=== PATIENT | female | born 1970 | race Two or more races ===

== ENCOUNTER → 2020-11-02 11:14 | Outpatient (BNVA) | payer MEDICAID, SELFPAY | PROVIDERS: PCP Hospitalist; Visit Provider Physician Assistant Medical | DX: M65.849 Other synovitis and tenosynovitis, unspecified hand (principal) | CPT/HCPCS: 73130; 99203 ==

== ENCOUNTER 2020-11-24 11:30 | Outpatient (RCR) | payer OTHER, SELFPAY ==
--- NOTE | 2021-01-09 11:50 | MHC.OT.DC ---
[address] [phone] F: [phone] Occupational Therapy Discharge Note Provider: PHILLY FAITH PA-C Diagnosis: B/L THUMB TENDINITIS/TENOSYNOVITIS Date of Surgery: Date of Evaluation: 11/06/20 Date of Discharge: Treatments to Date: 5 Cancellations to Date: 0 No Shows to Date: 0 Discharge Status: Discharge Summary: Still w/ high pain and significantly limited use of hands. Pt has not rescheduled. Electronically Signed By: Amber Lantigua OTR/L Reviewed/agree with student documentation: N/A Therapist: Please Sign and return to therapist, thank you for your referral.
== END 2020-12-21 15:39 | disposition other institution (70) ==
LOC: HO.OT 11:30
PROVIDERS: PCP Hospitalist; Visit Provider Physician Assistant Medical
DX: M77.8 Other enthesopathies, not elsewhere classified (principal); M65.9 Synovitis and tenosynovitis, unspecified
CPT/HCPCS: 29130; 97014; 97033; 97035; 97110; 97140; 97165; 97530; 97760

== ENCOUNTER → 2020-12-12 08:26 | Outpatient (BNVA) | payer OTHER, SELFPAY | PROVIDERS: PCP Nurse Practitioner Family; Visit Provider Orthopaedic Surgery | DX: M65.311 Trigger thumb, right thumb (principal); M65.312 Trigger thumb, left thumb | CPT/HCPCS: 20550; 99202; J1100 ==

== ENCOUNTER → 2021-05-23 12:48 | Outpatient (BNVA) | payer OTHER, SELFPAY | PROVIDERS: PCP Internal Medicine; Visit Provider Orthopaedic Surgery | DX: M65.312 Trigger thumb, left thumb (principal); M65.311 Trigger thumb, right thumb | CPT/HCPCS: 99212 ==

== ENCOUNTER 2021-06-12 11:21 | Day surgery (SDC) | payer OTHER, SELFPAY ==
[2021-06-12 12:11] VITALS: BP 139/91; PULSE 72; RESP 16; TEMP 36.5; O2SAT 96; BMI 27.3
--- NOTE | 2021-06-12 12:31 | MHC.SHP ---
Pre-Procedural Eval Section A Date of Service: 06/12/21 The patient is an INPATIENT: No Changes since office visit: No Cold of Flu in the past 2 weeks, No New Medical Problems, No Changes in Medication and No Patient answered all questions The History & Physical has been completed within 30 days and I have reviewed it.: Yes Section B Chief Complaint: trigger thumb Allergies: Allergies Allergy/AdvReac Type Severity Reaction Status Date / Time aspirin [ASPIRIN] Allergy Severe STOMACH Verified 06/12/21 12:10 UPSET codeine [CODEINE] Allergy Intermediate STOMACH Verified 06/12/21 12:10 UPSET Plan I have reviewed the history and physical and performed a pertinent physical examination on my patient. No changes have occurred unless specified.
--- NOTE | 2021-06-12 12:31 | W.PM.OPN ---
Operative Note Operative Note Date of Service: 06/12/21 Narrative: Operative Note Preop diagnosis: 1. Right thumb Trigger finger Postop diagnosis: 1. Right thumb Trigger finger Procedure: 1. Right thumb A1 itzel release Surgeon: Lorraine Belcher MD Anesthesia: local block using 1% lidocaine with epinephrine Findings: Significant hour glass deformity of the EPL tendon beneath the A1 itzel. No locking or catching after A1 itzel release EBL: Less than 5 mL Tourniquet time: None Specimens: None Complications: None Disposition: Brought to recovery room in stable condition Plan: Follow-up for 7-10 days for wound check and suture removal Indications: The patient is 51 years old, with a right trigger thumb that has been unresponsive to nonoperative management. The risks and benefits of operative treatment including but not limited to risk of damage to blood vessels, nerves, tendons, infection, persistent pain, persistent symptoms, recurrence or possible need for additional surgery were discussed with the patient and the patient wishes to proceed with surgery. Procedure: Once consent was obtained a local block was performed in the preop area using a combination of 1% lidocaine with epinephrine. The patient was then brought back to the operating suite and placed on the operative table in supine position. A tourniquet was applied to the proximal aspect of the right upper extremity and the limb was prepped and draped in a standard surgical fashion. Once assured that we had a good block, a 1.5 cm oblique incision was made centered over the A1 itzel of the right thumb . The incision was made through the skin to the subcutaneous tissues using a #15 blade. Careful dissection was made down to the level of the A1 itzel using tenotomy scissors, with care being taken to protect the nearby neurovascular structures. A longitudinal incision was made in the A1 itzel 1st using a #15 blade, then using tenotomy scissors under direct visualization. The A1 itzel was noted to be thickened. Following our A1 itzel release, we no longer saw any locking or catching of the digit with flexion and extension. Once satisfied with our A1 itzel release the wound was copiously irrigated with normal saline and hemostasis was obtained with a brief period of local pressure. The skin edges were reapproximated with some 5.0 nylon suture material and a sterile dressing was applied. The patient appears to have tolerated the procedure well and with no complications. All digits were well vascularized at the conclusion of the case.
[2021-06-12 13:12] VITALS: BP 166/87; PULSE 70; RESP 18; TEMP 36.8; O2SAT 96
[2021-06-12 13:27] VITALS: BP 156/88; PULSE 68; RESP 18; O2SAT 96
== END 2021-06-12 13:40 | disposition home or self-care (01) ==
PROVIDERS: Visit Provider Orthopaedic Surgery
PROC: (CPT 26055; principal; 2021-06-12 13:10)
DX: M65.311 Trigger thumb, right thumb (principal); I10 Essential (primary) hypertension; Z79.899 Other long term (current) drug therapy; Z88.8 Allergy status to other drugs, medicaments and biological substances
CPT/HCPCS: 26055

== ENCOUNTER → 2021-06-25 15:40 | Outpatient (BNVA) | payer OTHER, SELFPAY | PROVIDERS: Visit Provider Orthopaedic Surgery | DX: Z01.818 Encounter for other preprocedural examination (principal); M65.312 Trigger thumb, left thumb | CPT/HCPCS: 99212 ==

== ENCOUNTER 2021-07-26 10:29 | Day surgery (SDC) | payer OTHER, SELFPAY ==
[2021-07-26 11:39] VITALS: BP 132/91; PULSE 85; RESP 16; TEMP 36.7; O2SAT 97; BMI 26.5
[2021-07-26 15:03] VITALS: BP 149/95; PULSE 75; RESP 16; TEMP 36.1; O2SAT 100
--- NOTE | 2021-07-26 15:14 | MHC.SHP ---
Pre-Procedural Eval Section A Date of Service: 07/26/21 The patient is an INPATIENT: No Changes since office visit: No Cold of Flu in the past 2 weeks, No New Medical Problems, No Changes in Medication and No Patient answered all questions The History & Physical has been completed within 30 days and I have reviewed it.: Yes Section B Chief Complaint: left trigger thumb Allergies: Allergies Allergy/AdvReac Type Severity Reaction Status Date / Time aspirin [ASPIRIN] Allergy Severe STOMACH Verified 07/26/21 11:38 UPSET codeine [CODEINE] Allergy Intermediate STOMACH Verified 07/26/21 11:38 UPSET Plan I have reviewed the history and physical and performed a pertinent physical examination on my patient. No changes have occurred unless specified.
--- NOTE | 2021-07-26 15:14 | W.PM.OPN ---
Operative Note Operative Note Date of Service: 07/26/21 Narrative: Operative Note Preop diagnosis: 1. Left thumb Trigger finger Postop diagnosis: 1. Left thumb Trigger finger Procedure: 1. Left thumb A1 itzel release Surgeon: Lorraine Belcher MD Anesthesia: local block using 1% lidocaine with epinephrine Findings: Intra tendinous ganglion appreciated within the FPL tendon just proximal to where the tendon was locked beneath the A1 itzel. After punctured with a 15. Blade longitudinally it drained clear viscous fluid consistent with a ganglion. Significant hourglass deformity in the FPL tendon just distal to the intratendinous ganglion. No locking or catching after A1 itzel release EBL: Less than 5 mL Tourniquet time: None Specimens: None Complications: None Disposition: Brought to recovery room in stable condition Plan: Follow-up for 7-10 days for wound check and suture removal Indications: The patient is 51 years old, with a left thumb trigger finger that has been unresponsive to nonoperative management. The risks and benefits of operative treatment including but not limited to risk of damage to blood vessels, nerves, tendons, infection, persistent pain, persistent symptoms, recurrence or possible need for additional surgery were discussed with the patient and the patient wishes to proceed with surgery. Procedure: Once consent was obtained a local block was performed in the preop area using a combination of 1% lidocaine with epinephrine. The patient was then brought back to the operating suite and placed on the operative table in supine position. A tourniquet was applied to the proximal aspect of the left upper extremity and the limb was prepped and draped in a standard surgical fashion. Once assured that we had a good block, a 1.5 cm oblique incision was made centered over the A1 itzel of the left thumb . The incision was made through the skin to the subcutaneous tissues using a #15 blade. Careful dissection was made down to the level of the A1 itzel using tenotomy scissors, with care being taken to protect the nearby neurovascular structures. A longitudinal incision was made in the A1 itzel 1st using a #15 blade, then using tenotomy scissors under direct visualization. The A1 itzel was noted to be thickened. There was a significant hourglass deformity beneath where the A1 itzel had been. Proximal to where the tendon had been locked beneath the A1 itzel the FPL tendon was noted to be enlarged and there was evidence of an approximately 4 mm diameter ganglion within the tendon. I made a small longitudinal incision in this part of the tendon and it drained clear viscous fluid consistent with a ganglion. Following our A1 itzel release, we no longer saw any locking or catching of the digit with flexion and extension. Once satisfied with our A1 itzel release the wound was copiously irrigated with normal saline and hemostasis was obtained with a brief period of local pressure. The skin edges were reapproximated with some 5.0 nylon suture material and a sterile dressing was applied. The patient appears to have tolerated the procedure well and with no complications. All digits were well vascularized at the conclusion of the case.
== END 2021-07-26 15:14 | disposition home or self-care (01) ==
PROVIDERS: Visit Provider Orthopaedic Surgery
PROC: (CPT 26055; principal; 2021-07-26 12:50)
DX: M65.312 Trigger thumb, left thumb (principal); I10 Essential (primary) hypertension; Z88.8 Allergy status to other drugs, medicaments and biological substances; Z79.899 Other long term (current) drug therapy; Z87.891 Personal history of nicotine dependence
CPT/HCPCS: 26055

== ENCOUNTER → 2021-08-07 12:19 | Outpatient (BNVA) | payer OTHER, SELFPAY | PROVIDERS: Visit Provider Orthopaedic Surgery | DX: M65.312 Trigger thumb, left thumb (principal); M25.649 Stiffness of unspecified hand, not elsewhere classified | CPT/HCPCS: 99212 ==

== ENCOUNTER 2021-10-16 08:01 | Outpatient (REF) | payer OTHER, SELFPAY ==
[2021-10-16 08:32] LABS: Binax Internal Control QC Valid; Binax Now Covid-19 Ag Negative (Negative)
== END 2021-10-16 08:02 | disposition home or self-care (01) ==
LOC: HO.LAB 08:01
PROVIDERS: Visit Provider Internal Medicine
DX: Z20.822 Contact with and (suspected) exposure to COVID-19 (principal)
CPT/HCPCS: C9803

== ENCOUNTER 2021-10-16 08:33 | Outpatient (REF) | payer OTHER, SELFPAY ==
[2021-10-16 08:45] LABS: MANUAL DIFF FLAG NO
[2021-10-16 09:03] LABS: Basophils Absolute Auto 0.1 X10*3/uL (0.0-0.2); Basophils Percent Auto 0.7 % (0-2); Eosinophils Absolute Auto 0.8 X10*3/uL (0.0-0.4); Eosinophils Percent Auto 8.7 % (0-4); Hematocrit 40.1 % (37.0-47.0); Hemoglobin 12.9 g/dl (12.0-16.0); Imm Gran Abs Auto 0.05 X10*3/uL (0.00-0.03); Imm Gran Pct Auto 0.5 % (0.0-0.4); Immature Retic Fraction 14.8 % (3.0-15.9); Lymphocytes Absolute Auto 3.8 X10*3/uL (1.2-4.9); Mean Corpuscular HGB Conc 32.2 g/dl (31.0-35.0); Mean Corpuscular Hemoglobin 28.4 pg (27.0-33.0); Mean Corpuscular Volume 88.3 fL (80.0-98.0); Monocytes Absolute Auto 0.5 X10*3/uL (0.1-1.2); Monocytes Percent Auto 5.5 % (2-11); Neutrophils Absolute Auto 4.3 x10*3/uL (2.0-8.3); Neutrophils Percent Auto 44.6 % (45-73); Platelet Count 250 X10*3/uL (160-400); Red Blood Count 4.54 X10*6/uL (4.20-5.50); Red Cell Distribution Width 14.4 % (11.0-16.0); Retic HGB Equivalent 30.5 pg (30.0-35.0); Reticulocyte Percent 1.6 % (0.5-1.8); Reticulocytes Absolute 0.072 X10*6/uL (0.026-0.095); White Blood Count 9.6 X10*3/uL (4.8-10.8)
[2021-10-16 09:29] LABS: Alanine Aminotransferase 12 U/L (0-31); Albumin Level 4.1 g/dL (3.5-5.0); Alkaline Phosphatase 103 U/L (39-117); Anion Gap 11 (12-20); Aspartate Amino Transferase 14 U/L (5-31); Bilirubin Total 0.4 mg/dL (0.0-1.0); Blood Urea Nitrogen 9 mg/dL (9-16); Calcium 9.6 mg/dL (8.4-10.2); Carbon Dioxide 25 mmol/L (22-29); Chloride 108 mmol/L (96-108); Cholesterol 185 mg/dL; Estimated Glomerular Filt Rate > 60; Glucose Random 115 mg/dL (60-115); HDL Cholesterol 53 mg/dL; Iron 47 mcg/dL (30-160); LDL Cholesterol Calculated 112 mg/dl; Percent Iron Saturation 13 % (15-50); Potassium 4.4 mmol/L (3.3-5.1); Sodium 140 mmol/L (135-145); Total Iron Binding Capacity 366 mcg/dL (228-428); Total Protein 7.6 g/dL (6.5-8.0); Triglycerides 102 mg/dL; Unsaturated Iron Binding 319 ug/dL
[2021-10-16 09:54] LABS: Ferritin 77 ng/mL (10-250); Free T4 (Free Thyroxine) 0.98 ng/dL (0.71-1.85); Vitamin D 25-OH Total 17.2 ng/mL (>30)
[2021-10-16 10:02] LABS: Folate 14.7 ng/mL (> or = 4.0); Vitamin B12 623 pg/mL (200-900)
[2021-10-16 10:48] LABS: Appearance Urine CLEAR; Color Urine YELLOW; Glucose Urine UA NEG (NEG); Leukocyte Esterase Urine NEG (NEG); Nitrite Urine NEG (NEG); PH 5.5 (5.0-8.0); Urine Blood TRACE (NEG); Urine Ketones NEG (NEG); Urine Protein NEG (NEG-TRACE)
[2021-10-16 11:04] LABS: Bacteria Urine TRACE /LPF; Mucus Urine 1+ /LPF; RBC Urine 0-2 /HPF (0); Squamous Epithelial Cell Urine 1+ /LPF; WBC Urine 0 /HPF (0-4)
== END 2021-10-16 08:34 | disposition home or self-care (01) ==
LOC: HO.LAB 08:33
PROVIDERS: PCP Internal Medicine; Visit Provider Internal Medicine
DX: R79.89 Other specified abnormal findings of blood chemistry (principal); E78.00 Pure hypercholesterolemia, unspecified
CPT/HCPCS: 36415; 80053; 80061; 81001; 82306; 82607; 82728; 82746; 83540; 84439; 84443; 85025; 85045

== ENCOUNTER 2021-11-08 09:31 | Outpatient (REF) | payer OTHER, SELFPAY ==
--- NOTE | ~2021-11-08 | MM_ITS ---
EXAMINATION: MM SCREENING DIGITAL BREAST TOMOSYNTHESIS, BILATERAL CLINICAL INFORMATION: Screening. Asymptomatic. The lifetime risk of breast cancer based on the Tyrer-Cuzick Model is 7.6%. COMPARISON: Mammography: August 24, 2014 and August 09, 2014 TECHNIQUE: Digital breast tomosynthesis is performed in both the craniocaudal and mediolateral oblique views along with computer-aided detection (CAD). Synthesized 2D images are generated from the tomosynthesis. FINDINGS: There are scattered areas of fibroglandular density (ACR BI-RADS breast composition Category b). There are no significant masses, abnormal calcifications, or other abnormalities. MM/MM tomosynthesis screening BI IMPRESSION: There are no significant changes from prior study. ASSESSMENT: BI-RADS 1: Negative RECOMMENDATION: Routine annual mammography screening. This patient's information was entered into a reminder system with a target due date for their next mammogram.
== END 2021-11-08 09:32 | disposition home or self-care (01) ==
LOC: HO.MAMMO 09:31
PROVIDERS: Visit Provider Student in an Organized Health Care Education/Training Program
DX: Z12.31 Encounter for screening mammogram for malignant neoplasm of breast (principal)
CPT/HCPCS: 77063; 77067

== ENCOUNTER 2021-11-13 09:40 | Outpatient (REF) | payer OTHER, SELFPAY ==
--- NOTE | 2021-11-13 17:36 | PFT_ITS ---
Forced vital capacity 83%. FEV1 74%. FEV1/FVC ratio is 72, DFF71-78 51% and MVV 64%. Post-bronchodilator therapy, there is a small, but significant improvement in LPC65-68, and FEF maximum L/sec. Total lung capacity 91% and residual volume 106%. Diffusion capacity 76%. CONCLUSION: Mild degree of obstructive airway disorder involving small airways. This is improved with bronchodilator therapy and indicates that the patient may have a mild degree of bronchial asthma. Clinical correlation is recommended. MD SAIDA English/MODL / [id number]
== END 2021-11-13 09:41 | disposition home or self-care (01) ==
LOC: HO.RESP 09:40
PROVIDERS: PCP Internal Medicine; Visit Provider Internal Medicine
DX: J44.9 Chronic obstructive pulmonary disease, unspecified (principal)
CPT/HCPCS: 94060; 94727; 94729

== ENCOUNTER 2021-12-20 09:21 | Outpatient (REF) | payer OTHER, SELFPAY ==
[2021-12-21 01:37] LABS: CT PCR NOT DETECTED (Not Detect.); NG PCR NOT DETECTED (Not Detect.)
[2021-12-21 09:01] LABS: BV Int Neg Control Negative (Negative); BV Int Pos Control Positive (Positive)
[2021-12-22 17:17] LABS: HPV mRNA E6/E7 rflx Not Detected (Not Detected)
== END 2021-12-20 09:22 | disposition home or self-care (01) ==
LOC: HO.LAB 09:21
PROVIDERS: PCP Internal Medicine; Visit Provider Advanced Practice Midwife
DX: Z01.411 Encounter for gynecological examination (general) (routine) with abnormal findings (principal); Z11.51 Encounter for screening for human papillomavirus (HPV); Z20.2 Contact with and (suspected) exposure to infections with a predominantly sexual mode of transmission; N95.1 Menopausal and female climacteric states; Z87.42 Personal history of other diseases of the female genital tract; Z98.890 Other specified postprocedural states; Z90.710 Acquired absence of both cervix and uterus
CPT/HCPCS: 87480; 87491; 87510; 87591; 87624; 87660; 88142

== ENCOUNTER 2021-12-21 09:21 | Outpatient (REF) | payer OTHER, SELFPAY ==
[2021-12-23 02:47] LABS: Follicle Stimulating Hormone 43.9 mIU/mL
== END 2021-12-21 09:22 | disposition home or self-care (01) ==
LOC: HO.LAB 09:21
PROVIDERS: PCP Internal Medicine; Visit Provider Advanced Practice Midwife
DX: Z01.419 Encounter for gynecological examination (general) (routine) without abnormal findings (principal)
CPT/HCPCS: 36415; 83001

== ENCOUNTER → 2022-01-07 12:58 | Outpatient (BNVA) | payer OTHER, SELFPAY | PROVIDERS: PCP Internal Medicine; Referring Provider Internal Medicine; Visit Provider Nurse Practitioner Family | DX: K59.04 Chronic idiopathic constipation (principal); K21.9 Gastro-esophageal reflux disease without esophagitis | CPT/HCPCS: 99202 ==

== ENCOUNTER 2022-04-16 09:08 | Day surgery (SDC) | payer OTHER, SELFPAY ==
[2022-04-10 12:01] VITALS: BMI 29.0
--- NOTE | 2022-04-15 09:45 | HO.ANESPROP2 ---
Documented by User: Dayaan Grace NP 04/15/22 09:46 HPI - Anesthesia Eval Consult details Narrative: 52yo F for Upper Endoscopy and Colonoscopy PMFSH Active Problems Active Problems: All Active Problems (Updated 01/09/22 @ 15:56 by Sahara Pickett CNM) Cervical cancer screening (Acute) Vaginal atrophy (Acute) Vitamin D deficiency (Acute) Acquired deformity of abdominal wall (Acute) Impaired glucose tolerance (Acute) Annual physical exam (Acute) Rhinitis (Acute) Perimenopause (Acute) Hx of ovarian cyst (Acute) H/O abdominoplasty (Acute) Asthma (Acute) Constipation (Acute) Colon cancer screening (Acute) Overweight (BMI 25.0-29.9) (Acute) Past Medical History Medical History Abnormal TSH Asthma Asthma exacerbation Breast cancer screening by mammogram Bronchitis Carpal tunnel syndrome on both sides Cervical cancer screening Hypertension Repetitive use syndrome Stiffness of finger joint Trigger finger of left thumb Trigger finger of right thumb Well woman exam with routine gynecological exam Family History Family History Brother Colon cancer Maternal Uncle Substance abuse Surgical History Surgical History H/O abdominoplasty H/O vaginal hysterectomy History of carpal tunnel release Hx of cholecystectomy Hx of colonoscopy Hx of exploratory laparotomy S/P tonsillectomy S/P trigger finger release Social History Social History Housing: Apartment Alcohol intake: current Alcohol intake frequency: does not drink Patient Tobacco Use Status: Former Tobacco user Quit Date: 29 yrs ago Tobacco use type: Cigarette Years Smoked: stopped 1991 e-Cigarette/Vaping Use: Never Used Second Hand Smoke Exposure: No Use of substances other than those prescribed or required for medical reasons: No Are you DNR?: No Advance Directives: No Advance Directives Information Provided: Yes Recently lost weight without trying: No Nutrition Risks: No Nutritional Risk Patient : No service: No Current occupational status: employed and unemployed Current occupation: right handed Current occupational exposures/hazards: No Cognitive needs: No Hearing needs: No Vision needs: No Meds Allergies Allergy/AdvReac Type Severity Reaction Status Date / Time aspirin [ASPIRIN] Allergy Severe STOMACH Verified 01/07/22 13:01 UPSET codeine [CODEINE] Allergy Intermediate STOMACH Verified 01/07/22 13:01 UPSET Exam Exam Date and Time: April 15, 2022 0945 Height,Weight and Vital Signs: Height 5 ft 3 in Weight 74.389 kg Pertinent Lab Results Pertinent Lab Results: Laboratory Tests 10/16/21 10/16/21 08:44 08:44 WBC 9.6 Hgb 12.9 Hct 40.1 Plt Count 250 Sodium 140 Potassium 4.4 Chloride 108 Carbon Dioxide 25 BUN 9 Creatinine 0.75 Assessment and Plan Assessment Anesthesia Assessment: Chart Reviewed Documented by User: Placido Smith MD 04/16/22 11:50 PMFSH Past Medical History Medical History Abnormal TSH Asthma Asthma exacerbation Breast cancer screening by mammogram Bronchitis Carpal tunnel syndrome on both sides Cervical cancer screening Hypertension Repetitive use syndrome Stiffness of finger joint Trigger finger of left thumb Trigger finger of right thumb Well woman exam with routine gynecological exam Patient : No Family History Family History Brother Colon cancer Maternal Uncle Substance abuse Family history of problems with anesthesia: No Surgical History Surgical History H/O abdominoplasty H/O vaginal hysterectomy History of carpal tunnel release Hx of cholecystectomy Hx of colonoscopy Hx of exploratory laparotomy S/P tonsillectomy S/P trigger finger release History of Problems with Anesthesia: No Social History Social History Housing: Apartment Alcohol intake: current Alcohol intake frequency: does not drink Patient Tobacco Use Status: Former Tobacco user Quit Date: 29 yrs ago Tobacco use type: Cigarette Years Smoked: stopped 1991 e-Cigarette/Vaping Use: Never Used Second Hand Smoke Exposure: No Use of substances other than those prescribed or required for medical reasons: No Are you DNR?: No Advance Directives: No Advance Directives Information Provided: Yes Recently lost weight without trying: No Nutrition Risks: No Nutritional Risk Patient : No service: No Current occupational status: employed and unemployed Current occupation: right handed Current occupational exposures/hazards: No Cognitive needs: No Hearing needs: No Vision needs: No Meds Allergies Allergy/AdvReac Type Severity Reaction Status Date / Time aspirin [ASPIRIN] Allergy Severe STOMACH Verified 01/07/22 13:01 UPSET codeine [CODEINE] Allergy Intermediate STOMACH Verified 01/07/22 13:01 UPSET Exam Airway Mallampati Class: III TM Dist: >3cm Neck ROM: Full Loose/Missing/Broken Teeth: No Heart: rrr Lungs: clear Assessment and Plan Final Anesthetic Review Family History of Problems with Anesthesia: No History of Problems with Anesthesia: No NPO: No ASA Class: II Final Preanesthetic Review: No Changes in Pt Med Stat, Meds/Allgs Chart Reviewed, Consent Obtained/Reviewed and Anes Risks/Benef Reviewed Patient Risk: Intermediate Procedure Risk: Low Anesthetic Plan Anesthetic Plan: MAC: Disposition: Standard PACU
[2022-04-16 09:12] VITALS: BP 169/73; PULSE 72; RESP 18; TEMP 36.6; O2SAT 97
[2022-04-16] MEDS: Lactated Ringers 1,000 ML 100 ML IVCONT (09:30)
[2022-04-16] MEDS: Albuterol Sulfate (0.083%) 2.5 MG/3 ML VIAL.NEB INHALE (09:36)
[2022-04-16 09:38] VITALS: PULSE 76; RESP 18; O2SAT 95
--- NOTE | 2022-04-16 10:42 | P.HPSUR_ITS ---
Pre-Procedural Eval Section A Date of Service: 04/16/22 Section B Chief Complaint: reflux disease,screening Details of Present Illness: brother with IBD Relevant Family History (Specify if Yes): Yes Relevant Social History: None Present Medications: see Short Stay Collaborative assessment Medical History: Significant History (Abnormal TSH Asthma Asthma exacerbation Breast cancer screening by mammogram Bronchitis Carpal tunnel syndrome on both sides Cervical cancer screening Hypertension Repetitive use syndrome Stiffness of finger joint Trigger finger of left thumb Trigger finger of right thumb Well woman exam with routin) History of Previous Operations: Relevant previous surgery/procedure and date(s) (H/O abdominoplasty H/O vaginal hysterectomy History of carpal tunnel release Hx of cholecystectomy Hx of colonoscopy Hx of exploratory laparotomy S/P tonsillectomy S/P trigger finger release) Allergies: Allergies Allergy/AdvReac Type Severity Reaction Status Date / Time aspirin [ASPIRIN] Allergy Severe STOMACH Verified 01/07/22 13:01 UPSET codeine [CODEINE] Allergy Intermediate STOMACH Verified 01/07/22 13:01 UPSET Review of Systems Sugical H&P ROS: Negative: Constitution, Cardiovascular, Respiratory, Neuro logical, Psychiatric, Hem-Onc, Allergic/Immunologic, Gastrointestinal, Genitourinary, Musculoskeletal, Integumentary, Endocrine and Eyes/Ears/Nose/Throat Exam Surgical H&P Exam: Normal: HEENT, Normal: Heart, Normal: Lungs, Normal: Extremities, Normal: Abdomen, Normal: Skin and Normal: Neurological Plan Diagnosis/Plan: Unchanged I have reviewed the history and physical and performed a pertinent physical examination on my patient. No changes have occurred unless specified.
--- NOTE | 2022-04-16 11:35 | P.OP_ITS ---
Operative Note Operative Note Date of Service: 04/16/22 Narrative: Operative Information Procedure Description: EGD, Colonoscopy Indication: GERD, Colon screening Anesthesia: MAC FLEXIBLE TRANSORAL UPPER GASTROINTESTINAL ENDOSCOPY AND COLONOSCOPY PROCEDURE NOTE UPPER ENDOSCOPY Consent: Indications for the procedure and potential complications of bleeding, perforation, reaction to medications and missed diagnosis were discussed with the patient and informed consent was obtained. Instrument: Olympus GIF H 190 J mid size upper endoscope Monitoring: Vital signs and clinical assessment, continuous EKG monitoring, Pulse oximetry, Carbon Dioxide monitoring and blood pressure monitoring were done throughout the procedure. Procedure: The patient was placed in the left lateral decubitis position and pre-procedure medications were administered and a bite block was placed. The endoscope was inserted into the mouth and advanced under direct vision to the third part of duodenum. A careful inspection was made as the upper endoscope was withdrawn including a retroflexed examination of the proximal stomach; Findings and interventions are described below. Findings: Larynx:normal Esophagus: GE junction at 35 cm, diaphragm hiatus at 35 cm, bogginess, with edema and erythema and linear erosions consistent with erosive esophagitis at the GEJ, bx taken Stomach: Patchy erythema with scarring. Biopsies were obtained to r/o h pylori. Grade 2 flap valve on retroflexed examination of the cardia. Duodenum: Normal bulb and descending duodenum, Intervention: Biopsies as noted above COLONOSCOPY Instrument: Olympus variable stiffness pediatric scope 190L Colonoscopy Monitoring: Vital signs and clinical assessment, continuous EKG monitoring, Pulse oximetry, Carbon Dioxide monitoring and blood pressure monitoring were done throughout the procedure. Colon withdrawal time was 10 minutes. Procedure: The patient was placed in the left lateral decubitis position and pre-procedure medications were administered. After a digital rectal examination of the ano-rectum, the video colonoscope was inserted into the rectum and advanced through the colon to the cecum/TI. The colonoscope was slowly withdrawn in a retrograde panoramic fashion and the colon mucosa was carefully examined including a retroflexed view of the rectum. Findings and interventions are described below. Procedure Difficulty:easy Findings: Terminal Ileum-normal Cecum:normal Ascending Colon: normal Transverse Colon -normal Descending Colon: x 2 sessile polyps 5-6 mm removed with cold forceps, mild diverticulosis Sigmoid Colon: moderate diverticulosis with small tics Rectum: Retroflexion with small to medium sized internal hemorrhoids, grade I Anorectum - normal Colon preparation: [place] Bowel Preparation Scale Right colon; 2 Transverse colon: 2 Left colon; 2 (0 = Unprepared colon segment with mucosa not seen due to solid stool that cannot be cleared. 1 = Portion of mucosa of the colon segment seen, but other areas of the colon segment not well seen due to staining, residual stool and/or opaque liquid. 2 = Minor amount of residual staining, small fragments of stool and/or opaque liquid, but mucosa of colon segment seen well. 3 = Entire mucosa of colon segment seen well with no residual staining, small fragments of stool or opaque liquid) Impression and Post Procedure Diagnosis: Endoscopy Findings: esophagitis gastritis Colonoscopy Findings: polyps internal hemorrhoids diverticular disease Plan: Await Pathology results Repeat Colonoscopy in 5 years if adenomatous polyps, 10 yrs if hyperplastic or earlier if clinically indicated High fiber diet leaflet avoid straining at stool, epsom salts and sitz bath, anusol supps or cream If H pylori pos then treat, may also benefit from PPI but will wait for bx first, if bx neg for h pylori then would do breath test. Above findings were reviewed with the patient and relevant handouts were provided if indicated.
[2022-04-16 12:44] VITALS: BP 117/71; PULSE 92; RESP 16; TEMP 36.4; O2SAT 95
[2022-04-16 12:59] VITALS: BP 142/88; PULSE 70; RESP 16; TEMP 36.4; O2SAT 98
[2022-04-16] MEDS: Acetaminophen 325 MG TABLET 975 MG PO (13:00)
== END 2022-04-16 13:27 | disposition home or self-care (01) ==
PROVIDERS: Visit Provider Internal Medicine Gastroenterology
PROC: (CPT 45380; principal; 2022-04-16 10:30)
DX: Z12.11 Encounter for screening for malignant neoplasm of colon (principal); K63.5 Polyp of colon; K57.30 Diverticulosis of large intestine without perforation or abscess without bleeding; K64.0 First degree hemorrhoids; K59.04 Chronic idiopathic constipation; K21.00 Gastro-esophageal reflux disease with esophagitis, without bleeding; K29.50 Unspecified chronic gastritis without bleeding; K64.8 Other hemorrhoids; K44.9 Diaphragmatic hernia without obstruction or gangrene; I10 Essential (primary) hypertension; J45.909 Unspecified asthma, uncomplicated; Z79.51 Long term (current) use of inhaled steroids; Z79.899 Other long term (current) drug therapy; Z88.8 Allergy status to other drugs, medicaments and biological substances; Z90.49 Acquired absence of other specified parts of digestive tract; Z98.890 Other specified postprocedural states; Z87.891 Personal history of nicotine dependence
CPT/HCPCS: 45380; 43239; 88305; 88342; 94640

== ENCOUNTER → 2022-04-30 09:25 | Outpatient (BNVA) | payer OTHER, SELFPAY | PROVIDERS: PCP Internal Medicine; Referring Provider Internal Medicine; Visit Provider Nurse Practitioner Family | DX: K63.5 Polyp of colon (principal); K21.00 Gastro-esophageal reflux disease with esophagitis, without bleeding; K29.50 Unspecified chronic gastritis without bleeding; Z79.899 Other long term (current) drug therapy; Z98.890 Other specified postprocedural states | CPT/HCPCS: 99212 ==

== ENCOUNTER 2022-05-03 11:00 | Outpatient (REF) | payer OTHER, SELFPAY ==
[2022-05-03 12:38] LABS: COVID-19 Test Positive (Negative); IDNOW Serial# 9DB6401D
== END 2022-05-03 11:01 | disposition home or self-care (01) ==
LOC: HO.LAB 11:00
PROVIDERS: Visit Provider Internal Medicine
DX: Z20.822 Contact with and (suspected) exposure to COVID-19 (principal)
CPT/HCPCS: 87635; C9803

== ENCOUNTER 2022-06-17 10:05 | Outpatient (REF) | payer OTHER, SELFPAY ==
--- NOTE | ~2022-06-17 | XR_ITS ---
EXAMINATION: XR HAND, RIGHT CLINICAL INFORMATION: PT states pain and limited ROM in right fingers for 2 months. COMPARISON: 10/31/2020 TECHNIQUE: PA, lateral, and oblique views of the right hand. FINDINGS: No fracture. Alignment is anatomic. Tiny marginal osteophytes are present in the DIP joints diffusely. Joint spaces appear relatively well-preserved. Chronic subcortical cystic changes noted in the ulnar styloid. No erosions or soft tissue calcifications. XR/XR hand RT 2V IMPRESSION: Minimal osteoarthritis in the DIP joints. No acute osseous findings. No evidence of an inflammatory arthropathy.
== END 2022-06-17 10:06 | disposition home or self-care (01) ==
LOC: HO.XRAY 10:05
PROVIDERS: PCP Internal Medicine; Visit Provider Internal Medicine
DX: M79.644 Pain in right finger(s) (principal)
CPT/HCPCS: 73120

== ENCOUNTER → 2022-10-15 08:45 | Outpatient (BNVA) | payer OTHER, SELFPAY | PROVIDERS: PCP Internal Medicine; Visit Provider Orthopaedic Surgery | DX: M25.649 Stiffness of unspecified hand, not elsewhere classified (principal); M79.641 Pain in right hand; M79.642 Pain in left hand | CPT/HCPCS: 99212 ==

== ENCOUNTER 2022-10-30 11:31 | Outpatient (REF) | payer OTHER, SELFPAY ==
--- NOTE | ~2022-10-30 | XR_ITS ---
EXAMINATION: XR LUMBOSACRAL SPINE CLINICAL INFORMATION: Reason for Exam M54.9 - Dorsalgia, unspecified COMPARISON: None TECHNIQUE: 3 views of the lumbar spine FINDINGS: 5 nonrib-bearing lumbar-type vertebral bodies. Vertebral body heights are maintained. Alignment is maintained. Multilevel degenerative disc disease worst at L Sclerosis along the bilateral sacroiliac joints. Multilevel degenerative disc disease worst at L2-L3 with there is moderate to advanced loss of disc space height and degenerative endplate spurring. Large desiccated stool ball in the rectum. XR/XR lumbar spine 2-3V IMPRESSION: * Multilevel degenerative disc disease worst at L2-L3 with there is moderate to advanced loss of disc space height and degenerative endplate spurring. * Sclerosis along the bilateral sacroiliac joints which can be seen in the setting of sacroiliitis or degenerative change..
--- NOTE | ~2022-10-30 | XR_ITS ---
EXAMINATION: XR hand LT 2V CLINICAL INFORMATION: Pain COMPARISON: Left hand radiographs 11/02/2020 TECHNIQUE: 3 views of the hand FINDINGS: No fracture or dislocation. Joint spaces are maintained. No cortical erosion. Soft tissues are unremarkable. XR/XR hand LT 2V IMPRESSION: No acute osseous abnormality.
== END 2022-10-30 11:32 | disposition home or self-care (01) ==
LOC: HO.XRAY 11:31
PROVIDERS: PCP Internal Medicine; Visit Provider Nurse Practitioner Family
DX: M79.641 Pain in right hand (principal); M79.642 Pain in left hand; M54.9 Dorsalgia, unspecified
CPT/HCPCS: 72100; 73120

== ENCOUNTER 2022-10-31 08:59 | Outpatient (REF) | payer OTHER, SELFPAY ==
[2022-10-31 10:33] LABS: Rheumatoid Factor < 13.0 IU/mL (<15.0)
[2022-11-06 14:13] LABS: Anti Nuclear Antibody Pattern Nuclear, Centromere; Anti Nuclear Antibody Screen POSITIVE (NEGATIVE)
== END 2022-10-31 09:00 | disposition home or self-care (01) ==
LOC: HO.LAB 08:59
PROVIDERS: PCP Internal Medicine; Visit Provider Nurse Practitioner Family
DX: M79.641 Pain in right hand (principal); M79.642 Pain in left hand
CPT/HCPCS: 36415; 86038; 86039; 86431

== ENCOUNTER 2022-11-14 08:00 | Outpatient (RCR) | payer OTHER, SELFPAY ==
--- NOTE | 2022-11-08 10:42 | MHC.OT.EP ---
[address] [phone] Occupational Therapy Plan of Care Date of Evaluation: 11/08/22 Diagnosis: Bilateral hand pain Pain Location: Right ring and small fingers. Thumb to elbow bilaterally Achy, stabbing ,burning Pain Score: 8 Pain Scale Used: Numeric (0 - 10) Aggravating Factors: Gripping , bumping hand , digits Alleviating Factors: Resting hands Assessment: Pt is a 52 yo female with complaint of worsening bilateral hand pain ,weakness and paresthesia over the past three months . 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 She has not been seen by a Guard Lieutenant but reports she has had blood work . Pt to follow up with her PCP to discuss results. Pt will benefit from OT for bilateral hand pain and weakness Frequency and Duration: The patient will be seen 2x wk x 4 wks Short Term Goals: Report jt protection principles and tech for OA Demo indep with HEP Dec c/o pain with use of thermal modalities Report improved night sx with use of a night orthosis Telephoner Goals: Indep in self management of hand OA Dec hand pain to occasional with use of joint protection as needed Inc sound editor strength to 30 lb Quick DASH score to < 30 pts Treatment Plan: Therapeutic Exercise Therapeutic Activity Home Exercise Program Splinting Patient Education ADL Training Ultrasound Electronically Signed By: Jennfier Mckinney OT CHT CLT Please Sign and return to therapist. Thank you once again for your referral.
--- NOTE | 2022-11-26 11:02 | MHC.OT.DC ---
[address] [phone] F: [phone] Occupational Therapy Discharge Note Provider: Lulu Butt Diagnosis: Bilateral hand pain Date of Surgery: Date of Evaluation: 11/08/22 Date of Discharge: 11/26/22 Treatments to Date: 2 Cancellations to Date: 3 No Shows to Date: 3 Discharge Status: Patient Elected to Stop Discharge Summary: Pt reports cancels due to not feeling a benefit from two OT appointments. An increase in hand AROM after lumbrical stretches was noted Pt is a 52 yo female with complaint of worsening bilateral hand pain ,weakness and paresthesia over the past three months . 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 She has not been seen by a Client Development Director but reports she has had blood work . Pt to follow up with her PCP to discuss results. Electronically Signed By: Jennifer Mckinney OT CHT CLT Reviewed/agree with student documentation: Therapist: Please Sign and return to therapist, thank you for your referral.
== END 2022-11-26 11:03 | disposition home or self-care (01) ==
LOC: HO.OT 08:00
PROVIDERS: PCP Internal Medicine; Visit Provider Nurse Practitioner Family
DX: M79.641 Pain in right hand (principal)
CPT/HCPCS: 97035; 97110; 97167; 97760

== ENCOUNTER 2022-12-03 12:53 | Outpatient (REF) | payer OTHER, SELFPAY ==
[2022-12-03 13:44] LABS: MANUAL DIFF FLAG NO
[2022-12-03 14:45] LABS: Basophils Percent Auto 0.4 % (0-2); Eosinophils Absolute Auto 0.3 X10*3/uL (0.0-0.4); Eosinophils Percent Auto 3.3 % (0-4); Hematocrit 39.7 % (37.0-47.0); Hemoglobin 12.6 g/dl (12.0-16.0); Imm Gran Abs Auto 0.02 X10*3/uL (0.00-0.03); Imm Gran Pct Auto 0.3 % (0.0-0.4); Lymphocytes Absolute Auto 3.5 X10*3/uL (1.2-4.9); Lymphocytes Percent Auto 46.7 % (20-40); Mean Corpuscular HGB Conc 31.7 g/dl (31.0-35.0); Mean Corpuscular Hemoglobin 28.3 pg (27.0-33.0); Mean Corpuscular Volume 89.2 fL (80.0-98.0); Mean Platelet Volume 11.2 fL (9.4-12.3); Monocytes Absolute Auto 0.4 X10*3/uL (0.1-1.2); Monocytes Percent Auto 5.7 % (2-11); Neutrophils Absolute Auto 3.3 x10*3/uL (2.0-8.3); Neutrophils Percent Auto 43.6 % (45-73); Platelet Count 253 X10*3/uL (160-400); Red Blood Count 4.45 X10*6/uL (4.20-5.50); Red Cell Distribution Width 14.5 % (11.0-16.0); White Blood Count 7.6 X10*3/uL (4.8-10.8)
== END 2022-12-03 12:54 | disposition home or self-care (01) ==
LOC: HO.LAB 12:53
PROVIDERS: PCP Internal Medicine; Visit Provider Internal Medicine Pulmonary Disease
DX: R05.9 Cough, unspecified (principal); J45.909 Unspecified asthma, uncomplicated; R91.8 Other nonspecific abnormal finding of lung field; Z91.09 Other allergy status, other than to drugs and biological substances
CPT/HCPCS: 36415; 82785; 85025; 86003; 99202

== ENCOUNTER 2022-12-13 07:14 | Outpatient (REF) | payer OTHER, SELFPAY ==
--- NOTE | ~2022-12-13 | CT_ITS ---
EXAMINATION: CT CHEST WITHOUT CONTRAST CLINICAL INFORMATION: Other nonspecific abnormal finding of lung field. Pulmonary nodules. COMPARISON: None available. TECHNIQUE: Multidetector volumetric CT imaging of the chest was done. Axial MIP volume rendering provided. Sagittal and coronal reformatted images were obtained. This CT examination was performed using dose optimization techniques as appropriate, variously including the following: *Automated exposure control *Adjustment of mA and/or kV according to patient size (this includes techniques or standardized protocols for targeted exams where dose is matched to indication/reason for exam; i.e. extremities or head) *Use of iterative reconstruction technique DLP: 174 mGy-cm. FINDINGS: BUSINESS LOAN PROCESSOR: Well-inflated lungs. LUNGS: The lungs are well expanded with minimal plate-like atelectatic changes right middle lobe, lingula and medial basal segment left lower lobe. There are several poorly nodules. A 2 mm nodule left lower lobe superior segment image 148/6, a 3 mm nodule right upper lobe axial image 202/6, a 3 mm nodule in the lingula axial image 226/6, a 4 mm nodule left lower lobe axial image 237/6, and several 1-2 mm nodules in left lower lobe and right lower lobe better seen on 8 mm thick axial slices. MEDIASTINUM: The thyroid lobes are symmetric and normal. The central trachea and the bronchi are widely patent. Heart size and the great vessels are normal caliber. There is no pericardial effusion. No abnormal-sized mediastinal or hilar lymph nodes seen. CORONARY ARTERY CALCIFICATION: Mild mitral valve calcification seen. PLEURA: There is no pleural effusion. No pleural mass or thickening. AXILLA: No lymphadenopathy. UPPER ABDOMEN: Visualized liver, spleen, pancreas and bilateral adrenal glands are unremarkable. The gallbladder has been surgically removed. OSSEOUS STRUCTURES: No aggressive lytic or sclerotic process seen. CT/CT chest wo IV con IMPRESSION: 1. Multiple bilateral pulmonary nodules. 2. No abnormal mediastinal or axillary lymphadenopathy seen. 3. Minimal atelectatic changes in the right middle lobe, lingula and medial basal segment left lower lobe. Fleischner guidelines were followed.
== END 2022-12-13 07:15 | disposition home or self-care (01) ==
LOC: HO.CT 07:14
PROVIDERS: Visit Provider Internal Medicine Pulmonary Disease
DX: R91.8 Other nonspecific abnormal finding of lung field (principal)
CPT/HCPCS: 71250

== ENCOUNTER → 2022-12-16 08:15 | Outpatient (BNVA) | payer OTHER, SELFPAY | PROVIDERS: PCP Internal Medicine; Visit Provider Anesthesiology | DX: M47.816 Spondylosis without myelopathy or radiculopathy, lumbar region (principal); K59.09 Other constipation; G89.4 Chronic pain syndrome | CPT/HCPCS: 99202 ==

== ENCOUNTER → 2022-12-27 13:29 | Outpatient (BNVA) | payer OTHER, SELFPAY | PROVIDERS: PCP Internal Medicine; Visit Provider Internal Medicine Pulmonary Disease | DX: R05.3 Chronic cough (principal); R91.8 Other nonspecific abnormal finding of lung field; Z87.891 Personal history of nicotine dependence; Z79.899 Other long term (current) drug therapy | CPT/HCPCS: 99212 ==

== ENCOUNTER 2022-12-30 09:00 | Outpatient (RCR) | payer OTHER, SELFPAY ==
[2022-11-25 09:07] VITALS: BP 195/94; PULSE 62
--- NOTE | 2022-11-25 11:31 | MHC.PT.EP ---
[facility] [place] Office [place] [facility] [place] [facility] [address] Joel Ledezma [address] [phone] F: [phone] F: [phone] F: [phone] F: [phone] Physical Therapy Plan of Care Date of Evaluation: Date of Surgery: NA Diagnosis: Dorsalgia Assessment: Lakisha is a 52 year old female who is referred to PT for dorsalgia . She reports of having insidious onset of back pain which radiates from her back to her L LE. She denies any trauma or falls. In addition she also reports of having muscle spasm in her abdomen, and B LE which come on randomly. On PT examination she presents with TTP over B lumbar paraspinals, TTP over B hip region anteriorly and B quads, 8/10 pain with sitting, standing, bending, squatting, exercising and sex, decreased lumbar ROM, decreased muscle strength, altered posture and gait. She is independent with ADLS however when she has a muscle spasm she needs help to move around. 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 Pt's impairments could be contributing to her symptoms. She would benefit from skilled PT to address the aforementioned impairments and improve tolerance to functional activities. Frequency and Duration: The patient will be seen 2/week for 5 weeks Short Term Goals: 1. Pt will have 50% decrease in pain which will enable her to sit for 30 minutes with a pain no more than 3/10 in 2 weeks. 2. Pt will be able to move her trunk through all planes of motion with a pain no more than 2/10 which will enable her to dress her lower body independently in 3 weeks. Supervisor Customer Complaint Service Goals: 1. Pt will demonstrate an increase in muscle strength by 1 grade which will enable her to tolerate bending, squatting and exercising in 5 weeks. 2. Pt will be independent with all HEP for symptom management and maintenance following d/c in 5 weeks. Treatment Plan: Modalities to reduce pain, spasms and effusion. Manual therapy to restore motion and function. Therapeutic exercise to improve strength and flexibility. Neuromuscular re-education for posture and balance. Therapeutic activities to return to functional activities of daily living. Electronically signed by: Narda Marcelo, PT DPT Please sign and return to therapist. Thank you for your referral.
--- NOTE | 2023-02-26 09:53 | MHC.PT.DC ---
[facility] [place] Office [place] Office [place] Office [address] Joel Ledezma [address] [phone] F: [phone] F: [phone] F: [phone] F: [phone] Physical Therapy Discharge Report Diagnosis: Dorsalgia Date of Surgery: NA Date of Evaluation: 11/25/22 Date of Discharge: 02/26/23 Treatments to Date: 6 Cancellations to Date: 3 No Shows to Date: 0 Discharge Status: Improved Function Patient Elected to Stop Discharge Summary: Lakisha has not made any appointments with PT in almost 2 months. She is therefore being d/c from PT. Electronically signed by: Narda Robertson PT DPT Please sign and return to therapist. Thank you for your referral.
== END 2023-02-26 09:53 | disposition home or self-care (01) ==
LOC: HO.PT 09:00
PROVIDERS: PCP Internal Medicine; Visit Provider Nurse Practitioner Family
DX: M54.9 Dorsalgia, unspecified (principal)
CPT/HCPCS: 97110; 97140; 97161

== ENCOUNTER 2023-02-25 06:18 | Outpatient (REF) | payer OTHER, SELFPAY ==
--- NOTE | ~2023-02-25 | FL_ITS ---
EXAMINATION: XR FLUOROSCOPY WITH IMAGES CLINICAL INFORMATION: Chronic pain syndrome COMPARISON: None available. TECHNIQUE: Fluoroscopy Supervised By: Dr. Tristen Jeff. Fluoroscopy Time: 0.3 minutes. Cumulative Dose: 5.41 mGy. DAP: 1.47 Gycm2. Images: 4. FINDINGS: There are 4 digital images obtained with needle positioned adjacent to the left L5, L4, L3 and L2 pedicles with contrast opacifying the soft tissues. There is mild loss of disc height at all lumbar disc heights spurring the L3-L4 disc level. No lytic or sclerotic process seen. FL/FL guidance in treatment room IMPRESSION: 1. Fluoroscopy guidance was provided to referring physician for pain management. 2. Degenerative disc changes with spurring at the L3-L4 disc level.
== END 2023-02-25 06:19 | disposition home or self-care (01) ==
LOC: CF 06:18
PROVIDERS: Visit Provider Anesthesiology
DX: G89.4 Chronic pain syndrome (principal); M47.816 Spondylosis without myelopathy or radiculopathy, lumbar region
CPT/HCPCS: 64493; 64494; 64495; J3301

== ENCOUNTER → 2023-02-27 10:43 | Outpatient (BNVA) | payer MEDICAID, SELFPAY | PROVIDERS: PCP Internal Medicine; Visit Provider Anesthesiology | DX: M19.041 Primary osteoarthritis, right hand (principal); M19.042 Primary osteoarthritis, left hand; M47.816 Spondylosis without myelopathy or radiculopathy, lumbar region; R76.8 Other specified abnormal immunological findings in serum; G89.4 Chronic pain syndrome | CPT/HCPCS: 99202; 99212 ==

== ENCOUNTER 2023-03-11 09:28 | Outpatient (REF) | payer OTHER, SELFPAY ==
[2023-03-11 09:46] LABS: MANUAL DIFF FLAG NO
[2023-03-11 10:45] LABS: Basophils Absolute Auto 0.1 X10*3/uL (0.0-0.2); Basophils Percent Auto 0.8 % (0-2); Eosinophils Absolute Auto 0.2 X10*3/uL (0.0-0.4); Eosinophils Percent Auto 3.7 % (0-4); Hematocrit 38.6 % (37.0-47.0); Hemoglobin 12.1 g/dl (12.0-16.0); Imm Gran Abs Auto 0.02 X10*3/uL (0.00-0.03); Imm Gran Pct Auto 0.3 % (0.0-0.4); Lymphocytes Absolute Auto 2.9 X10*3/uL (1.2-4.9); Lymphocytes Percent Auto 49.7 % (20-40); Mean Corpuscular HGB Conc 31.3 g/dl (31.0-35.0); Mean Corpuscular Hemoglobin 28.3 pg (27.0-33.0); Mean Corpuscular Volume 90.4 fL (80.0-98.0); Mean Platelet Volume 11.5 fL (9.4-12.3); Monocytes Absolute Auto 0.4 X10*3/uL (0.1-1.2); Monocytes Percent Auto 6.8 % (2-11); Neutrophils Absolute Auto 2.3 x10*3/uL (2.0-8.3); Neutrophils Percent Auto 38.7 % (45-73); Platelet Count 229 X10*3/uL (160-400); Red Blood Count 4.27 X10*6/uL (4.20-5.50); Red Cell Distribution Width 14.6 % (11.0-16.0); White Blood Count 5.9 X10*3/uL (4.8-10.8)
[2023-03-11 11:11] LABS: Appearance Urine Clear; Color Urine Yellow; Glucose Urine UA Negative (Negative); Leukocyte Esterase Urine Moderate (2+) (Negative); Nitrite Urine Negative (Negative); UMIC TRIGGER UA YES; Urine Blood Trace (Negative); Urine Ketones Negative (Negative); Urine Protein Negative (Neg-Trace)
[2023-03-11 11:14] LABS: Bacteria Urine 1+ (None Seen); Hyaline Casts Urine 0-2 /LPF (0-2); RBC Urine 0-2 /HPF (0-2); WBC Urine 21-50 /HPF (0-5)
[2023-03-11 11:26] LABS: Alanine Aminotransferase 16 U/L (0-31); Alkaline Phosphatase 87 U/L (39-117); Anion Gap 10 (12-20); Aspartate Amino Transferase 18 U/L (5-31); Bilirubin Total 0.8 mg/dL (0.0-1.0); Blood Urea Nitrogen 15 mg/dL (9-16); C Reactive Protein 0.34 mg/dL (< or = 0.50); Calcium 9.5 mg/dL (8.4-10.2); Carbon Dioxide 28 mmol/L (22-29); Chloride 106 mmol/L (96-108); Estimated Glomerular Filt Rate > 60; Glucose Random 100 mg/dL (60-115); Potassium 4.1 mmol/L (3.3-5.1); Sodium 140 mmol/L (135-145)
[2023-03-11 11:32] LABS: Erythrocyte Sedimentation Rate 11 MM/HR (0-20)
[2023-03-11 12:07] LABS: Creatinine Urine 126.43 mg/dL; Protein/Creatinine Ratio, Ur 0.08 (<0.2); Total Protein Urine Random 10 mg/dL (<12)
[2023-03-12 07:32] LABS: HBS Num1 0.39 mIU/mL (0-7.99); HBc Num1 0.09 S/CO (0.00-0.79); HBsAGNum1 0.24 S/CO (0.00-0.99); Hepatitis A Antibody IgM 0.19 Index (0-0.79); Hepatitis B Core Antibody Nonreactive (Nonreactive); Hepatitis B Surface Antigen Negative (Negative); ~HepC Num1 0.08 S/CO (0.00-0.79); ~Hepatitis A Antibody IgM Nonreactive (Nonreactive); ~Hepatitis B Surface Antibody NONREACTIVE (Nonreactive); ~Hepatitis C Antibody Nonreactive (Nonreactive)
[2023-03-12 18:37] LABS: Complement C3 64 mg/dL (83-193)
[2023-03-13 20:09] LABS: Anti DNA DS Antibody <1 IU/mL; Antibody to SS-A Antigen <1.0 NEG AI (<1.0 NEG); Antibody to SS-B Antigen <1.0 NEG AI (<1.0 NEG); Myeloperoxidase Antibody <1.0 AI; Proteinase 3 PR3 Antibodies <1.0 AI; SM/Ribonucleoprotein Ab <1.0 NEG AI (<1.0 NEG); Smith Protein <1.0 NEG AI (<1.0 NEG)
[2023-03-14 11:28] LABS: IgA 344 mg/dL (47-310); IgG 1029 mg/dL (600-1640); IgM 72 mg/dL (50-300)
[2023-03-14 13:18] LABS: Cyclic Citrullinated Peptide <16 UNITS
[2023-03-14 18:09] LABS: Prot Elec - Alpha1 0.3 g/dL (0.2-0.3); Prot Elec - Alpha2 0.7 g/dL (0.5-0.9); Prot Elec - Beta 1 0.5 g/dL (0.4-0.6); Prot Elec - Beta 2 0.4 g/dL (0.2-0.5); Prot Elec - Gamma 0.9 g/dL (0.8-1.7); Prot Elec - Total Protein 6.8 g/dL (6.1-8.1)
[2023-03-18 12:04] LABS: Centromere Protein A Ab <11 SI (<11); Centromere Protein B Ab <11 SI (<11); Fibrillarin Ab <11 SI (<11); PM SCL 100 Ab <11 SI (<11); PM SCL 75 Ab <11 SI (<11); RNA Polymerase III RP11 Ab <11 SI (<11); RNA Polymerase III RP155 Ab <11 SI (<11); SCL-70 Extractable Nuclear Ab <11 SI (<11); Th-To Ab <11 SI (<11); U1 SNRNP RNP 70KD <11 SI (<11); U1 SNRNP RNP A <11 SI (<11); U1 SNRNP RNP C <11 SI (<11)
== END 2023-03-11 09:29 | disposition home or self-care (01) ==
LOC: HO.LAB 09:28
PROVIDERS: PCP Internal Medicine; Visit Provider Student in an Organized Health Care Education/Training Program
DX: M06.9 Rheumatoid arthritis, unspecified (principal); M32.9 Systemic lupus erythematosus, unspecified; I77.6 Arteritis, unspecified; M34.9 Systemic sclerosis, unspecified; Z11.59 Encounter for screening for other viral diseases
CPT/HCPCS: 36415; 80053; 81001; 82784; 84156; 84165; 84182; 85025; 85652; 86021; 86140; 86160; 86200; 86225; 86235; 86334; 86704; 86706; 86709; 86803; 87340

== ENCOUNTER 2023-06-12 14:05 | Outpatient (AMB) | payer OTHER, SELFPAY ==
[2023-06-12 14:11] VITALS: BP 136/90; PULSE 84; O2SAT 99; BMI 29.0
--- NOTE | 2023-06-12 14:11 | MHC.PC.OV ---
Vital Signs 06/12/23 14:11 Height 5 ft 3 in Weight 164 lb BMI 29.0 BP 136/90 H Blood Pressure Location Lt brachial Position Sitting Pulse 84 Pulse Source Pulse Oximeter Temp Source Skin Pulse Oximetry (%) 99 Oxygen Delivery Method Room Air Intake Visit Reasons: BLE pain, sciatica Intake Note: Patient is here to follow up on BLE pain, sciatica Animal Rescuer Required: No Allergies aspirin [ASPIRIN] Allergy (Severe, Verified 06/12/23 14:29) STOMACH UPSET codeine [CODEINE] Allergy (Intermediate, Verified 06/12/23 14:29) STOMACH UPSET Medication List - Last Reconciled 06/12/23 by ELBERT Bran albuterol sulfate 90 mcg/actuation (ProAir HFA) 2 inhalations inhalation Q6H PRN 90 days benzonatate 200 mg PO BID-TID PRN blood pressure monitor (Blood Pressure Kit) As directed diclofenac sodium 1% (Voltaren Arthritis Pain) 4 grams topical QID mbmvfumyigt-tzotmdrdd-egbeiesb 200-62.5-25 mcg (Trelegy Ellipta) 1 inh inhalation DAILY 30 days ibuprofen 800 mg PO Q8H PRN pantoprazole 40 mg PO DAILY polyethylene glycol 3350 (Miralax) 17 grams PO DAILY sennosides-docusate sodium 8.6-50 mg (Senna with Docusate Sodium) 2 tab-caps (2 x 8.6-50 mg) PO BEDTIME Tobacco use date assessed: 06/12/23 Dental Screening Dental Screen Date: 06/12/23 Did you have a dental visit in the last 12 months?: No Did you have a dental problem in the last 6 months where you did not have access to dental care?: No Was dental information given to patient?: Patient has dentist HPI BLE pain, sciatica HPI Details Patient is a 53-year-old female who presents today with chronic low back pain. Patient of Dr. Grover. Medical history significant for constipation, positive CARLOS, back pain, chronic pain syndrome among others. Patient reports constant low back pain that radiate to her left buttock and posterior left thigh. Pain is worse when laying down or with stairs. Nothing helps this pain. Pain presently 8/10 scale. Patient did physical therapy in the past with no improvement. No changes in bowel/bladder. Reports intermittent numbness/tingling in the back left side. Reports taking jtfg-vrd-ycehomn ibuprofen with no improvement. Reports cyclobenzaprine is not helping her. Reports intermittent muscle spasms in her abdomen from this pain. Patient was seen by [facility] and she did have medial branch block on the left L1-L2 L3 and L4 on 02/25/23, also plan for PNS procedure, patient reports that office is waiting for prior authorization from insurance, will follow-up on this as well. [facility] Medical History Asthma exacerbation Well woman exam with routine gynecological exam Cervical cancer screening Breast cancer screening by mammogram Abnormal TSH Overweight (BMI 25.0-29.9) Stiffness of finger joint Bronchitis Asthma Trigger finger of left thumb Trigger finger of right thumb Carpal tunnel syndrome on both sides Hypertension Repetitive use syndrome Surgical History Hx of colonoscopy H/O vaginal hysterectomy S/P tonsillectomy H/O abdominoplasty Hx of exploratory laparotomy Hx of cholecystectomy History of carpal tunnel release S/P trigger finger release Family History Brother Colon cancer Maternal Uncle Substance abuse Social History Housing: Apartment Alcohol intake: current Alcohol intake frequency: does not drink Patient Tobacco Use Status: Former Tobacco user Quit Date: 29 yrs ago Tobacco use type: Cigarette Years Smoked: stopped 1991 e-Cigarette/Vaping Use: Never Used Second Hand Smoke Exposure: No service: No Current occupational status: employed 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 1. Little interest or pleasure in doing things: not at all 2. Feeling down, depressed, or hopeless: not at all 3. Trouble falling or staying asleep, or sleeping too much: several days 4. Feeling tired or having little energy: several days 5. Poor appetite or overeating: not at all 6. Feeling bad about yourself - or that you are a failure or have let yourself or your family down: not at all 7. Trouble concentrating on things, such as reading the newspaper or watching television: not at all 8. Moving or speaking so slowly that other people could have noticed. Or the opposite - being so fidgety or restless that you have been moving around a lot more than usual: not at all 9. Thoughts that you would be better off or of hurting yourself in some way: not at all Total score: 2 Depression Screening Interpretation: Negative 50069 - PHQ-9 Billing: Yes Source: Developed by Drs. Felipe Mata, Juanis Sharma, Lake Jimenez and colleagues, with an educational jorge a from [employer]. Thrive Questionnaire Date Thrive assessed: 03/12/23 AUDIT C Alcohol Use Questionnaire (AUDIT-C) 1. How often do you have a drink containing alcohol?: Monthly or less 2. How many drinks containing alcohol do you have on a typical day when you are drinking?: 1 or 2 3. How often do you have six or more drinks on one occasion?: Never Total Score: 1 Score Reviewed/Action Taken: No SINA-7 AMB Questionnaire SINA-7 Date SINA - 7 assessed: 03/12/23 Feeling nervous, anxious, or on edge: 0 = Not at all Not being able to stop or control worryin = Not at all Worrying too much about different things: 0 = Not at all Trouble relaxin = Not at all Being so restless that it is hard to sit still: 0 = Not at all Becoming easily annoyed or irritable: 0 = Not at all Feeling afraid as if something awful might happen: 0 = Not at all Total SINA-7 score (0-4 normal; 5-9 mild; 10-14 moderate; 15-21 severe): 0 Source: Developed by Drs. Felipe Mata, Juanis Sharma, [place] Jimenez and colleagues, with an educational jorg ea from [employer]. SINA-7 Assessment Billing SINA-7 Assessment Tool: SINA-7 Assessment 00321 Review of Systems Const Denies body aches, Denies chills, Denies fever(s) and Denies headache(s) ENT Denies dizziness, Denies otalgia, Denies headache(s), Denies nasal discharge, Denies sinus pain and Denies sore throat Card Denies chest pain, Denies edema, Denies lightheadedness and Denies dyspnea Resp Denies dyspnea and Denies wheezing GI Denies abdominal pain Denies dysuria Musc Reports back pain, Denies myalgias, Reports numbness and Reports tingling Skin/Breast Denies rash Neuro Denies dizziness, Denies headache(s), Reports numbness and Reports tingling Aller/Immun Denies wheezing Physical exam (Primary Care) Vital Signs: Last Vital Signs Pulse 84 06/12/23 14:11 BP 136/90 H 06/12/23 14:11 Pulse Ox 99 06/12/23 14:11 Oxygen Delivery Method Room Air 06/12/23 14:11 BMI result Body Mass Index 29.0 Tobacco/Smoking Status: Tobacco use Status Tobacco use date assessed 06/12/23 06/12/23 14:13 Patient Tobacco Use Status Former Tobacco user 06/12/23 14:13 Tobacco use type Cigarette 06/12/23 14:13 e-Cigarette/Vaping Use Never Used 06/12/23 14:13 PHQ-9: PHQ-9 Score PHQ-9: Total score 2 06/12/23 14:21 Depression Screening Interpretation: Negative Thrive Assessment: Date of Thrive Assessment Date Thrive assessed 03/12/23 06/12/23 14:13 Const General: cooperative and no acute distress Orientation/consciousness: patient oriented x3 HENMT Head: Yes normocephalic and Yes atraumatic Mouth: oropharynx normal and moist mucous membranes Throat: Yes posterior oropharynx normal Eyes General: appearance normal, both eyes and all related structures Neck Neck: Yes normal visual inspection, Yes full ROM and Yes no lymphadenopathy Resp Effort & Inspection: normal respiratory effort and able to speak in complete sentences Auscultation: clear to auscultation bilaterally, no crackles, no rales, no rhonchi and no wheezes Cardio Rate: regular rate Rhythm: regular rhythm Heart sounds: S1 normal heart sound present and S2 normal heart sound present GI Auscultation: normal bowel sounds Back/Spine/Pelvis Thoracic/Lumbar Spine: pain with thoraco-lumbar ROM, paraspinal muscle tenderness (Left), No thoracic spinal tenderness, No lumbar spinal tenderness and straight leg raise positive (Left) Skin General skin exam: no rashes or lesions noted Neuro General: patient oriented x3 Gait exam (Neuro): Normal gait present Extrem General: Yes full ROM and No edema Assessment and Plan Assessment & Plan (1) Spondylosis of lumbar region without myelopathy or radiculopathy: Code(s): M47.816 - Spondylosis without myelopathy or radiculopathy, lumbar region Plan: Will ask office to follow-up with pain management in regards to procedure for back pain Patient is to continue diclofenac cream p.r.n. Start lidocaine patch daily p.r.n. Start prednisone 20 mg daily for 5 days Start tizanidine 2 mg t.i.d. p.r.n.-educated about drowsiness Continue ibuprofen 600 mg or 800 mg every 8 hours as needed Encouraged heat/cold packs p.r.n. Patient agreed with the plan Keep appointment with PCP as scheduled or follow-up sooner as needed Medications: New lidocaine 4% (Aspercreme (lidocaine)) 1 patch topical DAILY PRN 30 ea 0RF pain M47.816 - Spondylosis without myelopathy or radiculopathy, lumbar region tizanidine 2 mg PO Q8H PRN 20 tabs 0RF muscle spasticity M47.816 - Spondylosis without myelopathy or radiculopathy, lumbar region prednisone 20 mg PO DAILY 5 tabs 0RF M47.816 - Spondylosis without myelopathy or radiculopathy, lumbar region Changed From diclofenac sodium 1% (Voltaren Arthritis Pain) apply to single knee, ankle, foot; for foot includes sole/toes/top of foot 4 grams topical QID 100 grams 1RF M47.816 - Spondylosis without myelopathy or radiculopathy, lumbar region To diclofenac sodium 1% (Voltaren Arthritis Pain) 4 grams topical QID PRN 100 grams 1RF pain M47.816 - Spondylosis without myelopathy or radiculopathy, lumbar region Coding Level of Care Code Est Pt Level 3 (55259) Diagnoses Spondylosis of lumbar region without myelopathy or radiculopathy M47.816 Additional Codes SINA-7 Assessment Billing - SINA-7 Assessment Tool: SINA-7 Assessment 43470 ([id number])
== END 2023-06-12 15:06 | disposition home or self-care (01) ==
PROVIDERS: PCP Internal Medicine; Visit Provider Nurse Practitioner Family
DX: M47.816 Spondylosis without myelopathy or radiculopathy, lumbar region (principal)
CPT/HCPCS: 99213

== ENCOUNTER 2023-07-03 09:56 | Outpatient (AMB) | payer OTHER, SELFPAY ==
--- NOTE | 2023-07-03 09:58 | MHC.PC.OV ---
Vital Signs 07/03/23 09:59 Height 5 ft 3 in Weight 168 lb BMI 29.8 BP 154/88 H Blood Pressure Location Lt brachial Position Sitting Pulse 79 Pulse Source Pulse Oximeter Pulse Oximetry (%) 98 Oxygen Delivery Method Room Air Intake Visit Reasons: Cough, vaginal irritation, low back pain Allergies aspirin [ASPIRIN] Allergy (Severe, Verified 07/03/23 09:59) STOMACH UPSET codeine [CODEINE] Allergy (Intermediate, Verified 07/03/23 09:59) STOMACH UPSET Tobacco use date assessed: 06/12/23 Dental Screening Dental Screen Date: 07/03/23 Did you have a dental visit in the last 12 months?: No Did you have a dental problem in the last 6 months where you did not have access to dental care?: No Was dental information given to patient?: Patient has dentist HPI Cough, vaginal irritation, low back pain HPI Details 53-year-old overweight female with osteoarthritis lumbar radiculopathy asthma impaired glucose tolerance last seen in February 2023 noted to have an elevated blood pressure patient is here for follow-up. Patient was seen by the nurse practitioner in June 12 having lower extremity pain advised referral to pain management. for the pain - will be seeing pain management this afternoon. for the asthma - couging. feeling tired, hand having R arthitis. states mom just [facility] Medical History Asthma exacerbation Well woman exam with routine gynecological exam Cervical cancer screening Breast cancer screening by mammogram Abnormal TSH Overweight (BMI 25.0-29.9) Stiffness of finger joint Bronchitis Asthma Trigger finger of left thumb Trigger finger of right thumb Carpal tunnel syndrome on both sides Hypertension Repetitive use syndrome Surgical History Hx of colonoscopy H/O vaginal hysterectomy S/P tonsillectomy H/O abdominoplasty Hx of exploratory laparotomy Hx of cholecystectomy History of carpal tunnel release S/P trigger finger release Family History (Updated 07/03/23 @ 09:59 by Monica Jimenez CMA) Brother Colon cancer Maternal Uncle Substance abuse Social History Housing: Apartment Alcohol intake: current Alcohol intake frequency: does not drink Patient Tobacco Use Status: Former Tobacco user Quit Date: yrs ago Tobacco use type: Cigarette Years Smoked: stopped 1991 e-Cigarette/Vaping Use: Never Used Second Hand Smoke Exposure: No service: No Current occupational status: employed 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 1. Little interest or pleasure in doing things: not at all 2. Feeling down, depressed, or hopeless: not at all 3. Trouble falling or staying asleep, or sleeping too much: several days 4. Feeling tired or having little energy: several days 5. Poor appetite or overeating: not at all 6. Feeling bad about yourself - or that you are a failure or have let yourself or your family down: not at all 7. Trouble concentrating on things, such as reading the newspaper or watching television: not at all 8. Moving or speaking so slowly that other people could have noticed. Or the opposite - being so fidgety or restless that you have been moving around a lot more than usual: not at all 9. Thoughts that you would be better off or of hurting yourself in some way: not at all Total score: 2 Depression Screening Interpretation: Negative Depression Screening Done: Yes 74377 - PHQ-9 Billing: Yes Source: Developed by Drs. Felipe Mata, [place] and colleagues, with an educational jorge a from [employer]. Thrive Questionnaire Date Thrive assessed: 03/12/23 AUDIT C Alcohol Use Questionnaire (AUDIT-C) 1. How often do you have a drink containing alcohol?: Monthly or less 2. How many drinks containing alcohol do you have on a typical day when you are drinking?: 1 or 2 3. How often do you have six or more drinks on one occasion?: Never Total Score: 1 Score Reviewed/Action Taken: No SINA-7 AMB Questionnaire SINA-7 Date SINA - 7 assessed: 03/12/23 Source: Developed by Drs. Felipe Mata, Juanis Sharma, [place] and colleagues, with an educational jorge a from [employer]. Physical exam (Primary Care) Vital Signs: Last Vital Signs Pulse 79 07/03/23 09:59 BP 154/88 H 07/03/23 09:59 Pulse Ox 98 07/03/23 09:59 Oxygen Delivery Method Room Air 07/03/23 09:59 BMI result Body Mass Index 29.8 Tobacco/Smoking Status: Tobacco use Status Tobacco use date assessed 06/12/23 07/03/23 10:00 Patient Tobacco Use Status Former Tobacco user 07/03/23 10:00 Tobacco use type Cigarette 07/03/23 10:00 e-Cigarette/Vaping Use Never Used 07/03/23 10:00 PHQ-9: PHQ-9 Score PHQ-9: Total score 2 07/03/23 10:23 Depression Screening Interpretation: Negative Thrive Assessment: Date of Thrive Assessment Date Thrive assessed 03/12/23 07/03/23 10:00 Const General: alert; No acute distress Eyes Conjunctivae: conjunctivae normal Resp Auscultation: clear to auscultation bilaterally Cardio Rate: regular rate Rhythm: regular rhythm GI Inspection: Yes normal to inspection Extrem General: Yes normal to inspection and No edema Results AMB Urinalysis, Automated UA Leukoctes 500 Ward/uL Last Edit by Monica Jimenez CMA on 07/03/23 10:27 UA Nitrite Negative Last Edit by Monica Jimenez CMA on 07/03/23 10:27 UA Urobilinogen 0.2 mg/dL Last Edit by Monica Jimenez, JAMMIE on 07/03/23 10:27 UA Protein 0 mg/dL Last Edit by Monica Jimenez, JAMMIE on 07/03/23 10:27 UA pH 7.5 Last Edit by Monica Jimenez, FIRE LOSS PREVENTION ENGINEER on 07/03/23 10:27 UA Blood 0 Darwin/uL Last Edit by Monica Jimenez, [facility] on 07/03/23 10:27 UA Specific [place] 1.015 Last Edit by Monica Jimenez, JAMMIE on 07/03/23 10:27 UA Ketone Negative Last Edit by Monica Jimenez CMA on 07/03/23 10:27 UA Bilirubin 0 mg/dL Last Edit by Monica Jimenez, JAMMIE on 07/03/23 10:27 UA Glucose 0 mg/dL Last Edit by Monica Jimenez CMA on 07/03/23 10:27 Assessment and Plan Assessment & Plan (1) Spondylosis of lumbar region without myelopathy or radiculopathy: Code(s): M47.816 - Spondylosis without myelopathy or radiculopathy, lumbar region Plan: Patient has been referred to pain management (2) Asthma: Code(s): J45.909 - Unspecified asthma, uncomplicated Plan: Continue with the inhalers. Had a long discussion with the use of rescue inhaler as well as the controller inhalers. Trelegy is not being covered. (3) Overweight (BMI 25.0-29.9): Code(s): E66.3 - Overweight Plan: Diet and exercise (4) Generalized anxiety disorder: Code(s): F41.1 - Generalized anxiety disorder Plan: Declined any new medication for now (5) Menopausal symptoms: Code(s): N95.1 - Menopausal and female climacteric states Plan: Referral to Gynecology done. discussed about hormone treat (6) Polyuria: Code(s): R35.89 - Other polyuria Orders: Orders AMB Urinalysis Automated Today M54.9 - Dorsalgia, unspecified UA w Microscopic Today R35.89 - Other polyuria Comprehensive Met. Panel Today R35.89 - Other polyuria Free T4 (Free Thyroxine) Today R35.89 - Other polyuria Hemoglobin A1c Today R35.89 - Other polyuria Thyroid Stimulating Hormone Today R35.89 - Other polyuria Referrals HOT BOX SPOTTER Referral N95.1 - Menopausal and female climacteric states Medications: New albuterol sulfate 90 mcg/actuation (Ventolin HFA) 2 puffs inhalation Q6H PRN 8.5 grams 0RF shortness of breath or wheezing J45.909 - Unspecified asthma, uncomplicated fluticasone propion-salmeterol 115-21 mcg/actuation (Advair HFA) 2 puffs inhalation Q12H 12 grams 11RF J45.909 - Unspecified asthma, uncomplicated Discontinued albuterol sulfate 90 mcg/actuation (ProAir HFA) Discontinued Reason: Insurance Denied 2 inhalations inhalation Q6H 90 days PRN 8.5 grams 1RF bronchospasm J44.9 - Chronic obstructive pulmonary disease, unspecified kcequvnmgzt-[id number]-flqlhfrs 200-62.5-25 mcg (Trelegy Ellipta) Discontinued Reason: Doctor's Order 1 inh inhalation DAILY 30 days 1 ea 6RF Coding Level of Care Code Est Pt Level 4 (25852) Diagnoses Spondylosis of lumbar region without myelopathy or radiculopathy M47.816 Asthma J45.909 Overweight (BMI 25.0-29.9) E66.3 Generalized anxiety disorder F41.1 Menopausal symptoms N95.1 Polyuria R35.89
[2023-07-03 09:59] VITALS: BP 154/88; PULSE 79; O2SAT 98; BMI 29.8
== END 2023-07-03 11:33 | disposition home or self-care (01) ==
PROVIDERS: PCP Internal Medicine; Visit Provider Internal Medicine
DX: M47.816 Spondylosis without myelopathy or radiculopathy, lumbar region (principal); J45.909 Unspecified asthma, uncomplicated; E66.3 Overweight; F41.1 Generalized anxiety disorder; N95.1 Menopausal and female climacteric states; R35.89 Other polyuria; M54.9 Dorsalgia, unspecified
CPT/HCPCS: 81003; 99214

== ENCOUNTER 2023-07-03 13:17 | Outpatient (AMB) | payer OTHER, SELFPAY ==
[2023-07-03 13:23] VITALS: BP 128/77; PULSE 86; O2SAT 97
--- NOTE | 2023-07-03 13:23 | MHC.OFFVIS ---
Intake Vital Signs 07/03/23 13:23 Weight 169 lb 12.095 oz BP 128/77 Blood Pressure Location Lt brachial Position Sitting Pulse 86 Pulse Source Doppler Pulse Oximetry (%) 97 Oxygen Delivery Method Room Air Intake Visit Reasons: CT Chest Follow Up Allergies aspirin [ASPIRIN] Allergy (Severe, Verified 07/03/23 13:28) STOMACH UPSET codeine [CODEINE] Allergy (Intermediate, Verified 07/03/23 13:28) STOMACH UPSET HPI CT Chest Follow Up HPI Details 53-year-old lady, former 10 pack year smoker, quit 30 years prior, with underlying history of persistent cough over several years with no significant diurnal or body position changes referred for evaluation.? Patient states that cough can wake her up from sleep.? She denies acid reflux.? Patient also denies seasonal allergies.? She does have a cat.? She is employed with no exposure to industrial dusts.? She denies recent acute exacerbations.? She was tried on albuterol MDI and Flovent with no significant improvement.? Patient's mother has recently passed from stage IV lung cancer. After the last office visit patient was not able to receive Trelegy and has been using Advair with suboptimal control of her symptoms. [facility] Medical History Asthma exacerbation Well woman exam with routine gynecological exam Cervical cancer screening Breast cancer screening by mammogram Abnormal TSH Overweight (BMI 25.0-29.9) Stiffness of finger joint Bronchitis Asthma Trigger finger of left thumb Trigger finger of right thumb Carpal tunnel syndrome on both sides Hypertension Repetitive use syndrome Surgical History Hx of colonoscopy H/O vaginal hysterectomy S/P tonsillectomy H/O abdominoplasty Hx of exploratory laparotomy Hx of cholecystectomy History of carpal tunnel release S/P trigger finger release Family History (Updated 07/03/23 @ 09:59 by Monica Jimenez CMA) Brother Colon cancer Maternal Uncle Substance abuse Social History Housing: Apartment Alcohol intake: current Alcohol intake frequency: does not drink Patient Tobacco Use Status: Former Tobacco user Quit Date: 29 yrs ago Tobacco use type: Cigarette Years Smoked: stopped 1991 e-Cigarette/Vaping Use: Never Used Second Hand Smoke Exposure: No service: No Current occupational status: employed 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 Current occupational exposures/hazards: No Cognitive needs: No Hearing needs: No Vision needs: No Review of Systems Const Denies daytime sleepiness, Denies excessive sweating, Denies fatigue, Denies fever(s), Denies lethargy, Denies malaise, Denies night sweats, Denies snoring and Denies weight loss Eyes Denies blurry vision and Denies itchy eyes ENT Denies nasal congestion, Denies post nasal drip, Denies sinus pain, Denies sinus pressure and Denies other ( Thrush) Card Denies chest pain, Denies pedal edema, Denies dyspnea, Denies orthopnea and Denies paroxysmal nocturnal dyspnea Resp Denies cough, Denies hemoptysis, Denies excessive phlegm production, Denies dyspnea, Denies snoring and Reports wheezing GI Denies abdominal pain and Denies heartburn Musc Denies myalgias, Denies arthralgias and Denies joint swelling Skin/Breast Denies rash Neuro Denies memory loss and Denies seizure-like activity Psych Denies abnormal sleep pattern, Denies anxiety and Denies memory loss Endo Denies excessive sweating, Denies fatigue and Denies heat intolerance Hussein/Lymph Denies easy bruising Aller/Immun Denies itchy eyes, Denies seasonal rhinorrhea and Reports wheezing Physical Exam Vital Signs: Last Vital Signs Pulse 86 07/03/23 13:23 BP 128/77 07/03/23 13:23 Pulse Ox 97 07/03/23 13:23 Oxygen Delivery Method Room Air 07/03/23 13:23 Const General: no acute distress and alert Nutritional Appearance: not obese Orientation/consciousness: Other orientation findings ( oriented) HEENT Head: Yes atraumatic Eyes General: appearance normal, both eyes and all related structures Sclerae: sclerae normal EOM: EOMs intact bilaterally Neck Neck: Yes supple Lymphatic: no lymphadenopathy noted Resp Effort & Inspection: normal respiratory effort and no use of accessory muscles Auscultation: clear to auscultation bilaterally Cardio Rate: regular rate Rhythm: regular rhythm Heart sounds: no gallops, no murmurs and no rubs Skin General skin exam: other ( warm) Extrem General: No clubbing, No cyanosis and No edema Results AMB Urinalysis, Automated UA Leukoctes 500 Ward/uL Last Edit by Monica Jimenez, [facility] on 07/03/23 10:27 UA Nitrite Negative Last Edit by Monica Jimenez, [facility] on 07/03/23 10:27 UA Urobilinogen 0.2 mg/dL Last Edit by Monica Jimenez, MANAGER DOCUMENT on 07/03/23 10:27 UA Protein 0 mg/dL Last Edit by Monica Jimenez, MANAGER DOCUMENT on 07/03/23 10:27 UA pH 7.5 Last Edit by Monica Jimenez, MANAGER DOCUMENT on 07/03/23 10:27 UA Blood 0 Darwin/uL Last Edit by Monica Jimenez, MANAGER DOCUMENT on 07/03/23 10:27 UA Specific [place] 1.015 Last Edit by Monica Jimenez, [facility] on 07/03/23 10:27 UA Ketone Negative Last Edit by Monica Jimenez, [facility] on 07/03/23 10:27 UA Bilirubin 0 mg/dL Last Edit by Monica Jimenez, [facility] on 07/03/23 10:27 UA Glucose 0 mg/dL Last Edit by Monica Jimenez, [facility] on 07/03/23 10:27 Assessment & Plan Assessment & Plan (1) Asthma: Code(s): J45.909 - Unspecified asthma, uncomplicated Plan: Suboptimal control on Advair, will add Spiriva. Continue albuterol MDI. (2) Pulmonary nodules: Comment: November 2022 Code(s): R91.8 - Other nonspecific abnormal finding of lung field Plan: Small bilateral pulmonary nodules. Follow-up CT chest ordered for October of 2023. Medications: New tiotropium bromide 2.5 mcg/actuation (Spiriva Respimat) 2 puffs inhalation QAM 4 grams 6RF 30 days Coding Level of Care Code Est Pt Level 4 (42253) Diagnoses Asthma J45.909 Pulmonary nodules R91.8
== END 2023-07-03 13:41 | disposition home or self-care (01) ==
PROVIDERS: PCP Internal Medicine; Visit Provider Internal Medicine Pulmonary Disease
DX: J45.909 Unspecified asthma, uncomplicated (principal); R91.8 Other nonspecific abnormal finding of lung field
CPT/HCPCS: 99214

== ENCOUNTER → 2023-07-03 13:17 | Outpatient (BNVA) | payer OTHER, SELFPAY | PROVIDERS: Visit Provider Internal Medicine Pulmonary Disease | DX: J45.909 Unspecified asthma, uncomplicated (principal); R91.8 Other nonspecific abnormal finding of lung field; Z87.891 Personal history of nicotine dependence | CPT/HCPCS: 99212 ==

== ENCOUNTER 2023-07-04 08:41 | Outpatient (REF) | payer OTHER, SELFPAY ==
[2023-07-04 09:38] LABS: Alanine Aminotransferase 11 U/L (0-31); Alkaline Phosphatase 94 U/L (39-117); Anion Gap 15 (12-20); Aspartate Amino Transferase 17 U/L (5-31); Bilirubin Total 0.4 mg/dL (0.0-1.0); Blood Urea Nitrogen 11 mg/dL (9-16); Calcium 9.5 mg/dL (8.4-10.2); Carbon Dioxide 24 mmol/L (22-29); Chloride 107 mmol/L (96-108); Estimated Glomerular Filt Rate > 60; Glucose Random 109 mg/dL (60-115); Potassium 4.1 mmol/L (3.3-5.1); Sodium 142 mmol/L (135-145); Total Protein 7.1 g/dL (6.5-8.0)
[2023-07-04 09:55] LABS: Free T4 (Free Thyroxine) 0.99 ng/dL (0.71-1.85); Thyroid Stimulating Hormone 1.03 uIU/mL (0.32-4.0)
== END 2023-07-04 08:42 | disposition home or self-care (01) ==
LOC: HO.LAB 08:41
PROVIDERS: PCP Internal Medicine; Visit Provider Internal Medicine
DX: R35.89 Other polyuria (principal)
CPT/HCPCS: 36415; 80053; 81001; 83036; 84439; 84443

== ENCOUNTER 2023-10-17 07:29 | Day surgery (SDC) | payer OTHER, SELFPAY ==
--- NOTE | 2023-10-15 13:29 | P.CONAN_ITS ---
HPI - Anesthesia Eval Consult details Narrative: 53yo F for L2,poss L3,Medial Branch SPRINT PNS, PMFSH Active Problems Active Problems: All Active Problems (Updated 07/03/23 @ 11:59 by Matty Grover MD) Polyuria (Acute) Menopausal symptoms (Acute) Generalized anxiety disorder (Acute) Pyuria (Acute) UTI (urinary tract infection) (Acute) Vaginal dryness, menopausal (Acute) Blood pressure elevated without history of HTN (Acute) Overweight (BMI 25.0-29.9) (Acute) Osteoarthritis of hands, bilateral (Acute) Chronic constipation (Acute) Chronic pain syndrome (Acute) Spondylosis of lumbar region without myelopathy or radiculopathy (Acute) Bacterial conjunctivitis (Acute) Environmental allergies (Acute) Cough (Acute) Pulmonary nodules (Acute) Positive CAROLS (antinuclear antibody) (Acute) Back pain (Acute) Bilateral hand pain (Acute) Finger pain, right (Acute) Cervical cancer screening (Acute) Vaginal atrophy (Acute) Vitamin D deficiency (Acute) Acquired deformity of abdominal wall (Acute) Impaired glucose tolerance (Acute) Annual physical exam (Acute) Rhinitis (Acute) Perimenopause (Acute) Hx of ovarian cyst (Acute) H/O abdominoplasty (Acute) Asthma (Acute) Constipation (Acute) Colon cancer screening (Acute) Past Medical History Medical History Asthma exacerbation Well woman exam with routine gynecological exam Cervical cancer screening Breast cancer screening by mammogram Abnormal TSH Overweight (BMI 25.0-29.9) Stiffness of finger joint Bronchitis Asthma Trigger finger of left thumb Trigger finger of right thumb Carpal tunnel syndrome on both sides Hypertension Repetitive use syndrome Family History Family History (Updated 07/03/23 @ 09:59 by Monica Jimenez CMA) Brother Colon cancer Maternal Uncle Substance abuse Family history of problems with anesthesia: No Surgical History Surgical History Hx of colonoscopy H/O vaginal hysterectomy S/P tonsillectomy H/O abdominoplasty Hx of exploratory laparotomy Hx of cholecystectomy History of carpal tunnel release S/P trigger finger release History of Problems with Anesthesia: No Social History Social History Housing: Apartment Alcohol intake: current Alcohol intake frequency: does not drink Patient Tobacco Use Status: Former Tobacco user Quit Date: 30 years ago Tobacco use type: Cigarette Years Smoked: stopped 1991 e-Cigarette/Vaping Use: Never Used Second Hand Smoke Exposure: No service: No Current occupational status: employed 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 Current occupational exposures/hazards: No Cognitive needs: No Hearing needs: No Vision needs: No Meds Allergies Allergy/AdvReac Type Severity Reaction Status Date / Time aspirin [ASPIRIN] Allergy Severe STOMACH Verified 10/22/23 08:34 UPSET codeine [CODEINE] Allergy Intermediate STOMACH Verified 10/22/23 08:34 UPSET Exam Pertinent Lab Results Pertinent Lab Results: Laboratory Tests 03/11/23 07/04/23 09:45 08:50 WBC 5.9 Hgb 12.1 Hct 38.6 Plt Count 229 Sodium 142 Potassium 4.1 Chloride 107 Carbon Dioxide 24 BUN 11 Creatinine 0.67 Assessment and Plan Assessment Anesthesia Assessment: Chart Reviewed Final Anesthetic Review Family History of Problems with Anesthesia: No History of Problems with Anesthesia: No
--- NOTE | ~2023-10-17 | FL_ITS ---
EXAMINATION: XR FLUOROSCOPY WITH IMAGES CLINICAL INFORMATION: L2, possible L3 MB sprint PNS. COMPARISON: Intraoperative fluoroscopy dated 02/25/2023. TECHNIQUE: Fluoroscopy Supervised By: Dr. Eliceo Pineda. Fluoroscopy Time: 0.0. Cumulative Dose: 5.10 mGy. DAP: 1.37 Gycm2. Images: 2. FINDINGS: The submitted images show an electrode projecting over the right thoracic and lumbar paravertebral tissues. FL/FL guidance in OR IMPRESSION: Intraoperative fluoroscopic guidance is provided for pain management procedure. Please see the patient's Operative Report for full procedural details.
[2023-10-17 07:33] VITALS: BMI 29.3
[2023-10-17 07:53] VITALS: BP 147/80; PULSE 77; RESP 16; TEMP 36.4; O2SAT 96
[2023-10-17] MEDS: Lactated Ringers 1,000 ML 100 ML IVCONT (07:54)
--- NOTE | 2023-10-17 08:07 | MHC.SHP ---
Pre-Procedural Eval Section A Date of Service: 10/17/23 The patient is an INPATIENT: No Changes since office visit: Yes Patient answered all questions The History & Physical has been completed within 30 days and I have reviewed it.: No Section B Chief Complaint: Spondylosis without myelopathy or radiculopathy, Details of Present Illness: as above Relevant Family History (Specify if Yes): No Relevant Social History: None Present Medications: see Short Stay Collaborative assessment Medical History: No relevant PMH History of Previous Operations: No relevant previous surgery Allergies: Allergies Allergy/AdvReac Type Severity Reaction Status Date / Time aspirin [ASPIRIN] Allergy Severe STOMACH Verified 10/17/23 07:43 UPSET codeine [CODEINE] Allergy Intermediate STOMACH Verified 10/17/23 07:43 UPSET Review of Systems Sugical H&P ROS: Negative: Constitution, Cardiovascular, Respiratory, Neurological, Psychiatric, Hem-Onc, Allergic/Immunologic, Gastrointestinal, Genitourinary, Musculoskeletal, Integumentary, Endocrine and Eyes/Ears/Nose/Throat Exam Surgical H&P Exam: Normal: HEENT, Normal: Heart, Normal: Lungs, Normal: Extremities, Normal: Abdomen, Normal: Skin and Normal: Neurological Plan Diagnosis/Plan: Unchanged I have reviewed the history and physical and performed a pertinent physical examination on my patient. No changes have occurred unless specified. Time Spent With Patient Time: Total time managing care of this patient today ___5_ minutes.
--- NOTE | 2023-10-17 08:36 | HO.ANESPROP2 ---
[facility] Active Problems Active Problems: All Active Problems (Updated 07/03/23 @ 11:59 by Matty Grover MD) Polyuria (Acute) Menopausal symptoms (Acute) Generalized anxiety disorder (Acute) Pyuria (Acute) UTI (urinary tract infection) (Acute) Vaginal dryness, menopausal (Acute) Blood pressure elevated without history of HTN (Acute) Overweight (BMI 25.0-29.9) (Acute) Osteoarthritis of hands, bilateral (Acute) Chronic constipation (Acute) Chronic pain syndrome (Acute) Spondylosis of lumbar region without myelopathy or radiculopathy (Acute) Bacterial conjunctivitis (Acute) Environmental allergies (Acute) Cough (Acute) Pulmonary nodules (Acute) Positive CARLOS (antinuclear antibody) (Acute) Back pain (Acute) Bilateral hand pain (Acute) Finger pain, right (Acute) Cervical cancer screening (Acute) Vaginal atrophy (Acute) Vitamin D deficiency (Acute) Acquired deformity of abdominal wall (Acute) Impaired glucose tolerance (Acute) Annual physical exam (Acute) Rhinitis (Acute) Perimenopause (Acute) Hx of ovarian cyst (Acute) H/O abdominoplasty (Acute) Asthma (Acute) Constipation (Acute) Colon cancer screening (Acute) Past Medical History Medical History Asthma exacerbation Well woman exam with routine gynecological exam Cervical cancer screening Breast cancer screening by mammogram Abnormal TSH Overweight (BMI 25.0-29.9) Stiffness of finger joint Bronchitis Asthma Trigger finger of left thumb Trigger finger of right thumb Carpal tunnel syndrome on both sides Hypertension Repetitive use syndrome Family History Family History (Updated 07/03/23 @ 09:59 by Monica Jimenez CMA) Brother Colon cancer Maternal Uncle Substance abuse Family history of problems with anesthesia: No Surgical History Surgical History Hx of colonoscopy H/O vaginal hysterectomy S/P tonsillectomy H/O abdominoplasty Hx of exploratory laparotomy Hx of cholecystectomy History of carpal tunnel release S/P trigger finger release History of Problems with Anesthesia: No Social History Social History Housing: Apartment Alcohol intake: current Alcohol intake frequency: does not drink Patient Tobacco Use Status: Former Tobacco user Quit Date: 30 years ago Tobacco use type: Cigarette Years Smoked: stopped 1991 e-Cigarette/Vaping Use: Never Used Second Hand Smoke Exposure: No Use of substances other than those prescribed or required for medical reasons: No Are you DNR?: No Advance Directives: No Advance Directives Information Provided: Yes service: No Current occupational status: employed Current occupation: right handed/ [employer] Current occupational exposures/hazards: No Cognitive needs: No Hearing needs: No Vision needs: No Meds Allergies Allergy/AdvReac Type Severity Reaction Status Date / Time aspirin [ASPIRIN] Allergy Severe STOMACH Verified 10/17/23 07:43 UPSET codeine [CODEINE] Allergy Intermediate STOMACH Verified 10/17/23 07:43 UPSET Active Medications: Current Medications Albuterol Sulfate (Albuterol Sulfate (0.083%) 2.5 Mg/3 Ml Vial.Neb) 2.5 mg INHALE ONCE PRN PRN Reason: Shortness of Breath/Wheezing Lactated Ringer's (Lr) 1,000 mls @ 100 mls/hr IVCONT .Q10H NAA Last Admin: 10/17/23 07:54 Dose: 100 mls/hr Exam Height,Weight and Vital Signs: Height 5 ft 3 in Weight 74.956 kg Last Vital Signs Temp 97.6 F 10/17/23 07:53 Pulse 77 10/17/23 07:53 Resp 16 10/17/23 07:53 BP 147/80 H 10/17/23 07:53 Pulse Ox 96 10/17/23 07:53 O2 Del Method Room Air 10/17/23 07:53 Airway Mallampati Class: II TM Dist: >3cm Neck ROM: Full Partial: Upper and Lower Heart: rrr Lungs: clear Assessment and Plan Final Anesthetic Review Family History of Problems with Anesthesia: No History of Problems with Anesthesia: No NPO: Yes ASA Class: III Final Preanesthetic Review: No Changes in Pt Med Stat, Meds/Allgs Chart Reviewed, Consent Obtained/Reviewed and Anes Risks/Benef Reviewed Patient Risk: Intermediate Anesthetic Plan Anesthetic Plan: MAC: Disposition: Standard PACU
--- NOTE | 2023-10-17 08:39 | P.OP_ITS ---
Operative Note Operative Note Date of Service: 10/17/23 Narrative: Sprint PNS L3 left side After the risks, benefits and alternatives were discussed with the patient and informed consent was obtained, patient was brought to the operating room and placed in the prone position and padded to foster comfort. Time out was performed delineating correct site and side of the procedure , name and of the patient, patient participated in time out procedure. the lower back of the patient was prepped with ChloraPrep and draped with full body fenestrated drape. ?Sterily draped C-arm was brought over the operating field and clear picture of the lumbar spine was demonstrated on the screen. Left L2 lamina was initially chosen as the target of the needle insertion. Projection of the L1 lamina on the left was chosen as the start of needle advancement. That projection was c hosen as local anesthetic infiltration point. After identifying and marking intended target the skin wheal was raised at the chosen projection. Percutaneous sleeve and stimulating probe lead introduction system was assembled inserted and advanced through the skin wheal to the point of interest at L2 left lamina. The advancement was performed under C-arm fluoroscopy view until the needle gently contacted the lamina of L2 vertebra on the left. Multiple stimulation parameters were used to deliver stimulation to the multifidus muscle in consult with stimulating at multiple positions around the nerve. The patient reported that the stimulation was higher than level of the chronic pain she is experiencing. The decision was made to choose L3 lamina as the next target of the needle position. Left L3 lamina was chosen as the target of the tip of the needle position. Projection of the L2 lamina on the left was chosen as the start of the needle advancement. That point was chosen as the local anesthetic infiltration point. After identifying and marking the intended target, the skin around the planned entry point and the subcutaneous tissues were injected with local anesthetic forming skin wheal. ?A percutaneous sleeve and stimulating probe lead introduction system were assembled, inserted and advanced through the skin wheal to the? point of interest under C-arm view in oblique vision fashion, the introducer needle was delivered to a location in proximity to the multifidus muscles at the left t lamina of L3. Multiple stimulation parameters were used to deliver stimulation to the? nerve in concert with stimulating at multiple positions around the nerve. Nerve target acquisition was confirmed noting generation of? in the? corresponding to the nerve being stimulated. Various electrical parameter combinations were tested, and the lead location was adjusted? until the patient indicated? overlapping the distribution of the patient?s typical region of pain. The stimulating probe was removed from the introducer and a percutaneous lead was guided through the needle and delivered to a location in similar proximity to the nerve. Final location was verified with electrical stimulation. The introducer needle was removed, and the exposed end of the percutaneous lead was attached to an external stimulator unit. Various electrical parameter combinati ons were again tested until the patient indicated paresthesia or muscle tension overlapping the distribution of the patient?s typical region of pain. After confirming that lead impedance was in the normal range, the external unit was detached, the needle was removed, and the lead was anchored at the skin. The lead was threaded into the connector block and electrical continuity and desired patient response was confirmed. The connector block was attached to the external stimulator unit. The site was covered with a sterile occlusive dressing and an? image was taken to document final placement.
[2023-10-17 09:41] VITALS: BP 150/78; PULSE 71; RESP 17; TEMP 36.3; O2SAT 95
--- NOTE | 2023-10-17 09:41 | P.BOP_ITS ---
Brief Operative Note Date of Service: 10/17/23 Pre-op diagnosis: spondylosis lumbar without myelo/or radiculopathy Post-op diagnosis: same Procedure: SPRINT PNS left lumbar 3 Surgeon: Eliceo Pineda MD Anesthesia: MAC Was an Glass Blowing Instructor used for this Procedure?: No Estimated blood loss (mL): 1 Condition: stable Disposition: PACU
[2023-10-17 09:56] VITALS: BP 148/92; PULSE 73; RESP 16; TEMP 37; O2SAT 95
== END 2023-10-17 10:09 | disposition home or self-care (01) ==
PROVIDERS: PCP Internal Medicine; Visit Provider Anesthesiology
PROC: (CPT 64555; principal; 2023-10-17 09:00)
DX: M47.816 Spondylosis without myelopathy or radiculopathy, lumbar region (principal); G89.4 Chronic pain syndrome; J45.909 Unspecified asthma, uncomplicated; I10 Essential (primary) hypertension; G56.03 Carpal tunnel syndrome, bilateral upper limbs; Z98.890 Other specified postprocedural states; Z87.891 Personal history of nicotine dependence; Z88.8 Allergy status to other drugs, medicaments and biological substances; Z88.5 Allergy status to narcotic agent
CPT/HCPCS: 64555; C1778; J2250; J2704; J2795; J3010

== ENCOUNTER → 2023-10-17 07:29 | Outpatient (BNV) | payer OTHER, SELFPAY | PROVIDERS: PCP Internal Medicine; Visit Provider Anesthesiology | DX: M47.816 Spondylosis without myelopathy or radiculopathy, lumbar region (principal) | CPT/HCPCS: 64555; 64590 ==

== ENCOUNTER 2023-10-22 08:16 | Outpatient (AMB) | payer OTHER, SELFPAY ==
--- NOTE | 2023-10-22 08:23 | MHC.OFFVIS ---
Intake Vital Signs 10/22/23 08:35 Height 5 ft 3 in Weight 166 lb BMI 29.4 BP 140/88 H Blood Pressure Location Rt brachial Position Sitting Respiration 16 Pulse 74 Pulse Source Pulse Oximeter Pulse Oximetry (%) 97 Oxygen Delivery Method Room Air Intake Visit Reasons: s/p Left L2 or L3 Sprint 10/17/22/confirmed Intake Note: Patient comes in for post-op appointment Left Sprint 10/17/2022. No redness/drainage/swelling at site.?Site cleaned with alcohol prep pad, and new dsd/tega applied. Report pain 7/10. Allergies aspirin [ASPIRIN] Allergy (Severe, Verified 10/22/23 08:34) STOMACH UPSET codeine [CODEINE] Allergy (Intermediate, Verified 10/22/23 08:34) STOMACH UPSET HPI HPI Comments History of Present Illness Details Lakisha santiago is back in my office after sprint PNS at left L3 lamina position. She reports that she feels some morning stiffness in her lower back and because of that she feels pain today 10. But the very moment she turns the machine of the stiffness starts to go away and by that time she experiences very good pain relief and she goes to bed without feeling pain in the back. She will continue to change dressings on sprint PNS, she also will continue communicating with sprint medical field representative about the levels of her stimulation. She reports that sometimes she feels that at 70 her stimulation is very high. She had diagnostic medial branch block L1-L2 L3 and L4 on the left on 02/25/2023. She reported 33 hours of complete pain relief. Now it is very obvious that she is suffering from spondylosis of the lumbar spine. Also she complains on stiffness of the neck to were the end of the day. She reports limited mobility of the neck at night. We agreed that I will send her to physical therapy after we will complete treatment with sprint PNS in 7 weeks. She will schedule appointment with me in 7 weeks. Prior: Complains on pain on the left side of the lower back with radiation into the left lower extremity all the way down to the calf on posterior surface of the leg as well as some minor discomfort on the right.? 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 .? Some movements aggravate her pain as well.? For example when she needs to stand up from the sitting position her pain is most severe.? The pain is worse in the evening and in the morning and the less severe in the middle of the day.? In terms of tissue damage she describes her pain as pinching, cramping, crushing, dull, cervical, hurting, aching, heavy sensation.? She had an x-ray of the lumbar spine results of which dictated as below.? She is currently taking NSAIDs to help her pain.? She takes physical therapy currently she is through with 4. r full full sessions, she is trying to perform home exercise program but does it infrequently.? She never had any injections. [facility] Medical History Asthma exacerbation Well woman exam with routine gynecological exam Cervical cancer screening Breast cancer screening by mammogram Abnormal TSH Overweight (BMI 25.0-29.9) Stiffness of finger joint Bronchitis Asthma Trigger finger of left thumb Trigger finger of right thumb Carpal tunnel syndrome on both sides Hypertension Repetitive use syndrome Surgical History Hx of colonoscopy H/O vaginal hysterectomy S/P tonsillectomy H/O abdominoplasty Hx of exploratory laparotomy Hx of cholecystectomy History of carpal tunnel release S/P trigger finger release Family History (Updated 07/03/23 @ 09:59 by Monica Jimenez CMA) Brother Colon cancer Maternal Uncle Substance abuse Social History Housing: Apartment Alcohol intake: current Alcohol intake frequency: does not drink Patient Tobacco Use Status: Former Tobacco user Quit Date: 30 years ago Tobacco use type: Cigarette Years Smoked: stopped 1991 e-Cigarette/Vaping Use: Never Used Second Hand Smoke Exposure: No service: No Current occupational status: employed 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 Current occupational exposures/hazards: No Cognitive needs: No Hearing needs: No Vision needs: No Review of Systems Const All systems reviewed & are unremarkable except as noted in HPI and below ENT Reports Normal hearing present Neuro Reports Normal hearing present, Denies Abnormal speech present, Denies confusion and Denies Sensory deficit (Neuro) Psych Denies confusion Physical Exam Const General: no acute distress; No confusion Orientation/consciousness: patient oriented x3 and No confusion Eyes General: appearance normal, both eyes and all related structures Pupils: Equal, round and reactive pupils present EOM: EOMs intact bilaterally Neck Neck: Yes full ROM Chest Chest palpation & inspection: normal inspection of the chest Resp Effort & Inspection: normal respiratory effort, able to speak in complete sentences, normal respiratory pattern, no audible wheezes and no cough Cardio Jugular venous distension: no JVD GI Inspection: Yes normal to inspection Back/Spine/Pelvis Other: She is able to stand on bilateral tiptoes and bilateral heels without difficulty, she is able to lift the large toe in separation of the rest of the toes. She is able to flex herself forward without any difficulty. However minimal flexing backwards as well as lifting body up from the flex forward position causes severe pain in the back. Loading test is positive bilaterally. Leon's test is negative bilaterally. SLR may be equivocal on the left a and-lasseque test left aggravates her pain. On the right SLR is negative. Valsalva maneuver does not aggravate her pain. Neuro General: patient oriented x3, gait normal and No confusion Cranial nerves: Yes CN's II-XII intact bilaterally, Yes Equal, round and reactive pupils present, Yes Normal hearing present and Yes Ability to bilaterally elevate shoulders present Speech: No Abnormal speech present Gait exam (Neuro): Normal gait present Motor exam (neuro): 5/5 motor strength present throughout Sensory Exam: No Sensory deficit (Neuro) Extrem General: No pedal edema Psych Speech and movement: Normal speech and movement present Affect: normal affect Attitude: cooperative Thought process: Normal thought process present Thought content: Normal thought content present Insight: Good insight present (Psych) Judgement: Good judgement present (Psych) Assessment & Plan Assessment & Plan (1) Spondylosis of lumbar region without myelopathy or radiculopathy: Code(s): M47.816 - Spondylosis without myelopathy or radiculopathy, lumbar region (2) Chronic pain syndrome: Code(s): G89.4 - Chronic pain syndrome Plan diagnostic left medial branch block L1 L2-L3 L4 - 33 hours of complete pain relief. Good results of sprint PNS L3 on the left, will continue observation. She will make changes of the dressing at home. Reports morning stiffness in the back because the stimulation does not work at night. Reports stiffness in the neck to were the end of the day. We will send her for physical therapy after PNS completed at 7 weeks from now. She will continue dressing changes at home. Next appointment in 7 weeks. On the x-ray there was significant spondylosis of the spine of this patient. Mostly on the L2-L3 level. Her pain pattern does not correspond to nerve root compression at this level. Sacroiliac joint sclerosis positive on x-ray possibility exist to do diagnostic sacroiliac joint injections in the future if the medial branch block will not be working for this patient. I will schedule this patient for PNS Sprint as we discussed above. I will see her after the procedure. She will continue to follow up in this office for dressing changes after PNS sprint. Coding Level of Care Code Est Pt Level 3 (92317) Diagnoses Spondylosis of lumbar region without myelopathy or radiculopathy M47.816 Chronic pain syndrome G89.4
[2023-10-22 08:35] VITALS: BP 140/88; PULSE 74; RESP 16; O2SAT 97; BMI 29.4
== END 2023-10-22 08:41 | disposition home or self-care (01) ==
PROVIDERS: PCP Internal Medicine; Visit Provider Anesthesiology
DX: M47.816 Spondylosis without myelopathy or radiculopathy, lumbar region (principal); G89.4 Chronic pain syndrome
CPT/HCPCS: 99024

== ENCOUNTER → 2023-10-22 08:16 | Outpatient (BNVA) | payer OTHER, SELFPAY | PROVIDERS: PCP Internal Medicine; Visit Provider Anesthesiology | DX: M47.816 Spondylosis without myelopathy or radiculopathy, lumbar region (principal); G89.4 Chronic pain syndrome | CPT/HCPCS: 99212 ==

== ENCOUNTER 2023-12-12 08:25 | Outpatient (REF) | payer OTHER, SELFPAY ==
--- NOTE | ~2023-12-12 | CT_ITS ---
EXAMINATION: CT CHEST WITHOUT CONTRAST CLINICAL INFORMATION: Other nonspecific abnormal findings lung field COMPARISON: CT chest from 12/13/2022 TECHNIQUE: Multidetector volumetric CT imaging of the chest was done. Axial MIP volume rendering provided. Sagittal and coronal reformatted images were obtained. This CT examination was performed using dose optimization techniques as appropriate, variously including the following: *Automated exposure control *Adjustment of mA and/or kV according to patient size (this includes techniques or standardized protocols for targeted exams where dose is matched to indication/reason for exam; i.e. extremities or head) *Use of iterative reconstruction technique DLP: 162 mGy-cm FINDINGS: LUNGS/PLEURA: Stable pleural-based nodular focus along the lateral aspect of the right upper lobe measuring 2 mm (series 5, image 131). Stable 2 mm subpleural nodule lateral aspect of the right upper lobe (series 5, image 149). Stable 3 mm nodule in the anterior aspect of the right upper lobe (series 5, image 244). Stable 2 mm nodule anterior aspect of the right upper lobe (series 5, image 266). Stable 2 mm nodule in the lateral anterior aspect of the right middle lobe (series 5, image 3 2(. Stable 2 mm nodule along the anterior aspect of the left upper lobe (series 5, image 125). Stable lingular nodule measuring 4 mm (series 5, image 349). 2 mm nodule anterior aspect left lower lobe (series 5, image 244), stable 3 mm nodule lateral aspect left lower lobe (series 5, image 297), stable. No new enlarged or suspicious pulmonary nodules or masses are noted. Central airways are patent. No pneumothorax. No large pleural effusion. Bibasilar atelectasis. MEDIASTINUM: Heart is not enlarged. No pericardial effusion. Coronary artery valvular calcifications are noted. Aorta is nonaneurysmal and demonstrates atherosclerotic calcifications. Main pulmonary artery is not enlarged. No enlarged lymph nodes per size criteria. Visualized portions of the thyroid are unremarkable. AXILLA: No lymphadenopathy. UPPER ABDOMEN: Status post cholecystectomy. Small hiatal hernia. Colonic diverticulosis. OSSEOUS STRUCTURES: Multilevel degenerative changes of the thoracolumbar spine. CT/CT chest wo IV con IMPRESSION: 1. Redemonstration of multiple bilateral pulmonary nodules the largest measuring up to 4 mm in the lingula. No new enlarged or suspicious pulmonary nodules or masses are noted. 2. Status post cholecystectomy. 3. Small hiatal hernia. 4. Colonic diverticulosis.
== END 2023-12-12 08:26 | disposition home or self-care (01) ==
LOC: HO.CT 08:25
PROVIDERS: PCP Internal Medicine; Visit Provider Internal Medicine Pulmonary Disease
DX: R91.8 Other nonspecific abnormal finding of lung field (principal)
CPT/HCPCS: 71250

== ENCOUNTER 2023-12-15 08:27 | Outpatient (AMB) | payer OTHER, SELFPAY ==
--- NOTE | 2023-12-15 08:29 | A.OFFVIS_ITS ---
Intake Vital Signs 12/15/23 08:34 Height 5 ft 3 in Weight 170 lb BMI 30.1 BP 146/88 H Blood Pressure Location Lt brachial Respiration 16 Pulse 74 Pulse Source Pulse Oximeter Pulse Oximetry (%) 97 Oxygen Delivery Method Room Air Intake Visit Reasons: Sprint Removal (Sprint placed 10/17/23) Intake Note: Patient comes in for Sprint removal was placed on 10/17/2023. Reports pain /10. Allergies aspirin [ASPIRIN] Allergy (Severe, Verified 12/15/23 08:34) STOMACH UPSET codeine [CODEINE] Allergy (Intermediate, Verified 12/15/23 08:34) STOMACH UPSET HPI HPI Comments History of Present Illness Details Lakisha santiago is back in my office after sprint PNS at left L3 lamina Sixty days ago. She reports pain 10/08. The device was removed today, the tip was intact, sterile dressing was applied. No redness no swelling no pathological discharge. She reports excellent mobility activities of daily living social interactions. She wants to go back to work. She will be given a note allowing her to return to work. She was informed that the pain relief will last about 4-6 months from now. If pain will come back she is welcome to come back and we will repeat sprint PNS L3 on the left. She had diagnostic medial branch block L1-L2 L3 and L4 on the left on 02/25/2023. She reported 33 hours of complete pain relief. Now it is very obvious that she is suffering from spondylosis of the lumbar spine. Also she complains on stiffness of the neck to were the end of the day. She reports limited mobility of the neck at night. We agreed that I will send her to physical therapy after we will complete treatment with sprint PNS in 7 weeks. She will schedule appointment with me in 7 weeks. Prior: Complains on pain on the left side of the lower back with radiation into the lef t lower extremity all the way down to the calf on posterior surface of the leg as well as some minor discomfort on the right.? 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 .? Some movements aggravate her pain as well.? For example when she needs to stand up from the sitting position her pain is most severe.? The pain is worse in the evening and in the morning and the less severe in the middle of the day.? In terms of tissue damage she describes her pain as pinching, cramping, crushing, dull, cervical, hurting, aching, heavy sensation.? She had an x-ray of the lumbar spine results of which dictated as below.? She is currently taking NSAIDs to help her pain.? She takes physical therapy currently she is through with 4. r full full sessions, she is trying to perform home exercise program but does it infrequently.? She never had any injections. [facility] Medical History Asthma exacerbation Well woman exam with routine gynecological exam Cervical cancer screening Breast cancer screening by mammogram Abnormal TSH Overweight (BMI 25.0-29.9) Stiffness of finger joint Bronchitis Asthma Trigger finger of left thumb Trigger finger of right thumb Carpal tunnel syndrome on both sides Hypertension Repetitive use syndrome Surgical History Hx of colonoscopy H/O vaginal hysterectomy S/P tonsillectomy H/O abdominoplasty Hx of exploratory laparotomy Hx of cholecystectomy History of carpal tunnel release S/P trigger finger release Family History (Updated 07/03/23 @ 09:59 by Monica Jimenez CMA) Brother Colon cancer Maternal Uncle Substance abuse Social History Housing: Apartment Alcohol intake: current Alcohol intake frequency: does not drink Patient Tobacco Use Status: Former Tobacco user Quit Date: 30 years ago Tobacco use type: Cigarette Years Smoked: stopped 1991 e-Cigarette/Vaping Use: Never Used Second Hand Smoke Exposure: No service: No Current occupational status: employed 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 Current occupational exposures/hazards: No Cognitive needs: No Hearing needs: No Vision needs: No Review of Systems Const All systems reviewed & are unremarkable except as noted in HPI and below ENT Reports Normal hearing present Neuro Reports Normal hearing present, Denies Abnormal speech present, Denies confusion and Denies Sensory deficit (Neuro) Psych Denies confusion Physical Exam Const General: no acute distress; No confusion Orientation/consciousness: patient oriented x3 and No confusion Eyes General: appearance normal, both eyes and all related structures Pupils: Equal, round and reactive pupils present EOM: EOMs intact bilaterally Neck Neck: Yes full ROM Chest Chest palpation & inspection: normal inspection of the chest Resp Effort & Inspection: normal respiratory effort, able to speak in complete sentences, normal respiratory pattern, no audible wheezes and no cough Cardio Jugular venous distension: no JVD GI Inspection: Yes normal to inspection Back/Spine/Pelvis Other: She is able to stand on bilateral tiptoes and bilateral heels without difficulty, she is able to lift the large toe in separation of the rest of the toes. She is able to flex herself forward without any difficulty. However minimal flexing backwards as well as lifting body up from the flex forward position causes severe pain in the back. Loading test is positive bilaterally. Leon's test is negative bilaterally. SLR may be equivocal on the left a and-lasseque test left aggravates her pain. On the right SLR is negative. Valsalva maneuver does not aggravate her pain. Neuro General: patient oriented x3, gait normal and No confusion Cranial nerves: Yes CN's II-XII intact bilaterally, Yes Equal, round and reactive pupils present, Yes Normal hearing present and Yes Ability to bilaterally elevate shoulders present Speech: No Abnormal speech present Gait exam (Neuro): Normal gait present Motor exam (neuro): 5/5 motor strength present throughout Sensory Exam: No Sensory deficit (Neuro) Extrem General: No pedal edema Psych Speech and movement: Normal speech and movement present Affect: normal affect Attitude: cooperative Thought process: Normal thought process present Thought content: Normal thought content present Insight: Good insight present (Psych) Judgement: Good judgement present (Psych) Assessment & Plan Assessment & Plan (1) Spondylosis of lumbar region without myelopathy or radiculopathy: Code(s): M47.816 - Spondylosis without myelopathy or radiculopathy, lumbar region (2) Chronic pain syndrome: Code(s): G89.4 - Chronic pain syndrome Plan diagnostic left medial branch block L1 L2-L3 L4 - 33 hours of complete pain relief. Good results of sprint PNS L3 on the left, the devices removed today sterile dressing is applied. If pain will come back after 4 months from now we can rep eat the procedure. Letter allowing her to go to work a will be issued to the patient. On the x-ray there was significant spondylosis of the spine of this patient. Mostly on the L2-L3 level. Her pain pattern does not correspond to nerve root compression at this level. Sacroiliac joint sclerosis positive on x-ray possibility exist to do diagnostic sacroiliac joint injections in the future if the medial branch block will not be working for this patient. Coding Level of Care Code Est Pt Level 3 (27379) Diagnoses Spondylosis of lumbar region without myelopathy or radiculopathy M47.816 Chronic pain syndrome G89.4
[2023-12-15 08:34] VITALS: BP 146/88; PULSE 74; RESP 16; O2SAT 97; BMI 30.1
== END 2023-12-15 08:40 | disposition home or self-care (01) ==
PROVIDERS: PCP Internal Medicine; Visit Provider Anesthesiology
DX: M47.816 Spondylosis without myelopathy or radiculopathy, lumbar region (principal); G89.4 Chronic pain syndrome
CPT/HCPCS: 99213

== ENCOUNTER → 2023-12-15 08:27 | Outpatient (BNVA) | payer OTHER, SELFPAY | PROVIDERS: PCP Internal Medicine; Visit Provider Anesthesiology | DX: M47.816 Spondylosis without myelopathy or radiculopathy, lumbar region (principal); G89.4 Chronic pain syndrome | CPT/HCPCS: 99212 ==

== ENCOUNTER 2023-12-17 11:20 | Outpatient (AMB) | payer OTHER, SELFPAY ==
[2023-12-17 11:21] VITALS: BP 137/80; PULSE 72; O2SAT 99; BMI 29.3
--- NOTE | 2023-12-17 11:21 | MHC.OFFVIS ---
Intake Vital Signs 12/17/23 11:21 Height 5 ft 3 in Weight 165 lb 10.458 oz BMI 29.3 BP 137/80 Blood Pressure Location Rt brachial Position Sitting Pulse 72 Pulse Source Doppler Pulse Oximetry (%) 99 Oxygen Delivery Method Room Air Intake Visit Reasons: pulm nodules Allergies aspirin [ASPIRIN] Allergy (Severe, Verified 12/17/23 11:25) STOMACH UPSET codeine [CODEINE] Allergy (Intermediate, Verified 12/17/23 11:25) STOMACH UPSET HPI pulm nodules HPI Details 53-year-old lady, former 10 pack year smoker, quit 30 years prior, now followed for reactive airway disease and pulmonary nodules. Patient had a follow-up CT chest on December 11, however the official results are not available for this visit. Patient states that she has been using Spiriva and Advair, though she does get significant palpitations while using Spiriva. PFSH Medical History Asthma exacerbation Well woman exam with routine gynecological exam Cervical cancer screening Breast cancer screening by mammogram Abnormal TSH Overweight (BMI 25.0-29.9) Stiffness of finger joint Bronchitis Asthma Trigger finger of left thumb Trigger finger of right thumb Carpal tunnel syndrome on both sides Hypertension Repetitive use syndrome Surgical History Hx of colonoscopy H/O vaginal hysterectomy S/P tonsillectomy H/O abdominoplasty Hx of exploratory laparotomy Hx of cholecystectomy History of carpal tunnel release S/P trigger finger release Family History (Updated 07/03/23 @ 09:59 by Monica Jimenez CMA) Brother Colon cancer Maternal Uncle Substance abuse Social History Housing: Apartment Alcohol intake: current Alcohol intake frequency: does not drink Patient Tobacco Use Status: Former Tobacco user Quit Date: 30 years ago Tobacco use type: Cigarette Years Smoked: stopped 1991 e-Cigarette/Vaping Use: Never Used Second Hand Smoke Exposure: No service: No Current occupational status: employed 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[employer] Current occupational exposures/hazards: No Cognitive needs: No Hearing needs: No Vision needs: No Review of Systems Const Denies daytime sleepiness, Denies excessive sweating, Denies fatigue, Denies fever(s), Denies lethargy, Denies malaise, Denies night sweats, Denies snoring and Denies weight loss Eyes Denies blurry vision and Denies itchy eyes ENT Denies nasal congestion, Denies post nasal drip, Denies sinus pain, Denies sinus pressure and Denies other ( Thrush) Card Denies chest pain, Denies pedal edema, Denies dyspnea, Denies orthopnea and Denies paroxysmal nocturnal dyspnea Resp Denies cough, Denies hemoptysis, Denies excessive phlegm production, Denies dyspnea, Denies snoring and Denies wheezing GI Denies abdominal pain and Denies heartburn Musc Denies myalgias, Denies arthralgias and Denies joint swelling Skin/Breast Denies rash Neuro Denies memory loss and Denies seizure-like activity Psych Denies abnormal sleep pattern, Denies anxiety and Denies memory loss Endo Denies excessive sweating, Denies fatigue and Denies heat intolerance Hussein/Lymph Denies easy bruising Aller/Immun Denies itchy eyes, Denies seasonal rhinorrhea and Denies wheezing Physical Exam Vital Signs: Last Vital Signs Pulse 72 12/17/23 11:21 BP 137/80 12/17/23 11:21 Pulse Ox 99 12/17/23 11:21 Oxygen Delivery Method Room Air 12/17/23 11:21 BMI result Body Mass Index 29.3 Const General: no acute distress and alert Nutritional Appearance: not obese Orientation/consciousness: Other orientation findings ( oriented) HEENT Head: Yes atraumatic Eyes General: appearance normal, both eyes and all related structures Sclerae: sclerae normal EOM: EOMs intact bilaterally Neck Neck: Yes supple Lymphatic: no lymphadenopathy noted Resp Effort & Inspection: normal respiratory effort and no use of accessory muscles Auscultation: clear to auscultation bilaterally Cardio Rate: regular rate Rhythm: regular rhythm Heart sounds: no gallops, no murmurs and no rubs Skin General skin exam: other ( warm) Extrem General: No clubbing, No cyanosis and No edema Assessment & Plan Assessment & Plan (1) Pulmonary nodules: Comment: November 2022 Code(s): R91.8 - Other nonspecific abnormal finding of lung field Plan: Imaging from follow-up CT chest reviewed as official report is not available. On my review largest pulmonary nodule in the left lower lobe not significantly different from prior and measuring 4-[address] chest in 12 months. (2) Asthma: Code(s): J45.909 - Unspecified asthma, uncomplicated Plan: Significant palpitations with Spiriva, will discontinue this time. Continue Advair and albuterol MDI. Orders: Orders CT chest wo IV con 12/06/24 R91.8 - Other nonspecific abnormal finding of lung field Medications: Discontinued tiotropium bromide 2.5 mcg/actuation (Spiriva Respimat) Discontinued Reason: Doctor's Order 2 puffs inhalation QAM 4 grams 6RF 30 days Coding Level of Care Code Est Pt Level 4 (48896) Diagnoses Pulmonary nodules R91.8 Asthma J45.909
== END 2023-12-17 11:43 | disposition home or self-care (01) ==
PROVIDERS: PCP Internal Medicine; Visit Provider Internal Medicine Pulmonary Disease
DX: R91.8 Other nonspecific abnormal finding of lung field (principal); J45.909 Unspecified asthma, uncomplicated
CPT/HCPCS: 99214

== ENCOUNTER → 2023-12-17 11:20 | Outpatient (BNVA) | payer OTHER, SELFPAY | PROVIDERS: PCP Internal Medicine; Visit Provider Internal Medicine Pulmonary Disease | DX: R91.8 Other nonspecific abnormal finding of lung field (principal); J45.909 Unspecified asthma, uncomplicated | CPT/HCPCS: 99212 ==

== ENCOUNTER 2024-01-08 09:35 | Outpatient (AMB) | payer OTHER, SELFPAY ==
[2024-01-08 09:45] VITALS: BP 142/88; PULSE 75; O2SAT 98; BMI 29.9
--- NOTE | 2024-01-08 09:45 | A.OFFPC_ITS ---
Vital Signs 01/08/24 09:45 Height 5 ft 3 in Weight 169 lb BMI 29.9 BP 142/88 H Blood Pressure Location Lt brachial Position Sitting Pulse 75 Pulse Source Pulse Oximeter Pulse Oximetry (%) 98 Oxygen Delivery Method Room Air Intake Visit Reasons: knee pain,swelling Allergies aspirin [ASPIRIN] Allergy (Severe, Verified 01/08/24 09:45) STOMACH UPSET codeine [CODEINE] Allergy (Intermediate, Verified 01/08/24 09:45) STOMACH UPSET Medication List - Last Reconciled 01/08/24 by Matty Grover MD albuterol sulfate 90 mcg/actuation (Ventolin HFA) 2 puffs inhalation Q6H PRN blood pressure monitor (Blood Pressure Kit) As directed diclofenac sodium 1% (Voltaren Arthritis Pain) 4 grams topical QID PRN fluticasone propion-salmeterol 115-21 mcg/actuation (Advair HFA) 2 puffs inhalation Q12H ibuprofen 800 mg PO Q8H PRN lidocaine 4% (Aspercreme (lidocaine)) 1 patch topical DAILY PRN pantoprazole 40 mg PO DAILY polyethylene glycol 3350 (Miralax) 17 grams PO DAILY sennosides-docusate sodium 8.6-50 mg (Senna with Docusate Sodium) 2 tab-caps (2 x 8.6-50 mg) PO BEDTIME tizanidine 2 mg PO Q8H PRN Tobacco use date assessed: 01/08/24 Dental Screening Dental Screen Date: 01/08/24 Did you have a dental visit in the last 12 months?: Yes Did you have a dental problem in the last 6 months where you did not have access to dental care?: No Was dental information given to patient?: Patient has dentist HPI knee pain,swelling HPI Details 53-year-old overweight female with a his tory of asthma low back pain generalized anxiety disorder coming in for follow-up. Last seen in June 2023 patient's mammogram is due patient follows up with Pulmonary seen in November 2023 history of 10 pack year smoking and quit 30 years ago has reactive airway disease and pulmonary nodule had a CT scan in December 11 on Spiriva and Advair left lower lobe 4-5 mm nodule. Advised to follow-up in 1 year.. Patient gets palpitations from Spiriva and will discontinue. Meanwhile patient has also followed up with pain management for the back pain had diagnostic left medial branch block L1 234 patient 1 day complains of left knee pain denies any fall or trauma had some mild swelling patient feels the pain mostly at the posterior area . Patient has use the diclofenac gel with no relief. [facility] Medical History Asthma exacerbation Well woman exam with routine gynecological exam Cervical cancer screening Breast cancer screening by mammogram Abnormal TSH Overweight (BMI 25.0-29.9) Stiffness of finger joint Bronchitis Asthma Trigger finger of left thumb Trigger finger of right thumb Carpal tunnel syndrome on both sides Hypertension Repetitive use syndrome Surgical History Hx of colonoscopy H/O vaginal hysterectomy S/P tonsillectomy H/O abdominoplasty Hx of exploratory laparotomy Hx of cholecystectomy History of carpal tunnel release S/P trigger finger release Family History (Updated 07/03/23 @ 09:59 by Monica Jimenez [facility]) Brother Colon cancer Maternal Uncle Substance abuse Social History Housing: Apartment Alcohol intake: current Alcohol intake frequency: does not drink Patient Tobacco Use Status: Former Tobacco user Quit Date: 30 years ago Tobacco use type: Cigarette Years Smoked: stopped 1991 e-Cigarette/Vaping Use: Never Used Second Hand Smoke Exposure: No service: No Current occupational status: employed 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 1. Little interest or pleasure in doing things: not at all 2. Feeling down, depressed, or hopeless: not at all 3. Trouble falling or staying asleep, or sleeping too much: several days 4. Feeling tired or having little energy: several days 5. Poor appetite or overeating: not at all 6. Feeling bad about yourself - or that you are a failure or have let yourself or your family down: not at all 7. Trouble concentrating on things, such as reading the newspaper or watching television: not at all 8. Moving or speaking so slowly that other people could have noticed. Or the opposite - being so fidgety or restless that you have been moving around a lot more than usual: not at all 9. Thoughts that you would be better off or of hurting yourself in some way: not at all Total score: 2 Depression Screening Interpretation: Negative Depression Screening Done: Yes 72822 - PHQ-9 Billing: Yes Source: Developed by Drs. Felipe Mata, Juanis Sharma, Lake Jimenez and colleagues, with an educational jorge a from [employer]. Thrive Questionnaire Date Thrive assessed: 01/08/24 I am a: Patient What is your living situation today?: I have a steady place to live Within the past 12 months, did the food you bought not last and you didn't have the money to get more?: Never true Within the past 12 months, did you worry whether your food would run out before you got money to buy more?: Never true Do you have trouble paying for medicines?: No Do you have trouble getting transportation to medical appointments?: No Do you have trouble paying your heating and electricity bill?: No Do you have trouble taking care of your child, family member or friend?: No Do you have trouble with day-to-day activities such as bathing, preparing meals, shopping, managing finances, etc.?: No Are you currently unemployed and looking for a job?: No Are you interested in more education?: No Currently or been in a relationship where the following occur: no concerns reported THRIVE Score: 0 AUDIT C Alcohol Use Questionnaire (AUDIT-C) 1. How often do you have a drink containing alcohol?: Monthly or less 2. How many drinks containing alcohol do you have on a typical day when you are drinking?: 1 or 2 3. How often do you have six or more drinks on one occasion?: Never Total Score: 1 Score Reviewed/Action Taken: No SINA-7 AMB Questionnaire SINA-7 Date SINA - 7 assessed: 01/08/24 Feeling nervous, anxious, or on edge: 0 = Not at all Not being able to stop or control worryin = Not at all Worrying too much about different things: 0 = Not at all Trouble relaxin = Not at all Being so restless that it is hard to sit still: 0 = Not at all Becoming easily annoyed or irritable: 0 = Not at all Feeling afraid as if something awful might happen: 0 = Not at all Total SINA-7 score (0-4 normal; 5-9 mild; 10-14 moderate; 15-21 severe): 0 Source: Developed by Drs. Felipe Mata, Juanis Sharma, [place] Jimenez and colleagues, with an educational jorge a from [employer]. Physical exam (Primary Care) Vital Signs: Oxygen Delivery Method Room Air 01/08/24 09:45 BMI result Body Mass Index 29.9 Tobacco/Smoking Status: Tobacco use Status Tobacco use date assessed 06/12/23 07/03/23 10:00 Patient Tobacco Use Status Former Tobacco user 10/17/23 09:35 Tobacco use type Cigarette 07/03/23 10:00 e-Cigarette/Vaping Use Never Used 07/03/23 10:00 Depression Screening Interpretation: Negative Thrive Assessment: Date of Thrive Assessment Date Thrive assessed 03/12/23 07/03/23 10:00 Currently or been in a relationship where the following occur: no concerns reported Const General: alert; No acute distress Eyes Conjunctivae: conjunctivae normal Resp Auscultation: clear to auscultation bilaterally Cardio Rate: regular rate Rhythm: regular rhythm GI Inspection: Yes normal to inspection Extrem Other: Left knee mild crepitation with tenderness on the anterior area as well as on the left posterior, no swelling noted no redness noted General: No edema Assessment and Plan Assessment & Plan (1) Pulmonary nodules: Comment: November 2022 Code(s): R91.8 - Other nonspecific abnormal finding of lung field Plan: November [address] scan and advised to follow-up in 1 year. Patient sees pulmonary (2) Impaired glucose tolerance: Code(s): R73.02 - Impaired glucose tolerance (oral) Plan: Decrease the amount of carbohydrate intake, pasta, bread, rice and potatoes are all sugar and that is aside from all the sweet stuff, remember that fruits are good but they are Sweet also. (3) Asthma: Code(s): J45.909 - Unspecified asthma, uncomplicated Plan: Patient has been taken off Spiriva due to palpitations. Continue on with albuterol and Advair (4) Spondylosis of lumbar region without myelopathy or radiculopathy: Code(s): M47.816 - Spondylosis without myelopathy or radiculopathy, lumbar region Plan: Patient is being followed up by pain management (5) Knee pain, left: Code(s): M25.562 - Pain in left knee Plan: Patellar arthritis with question of Thornton's cyst. X-rays requested as well as an ultrasound and referral to orthopedics. Orders: Orders XR knee LT 2V Today M25.562 - Pain in left knee US venous duplex LE LT Today M25.562 - Pain in left knee Referrals Orthopedics Referral M25.562 - Pain in left knee Coding Level of Care Code Est Pt Level 4 (00770) Diagnoses Pulmonary nodules R91.8 Impaired glucose tolerance R73.02 Asthma J45.909 Spondylosis of lumbar region without myelopathy or radiculopathy M47.816 Knee pain, left M25.562
== END 2024-01-08 10:01 | disposition home or self-care (01) ==
PROVIDERS: PCP Internal Medicine; Visit Provider Internal Medicine
DX: R91.8 Other nonspecific abnormal finding of lung field (principal); R73.02 Impaired glucose tolerance (oral); J45.909 Unspecified asthma, uncomplicated; M47.816 Spondylosis without myelopathy or radiculopathy, lumbar region; M25.562 Pain in left knee
CPT/HCPCS: 99214

== ENCOUNTER 2024-01-08 10:13 | Outpatient (REF) | payer OTHER, SELFPAY ==
--- NOTE | ~2024-01-08 | XR_ITS ---
EXAMINATION: XR KNEE, LEFT CLINICAL INFORMATION: Pain COMPARISON: None available. TECHNIQUE: Two views of the left knee. FINDINGS: Bone alignment is normal. No fracture or dislocation. Mild joint space narrowing at the medial femoral tibial joint. Small osteophytes at the patellofemoral joint. Small to moderate joint effusion. XR/XR knee LT 2V IMPRESSION: Mild degenerative changes and joint effusion.
== END 2024-01-08 10:14 | disposition home or self-care (01) ==
LOC: HO.XRAY 10:13
PROVIDERS: PCP Internal Medicine; Visit Provider Internal Medicine
DX: M25.562 Pain in left knee (principal)
CPT/HCPCS: 73560

== ENCOUNTER 2024-01-14 13:52 | Outpatient (REF) | payer OTHER, SELFPAY ==
--- NOTE | ~2024-01-14 | US_ITS ---
EXAMINATION: US VENOUS ULTRASOUND WITH DOPPLER LOWER EXTREMITY, LEFT CLINICAL INFORMATION: Left knee pain COMPARISON: None available. TECHNIQUE: Ultrasound of the deep veins is performed from the hip to the calf with compression sonography and color and pulse Doppler assessment. Spectral analysis with color-flow imaging is performed. FINDINGS: There is normal venous compression and respiratory variation and augmented flow. The visualized common femoral vein, superficial femoral vein, profunda femoral vein, popliteal vein, and the trifurcation region shows no evidence of deep venous thrombosis. There is a 6 x 0.6 x 3 cm popliteal fossa cyst. US/US venous duplex LE LT IMPRESSION: No DVT demonstrated in the left lower extremity.
== END 2024-01-14 13:53 | disposition home or self-care (01) ==
LOC: HO.US 13:52
PROVIDERS: PCP Internal Medicine; Visit Provider Internal Medicine
DX: M25.562 Pain in left knee (principal)
CPT/HCPCS: 93971

== ENCOUNTER 2024-01-28 08:17 | Outpatient (REF) | payer OTHER, SELFPAY ==
--- NOTE | ~2024-01-28 | XR_ITS ---
EXAMINATION: XR KNEE, AP STANDING BILATERAL AND SUNRISE LEFT CLINICAL INFORMATION: Pain in left knee, unspecified knee. COMPARISON: 01/08/2024 left knee. TECHNIQUE: AP standing view of bilateral knees. Single sunrise view of the left knee. FINDINGS: AP standing view of bilateral knees: Mild narrowing of the bilateral medial compartments with tiny medial marginal osteophytes, left greater than right. [place] view left knee: Mild asymmetric narrowing of the lateral compartment with small osteophytes on the sunrise view. XR/XR knee RT 2V IMPRESSION: Mild narrowing of the bilateral medial compartments with tiny medial marginal osteophytes, left greater than right. [place] view left knee demonstrates mild asymmetric narrowing of the lateral compartment with small osteophytes on the sunrise view.
--- NOTE | ~2024-01-28 | XR_ITS ---
EXAMINATION: XR KNEE, AP STANDING BILATERAL AND SUNRISE LEFT CLINICAL INFORMATION: Pain in left knee, unspecified knee. COMPARISON: 01/08/2024 left knee. TECHNIQUE: AP standing view of bilateral knees. Single sunrise view of the left knee. FINDINGS: AP standing view of bilateral knees: Mild narrowing of the bilateral medial compartments with tiny medial marginal osteophytes, left greater than right. [place] view left knee: Mild asymmetric narrowing of the lateral compartment with small osteophytes on the sunrise view. XR/XR knee LT 1V IMPRESSION: Mild narrowing of the bilateral medial compartments with tiny medial marginal osteophytes, left greater than right. [place] view left knee demonstrates mild asymmetric narrowing of the lateral compartment with small osteophytes on the sunrise view.
== END 2024-01-28 08:18 | disposition home or self-care (01) ==
LOC: HO.HOSX 08:17
PROVIDERS: Visit Provider Physician Assistant
DX: M17.12 Unilateral primary osteoarthritis, left knee (principal)
CPT/HCPCS: 20610; 73560; 99212; J1010

== ENCOUNTER 2024-01-28 08:59 | Outpatient (AMB) | payer OTHER, SELFPAY ==
--- NOTE | 2024-01-28 09:02 | A.OFFVIS_ITS ---
Vital Signs 01/28/24 09:03 Height 5 ft 3 in Weight 169 lb BMI 29.9 Intake Visit Reasons: new prob- Lt knee pain Intake Note: Lakisha is a 54 year old male, right hand dominant, who presents today with left knee pain . Patient reports his pain has been going on for about 3 months, worsening in the past 2-3 weeks, 6-7 on the 0-10 pain scale, she is using Tylenol for the pain with no relief. She states she feels a shooting pain up and down the leg, at time it is difficult to bend it. It also cracks when bending. Director Software Development Required: No Accompanied by: Self / Same As Patient Allergies aspirin [ASPIRIN] Allergy (Severe, Verified 01/28/24 09:02) STOMACH UPSET codeine [CODEINE] Allergy (Intermediate, Verified 01/28/24 09:02) STOMACH UPSET HPI HPI new prob- Lt knee pain: Details: 54-year-old right hand dominant female who presents to the office today for evaluation of left knee pain for 3 months which has been worsening for the past 2 weeks. She states she has a shooting pain in her knee which radiates up and down the leg. She rates the pain as 6 on the scale of 0-10. She also c/o cracking of knee with bending and her pain occasionally makes it difficult to bend her knee. She finds no relief with Tylenol. She has been using a heating pad for her knee. She does not have a history of diabetes. [facility] Medical History Asthma exacerbation Well woman exam with routine gynecological exam Cervical cancer screening Breast cancer screening by mammogram Abnormal TSH Overweight (BMI 25.0-29.9) Stiffness of finger joint Bronchitis Asthma Trigger finger of left thumb Trigger finger of right thumb Carpal tunnel syndrome on both sides Hypertension Repetitive use syndrome Surgical History Hx of colonoscopy H/O vaginal hysterectomy S/P tonsillectomy H/O abdominoplasty Hx of exploratory laparotomy Hx of cholecystectomy History of carpal tunnel release S/P trigger finger release Family History (Updated 07/03/23 @ 09:59 by Monica Jimenez CMA) Brother Colon cancer Maternal Uncle Substance abuse Social History (Reviewed 01/28/24 @ 09:15 by SPEEDY Arambula Housing: Apartment Alcohol intake: current Alcohol intake frequency: does not drink Patient Tobacco Use Status: Former Tobacco user Quit Date: 30 years ago Tobacco use type: Cigarette Years Smoked: stopped 1991 e-Cigarette/Vaping Use: Never Used Second Hand Smoke Exposure: No service: No Current occupational status: employed Current occupation: right handed/ [employer] Current occupational exposures/hazards: No Cognitive needs: No Hearing needs: No Vision needs: Yes Review of Systems Const All systems reviewed & are unremarkable except as noted in HPI and below Physical Exam Vital Signs: BMI result Body Mass Index 29.9 Const General: cooperative and no acute distress Orientation/consciousness: patient oriented x3 Resp Effort & Inspection: normal respiratory effort and able to speak in complete sentences Cardio Peripheral pulses: Peripheral pulses 2+ throughout Neuro General: patient oriented x3 Extrem Other: Left knee: Skin intact, no erythema or joint effusion. Lateral retropatellar tenderness present. Full ROM with crepitus. Negative Cameron?s. No ligamentous laxity. NVI. Office Procedures Joint Injection/Drain Joint Injection/Drain Primary Site: left knee Prep: site was prepped using aseptic technique, ethochloride spray was applied and injection warnings given Injected: 80 mg of, DepoMedrol, with 8 mL of, 1% plain lidocaine and in the subcromial space Approach Used: anterolateral Procedure: The patient tolerated the procedure well and there was some relief with the local anesthesia Coding 58050 - Glenohumeral/Tronchanteric Bursa/Intraarticular Procedure code (CPT) selection complete Results Reviewed Results Reviewed: Xrays were obtained in the office today and personally reviewed by me show mild medial compartment oa with pf oa Assessment & Plan Assessment & Plan (1) Patellofemoral arthritis of left knee: Code(s): M17.12 - Unilateral primary osteoarthritis, left knee Category: Medical Plan We discussed options today which include steroid injection. They did consent to move forward with the injection, which was tolerated well. An order for physical therapy was also placed in the office today. I recommended rest, ice and elevation and OTC anti-inflammatories PRN for discomfort. If symptoms persist or worsens over the next 6 weeks, he will contact the office for an MRI of the left knee to further evaluate the meniscus, otherwise follow-up as needed. Orders: Orders PT Evaluation and Treatment Today M17.12 - Unilateral primary osteoarthritis, left knee XR knee RT 2V Today M25.569 - Pain in unspecified knee XR knee LT 1V Today M25.562 - Pain in left knee Patient Instructions: Scribed for Malinda Hill PA-C, by Jaswinder Frye medical record librarians teacher, on 01/28/2024 at 9:00 AM EST. I, Malinda Hill PA-C, have personally reviewed and agree with the information entered by the scribe. Coding Level of Care Code New Pt Level 3 (80025) Diagnoses Patellofemoral arthritis of left knee M17.12 CPT Codes Coding - Joint 7: 35142 - Glenohumeral/Tronchanteric Bursa/Intraarticular ([id number])
[2024-01-28 09:03] VITALS: BMI 29.9
== END 2024-01-28 09:41 | disposition home or self-care (01) ==
PROVIDERS: PCP Internal Medicine; Visit Provider Physician Assistant
DX: M17.12 Unilateral primary osteoarthritis, left knee (principal)
CPT/HCPCS: 20610; 99213

== ENCOUNTER 2024-02-09 08:28 | Outpatient (AMB) | payer OTHER, SELFPAY ==
--- NOTE | 2024-02-09 08:32 | MHC.OFFVIS ---
Vital Signs 02/09/24 08:39 Height 5 ft 3 in Weight 168 lb BMI 29.8 BP 160/90 H Blood Pressure Location Lt brachial Position Sitting Respiration 16 Pulse 84 Pulse Source Pulse Oximeter Pulse Oximetry (%) 97 Oxygen Delivery Method Room Air Intake Visit Reasons: Back Pain Intake Note: Patient comes in for back pain. Reports pain 6/10. Allergies aspirin [ASPIRIN] Allergy (Severe, Verified 02/09/24 08:41) STOMACH UPSET codeine [CODEINE] Allergy (Intermediate, Verified 02/09/24 08:41) STOMACH UPSET HPI Comments Details: Lakisha is back in my office complaining on the same pain as it was before in magnitude of 6/10. She had diagnostic medial branch block L1-L2 L3 and L4 on the left on 02/25/2023. After that she had 33 hours of complete pain relief. She went for sprint PNS and while on stimulation she reported pain 0 to 1/10. However when the stimulating line was removed she started to complain on pain within 6-8 weeks. This is a to short. I offered this patient continual neural stimulation with curonix She needs to go for psychological evaluation. After that when she will past psychological evaluation I will schedule her for the procedure. Prior: Complains on pain on the left side of the lower back with radiation into the left lower extremity all the way down to the calf on posterior surface of the leg as well as some minor discomfort on the right.? 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 .? Some movements aggravate her pain as well.? For example when she needs to stand up from the sitting position her pain is most severe.? The pain is worse in the evening and in the morning and the less severe in the middle of the day.? In terms of tissue damage she describes her pain as pinching, cramping, crushing, dull, cervical, hurting, aching, heavy sensation.? She had an x-ray of the lumbar spine results of which dictated as below.? She is currently taking NSAIDs to help her pain.? She takes physical therapy currently she is through with 4. r full full sessions, she is trying to perform home exercise program but does it infrequently.? She never had any injections. [facility] Medical History Asthma exacerbation Well woman exam with routine gynecological exam Cervical cancer screening Breast cancer screening by mammogram Abnormal TSH Overweight (BMI 25.0-29.9) Stiffness of finger joint Bronchitis Asthma Trigger finger of left thumb Trigger finger of right thumb Carpal tunnel syndrome on both sides Hypertension Repetitive use syndrome Surgical History Hx of colonoscopy H/O vaginal hysterectomy S/P tonsillectomy H/O abdominoplasty Hx of exploratory laparotomy Hx of cholecystectomy History of carpal tunnel release S/P trigger finger release Family History (Updated 07/03/23 @ 09:59 by Monica Jimenez CMA) Brother Colon cancer Maternal Uncle Substance abuse Social History Housing: Apartment Alcohol intake: current Alcohol intake frequency: does not drink Patient Tobacco Use Status: Former Tobacco user Quit Date: 30 years ago Tobacco use type: Cigarette Years Smoked: stopped 1991 e-Cigarette/Vaping Use: Never Used Second Hand Smoke Exposure: No service: No Current occupational status: employed 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 Current occupational exposures/hazards: No Cognitive needs: No Hearing needs: No Vision needs: Yes Review of Systems Const All systems reviewed & are unremarkable except as noted in HPI and below ENT Reports Normal hearing present Neuro Reports Normal hearing present, Denies Abnormal speech present, Denies confusion and Denies Sensory deficit (Neuro) Psych Denies confusion Physical Exam Vital Signs: Last Vital Signs Pulse 84 02/09/24 08:39 Resp 16 02/09/24 08:39 BP 160/90 H 02/09/24 08:39 Pulse Ox 97 02/09/24 08:39 Oxygen Delivery Method Room Air 02/09/24 08:39 BMI result Body Mass Index 29.8 Const General: no acute distress; No confusion Orientation/consciousness: patient oriented x3 and No confusion Eyes General: appearance normal, both eyes and all related structures Pupils: Equal, round and reactive pupils present EOM: EOMs intact bilaterally Neck Neck: Yes full ROM Chest Chest palpation & inspection: normal inspection of the chest Resp Effort & Inspection: normal respiratory effort, able to speak in complete sentences, normal respiratory pattern, no audible wheezes and no cough Cardio Jugular venous distension: no JVD GI Inspection: Yes normal to inspection Back/Spine/Pelvis Other: She is able to stand on bilateral tiptoes and bilateral heels without difficulty, she is able to lift the large toe in separation of the rest of the toes. She is able to flex herself forward without any difficulty. However minimal flexing backwards as well as lifting body up from the flex forward position causes severe pain in the back. Loading test is positive bilaterally. Leon's test is negative bilaterally. SLR may be equivocal on the left a and-lasseque test left aggravates her pain. On the right SLR is negative. Valsalva maneuver does not aggravate her pain. Neuro General: patient oriented x3, gait normal and No confusion Cranial nerves: Yes CN's II-XII intact bilaterally, Yes Equal, round and reactive pupils present, Yes Normal hearing present and Yes Ability to bilaterally elevate shoulders present Speech: No Abnormal speech present Gait exam (Neuro): Normal gait present Motor exam (neuro): 5/5 motor strength present throughout Sensory Exam: No Sensory deficit (Neuro) Extrem General: No pedal edema Psych Speech and movement: Normal speech and movement present Affect: normal affect Attitude: cooperative Thought process: Normal thought process present Thought content: Normal thought content present Insight: Good insight present (Psych) Judgement: Good judgement present (Psych) Results Reviewed Results Reviewed: 5 nonrib-bearing lumbar-type vertebral bodies. Vertebral body heights are maintained. Alignment is maintained. Multilevel degenerative disc disease worst at L Sclerosis along the bilateral sacroiliac joints. Multilevel degenerative disc disease worst at L2-L3 with there is moderate to advanced loss of disc space height and degenerative endplate spurring. Large desiccated stool ball in the rectum. IMPRESSION: ? *? Multilevel degenerative disc disease worst at L2-L3 with there is moderate to advanced loss of disc space height and degenerative endplate spurring.? ? *? Sclerosis along the bilateral sacroiliac joints which can be seen in the setting of sacroiliitis or degenerative change.. Assessment & Plan Assessment & Plan (1) Spondylosis of lumbar region without myelopathy or radiculopathy: Code(s): M47.816 - Spondylosis without myelopathy or radiculopathy, lumbar region Category: Medical (2) Chronic pain syndrome: Code(s): G89.4 - Chronic pain syndrome Category: Medical Plan diagnostic left medial branch block L1 L2-L3 L4 - 33 hours of complete pain relief. Good results of sprint PNS L3 on the left, however the aftermath of the 8 weeks of the stimulation only 6-8 weeks of pain relief after that the pain started to come back. Curonix PNS was offered to the patient as a permanent solution. On the x-ray there was significant spondylosis of the spine of this patient. Mostly on the L2-L3 level. Her pain pattern does not correspond to nerve root compression at this level. Sacroiliac joint sclerosis positive on x-ray possibility exist to do diagnostic sacroiliac joint injections in the future if the medial branch block will not be working for this patient. Patient Instructions: I here by testify that I spent 30 minutes in conversation with this patient as well as planning her care and organizing this note. Coding Level of Care Code Est Pt Level 4 (21425) Diagnoses Spondylosis of lumbar region without myelopathy or radiculopathy M47.816 Chronic pain syndrome G89.4
[2024-02-09 08:39] VITALS: BP 160/90; PULSE 84; RESP 16; O2SAT 97; BMI 29.8
== END 2024-02-09 09:19 | disposition home or self-care (01) ==
PROVIDERS: PCP Internal Medicine; Visit Provider Anesthesiology
DX: M47.816 Spondylosis without myelopathy or radiculopathy, lumbar region (principal); G89.4 Chronic pain syndrome
CPT/HCPCS: 99214

== ENCOUNTER → 2024-02-09 08:28 | Outpatient (BNVA) | payer OTHER, SELFPAY | PROVIDERS: PCP Internal Medicine; Visit Provider Anesthesiology | DX: M47.816 Spondylosis without myelopathy or radiculopathy, lumbar region (principal); G89.4 Chronic pain syndrome | CPT/HCPCS: 99212 ==

== ENCOUNTER 2024-02-20 08:00 | Outpatient (RCR) | payer OTHER, SELFPAY ==
--- NOTE | 2024-02-18 12:42 | MHC.PT.EP ---
[facility] [place] Office [place] Office [address] Joel Ledezma [address] [phone] F: [phone] F: [phone] F: [phone] F: [phone] Physical Therapy Plan of Care Date of Evaluation: 02/18/24 Date of Surgery: Diagnosis: UNILAT OA LEFT KNEE/ PATELLOFEMORAL ARTHRITIS Assessment: 54 YO FEMALE REF TO PT FOR LEFT KNEE PAIN- SHE HAS A H/O LBP. THE Pt STATED SHE WAS DX IN [facility] W SEVILLA'S CYST AND Lt PF OA. 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 OBJECTIVE FINDINGS: HABITUAL GENU VALGUS COLLAPSE W PRONATION, GLUTE/ ABDOM WEAKNESS, DECR POSTURAL AWARENESS, AND PAIN IN Lt PES ANSERINE/ LAT PATELLA. FUNCTIONALLY, THE Pt HAS DECR PEDRO LUIS TO STANDING, SITTING, INCR WALKING, AND IS LIMITED W SQUATTING. SHE WOULD BENEFIT FROM A TRIAL OF PT TO ADDRESS SX /PAIN MGMT AND DEV A HEP. 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 Manual therapy to restore motion and function. Therapeutic exercise to improve strength and flexibility. Neuromuscular re-education for posture and balance. Therapeutic activities to return to functional activities of daily living. Electronically signed by: MATTHEW VALERIE,PT Please sign and return to therapist. Thank you for your referral.
--- NOTE | 2024-03-09 08:53 | MHC.PT.DC ---
[facility] [place] Office [place] Office [place] Office [address] Joel Ledezma 140 [facility] [phone] F: [phone] F: [phone] F: [phone] F: [phone] Physical Therapy Discharge Report Diagnosis: UNILAT OA LEFT KNEE/ PATELLOFEMORAL ARTHRITIS Date of Surgery: Date of Evaluation: 02/18/24 Date of Discharge: 03/09/24 Treatments to Date: 1 Cancellations to Date: 2 No Shows to Date: 3 Discharge Status: Patient Elected to Stop Visit Non-compliance Discharge Summary: 54 YO FEMALE WAS REF TO PT FOR LEFT KNEE PAIN- SHE HAS A H/O LBP. THE Pt STATED SHE WAS DIAGNOSED [place] [facility] [place] AND Lt PF OA. 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 THE Pt APPEARED TO BE A GOOD PT CANDIDATE, HOWEVER, SHE DID NOT ATTEND SCHED PT APPTS, PLEASE REFER TO THE ABOVE- SHE IS D/C THIS DATE DUE TO POOR ATTENDANCE. SHE DID NOT MEET HER PT GOALS. Electronically signed by: MATTHEW PADILLA,PT Please sign and return to therapist. Thank you for your referral.
== END 2024-03-09 08:52 | disposition home or self-care (01) ==
LOC: HO.PT 08:00
PROVIDERS: PCP Internal Medicine; Visit Provider Physician Assistant
DX: M17.12 Unilateral primary osteoarthritis, left knee (principal)
CPT/HCPCS: 97110; 97140; 97162

== ENCOUNTER 2024-02-26 09:34 | Outpatient (AMB) | payer OTHER, SELFPAY ==
[2024-02-26 09:44] VITALS: BP 136/86; PULSE 78; O2SAT 98; BMI 30.1
--- NOTE | 2024-02-26 09:44 | MHC.PC.OV ---
Vital Signs 02/26/24 09:44 Height 5 ft 3 in Weight 170 lb BMI 30.1 BP 136/86 Blood Pressure Location Lt brachial Position Sitting Pulse 78 Pulse Source Pulse Oximeter Pulse Oximetry (%) 98 Oxygen Delivery Method Room Air Intake Visit Reasons: simin Cisneros Dyslexia Teacher Required: No Allergies aspirin [ASPIRIN] Allergy (Severe, Verified 02/26/24 09:45) STOMACH UPSET codeine [CODEINE] Allergy (Intermediate, Verified 02/26/24 09:45) STOMACH UPSET Tobacco use date assessed: 01/08/24 Dental Screening Dental Screen Date: 01/08/24 HPI simin Cisneros HPI Details 54-year-old obese female with a history of pulmonary nodule impaired glucose tolerance asthma lumbar spondylosis coming in for follow-up. Last seen in December 2023. For the back pain patient follows up with pain management had a diagnostic medial branch block L1-4 02/15/2023 splint PNS done patient also was complaining of left knee pain seen Orthopedics diagnosis of patellofemoral arthritis left knee physical therapy as well as injections recommended [facility] Medical History (Updated 02/26/24 @ 10:05 by Matty Grover MD) Breast cancer screening by mammogram Asthma exacerbation Well woman exam with routine gynecological exam Cervical cancer screening Abnormal TSH Overweight (BMI 25.0-29.9) Stiffness of finger joint Bronchitis Asthma Trigger finger of left thumb Trigger finger of right thumb Carpal tunnel syndrome on both sides Hypertension Repetitive use syndrome Surgical History Hx of colonoscopy H/O vaginal hysterectomy S/P tonsillectomy H/O abdominoplasty Hx of exploratory laparotomy Hx of cholecystectomy History of carpal tunnel release S/P trigger finger release Family History (Updated 07/03/23 @ 09:59 by Monica Jimenez CMA) Brother Colon cancer Maternal Uncle Substance abuse Social History Housing: Apartment Alcohol intake: current Alcohol intake frequency: does not drink Patient Tobacco Use Status: Former Tobacco user Quit Date: 30 years ago Tobacco use type: Cigarette Years Smoked: stopped 1991 e-Cigarette/Vaping Use: Never Used Second Hand Smoke Exposure: No service: No Current occupational status: employed 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 Current occupational exposures/hazards: No Cognitive needs: No Hearing needs: No Vision needs: Yes Questionnaire Thrive Questionnaire Date Thrive assessed: 01/08/24 I am a: Patient What is your living situation today?: I have a steady place to live Within the past 12 months, did the food you bought not last and you didn't have the money to get more?: Never true Within the past 12 months, did you worry whether your food would run out before you got money to buy more?: Never true Do you have trouble paying for medicines?: No Do you have trouble getting transportation to medical appointments?: No Do you have trouble paying your heating and electricity bill?: No Do you have trouble taking care of your child, family member or friend?: No Do you have trouble with day-to-day activities such as bathing, preparing meals, shopping, managing finances, etc.?: No Are you currently unemployed and looking for a job?: No Are you interested in more education?: No Currently or been in a relationship where the following occur: no concerns reported THRIVE Score: 0 AUDIT C Alcohol Use Questionnaire (AUDIT-C) 1. How often do you have a drink containing alcohol?: Monthly or less 2. How many drinks containing alcohol do you have on a typical day when you are drinking?: 1 or 2 3. How often do you have six or more drinks on one occasion?: Never Total Score: 1 Score Reviewed/Action Taken: No SINA-7 AMB Questionnaire SINA-7 Date SINA - 7 assessed: 01/08/24 Source: Developed by Drs. Felipe Mata, Juanis Sharma, Lake Jimenez and colleagues, with an educational jorge a from [employer]. Physical exam (Primary Care) Vital Signs: Last Vital Signs Pulse 78 02/26/24 09:44 BP 136/86 02/26/24 09:44 Pulse Ox 98 02/26/24 09:44 Oxygen Delivery Method Room Air 02/26/24 09:44 BMI result Body Mass Index 30.1 Tobacco/Smoking Status: Tobacco use Status Tobacco use date assessed 01/08/24 02/26/24 09:45 Patient Tobacco Use Status Former Tobacco user 02/26/24 09:45 Tobacco use type Cigarette 02/26/24 09:45 e-Cigarette/Vaping Use Never Used 02/26/24 09:45 Thrive Assessment: Date of Thrive Assessment Date Thrive assessed 01/08/24 02/26/24 09:45 Currently or been in a relationship where the following occur: no concerns reported Const General: alert; No acute distress Eyes Conjunctivae: conjunctivae normal Resp Auscultation: clear to auscultation bilaterally Cardio Rate: regular rate Rhythm: regular rhythm GI Inspection: Yes normal to inspection Extrem General: Yes normal to inspection and No edema Assessment and Plan Assessment & Plan (1) Impaired glucose tolerance: Code(s): R73.02 - Impaired glucose tolerance (oral) Plan: Decrease the amount of carbohydrate intake, pasta, bread, rice and potatoes are all sugar and that is aside from all the sweet stuff, remember that fruits are good but they are Sweet also. (2) Pulmonary nodules: Comment: November 2022, 11/2023 Code(s): R91.8 - Other nonspecific abnormal finding of lung field Plan: Up-to-date with CT scan of the chest continue to be monitored (3) Spondylosis of lumbar region without myelopathy or radiculopathy: Code(s): M47.816 - Spondylosis without myelopathy or radiculopathy, lumbar region Plan: Patient follows up with pain management and has had branch blocks in the lumbar area but patient continues to have a lot of low back pain. (4) Obesity (BMI 30-39.9): Code(s): E66.9 - Obesity, unspecified Plan: Diet and exercise (5) Patellofemoral arthritis of left knee: Code(s): M17.12 - Unilateral primary osteoarthritis, left knee Plan: Patient follows up with orthopedics and has had injections and advised physical therapy (6) Breast cancer screening by mammogram: Code(s): Z12.31 - Encounter for screening mammogram for malignant neoplasm of breast Plan: Patient is reminded about mammogram (7) Hammertoe, bilateral: Code(s): M20.41 - Other hammer toe(s) (acquired), right foot; M20.42 - Other hammer toe(s) (acquired), left foot Plan: Referral to psychology instructor done (8) Vaginal dryness: Code(s): N89.8 - Other specified noninflammatory disorders of vagina Plan: Referral to Gynecology Orders: Orders MM tomosynthesis screening BI Today Z12.31 - Encounter for screening mammogram for malignant neoplasm of breast Referrals Podiatry Referral M20.41 - Other hammer toe(s) (acquired), right foot, M20.42 - Other hammer toe(s) (acquired), left foot FRONT OFFICE HELP Referral N89.8 - Other specified noninflammatory disorders of vagina Coding Level of Care Code Est Pt Level 4 (85663) Diagnoses Impaired glucose tolerance R73.02 Pulmonary nodules R91.8 Spondylosis of lumbar region without myelopathy or radiculopathy M47.816 Obesity (BMI 30-39.9) E66.9 Patellofemoral arthritis of left knee M17.12 Breast cancer screening by mammogram Z12.31 Hammertoe, bilateral M20.41; M20.42 Vaginal dryness N89.8
== END 2024-02-26 10:11 | disposition home or self-care (01) ==
PROVIDERS: PCP Internal Medicine; Visit Provider Internal Medicine
DX: R73.02 Impaired glucose tolerance (oral) (principal); R91.8 Other nonspecific abnormal finding of lung field; E66.9 Obesity, unspecified; Z68.30 Body mass index [BMI] 30.0-30.9, adult; M47.816 Spondylosis without myelopathy or radiculopathy, lumbar region; M17.12 Unilateral primary osteoarthritis, left knee; Z12.31 Encounter for screening mammogram for malignant neoplasm of breast; M20.41 Other hammer toe(s) (acquired), right foot; M20.42 Other hammer toe(s) (acquired), left foot; N89.8 Other specified noninflammatory disorders of vagina
CPT/HCPCS: 99214

== ENCOUNTER 2024-03-22 08:10 | Outpatient (REF) | payer OTHER, SELFPAY ==
--- NOTE | ~2024-03-22 | MM_ITS ---
EXAMINATION: MM SCREENING DIGITAL BREAST TOMOSYNTHESIS, BILATERAL CLINICAL INFORMATION: Screening. Asymptomatic. COMPARISON: Mammography: This study is compared with prior exams dating back to 2013. TECHNIQUE: Digital breast tomosynthesis is performed in both the craniocaudal and mediolateral oblique views along with computer-aided detection (CAD). Synthesized 2D images are generated from the tomosynthesis. FINDINGS: There are scattered areas of fibroglandular density (ACR BI-RADS breast composition Category b). There are no significant masses, abnormal calcifications, or other abnormalities. MM/MM tomosynthesis screening BI IMPRESSION: No mammographic evidence of malignancy. ASSESSMENT: BI-RADS BI-RADS 1 - Negative RECOMMENDATION: Routine annual mammography screening. 1 year F/U This examination should not preclude the clinical evaluation of a suspicious palpable abnormality. This patient's information was entered into a reminder system with a target due date for their next mammogram.
== END 2024-03-22 08:11 | disposition home or self-care (01) ==
LOC: HO.MAMMO 08:10
PROVIDERS: PCP Internal Medicine; Visit Provider Internal Medicine
DX: Z12.31 Encounter for screening mammogram for malignant neoplasm of breast (principal)
CPT/HCPCS: 77063; 77067

== ENCOUNTER → 2024-03-22 08:30 | Outpatient (BNV) | payer OTHER, SELFPAY | PROVIDERS: PCP Internal Medicine; Visit Provider Radiology Diagnostic Radiology | DX: Z12.31 Encounter for screening mammogram for malignant neoplasm of breast (principal) | CPT/HCPCS: 77063; 77067 ==

== ENCOUNTER 2024-05-10 09:31 | Emergency (ER) | payer OTHER, SELFPAY ==
--- NOTE | ~2024-05-10 | XR_ITS ---
EXAMINATION: XR CHEST CLINICAL INFORMATION: Cough. COMPARISON: Chest CT dated 12/12/2023. TECHNIQUE: 2 views of the chest were obtained. FINDINGS: Minimal right middle lobe atelectasis versus very early infiltrate. No pleural effusion or pneumothorax. Stable cardiomediastinal silhouette. No acute osseous abnormality. XR/XR chest 2V IMPRESSION: Minimal right middle lobe atelectasis versus very early infiltrate.
[2024-05-10 09:38] VITALS: BP 161/96; PULSE 91; RESP 16; TEMP 36.6; O2SAT 95; BMI 29.2
--- NOTE | 2024-05-10 09:43 | ECG_ITS ---
Test Reason : cough, fever Blood Pressure : / mmHG Vent. Rate : 076 BPM Atrial Rate : 076 BPM P-R Int : 148 ms QRS Dur : 080 ms QT Int : 384 ms P-R-T Axes : 048 007 047 degrees QTc Int : 432 ms Normal sinus rhythm Normal ECG No previous ECGs available Referred By: Generic ED Physician Electronically Signed By:ZINA CABALLERO
--- NOTE | 2024-05-10 09:59 | ED_ITS ---
HPI - URI/Sore Throat General Chief Complaint: Upper Respiratory Symptoms Stated Complaint: cough fever headache Time Seen by Provider: 05/10/24 09:59 Source: patient Mode of arrival: ambulatory Limitations: no limitations History of Present Illness ED Provider: Helen Larsen PA-C HPI Narrative: 54 yo female presents to the ER for evaluation of 4 days of dry cough, headaches, sore throat and not feeling well. She states her symptoms worsened over the weekend include a dry cough, body aches, headache and nasal congestion. This morning she felt a brief episode of palpitations and she could feel her heart beating. She denies any associated chest pain or difficulty breathing, no diaphoresis at the time. Symptoms self-resolved after a couple of seconds. No history of the same. She has been taking xwww-wwu-[id number] NyQuil with some relief in her symptoms however she is finding it hard to sleep at night due to the coughing and congestion. No known sick contacts. MD elicited complaint: cough, sore throat and nasal congestion Onset (ago): day(s) (4) Consistency: progressively worsening Description of mucous: clear and watery Able to tolerate fluids by mouth: Yes Exacerbating factors: supine positioning Relieving factors: OTC cold medicine Associated symptoms: myalgias, headache, rhinorrhea, nasal congestion, sore throat and cough Treatments prior to arrival: none Related Data Previous Rx's ?Medication ?Instructions ?Recorded amoxicillin 875 mg-potassium 1 tab PO BID #14 tabs 05/10/24 clavulanate 125 mg tablet benzonatate 100 mg capsule 100 mg PO TID PRN cough #20 caps 05/10/24 hydrocodone-homatropine 5 mg-1.5 5 ml PO Q6H PRN cough #60 mL 05/10/24 mg/5 mL (5 mL) oral syrup prednisone 20 mg tablet 40 mg (2 x 20 mg) PO DAILY #10 tabs 05/10/24 Allergies Allergy/AdvReac Type Severity Reaction Status Date / Time No Known Allergies Allergy Verified 05/10/24 09:41 Review of Systems Review of Systems: Yes all other systems are reviewed and are negative [facility] Social History Social History Advance Directives: No Advance Directives Information Provided: No Physical Exam Vital Signs: Vital Signs: Last Vital Signs Temp 98.5 F 05/10/24 11:16 Pulse 70 05/10/24 11:16 Resp 18 05/10/24 11:16 BP 175/95 H 05/10/24 11:16 Pulse Ox 94 05/10/24 11:16 O2 Del Method Room Air 05/10/24 11:16 BMI result Body Mass Index 29.2 Appearance: Alert. Oriented X3. No acute distress. Head: normocephalic, atraumatic. Eyes: Pupils equal, round and reactive to light. ENT: Pharynx normal. No tonsillar swelling or exudate. Clear nasal discharge, no sinus tenderness Neck: Normal inspection. Neck supple. CVS: Normal heart rate and rhythm. Pulses normal. Respiratory: No respiratory distress. Breath sounds with bronchospasm with deep inspiration, dry cough present, no wheezing or rhonchi appreciated Abdomen: Soft and nontender. +BS x4 Skin: Skin warm and dry. Normal skin color. Normal skin turgor. No rashes. Extremities: No lower extremity edema. No joint swelling. Neuro/psych: Oriented X 3. Grossly normal, nonfocal Medications Administered Discontinued Medications Generic Name Dose Route Start Last Admin Trade Name Freq PRN Reason Stop Dose Admin Acetaminophen 975 mg 05/10/24 10:23 05/10/24 10:35 Acetaminophen 325 Mg Tablet PO 05/10/24 10:24 975 mg ONCE ONE Administration Guaifenesin 1,200 mg 05/10/24 10:23 05/10/24 10:35 Guaifenesin La 600 Mg Tab.Er.12h PO 05/10/24 10:24 1,200 mg ONCE ONE Administration Ibuprofen 600 mg 05/10/24 10:23 05/10/24 10:36 Ibuprofen 600 Mg Tablet PO 05/10/24 10:24 600 mg ONCE ONE Administration Medical Decision Making Medical Decision Making [facility] Narrative: 54-year-old female presents to the ER for evaluation of dry cough, headache, body aches, nasal congestion and a brief episode of palpitations that occurred this morning. Her EKG is unremarkable. No associated chest pain or difficulty breathing. She is vitally stable on arrival to the ER. Repeat BP is elevated. She has been taking OTC cold/flu meds which may be contributing. no chest pain, vision changes. Her exam revealing for bronchospams w/ inspiration, no wheezing or rhonchi. she tested negative for COVID, Flu, RSV and Strep EKG is normal CXR with possible early RML infiltrate. will treat. stable for d/c home - return precautions discussed. Differential Diagnosis Differential Diagnoses: The differential diagnosis associated with the presentation includes strep, covid, flu, rsv, other viral syndrome, bronchitis, pneumonia Admission/Observation Consideration of admission/observation: Escalation of care including admission/observation considered elevated BP, PNA, considered obs vs admit. stable for d/c home with outpatient follow up Lab Data MDM Lab Attestation statement: I reviewed the patient's lab results. Labs: Lab Results 05/10/24 Range/Units 09:52 Influenza Type A (PCR) NEGATIVE (Negative) Influenza Type B (PCR) NEGATIVE (Negative) RSV RNA Qual (PCR) NEGATIVE (Negative) SARS-CoV-2 RNA (RT-PCR) NEGATIVE (Negative) S. pyogenes GrpA JENNIFER Negative (Negative) Independent Interpretation I performed an independent interpretation of an: EKG and Plain X-Ray Interpretation: EKG with normal sinus rhythm, ventricular rate 76 beats per minute, normal SD interval, normal QTC, no ST segment elevations or depressions. Chest x-ray with a faint linear opacity in the RML, no large effusion or pneumothorax, agree with radiology read Radiology Impression Discussion of test interpretation with radiology: I have reviewed the radiologist's reading. Radiologist Impression: EXAMINATION: XR CHEST CLINICAL INFORMATION: Cough. COMPARISON: Chest CT dated 12/12/2023. TECHNIQUE: 2 views of the chest were obtained. FINDINGS: Minimal right middle lobe atelectasis versus very early infiltrate. No pleural effusion or pneumothorax. Stable cardiomediastinal silhouette. No acute osseous abnormality. XR/XR chest 2V IMPRESSION: Minimal right middle lobe atelectasis versus very early infiltrate. Tests considered The following testing was considered but not selected: lab workup considered, would not foreign exchange clerk. Prescription Management I considered prescription management with: Pain Medication and Antibiotic Critical Care Time Critical Care Time Critical Care Time: No Discharge Plan Discharge Clinical Impression: Upper respiratory infection Patient Disposition: Home, Self-Care Instructions: Upper Respiratory Infection (DC) Additional Instructions: You tested negative for strep throat, COVID-19, influenza, RSV. Your chest x-ray showed a possible very early pneumonia. Take the prescribed antibiotics as directed, complete the entire course and do not miss any doses Take gikl-acl-vlqpcjy cold and flu medications as needed for your symptoms. Rest and drink plenty of fluids. Take the prescribed cough syrup as needed, do not drive after taking this medication. It may make you tired. It is best to take it at night. If you develop new or worsening symptoms call 911 or come back to the ER for further evaluation. Prescriptions: New hydrocodone-homatropine 5-1.5 mg/5 mL (5 mL) syrup 5 ml PO Q6H PRN (Reason: cough) Qty: 60 0RF Rx Instructions: Partial Fill upon patient request. benzonatate 100 mg capsule 100 mg PO TID PRN (Reason: cough) Qty: 20 0RF amoxicillin-pot clavulanate 875-125 mg tablet 1 tab PO BID Qty: 14 0RF prednisone 20 mg tablet 40 mg PO DAILY Qty: 10 0RF Print Language: Salvadorean
[2024-05-10 10:12] LABS: IDNOW Serial# 08D9AD1C; Strep A Nucleic Acid Negative (Negative)
--- OUTSIDE RECORDS SUMMARY | 2024-05-10 10:28 | XMS_ITS | Clinical Summary ---
Author Organization [facility] Address [address], [place] [id number] Phone Care Team Providers Care Industrial Tractor Driver Name Role Phone Unavailable Unavailable Unavailable Reason for Visit and Chief Complaint Home Health Plan of Care and/or Supervision of Care Plan of Treatment Home Health Supervision of Care note entered by Radha ORTIZ. Patient has received at least 30 minutes of supervision of care within the month. Pt discharged from [facility] on iv abx until 06/08 for surgical site infx with MSSA/acinetobacter. Chart pulled and scanned into inter. Allergy and med list updated in ehr. Iv abx and lab orders verified by Juan pharmacist at [place]. F/u call made to pt. No answer. Vm left for her to return call. Will continue to reach out to pt. Spent approximately 40 minutes. - Last Documented On 06/01/2020 4:23PM ; [facility] Assessments Includes: Assessments from this encounter No Assessments Recorded Medical Equipment - Implanted Devices Includes: Current Devices No Medical Equipment Recorded Medications Includes: Medications discussed during this encounter and other current Medications Current Medications (continue as prescribed) Bactrim DS 800-160 MG Oral Tablet 06/01/2020 Provide r: Diagnosis: Last Documented On 0 2:54PM By Radha Giraldo ; [facility] Fluconazole 100 MG Oral Tablet 06/01/2020 Provider: Diagnosis: Last Documented On 0 2:54PM By Radha Giraldo ; [facility] Wilmar 5-325 MG Oral Tablet 06/01/2020 Provider: Diagnosis: Last Documented On 0 2:55PM By Radha Giraldo ; [facility] Zofran 4 MG Oral Tablet 06/01/2020 Provider: Diagnosis: Last Documented On 0 2:55PM By Radha Giraldo ; [facility] Medications Administered Includes: Administered Medications from this encounter No Administered Medications Recorded Results Includes: Results discussed during this encounter No Results Recorded For Specified Dates History of Present Illness Includes: History of Present Illness from this encounter RACHEL Cotter is a 50 year old female. - Allergy list reviewed. Social History No Social History Recorded - Smoking Status Unknown Medical History Includes: Medical History addressed during this encounter No Medical History Recorded Family History Includes: Family History addressed during this encounter No Family History Recorded Review of Systems Includes: Review of Systems from this encounter No Review of Systems Recorded Mental Status Includes: Mental Status from this encounter No Mental Status Recorded Functional Status Includes: Functional Status from this encounter No Functional Status Recorded Physical Exam Includes: Physical Exam from this encounter No Physical Exam Recorded Allergies Includes: Active Allergies No Known Allergies Encounters Encounter Provider Location Date Check-In Time Check-Out Time Diagnosis Home Health Plan of Care and/or Supervision of Care Mishel Deal MD [facility] - 06/01/20 20 3:00PM 3:00PM Insurance Includes: Active Insurance Policies Plan Name Member ID Group # Subscriber Relationship Effect sandra Dates 1 - [facility] [id number] Lakisha Cotter Self Clinical Notes Includes: Clinical Notes from this encounter No Clinical Notes Recorded
--- OUTSIDE RECORDS SUMMARY | 2024-05-10 10:28 | XMS_ITS ---
Author Organization [facility] Address [address] [place], [place] [id number] Phone Care Team Providers Care Umbrella Finisher Name Role Phone Unavailable Unavailable Unavailable Plan of Treatment Findings Encounter Date Continue Ancef, Bactrim, and Fluconazole PO, stop date 06/08/2020 D/C PICC at [facility] - script given Follow-up with surgeon - provided contact information Follow-up as needed Transition of Care - Must be seen 7 -14 days after hospital with Rogelio BUSTOS 06/07/2020 Last Documented On 0 9:30AM ; [facility] Ordered Clinical summary pro vided to patient Transition of Care - Must be seen 7 -14 days after hospital with Rogelio BUSTOS 06/07/2020 Last Documented On 0 9:30AM ; [facility] Home Health Supervision of C are note entered by Radha ORTIZ Home Health Plan of Care and/or Supervision of Care with Mishel Deal MD 06/01/2020 Last Documented On 0 4:23PM ; [facility] Patient has received at [facility] t 30 minutes of supervision of care within the month. Pt discharged from [facility] on iv abx until 06/08 for surgical site infx with MSSA/acinetobacter. Chart pulled and scanned into intergy. Allergy and med list updated in ehr. Iv abx and lab orders verified by Juan pharmacist at [place]. F/u call made to pt. No answer. Vm left for her to return call. Will continue to reach out to pt. Spent approximately 40 minutes Home Health Plan of Care and/or Supervision of Care with Mishel Deal MD 06/01/2020 Last Documented On 0 4:23PM ; [facility] Education and Decision Aids were provided during visit for: Patient education about a pr oper diet Last Documented On 0 9:10AM ; [facility] Assessments Includes: Assessments for all patient encounters Findings Encounter Date Infection following a proced ure, other surgical site Transition of Care - Must be seen 7 -14 days after hospital with Rogelio Ricardo AKASH 06/07/2020 Last Documented On 0 9:30AM ; [facility] Methicillin susceptible stap hylococcus aureus infection Transition of Care - Must be seen 7 -14 days after hospital with Rogelio Haleigh BUSTOS 06/07/2020 Last Documented On 0 9:30AM ; [facility] Instructions Includes: Instructions for all patient encounters Education and Decision Aids were provided during visit for: Patient education about a pr oper diet Last Documented On 0 9:10AM ; [facility] Medical Equipment - Implanted Devices Includes: Current and historical Devices No Medical Equipment Recorded Medications Includes: Current and historical Medications Current Medications (continue as prescribed) Bactrim DS 800-160 MG Oral Tablet 06/01/2020 Provide r: Diagnosis: Last Documented On 0 2:54PM By Radha Giraldo ; [facility] Fluconazole 100 MG Oral Tablet 06/01/2020 Provider: Diagnosis: Last Documented On 0 2:54PM By Radha Giraldo ; [facility] Hadley 5-325 MG Oral Tablet 06/01/2020 Provider: Diagnosis: Last Documented On 0 2:55PM By Radha Giraldo ; [facility] Zofran 4 MG Oral Tablet 06/01/2020 Provider: Diagnosis: Last Documented On 0 2:55PM By Radha Giraldo ; [facility] Past Medications on file Ancef 2gm Intravenous Solution 06/01/2020 - 06/08/2020 Provider: Diagnosis: Last Documented On 0 1:57PM By Radha Giraldo ; [facility] Medications Administered Includes: Administered Medications in patient's chart No Administered Medications Recorded Results Includes: Results from 05/10/2023 through 05/10/2024 No Results Recorded For Specified Dates History of Present Illness History of Present Illness not supported for this document type No History of Present Illness Recorded Social History Description Last Updated No tobacco use 06/07/2020 Last Documented On 0 9:30AM ; [facility] Alcohol use 06/07/2020 Last Documented On 0 9:30AM ; [facility] Smoking status : Former smoker 0 Last Documented On 0 9:30AM ; [facility] Medical History Includes: Medical History in patient's chart No Medical History Recorded Family History Includes: Family History in patient's chart No Family History Recorded Review of Systems Review of Systems not supported for this document type No Review of Systems Recorded Mental Status Description Oriented to time, place, and person Functional Status No Functional Status Recorded Physical Exam Physical Exam not supported for this document type No Physical Exam Recorded Allergies Includes: Active, inactive, and resolved Allergies No Known Allergies Insurance Includes: Active Insurance Policies Plan Name Member ID Group # Subscriber Relationship Effect sandra Dates 1 - [facility] [id number] Lakisha Serna Clinical Notes Includes: Signed Clinical Notes starting from 09/27/2022 No Clinical Notes Recorded
--- OUTSIDE RECORDS SUMMARY | 2024-05-10 10:28 | XMS_ITS ---
Care Plan - [facility] Created on: May 10, 2024 Lakisha Cotter : 1970 Sex: Female Author Organization [facility] Address [address] [place], [place] [id number] Phone Care Team Providers Care Commercial Announcer Name Role Phone Unavailable Unavailable Unavailable
--- OUTSIDE RECORDS SUMMARY | 2024-05-10 10:28 | XMS_ITS | Continuity of Care Document ---
Author Organization [facility] Leslie maoI[facility]DISPO[facility] Address [address] [place] [address]- Care Team Providers Care Packaging Sales Consultant Name Role Phone Marcy ESCAMILLA, Carly Samaniego Primary Care Physician Encounter [facility] Date(s): 12/27/19 - [facility] [address] [place] [address]- Attending Physician: Rip Cornell Admitting Physician: AdmRip franklin Referring Physician: AdmRip franklin Allergies, Adverse Reactions, Alerts Substance Reaction Severity Status codeine nausea Active aspirin nauea Active Medications docusate sodium 100 mg oral tablet 1 tablet = 100 mg, By Mouth, 2 times a day, PRN for constipation, # 60 tablet, 0 Refills, Maintenance, 07/16/19 17:59:00 EDT, Tablet Start Date: 07/16/19 Status: Ordered Problem List Condition Effective Dates Status Health Status Inform ant H/O emphysema(Confirmed) Active Hypertension(Confirmed) Active Social History Social History Type Response Smoking Status Never smoker entered on: 07/01/14 Sex Medical Equipment Implanted Date:07/16/19Target Site:Pelvis Description Quantity MRI Company Model MESH Y RESTORELLE 6 24X4 - COLO ([id number]) 1 [employer] April Unknown MAURICIO:No Information Assigning Authority: FDA [employer] [place] VAG SUBFAC MNRCH - BSCI ([id number]) 1 [facility] Unknown MAURICIO:No Information Assigning Authority: FDA
--- OUTSIDE RECORDS SUMMARY | 2024-05-10 10:28 | XMS_ITS | Continuity of Care Document ---
Author Organization [facility] Leslie maoOnePageCRMs [facility] Address [address] [place] [address]- Care Team Providers Care Test Driver Name Role Phone Marcy ESCAMILLA, Carly Samaniego Primary Care Physician [place] [facility] [place] 10/22/19 - 11/01/19 [facility] Danielle PaulOnePageCRMs [facility] [address] [place] [address]- Attending Physician: Rip Cornell Admitting Physician: AdmRip [...] MESH Y RESTORELLE 6 24X4 - COLO ([id number]) 1 [employer] April Unknown MAURICIO:No Information Assigning Authority: FDA [employer] VAG SUBFAC MNRCH - BSCI ([id number]) 1 [employer] Unknown MAURICIO:No Information Assigning Authority: FDA
--- OUTSIDE RECORDS SUMMARY | 2024-05-10 10:28 | XMS_ITS | Clinical Summary ---
Author Organization [facility] [place] [facility] Address [address], [place] [id number] Phone Care Team Providers Care Antique Furniture Reproducer Name Role Phone Unavailable Unavailable Unavailable Reason for Visit and Chief Complaint The Chief Complaint is: follow up iv Plan of Treatment - Clinical summary provided to patient - Last Documented On 06/07/2020 9:30AM ; [facility] Continue Ancef, Bactrim, and Fluconazole PO, stop date 06/08/2020 D/C PICC at [facility] - script given Follow-up with surgeon - provided contact information Follow-up as needed. - Last Documented On 06/07/2020 9:30AM ; [facility] Education and Decision Aids were provided during visit for: Patient education about a pr oper diet Last Documented On 0 9:10AM ; [facility] Assessments Includes: Assessments from this encounter Findings - Methicillin susceptible staphylococcus aureus infection - Last Documented On 06/07/2020 9:30AM ; [facility] - Infection following a procedure, other surgical site - Last Documented On 06/07/2020 9:30AM ; [facility] Instructions Includes: Instructions from this encounter Education and Decision Aids were provided during visit for: Patient education about a pr oper diet Last Documented On 0 9:10AM ; [facility] Medical Equipment - Implanted Devices Includes: Current Devices No Medical Equipment Recorded Medications Includes: Medications discussed during this encounter and other current Medications Current Medications (continue as prescribed) Bactrim DS 800-160 MG Oral Tablet 06/01/2020 Provide r: Diagnosis: Last Documented On 0 2:54PM By Radha Giraldo ; [facility] Fluconazole 100 MG Oral Tablet 06/01/2020 Provider: Diagnosis: Last Documented On 0 2:54PM By Radha Giraldo ; [facility] Wilmore 5-325 MG Oral Tablet 06/01/2020 Provider: Diagnosis: Last Documented On 0 2:55PM By Radha Giraldo ; [facility] Zofran 4 MG Oral Tablet 06/01/2020 Provider: Diagnosis: Last Documented On 0 2:55PM By Radha Giraldo ; [facility] Medications Administered Includes: Administered Medications from this encounter No Administered Medications Recorded Vital Signs Includes: Vital Signs from this encounter Vital Name 06/07/2020 09:09A Blood Pressure Sitting L 142/86 BP Cuff Size Regular Pulse Rate-Sitting (bpm) 80 Temp-Oral (F) 98 Height (in) 63 Weight (lb) 149 Body Mass Index (kg/m2) 26.4 Body Surface Area (m2) 1.7 Last Documented: On 06/07/2020 9:10AM ; [facility] Results Includes: Results discussed during this encounter No Results Recorded For Specified Dates History of Present Illness Includes: History of Present Illness from this encounter HPI Lakisha Cotter is a 50 year old female. Follow-up from [facility] - seen by [facility] Admitted on 05/15 for increased abdominal swelling Recently underwent a [place] butt lift, tummy tuck and liposuction in the [place] about 3 weeks prior to admission. After the surgery, she noted purulent and bloody fluid from the incision sites and had increased swelling/redness in her abdomen Went to OR right away- s/p emergent exploration, I&D, debridment and washout on 05/15 - cx+ MSSA Then on 05/26, she underwent closure of abdominal wound Discharged on Ancef IV, Bactrim PO, Fluconazole PO, stop date 06/08/2020 Pt states she is doing fine. No complaints Has not seen surgeon yet - does not have a number for surgeon to make appointment Micro: 05/15 Wound cx: MSSA 05/15 Blood cx: neg 05/15 Sputum smear - NO AFB COVID-19 neg 05/26 Wound cx: Acinetobacter. - Allergy list reviewed - Medication list reviewed - Medication reconciliation performed Social History Description Last Updated No tobacco use 06/07/2020 Last Documented On 0 9:30AM ; [facility] Alcohol use 06/07/2020 Last Documented On 0 9:30AM ; [facility] Smoking status : Former smoker 0 Last Documented On 0 9:30AM ; [facility] Procedures and Surgical History Includes: Procedures from this encounter Procedures Code Diagnosis Performing Provider Service L ocation Service Date education and instructions Last Documented On 0 9:29AM ; [facility] Medical History Includes: Medical History addressed during this encounter No Medical History Recorded Family History Includes: Family History addressed during this encounter No Family History Recorded Review of Systems Includes: Review of Systems from this encounter Systemic: Not feeling poorly (malaise). No fever, no chills, no night sweats, and no recent weight change. Head: No headache. Neck: No neck pain. Eyes: No vision problems. Otolaryngeal: No earache and no mouth sores. Cardiovascular: No chest pain or discomfort. Pulmonary: No dyspnea and no cough. Gastrointestinal: No nausea, no vomiting, no abdominal pain, and no diarrhea. Genitourinary: No increase in urinary frequency. No dysuria. Musculoskeletal: No localized joint pain. Skin: No pruritus. Skin lesion: No rash. Mental Status Includes: Mental Status from this encounter Description Oriented to time, place, and person Functional Status Includes: Functional Status from this encounter No Functional Status Recorded Physical Exam Includes: Physical Exam from this encounter Allergies Includes: Active Allergies No Known Allergies Encounters Encounter Provider Location Date Check-In Time Check-Out Time Diagnosis Transition of Care - Must be seen 7 -14 days after hospital Rogelio Ricardo [facility] 020 8:57AM 9:50AM Staphylococcal Infection Staphylococcus Aureus Methicillin Susceptible,Posto perative Wound Infection Other Surgical Site Insurance Includes: Active Insurance Policies Plan Name Member ID Group # Subscriber Relationship Effect sandra Dates 1 - [facility] [id number] Lakisha Serna Clinical Notes Includes: Clinical Notes from this encounter No Clinical Notes Recorded
--- OUTSIDE RECORDS SUMMARY | 2024-05-10 10:28 | XMS_ITS | Continuity of Care Document ---
Author Organization [facility] [employer] Address [address] [place] [address]- Care Team Providers Care Rendering Equipment Tender Name Role Phone Carly Vidal MD Primary Care Physician [id number] Date(s): 09/28/19 - 01/26/20 [facility] [employer] [employer] [facility] [address] [place] [address]- [facility] Attending Physician: Kallie Watters MD Admitting Physician: Kallie Watters MD Referring Physician: Carly Vidal MD Allergies, Adverse Reactions, Alerts Substance Reaction Severity [...] MESH Y RESTORELLE 6 24X4 - COLO ([id number]) 1 Coloplast April Unknown MAURICIO:No Information Assigning Authority: FDA [place] VAG SUBFAC MNRCH - BSCI ([id number]) 1 Pigit Cor p Unknown MAURICIO:No Information Assigning Authority: FDA
[2024-05-10] MEDS: guaiFENesin LA 600 MG TAB.ER.12H 1200 MG PO (10:35)
[2024-05-10] MEDS: Acetaminophen 325 MG TABLET 975 MG PO (10:35)
[2024-05-10] MEDS: Ibuprofen 600 MG TABLET PO (10:36)
[2024-05-10 10:40] LABS: Influenza A PCR NEGATIVE (Negative); Influenza B PCR NEGATIVE (Negative); Resp Syncy Virus RNA Qual PCR NEGATIVE (Negative); SARS COV2 PCR INHOUSE NEGATIVE (Negative)
[2024-05-10 11:16] VITALS: BP 175/95; PULSE 70; RESP 18; TEMP 36.9; O2SAT 94
[2024-05-10 12:39] VITALS: BP 175/95; PULSE 70; RESP 18; TEMP 36.9; O2SAT 94
== END 2024-05-10 12:39 | disposition home or self-care (01) ==
PROVIDERS: Emergency Provider Emergency Medicine Emergency Medical Services; PCP Internal Medicine
DX: J06.9 Acute upper respiratory infection, unspecified (principal); R05.9 Cough, unspecified; R50.9 Fever, unspecified; J02.9 Acute pharyngitis, unspecified; R51.9 Headache, unspecified; M79.10 Myalgia, unspecified site; Z03.818 Encounter for observation for suspected exposure to other biological agents ruled out; Z79.899 Other long term (current) drug therapy
CPT/HCPCS: 0241U; 71046; 87651; 93005; 99283; 99284

== ENCOUNTER → 2024-05-10 09:43 | Outpatient (BNV) | payer OTHER, SELFPAY | PROVIDERS: Emergency Provider Emergency Medicine Emergency Medical Services; PCP Internal Medicine; Visit Provider Internal Medicine | DX: R05.9 Cough, unspecified (principal); R50.9 Fever, unspecified | CPT/HCPCS: 93010 ==

== ENCOUNTER 2024-05-19 08:30 | Outpatient (AMB) | payer OTHER, SELFPAY ==
[2024-05-19 08:35] VITALS: BP 150/94; PULSE 88; O2SAT 97; BMI 30.5
--- NOTE | 2024-05-19 08:35 | MHC.PC.OV ---
Vital Signs 05/19/24 08:35 Height 5 ft 3 in Weight 172 lb BMI 30.5 BP 150/94 H Blood Pressure Location Lt brachial Position Sitting Pulse 88 Pulse Source Pulse Oximeter Pulse Oximetry (%) 97 Oxygen Delivery Method Room Air Intake Visit Reasons: [facility] 05/10 Intake Note: Patient is here to follow-up after a visit the emergency department at [facility] on 05/10/24 Interior Painter Required: No Allergies aspirin [ASPIRIN] Allergy (Severe, Verified 05/19/24 08:36) STOMACH UPSET codeine [CODEINE] Allergy (Intermediate, Verified 05/19/24 08:36) STOMACH UPSET Medication List - Last Reconciled 05/19/24 by Anisa Brooks PA-C albuterol sulfate 90 mcg/actuation (Ventolin HFA) 2 puffs inhalation Q6H PRN amoxicillin-pot clavulanate 875-125 mg 1 tab PO BID benzonatate 100 mg PO TID PRN blood pressure monitor (Blood Pressure Kit) As directed diclofenac sodium 1% (Voltaren Arthritis Pain) 4 grams topical QID PRN fluticasone propion-salmeterol 115-21 mcg/actuation (Advair HFA) 2 puffs inhalation Q12H hydrocodone-homatropine 5-1.5 mg/5 mL 5 mL PO Q6H PRN ibuprofen 800 mg PO Q8H PRN lidocaine 4% (Aspercreme (lidocaine)) 1 patch topical DAILY PRN pantoprazole 40 mg PO DAILY polyethylene glycol 3350 (Miralax) 17 grams PO DAILY prednisone 20 mg PO BID sennosides-docusate sodium 8.6-50 mg (Senna with Docusate Sodium) 2 tab-caps (2 x 8.6-50 mg) PO BEDTIME tizanidine 2 mg PO Q8H PRN Tobacco use date assessed: 01/08/24 Dental Screening Dental Screen Date: 01/08/24 HPI [facility] 05/10 HPI Details 54-year-old female with past medical history of asthma, impaired glucose tolerance, generalized anxiety disorder last seen by Dr. Grvoer coming in for hospital follow up. In review of the notes, patient complain of mammogram 03/22 BI-RADS 1 follow up in 1 year. Patient was seen in [facility] ED chest x-ray showed evidence of possible pneumonia. Treated with Augmentin, benzonatate, cough syrup, and prednisone and discharged home. Patient states her symptoms have improved but the cough has remained and has been worsening with increased phlegm production. She has no relief from the cough medicine she was given from the ER and has completed her course of antibiotics. She also mentioned she continues to have brain fog and sinus congestion with ear pressure. [facility] Medical History Breast cancer screening by mammogram Asthma exacerbation Well woman exam with routine gynecological exam Cervical cancer screening Abnormal TSH Overweight (BMI 25.0-29.9) Stiffness of finger joint Bronchitis Asthma Trigger finger of left thumb Trigger finger of right thumb Carpal tunnel syndrome on both sides Hypertension Repetitive use syndrome Surgical History Hx of colonoscopy H/O vaginal hysterectomy S/P tonsillectomy H/O abdominoplasty Hx of exploratory laparotomy Hx of cholecystectomy History of carpal tunnel release S/P trigger finger release Family History Brother Colon cancer Maternal Uncle Substance abuse Social History Housing: Apartment Alcohol intake: current Alcohol intake frequency: does not drink Patient Tobacco Use Status: Former Tobacco user Tobacco use type: Cigarette Years Smoked: stopped 1991 e-Cigarette/Vaping Use: Never Used Second Hand Smoke Exposure: No service: No Current occupational status: employed 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 How often do you have a drink containing alcohol?: Monthly or less 2. How many drinks containing alcohol do you have on a typical day when you are drinking?: 1 or 2 3. How often do you have six or more drinks on one occasion?: Never Total Score: 1 Score Reviewed/Action Taken: No SINA-7 AMB Questionnaire SINA-7 Date SINA - 7 assessed: 01/08/24 Source: Developed by Drs. Felipe Mtaa, Juanis B.W. Lake Sharma and colleagues, with an educational jorge a from [employer]. Review of Systems Const Denies body aches, Denies chills, Denies fever(s), Reports headache(s) and Denies poor appetite Eyes Reports no additional complaints ENT Denies dysphagia, Denies dizziness, Reports otalgia, Reports headache(s) and Denies sore throat Card Denies chest pain, Denies syncope, Denies edema, Denies irregular heart rhythm, Denies lightheadedness and Reports dyspnea Resp Reports cough, Denies hemoptysis, Reports excessive phlegm production and Reports dyspnea GI Denies abdominal pain and Denies dysphagia Reports no additional complaints Musc Reports no additional complaints and Denies abnormal gait Skin/Breast Reports system reviewed and no additional complaints, except as documented Neuro Denies abnormal gait, Denies dizziness, Denies syncope and Reports headache(s) Psych Reports no additional complaints Physical exam (Primary Care) Vital Signs: Oxygen Delivery Method Room Air 05/19/24 08:35 Tobacco/Smoking Status: Tobacco use Status Tobacco use date assessed 01/08/24 02/26/24 09:45 Patient Tobacco Use Status Former Tobacco user 02/26/24 09:45 Tobacco use type Cigarette 02/26/24 09:45 e-Cigarette/Vaping Use Never Used 02/26/24 09:45 Thrive Assessment: Date of Thrive Assessment Date Thrive assessed 01/08/24 02/26/24 09:45 Const General: cooperative, healthy appearing, comfortable and no acute distress Orientation/consciousness: patient oriented x3 HENMT Head: Yes normocephalic Ears: hearing grossly normal bilaterally General nose exam: Normal external nose present Eyes General: appearance normal, both eyes and all related structures Conjunctivae: conjunctivae normal Neck Neck: Yes full ROM and Yes no lymphadenopathy Resp Effort & Inspection: normal respiratory effort Auscultation: clear to auscultation bilaterally, no crackles, no rales, no rhonchi and no wheezes Cardio Rate: regular rate Rhythm: regular rhythm Skin General skin exam: no rashes or lesions noted Neuro General: patient oriented x3 Gait exam (Neuro): Normal gait present Extrem General: Yes normal to inspection, Yes full ROM and No edema Psych Affect: normal affect Attitude: cooperative Insight: Good insight present (Psych) Judgement: Good judgement present (Psych) Assessment and Plan Assessment & Plan (1) Cough: Code(s): R05.9 - Cough, unspecified Plan: Patient continues to have cough and increased phlegm production with little resolution of symptoms. Ordered for repeat chest x-ray to evaluate for progression of pneumonia. Patient would benefit from mucolytic and was given Mucinex today. Reviewed with patient red flag symptoms and when to present for re-evaluation. Also refilled benzonatate if she would prefer to take this for cough. Plan This note was constructed using voice recognition software. While every effort has been made to ensure accuracy and concrete pump operator, still areas may have been included sometimes these areas may affect the content or meeting of the given symptoms. Total time spent caring for the patient today was 30 minutes. This includes time spent before the visit reviewing the chart, time spent during the visit, and time spent after the visit and documentation. Orders: Orders XR chest 2V Today R05.9 - Cough, unspecified Medications: New benzonatate 100 mg PO TID PRN 20 caps 0RF cough guaifenesin 400 mg PO QID PRN 20 tabs 0RF cough Coding Level of Care Code Est Pt Level 4 (02727) Diagnoses Cough R05.9
== END 2024-05-19 09:02 | disposition home or self-care (01) ==
PROVIDERS: PCP Internal Medicine
DX: R05.9 Cough, unspecified (principal)
CPT/HCPCS: 99214

== ENCOUNTER 2024-05-19 09:05 | Outpatient (REF) | payer OTHER, SELFPAY ==
--- NOTE | ~2024-05-19 | XR_ITS ---
EXAMINATION: XR CHEST CLINICAL INFORMATION: Cough COMPARISON: Frontal view July 07, 2018 TECHNIQUE: 2 views of the chest were obtained. FINDINGS: There is some tortuosity aorta. The cardiac size is within normal limits. The central vessels are prominent but distinct and there is no edema. No pneumonia or marital atelectasis. The visualized pleural margins appear within normal limits. No suspicious focal bony lesion. XR/XR chest 2V IMPRESSION: No pneumonia or measures low with atelectasis. Electronically signed by: Augusto Valentin MD 05/19/2024 05:43 PM EDT
== END 2024-05-19 09:06 | disposition home or self-care (01) ==
LOC: HO.XRAY 09:05
PROVIDERS: PCP Internal Medicine
DX: R05.9 Cough, unspecified (principal)
CPT/HCPCS: 71046

== ENCOUNTER 2024-07-07 10:08 | Outpatient (AMB) | payer OTHER, SELFPAY ==
--- NOTE | 2024-07-07 10:09 | MHC.OFFVIS ---
Vital Signs 07/07/24 10:15 Height 5 ft 3 in Weight 172 lb 2 oz BMI 30.5 BP 148/78 H Blood Pressure Location Lt brachial Position Sitting Respiration 6 L Pulse 75 Pulse Source Pulse Oximeter Pulse Oximetry (%) 96 Oxygen Delivery Method Room Air Intake Visit Reasons: Back Pain Intake Note: Patient comes in for back pain. Reports pain 8-9/10. Allergies aspirin [ASPIRIN] Allergy (Severe, Verified 07/07/24 10:16) STOMACH UPSET codeine [CODEINE] Allergy (Intermediate, Verified 07/07/24 10:16) STOMACH UPSET HPI Comments Details: Lakisha is back in my office complaining on the same pain as it was before in magnitude of 8 to 9/10. She reports that now his pain is spread on bilaterally. She had diagnostic medial branch block L1-L2 L3 and L4 on the left on 02/25/2023. After that she had 33 hours of complete pain relief. She went for sprint PNS and while on stimulation she reported pain 0 to 1/10. However when the stimulating line was removed she started to complain on pain within 6 days This is a too short. I offered this patient continual neural stimulation with curonix . She was scheduled for psychological evaluation to prepare her for curonix however unfortunately she was not able to get into contact with [facility] psychology. Now since she is complaining on bilateral pain. I offered her to have sprint PNS bilateral. If she will have good results of sprint PNS and she wants to continue with curonix after that I will schedule her for bilateral L3 curonix implants. Prior: Complains on pain on the left side of the lower back with radiation into the left lower extremity all the way down to the calf on posterior surface of the leg as well as some minor discomfort on the right.? 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 .? Some movements aggravate her pain as well.? For example when she needs to stand up from the sitting position her pain is most severe.? The pain is worse in the evening and in the morning and the less severe in the middle of the day.? In terms of tissue damage she describes her pain as pinching, cramping, crushing, dull, cervical, hurting, aching, heavy sensation.? She had an x-ray of the lumbar spine results of which dictated as below.? She is currently taking NSAIDs to help her pain.? She takes physical therapy currently she is through with 4. r full full sessions, she is trying to perform home exercise program but does it infrequently.? She never had any injections. [facility], [facility] Medical History Breast cancer screening by mammogram Asthma exacerbation Well woman exam with routine gynecological exam Cervical cancer screening Abnormal TSH Overweight (BMI 25.0-29.9) Stiffness of finger joint Bronchitis Asthma Trigger finger of left thumb Trigger finger of right thumb Carpal tunnel syndrome on both sides Hypertension Repetitive use syndrome Surgical History Hx of colonoscopy H/O vaginal hysterectomy S/P tonsillectomy H/O abdominoplasty Hx of exploratory laparotomy Hx of cholecystectomy History of carpal tunnel release S/P trigger finger release Family History Brother Colon cancer Maternal Uncle Substance abuse Social History Housing: Apartment Alcohol intake: current Alcohol intake frequency: does not drink Patient Tobacco Use Status: Former Tobacco user Tobacco use type: Cigarette Years Smoked: stopped 1991 e-Cigarette/Vaping Use: Never Used Second Hand Smoke Exposure: No service: No Current occupational status: employed 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5 Const General: no acute distress; No confusion Orientation/consciousness: patient oriented x3 and No confusion Eyes General: appearance normal, both eyes and all related structures Pupils: Equal, round and reactive pupils present EOM: EOMs intact bilaterally Neck Neck: Yes full ROM Chest Chest palpation & inspection: normal inspection of the chest Resp Effort & Inspection: normal respiratory effort, able to speak in complete sentences, normal respiratory pattern, no audible wheezes and no cough Cardio Jugular venous distension: no JVD GI Inspection: Yes normal to inspection Back/Spine/Pelvis Other: She is able to stand on bilateral tiptoes and bilateral heels without difficulty, she is able to lift the large toe in separation of the rest of the toes. She is able to flex herself forward without any difficulty. However minimal flexing backwards as well as lifting body up from the flex forward position causes severe pain in the back. Loading test is positive bilaterally. Leon's test is negative bilaterally. SLR may be equivocal on the left a and-lasseque test left aggravates her pain. On the right SLR is negative. Valsalva maneuver does not aggravate her pain. Neuro General: patient oriented x3, gait normal and No confusion Cranial nerves: Yes CN's II-XII intact bilaterally, Yes Equal, round and reactive pupils present, Yes Normal hearing present and Yes Ability to bilaterally elevate shoulders present Speech: No Abnormal speech present Gait exam (Neuro): Normal gait present Motor exam (neuro): 5/5 motor strength present throughout Sensory Exam: No Sensory deficit (Neuro) Extrem General: No pedal edema Psych Speech and movement: Normal speech and movement present Affect: normal affect Attitude: cooperative Thought process: Normal thought process present Thought content: Normal thought content present Insight: Good insight present (Psych) Judgement: Good judgement present (Psych) Results Reviewed Results Reviewed: 5 nonrib-bearing lumbar-type vertebral bodies. Vertebral body heights are maintained. Alignment is maintained. Multilevel degenerative disc disease worst at L Sclerosis along the bilateral sacroiliac joints. Multilevel degenerative disc disease worst at L2-L3 with there is moderate to advanced loss of disc space height and degenerative endplate spurring. Large desiccated stool ball in the rectum. IMPRESSION: ? *? Multilevel degenerative disc disease worst at L2-L3 with there is moderate to advanced loss of disc space height and degenerative endplate spurring.? ? *? Sclerosis along the bilateral sacroiliac joints which can be seen in the setting of sacroiliitis or degenerative change.. Assessment & Plan Assessment & Plan (1) Spondylosis of lumbar region without myelopathy or radiculopathy: Code(s): M47.816 - Spondylosis without myelopathy or radiculopathy, lumbar region Category: Medical (2) Chronic pain syndrome: Code(s): G89.4 - Chronic pain syndrome Category: Medical (3) Intractable back pain: Code(s): M54.9 - Dorsalgia, unspecified Category: Medical Plan diagnostic left medial branch block L1 L2-L3 L4 - 33 hours of complete pain relief. Good results of sprint PNS L3 on the left, however after removal of the wire she reported only few days of pain improvement. Now she complains on bilateral pain. I will schedule her for sprint PNS L3 bilateral, if this will help her pain we will continue with sprint. However I want her to have psychological evaluation in case if it will be like last time her pain will come back quickly after the removal of the electrodes we would be ready to go and implant curonix permanent leads. On the x-ray there was significant spondylosis of the spine of this patient. Mostly on the L2-L3 level. Her pain pattern does not correspond to nerve root compression at this level. Sacroiliac joint sclerosis positive on x-ray possibility exist to do diagnostic sacroiliac joint injections in the future if the medial branch block will not be working for this patient. Patient Instructions: I here by testify that I spent 32 minutes in conversation with this patient as well as evaluating her prior records her prior diagnostic studies planning her care and organizing this note. Coding Level of Care Code Est Pt Level 4 (49776) Diagnoses Spondylosis of lumbar region without myelopathy or radiculopathy M47.816 Chronic pain syndrome G89.4 Intractable back pain M54.9
[2024-07-07 10:15] VITALS: BP 148/78; PULSE 75; RESP 6; O2SAT 96; BMI 30.5
== END 2024-07-07 10:22 | disposition home or self-care (01) ==
PROVIDERS: PCP Internal Medicine; Visit Provider Anesthesiology
DX: M47.816 Spondylosis without myelopathy or radiculopathy, lumbar region (principal); G89.4 Chronic pain syndrome; M54.9 Dorsalgia, unspecified
CPT/HCPCS: 99214

== ENCOUNTER → 2024-07-07 10:08 | Outpatient (BNVA) | payer OTHER, SELFPAY | PROVIDERS: PCP Internal Medicine; Visit Provider Anesthesiology | DX: M47.816 Spondylosis without myelopathy or radiculopathy, lumbar region (principal); G89.4 Chronic pain syndrome | CPT/HCPCS: 99212 ==

== ENCOUNTER 2024-07-09 08:56 | Outpatient (AMB) | payer OTHER, SELFPAY ==
--- NOTE | 2024-07-09 08:57 | MHC.PC.OV ---
Vital Signs 07/09/24 08:58 Height 5 ft 3 in Weight 173 lb 6 oz BMI 30.7 BP 132/70 Blood Pressure Location Lt brachial Position Sitting Pulse 85 Pulse Source Pulse Oximeter Pulse Oximetry (%) 95 Oxygen Delivery Method Room Air Intake Visit Reasons: ongoing back pain Intake Note: Patient is here to follow up on Ongoing back pain with numbness. Pt decline flu shot today. 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 Last seen in 4review of the notes has seen pain management add medial branch block diagnostic L1 234 in 02/25/2023 went for sprint PNS with pain relief but with removal of the line had pain. Was supposed to have had the neural stimulation montejo 6 but has not been able to follow-up for psychological evaluation. Diagnosis of spondylosis lumbar scheduled for sprint PNS L3 bilateral but was advised to get psychological evaluation. noted xray lumbar 10/2022 Multilevel degenerative disc disease worst at L2-L3 with there is moderate to advanced loss of disc space height and degenerative endplate spurring. * Sclerosis along the bilateral sacroiliac joints which can be seen in the setting of sacroiliitis or degenerative change.. complains of low back pain and frustrated that she is not informed about what is going on with the back. Patient states she was just told that it is the same as last year. So discussed with the patient that we will do a procedure to check on the back. As for the asthma it is under controlled has not been using the inhaler [facility] Medical History Breast cancer screening by mammogram Asthma exacerbation Well woman exam with routine gynecological exam Cervical cancer screening Abnormal TSH Overweight (BMI 25.0-29.9) Stiffness of finger joint Bronchitis Asthma Trigger finger of left thumb Trigger finger of right thumb Carpal tunnel syndrome on both sides Hypertension Repetitive use syndrome Surgical History Hx of colonoscopy H/O vaginal hysterectomy S/P tonsillectomy H/O abdominoplasty Hx of exploratory laparotomy Hx of cholecystectomy History of carpal tunnel release S/P trigger finger release Family History Brother Colon cancer Maternal Uncle Substance abuse Social History Housing: Apartment Alcohol intake: current Alcohol intake frequency: does not drink Patient Tobacco Use Status: Former Tobacco user Tobacco use type: Cigarette Years Smoked: stopped 1991 e-Cigarette/Vaping Use: Never Used Second Hand Smoke Exposure: No service: No Current occupational status: employed 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 Felipe Mata, Juanis Sharma, Laek Jimenez and colleagues, with an educational jorge a from [employer]. Physical exam (Primary Care) Vital Signs: Last Vital Signs Pulse 85 07/09/24 08:58 BP 132/70 07/09/24 08:58 Pulse Ox 95 07/09/24 08:58 Oxygen Delivery Method Room Air 07/09/24 08:58 BMI result Body Mass Index 30.7 Tobacco/Smoking Status: Tobacco use Status Tobacco use date assessed 07/09/24 07/09/24 09:03 Patient Tobacco Use Status Former Tobacco user 07/09/24 09:03 Tobacco use type Cigarette 07/09/24 09:03 e-Cigarette/Vaping Use Never Used 07/09/24 09:03 Thrive Assessment: Date of Thrive Assessment Date Thrive assessed 01/08/24 07/09/24 09:03 Const General: alert; No acute distress Eyes Conjunctivae: conjunctivae normal Resp Auscultation: clear to auscultation bilaterally Cardio Rate: regular rate Rhythm: regular rhythm GI Inspection: Yes normal to inspection Back/Spine/Pelvis Other: Patient complains of tenderness on the lumbar area no redness no swelling with right paravertebral lumbar area pain also neurological intact Extrem General: Yes normal to inspection and No edema Coding Level of Care Code Est Pt Level 4 (54533) Diagnoses Obesity (BMI 30-39.9) E66.9 Spondylosis of lumbar region without myelopathy or radiculopathy M47.816 Mild intermittent asthma without complication J45.20 Asthma severity: mild Asthma persistence: intermittent Asthma complication type: uncomplicated Impaired glucose tolerance R73.02 Assessment & Plan Assessment & Plan (1) Obesity (BMI 30-39.9): Code(s): E66.9 - Obesity, unspecified Category: Medical Plan: Diet and exercise (2) Spondylosis of lumbar region without myelopathy or radiculopathy: Code(s): M47.816 - Spondylosis without myelopathy or radiculopathy, lumbar region Category: Medical Plan: Patient has been following up with the pain management and planned procedure but patient is skeptical. Will do x-rays 1st and the MRI (3) Asthma: Code(s): J45.909 - Unspecified asthma, uncomplicated Category: Medical Qualifiers: Asthma severity: mild Asthma persistence: intermittent Asthma complication type: uncomplicated Qualified Code(s): J45.20 - Mild intermittent asthma, uncomplicated Plan: On albuterol and Advair. But has not been using it. This is stable (4) Impaired glucose tolerance: Code(s): R73.02 - Impaired glucose tolerance (oral) Category: Medical Plan: Decrease the amount of carbohydrate intake, pasta, bread, rice and potatoes are all sugar and that is aside from all the sweet stuff, remember that fruits are good but they are Sweet also. Discussed about blood work and requested Orders: Orders Comprehensive Met. Panel Today R73.02 - Impaired glucose tolerance (oral) Lipid Panel Today E78.00 - Pure hypercholesterolemia, unspecified, R73.02 - Impaired glucose tolerance (oral) Vitamin B12 and Folate Today R73.02 - Impaired glucose tolerance (oral) Vitamin D 25-OH Total Today R73.02 - Impaired glucose tolerance (oral) XR lumbar spine 2-3V Today M47.816 - Spondylosis without myelopathy or radiculopathy, lumbar region MR lumbar spine wo con Today M47.816 - Spondylosis without myelopathy or radiculopathy, lumbar region Complete Blood Count Auto Diff Today R73.02 - Impaired glucose tolerance (oral) Free T4 (Free Thyroxine) Today R73.02 - Impaired glucose tolerance (oral) Thyroid Stimulating Hormone Today R73.02 - Impaired glucose tolerance (oral) Hemoglobin A1c Today R73.02 - Impaired glucose tolerance (oral) Medications: Refilled pantoprazole take one tablet half an hour before breakfast 40 mg PO DAILY 90 tabs 2RF K21.9 - Gastro-esophageal reflux disease without esophagitis tizanidine 2 mg PO Q8H PRN 20 tabs 0RF muscle spasticity M47.816 - Spondylosis without myelopathy or radiculopathy, lumbar region
[2024-07-09 08:58] VITALS: BP 132/70; PULSE 85; O2SAT 95; BMI 30.7
== END 2024-07-09 10:43 | disposition home or self-care (01) ==
PROVIDERS: PCP Internal Medicine; Visit Provider Internal Medicine
DX: M47.816 Spondylosis without myelopathy or radiculopathy, lumbar region (principal); E66.811 Obesity, class 1; Z68.30 Body mass index [BMI] 30.0-30.9, adult; J45.20 Mild intermittent asthma, uncomplicated; R73.02 Impaired glucose tolerance (oral)

== ENCOUNTER → 2024-07-09 08:56 | Outpatient (BNVA) | payer OTHER, SELFPAY | PROVIDERS: PCP Internal Medicine; Visit Provider Internal Medicine | DX: E66.9 Obesity, unspecified (principal); M47.816 Spondylosis without myelopathy or radiculopathy, lumbar region; J45.20 Mild intermittent asthma, uncomplicated; R73.02 Impaired glucose tolerance (oral) | CPT/HCPCS: 99212 ==

== ENCOUNTER 2024-07-10 09:03 | Outpatient (REF) | payer OTHER, SELFPAY ==
[2024-07-10 09:12] LABS: MANUAL DIFF FLAG NO
[2024-07-10 09:31] LABS: Basophils Absolute Auto 0.1 X10*3/uL (0.0-0.2); Eosinophils Absolute Auto 0.2 X10*3/uL (0.0-0.4); Eosinophils Percent Auto 2.8 % (0-4); Hematocrit 39.3 % (37.0-47.0); Hemoglobin 12.4 g/dl (12.0-16.0); Imm Gran Abs Auto 0.03 X10*3/uL (0.00-0.03); Imm Gran Pct Auto 0.4 % (0.0-0.4); Lymphocytes Absolute Auto 3.7 X10*3/uL (1.2-4.9); Lymphocytes Percent Auto 52.2 % (20-40); Mean Corpuscular HGB Conc 31.6 g/dl (31.0-35.0); Mean Corpuscular Hemoglobin 28.5 pg (27.0-33.0); Mean Corpuscular Volume 90.3 fL (80.0-98.0); Mean Platelet Volume 11.1 fL (9.4-12.3); Monocytes Absolute Auto 0.4 X10*3/uL (0.1-1.2); Monocytes Percent Auto 6.2 % (2-11); Neutrophils Absolute Auto 2.7 x10*3/uL (2.0-8.3); Neutrophils Percent Auto 37.4 % (45-73); Platelet Count 221 X10*3/uL (160-400); Red Blood Count 4.35 X10*6/uL (4.20-5.50); Red Cell Distribution Width 14.3 % (11.0-16.0); White Blood Count 7.1 X10*3/uL (4.8-10.8)
[2024-07-10 09:48] LABS: Estimated Average Glucose 120 mg/dL; Hemoglobin A1C 121.8079 umol/L; Hemoglobin A1c % 5.8 % (<6.0); Total Hemoglobin (HGBA1C) 3093.6988 umol/L
[2024-07-10 10:08] LABS: Alanine Aminotransferase 13 U/L (0-31); Albumin Level 4.2 g/dL (3.5-5.0); Alkaline Phosphatase 94 U/L (39-117); Anion Gap 15 (12-20); Aspartate Amino Transferase 15 U/L (5-31); Bilirubin Total 0.6 mg/dL (0.0-1.0); Blood Urea Nitrogen 15 mg/dL (9-16); Calcium 9.9 mg/dL (8.4-10.2); Carbon Dioxide 28 mmol/L (22-29); Chloride 104 mmol/L (96-108); Cholesterol 180 mg/dL (<200); Estimated Glomerular Filt Rate > 60; Glucose Random 105 mg/dL (60-115); HDL Cholesterol 50 mg/dL (>40); LDL Cholesterol Calculated 101 mg/dL (<100); Potassium 4.6 mmol/L (3.3-5.1); Sodium 142 mmol/L (135-145); Triglycerides 147 mg/dL (<150)
[2024-07-10 10:30] LABS: Free T4 (Free Thyroxine) 1.09 ng/dL (0.71-1.85); Thyroid Stimulating Hormone 0.59 uIU/mL (0.32-4.0); Vitamin D 25-OH Total 36.4 ng/mL (>30)
[2024-07-10 10:37] LABS: Folate 13.6 ng/mL (> or = 4.0); Vitamin B12 978 pg/mL (200-900)
== END 2024-07-10 09:04 | disposition home or self-care (01) ==
LOC: HO.LAB 09:03
PROVIDERS: PCP Internal Medicine; Visit Provider Internal Medicine
DX: M47.816 Spondylosis without myelopathy or radiculopathy, lumbar region (principal); R73.02 Impaired glucose tolerance (oral); E78.00 Pure hypercholesterolemia, unspecified
CPT/HCPCS: 36415; 72100; 80053; 80061; 82306; 82607; 82746; 83036; 84439; 84443; 85025

== ENCOUNTER 2024-08-06 10:36 | Outpatient (AMB) | payer OTHER, SELFPAY ==
--- NOTE | 2024-08-06 10:49 | MHC.PC.OV ---
Vital Signs 08/06/24 10:51 Height 5 ft 3 in Weight 170 lb 4 oz BMI 30.2 BP 130/78 Blood Pressure Location Lt brachial Position Sitting Pulse 65 Pulse Source Pulse Oximeter Pulse Oximetry (%) 95 Oxygen Delivery Method Room Air Intake Visit Reasons: PE Intake Note: Patient is here today for a physical. 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 Accompanied by: Self / Same As Patient Allergies aspirin [ASPIRIN] Allergy (Severe, Verified 08/06/24 10:51) STOMACH UPSET codeine [CODEINE] Allergy (Intermediate, Verified 08/06/24 10:51) STOMACH UPSET Medication List - Last Reconciled 08/06/24 by Matty Grover MD albuterol sulfate 90 mcg/actuation (Ventolin HFA) 2 puffs inhalation Q6H PRN blood pressure monitor (Blood Pressure Kit) As directed diclofenac sodium 1% (Voltaren Arthritis Pain) 4 grams topical QID PRN fluticasone propion-salmeterol 115-21 mcg/actuation (Advair HFA) 2 puffs inhalation Q12H lidocaine 4% (Aspercreme (lidocaine)) 1 patch topical DAILY PRN multivitamin 1 tab PO DAILY pantoprazole 40 mg PO DAILY polyethylene glycol 3350 (Miralax) 17 grams PO DAILY tizanidine 2 mg PO Q8H PRN Tobacco use date assessed: 08/06/24 Dental Screening Dental Screen Date: 01/08/24 HPI PE HPI Details 54-year-old obese female with a history of asthma impaired glucose tolerance lumbar spondylosis coming in for physical exam last seen in 07/09/2024. Patient's mammogram is up-to-date colonoscopy 2019. complains of memory problem but three word test and spelling good [facility] Medical History Breast cancer screening by mammogram Asthma exacerbation Well woman exam with routine gynecological exam Cervical cancer screening Abnormal TSH Overweight (BMI 25.0-29.9) Stiffness of finger joint Bronchitis Asthma Trigger finger of left thumb Trigger finger of right thumb Carpal tunnel syndrome on both sides Hypertension Repetitive use syndrome Surgical History Hx of colonoscopy H/O vaginal hysterectomy S/P tonsillectomy H/O abdominoplasty Hx of exploratory laparotomy Hx of cholecystectomy History of carpal tunnel release S/P trigger finger release Family History (Updated 08/06/24 @ 11:27 by Matty Grover MD) Brother Ulcerative colitis Maternal Uncle Substance abuse Other Colon cancer Social History (Updated 08/06/24 @ 11:29 by Matty Grover MD) Housing: Apartment Alcohol intake: current Alcohol intake frequency: does not drink Comment: once a year 1 glass Patient Tobacco Use Status: Former Tobacco user Tobacco use type: Cigarette Years Smoked: stopped 1991 does marijuana e-Cigarette/Vaping Use: Never Used Second Hand Smoke Exposure: No service: No Current occupational status: employed Current occupation: right handed/ [employer] Current occupational exposures/hazards: No Cognitive needs: No Hearing needs: No Vision needs: Yes Questionnaire PHQ-9 Over the last 2 weeks, how often have you been bothered by any of the following problems? 3. Trouble falling or staying asleep, or sleeping too much: nearly every day 9. Thoughts that you would be better off or of hurting yourself in some way: not at all Source: Developed by Drs. Felipe Mata, Juanis Sharma, Lake Jimenez and colleagues, with an educational jorge a from [employer]. Thrive Questionnaire Date Thrive assessed: 08/06/24 I am a: Patient What is your living situation today?: I have a steady place to live Within the past 12 months, did the food you bought not last and you didn't have the money to get more?: Never true Within the past 12 months, did you worry whether your food would run out before you got money to buy more?: Never true Do you have trouble paying for medicines?: No Do you have trouble getting transportation to medical appointments?: No Do you have trouble paying your heating and electricity bill?: No Do you have trouble taking care of your child, family member or friend?: No Do you have trouble with day-to-day activities such as bathing, preparing meals, shopping, managing finances, etc.?: No Are you interested in more education?: No Please select the resources that you would like help with: None Currently or been in a relationship where the following occur: No concerns reported THRIVE Score: 0 AUDIT C Alcohol Use Questionnaire (AUDIT-C) 1. How often do you have a drink containing alcohol?: Never Total Score: 0 SINA-7 AMB Questionnaire SINA-7 Date SINA - 7 assessed: 08/06/24 Feeling nervous, anxious, or on edge: 0 = Not at all Not being able to stop or control worryin = Not at all Worrying too much about different things: 0 = Not at all Trouble relaxin = Not at all Being so restless that it is hard to sit still: 0 = Not at all Becoming easily annoyed or irritable: 0 = Not at all Feeling afraid as if something awful might happen: 0 = Not at all Total SINA-7 score (0-4 normal; 5-9 mild; 10-14 moderate; 15-21 severe): 0 Source: Developed by Drs. Felipe Mata, Juanis Sharma, Lake Jimenez and colleagues, with an educational jorge a from [employer]. Review of Systems Const Denies poor appetite and Denies weakness Eyes Denies no additional complaints ENT Reports Normal hearing present, Denies dizziness, Denies nasal congestion, Denies tinnitus and Denies sore throat Card Denies chest pain, Denies syncope, Denies rapid heart rate and Denies dyspnea Resp Denies cough and Denies dyspnea GI Denies change in stool character, Reports constipation, Denies diarrhea, Denies nausea and Denies vomiting Denies urinary frequency, Denies difficulty voiding and Denies dysuria Neuro Reports Normal hearing present, Denies confusion, Denies dizziness, Denies syncope and Denies weakness Psych Denies confusion Physical exam (Primary Care) Vital Signs: Last Vital Signs Pulse 65 08/06/24 10:51 BP 130/78 08/06/24 10:51 Pulse Ox 95 08/06/24 10:51 Oxygen Delivery Method Room Air 08/06/24 10:51 Next steps: Declined rectal exam BMI result Body Mass Index 30.2 Tobacco/Smoking Status: Tobacco use Status Tobacco use date assessed 08/06/24 08/06/24 10:55 Patient Tobacco Use Status Former Tobacco user 08/06/24 10:55 Tobacco use type Cigarette 08/06/24 10:55 e-Cigarette/Vaping Use Never Used 08/06/24 10:55 Thrive Assessment: Date of Thrive Assessment Date Thrive assessed 08/06/24 08/06/24 10:55 Currently or been in a relationship where the following occur: No concerns reported Const General: No confusion Orientation/consciousness: No confusion HENMT Head: Yes normocephalic Ears: external ears normal and TM's normal bilaterally Face and sinus: Yes normal facial exam Mouth: moist mucous membranes Throat: Yes tonsils normal Eyes Conjunctivae: conjunctivae normal Pupils: Equal, round and reactive pupils present and Pupil accommodation reflex normal Direct Ophthalmoscopy: normal light reflex Neck Neck: No lymphadenopathy Thyroid: Thyroid normal Chest Chest palpation & inspection: normal inspection of the chest Resp Effort & Inspection: normal respiratory effort and no audible wheezes Auscultation: clear to auscultation bilaterally, no crackles, no wheezes and lung sounds not diminished Cardio Rate: regular rate Rhythm: regular rhythm Peripheral pulses: radial pulses present and dorsalis pedis present GI Palpation (GI): no masses Auscultation: normal bowel sounds and normoactive bowel sounds Rectal Exam - Female: deferred Skin General skin exam: no rashes or lesions noted Rashes: no rashes Neuro General: No confusion Cranial nerves: Yes Equal, round and reactive pupils present and Yes Normal hearing present Cognition (Neuro): normal cognition Gait exam (Neuro): Normal gait present Motor exam (neuro): 5/5 motor strength present throughout Deep tendon reflexes (DTR's): Right brachioradialis reflex intensity grade: 2+, Left brachioradialis reflex intensity grade: 2+, Right patellar reflex intensity grade: 2+ and Left patellar reflex intensity grade: 2+ Extrem General: No edema Office Procedures Flu Questionnaire Does the patient have a severe egg allergy?: No Does the patient have severe life threatening allergies?: No Does the patient have a fever or illness today?: No Has the patient ever had Guillain-Killbuck Syndrome?: No Has the patient ever had any past reaction to a flu shot?: No Immunizations Fluarix Triv 9923-6307 (PF) 45 mcg (15 mcg x 3)/0.5 mL IM syringe Performing Provider: Matty Grover MD [place] [facility] Administered by: Sara Cantrell LPN on 08/06/24 11:19 Dose Route Admin Location Dispensed Lot Number Expiration Date [facility] 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 Preparer 0.5 mL IM Left Deltoid 0.5 mL [id number] 03/28/25 [id number] [employer] VIS Given Date VIS Provided VIS Publication Date 08/06/24 Single Vaccine 21 Eligibility Eligibility Date Funding Source Not [facility] Eligible 08/06/24 Private Coding Level of Care Code Est Pt Prev Care 40-64y(45414) Diagnoses Annual physical exam Z00.00 Mild intermittent asthma without complication J45.20 Asthma severity: mild Asthma persistence: intermittent Asthma complication type: uncomplicated Impaired glucose tolerance R73.02 Obesity (BMI 30-39.9) E66.9 Generalized anxiety disorder F41.1 Assessment & Plan Assessment & Plan (1) Annual physical exam: Code(s): Z00.00 - Encounter for general adult medical examination without abnormal findings Category: Medical Plan: Patient is advised to eat healthy, keep well hydrated, keep active and have adequate sleep. (2) Asthma: Code(s): J45.909 - Unspecified asthma, uncomplicated Category: Medical Qualifiers: Asthma severity: mild Asthma persistence: intermittent Asthma complication type: uncomplicated Qualified Code(s): J45.20 - Mild intermittent asthma, uncomplicated Plan: Continue to use the albuterol inhaler and Advair (3) Impaired glucose tolerance: Code(s): R73.02 - Impaired glucose tolerance (oral) Category: Medical Plan: Decrease the amount of carbohydrate intake, pasta, bread, rice and potatoes are all sugar and that is aside from all the sweet stuff, remember that fruits are good but they are Sweet also. (4) Obesity (BMI 30-39.9): Code(s): E66.9 - Obesity, unspecified Category: Medical Plan: Diet and exercise (5) Generalized anxiety disorder: Code(s): F41.1 - Generalized anxiety disorder Category: Medical Plan: Stable Orders: Orders Influenza [id number] Immunization Today Z23 - Encounter for immunization Hemoglobin A1c Today R73.02 - Impaired glucose tolerance (oral) Comprehensive Met. Panel Today R73.02 - Impaired glucose tolerance (oral) Medications: New semaglutide (weight loss) (Wegovy) administer weeks 1 through 4 of therapy 0.25 mg (0.5 mL) subcut QWEEK 2 mL 1RF R73.02 - Impaired glucose tolerance (oral)
[2024-08-06 10:51] VITALS: BP 130/78; PULSE 65; O2SAT 95; BMI 30.2
== END 2024-08-06 12:24 | disposition home or self-care (01) ==
PROVIDERS: PCP Internal Medicine; Visit Provider Internal Medicine
DX: Z00.00 Encounter for general adult medical examination without abnormal findings (principal); J45.20 Mild intermittent asthma, uncomplicated; E66.9 Obesity, unspecified; Z68.30 Body mass index [BMI] 30.0-30.9, adult; R73.02 Impaired glucose tolerance (oral); F41.1 Generalized anxiety disorder

== ENCOUNTER → 2024-08-06 10:36 | Outpatient (BNVA) | payer OTHER, SELFPAY | PROVIDERS: PCP Internal Medicine; Visit Provider Internal Medicine | DX: Z00.00 Encounter for general adult medical examination without abnormal findings (principal); Z23 Encounter for immunization; J45.20 Mild intermittent asthma, uncomplicated; R73.02 Impaired glucose tolerance (oral); E66.9 Obesity, unspecified; F41.1 Generalized anxiety disorder | CPT/HCPCS: 90471; 90656; 99396 ==

== ENCOUNTER 2024-09-06 08:56 | Outpatient (AMB) | payer OTHER, SELFPAY ==
[2024-09-06 09:03] VITALS: BP 132/76; PULSE 84; O2SAT 95; BMI 28.2
--- NOTE | 2024-09-06 09:03 | A.OFFPC_ITS ---
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 Required: No Accompanied by: Self / Same As Patient Allergies aspirin [ASPIRIN] Allergy (Severe, Verified 09/06/24 09:03) STOMACH UPSET codeine [CODEINE] Allergy (Intermediate, Verified 09/06/24 09:03) STOMACH UPSET Medication List - Last Reconciled 09/06/24 by Anisa Brooks PA-C albuterol sulfate 90 mcg/actuation (Ventolin HFA) 2 puffs inhalation Q6H PRN blood pressure monitor (Blood Pressure Kit) As directed diclofenac sodium 1% (Voltaren Arthritis Pain) 4 grams topical QID PRN fluticasone propion-salmeterol 115-21 mcg/actuation (Advair HFA) 2 puffs inhalation Q12H lidocaine 4% (Aspercreme (lidocaine)) 1 patch topical DAILY PRN multivitamin 1 tab PO DAILY pantoprazole 40 mg PO DAILY polyethylene glycol 3350 (Miralax) 17 grams PO DAILY semaglutide (weight loss) (Wegovy) 0.25 mg (0.5 mL) subcut QWEEK tizanidine 2 mg PO Q8H PRN Tobacco use date assessed: 09/06/24 Dental Screening Dental Screen Date: 09/06/24 Did you have a dental visit in the last 12 months?: Yes Did you have a dental problem in the last 6 months where you did not have access to dental care?: No Was dental information given to patient?: Patient has dentist HPI med f/u weight check HPI Details 54-year-old obese female with history of asthma, impaired glucose tolerance, lumbar spondylosis last seen by Dr. Grover July 2024 coming in for follow up. At her last visit she was started on Wegovy for weight loss. Patient has a noted 11 lb weight loss since her last visit. She states she has been doing well in the Wegovy denies any side effects at this time. She has no acute concerns today. [facility] Medical History Breast cancer screening by mammogram Asthma exacerbation Well woman exam with routine gynecological exam Cervical cancer screening Abnormal TSH Overweight (BMI 25.0-29.9) Stiffness of finger joint Bronchitis Asthma Trigger finger of left thumb Trigger finger of right thumb Carpal tunnel syndrome on both sides Hypertension Repetitive use syndrome Surgical History Hx of colonoscopy H/O vaginal hysterectomy S/P tonsillectomy H/O abdominoplasty Hx of exploratory laparotomy Hx of cholecystectomy History of carpal tunnel release S/P trigger finger release Family History Brother Ulcerative colitis Maternal Uncle Substance abuse Other Colon cancer Social History Housing: Apartment Alcohol intake: current Alcohol intake frequency: does not drink Comment: once a year 1 glass Patient Tobacco Use Status: Former Tobacco user Tobacco use type: Cigarette Years Smoked: stopped 1991 does marijuana e-Cigarette/Vaping Use: Never Used Second Hand Smoke Exposure: No service: No Current occupational status: employed Current occupation: right handed/ [employer] Current occupational exposures/hazards: No Cognitive needs: No Hearing needs: No Vision needs: Yes Questionnaire PHQ-9 Over the last 2 weeks, how often have you been bothered by any of the following problems? 3. Trouble falling or staying asleep, or sleeping too much: nearly every day 9. Thoughts that you would be better off or of hurting yourself in some way: not at all Source: Developed by Drs. Felipe Mata, Juanis Sharma, Lake Jimenez and colleagues, with an educational jorge a from [employer]. Thrive Questionnaire Date Thrive assessed: 09/06/24 I am a: Patient What is your living situation today?: I have a steady place to live Within the past 12 months, did the food you bought not last and you didn't have the money to get more?: Never true Within the past 12 months, did you worry whether your food would run out before you got money to buy more?: Never true Do you have trouble paying for medicines?: No Do you have trouble getting transportation to medical appointments?: No Do you have trouble paying your heating and electricity bill?: No Do you have trouble taking care of your child, family member or friend?: No Do you have trouble with day-to-day activities such as bathing, preparing meals, shopping, managing finances, etc.?: No Are you interested in more education?: No Please select the resources that you would like help with: None Currently or been in a relationship where the following occur: No concerns reported THRIVE Score: 0 AUDIT C Alcohol Use Questionnaire (AUDIT-C) 1. How often do you have a drink containing alcohol?: Never Total Score: 0 SINA-7 AMB Questionnaire SINA-7 Date SINA - 7 assessed: 09/06/24 Feeling nervous, anxious, or on edge: 0 = Not at all Not being able to stop or control worryin = Not at all Worrying too much about different things: 0 = Not at all Trouble relaxin = Not at all Being so restless that it is hard to sit still: 0 = Not at all Becoming easily annoyed or irritable: 0 = Not at all Feeling afraid as if something awful might happen: 0 = Not at all Total SINA-7 score (0-4 normal; 5-9 mild; 10-14 moderate; 15-21 severe): 0 Source: Developed by Drs. Felipe Mata, Juanis Sharma, Lake Jimenez and colleagues, with an educational jorge a from [employer]. Review of Systems Const Denies body aches, Denies chills, Denies fever(s), Denies headache(s) and Denies poor appetite ENT Denies headache(s) Card Denies chest pain, Denies lightheadedness and Denies dyspnea Resp Denies cough and Denies dyspnea GI Denies abdominal pain, Denies constipation, Denies diarrhea, Reports nausea (Occasional) and Denies vomiting Reports no additional complaints Musc Reports no additional complaints and Denies abnormal gait Skin/Breast Reports system reviewed and no additional complaints, except as documented Neuro Denies abnormal gait and Denies headache(s) Psych Reports no additional complaints Physical exam (Primary Care) Vital Signs: Last Vital Signs Pulse 84 09/06/24 09:03 BP 132/76 09/06/24 09:03 Pulse Ox 95 09/06/24 09:03 Oxygen Delivery Method Room Air 09/06/24 09:03 BMI result Body Mass Index 28.2 Tobacco/Smoking Status: Tobacco use Status Tobacco use date assessed 09/06/24 09/06/24 09:05 Patient Tobacco Use Status Former Tobacco user 09/06/24 09:05 Tobacco use type Cigarette 09/06/24 09:05 e-Cigarette/Vaping Use Never Used 09/06/24 09:05 Thrive Assessment: Date of Thrive Assessment Date Thrive assessed 09/06/24 09/06/24 09:05 Currently or been in a relationship where the following occur: No concerns reported Const General: cooperative, healthy appearing, comfortable and no acute distress Orientation/consciousness: patient oriented x3 HENMT Head: Yes normocephalic Ears: hearing grossly normal bilaterally General nose exam: Normal external nose present Eyes General: appearance normal, both eyes and all related structures Conjunctivae: conjunctivae normal Neck Neck: Yes full ROM and Yes no lymphadenopathy Resp Effort & Inspection: normal respiratory effort Auscultation: clear to auscultation bilaterally, no crackles, no rales, no rhonchi and no wheezes Cardio Rate: regular rate Rhythm: regular rhythm Skin General skin exam: no rashes or lesions noted Neuro General: patient oriented x3 Gait exam (Neuro): Normal gait present Extrem General: Yes normal to inspection, Yes full ROM and No edema Psych Affect: normal affect Attitude: cooperative Insight: Good insight present (Psych) Judgement: Good judgement present (Psych) Coding Level of Care Code Est Pt Level 3 (93419) Diagnoses Obesity (BMI 30-39.9) E66.9 Blood pressure elevated without history of HTN R03.0 Mild intermittent asthma without complication J45.20 Asthma severity: mild Asthma persistence: intermittent Asthma complication type: uncomplicated Assessment & Plan Assessment & Plan (1) Obesity (BMI 30-39.9): Code(s): E66.9 - Obesity, unspecified Category: Medical Plan: Healthy diet and regular exercise is encouraged. Patient has been doing well in the Wegovy advised to have repeat blood work done to monitor for kidney and liver function. We will continue on Wegovy 0.25 at this time as patient has been seeing a good benefit and has lost 11 lb. (2) Blood pressure elevated without history of HTN: Code(s): R03.0 - Elevated blood-pressure reading, without diagnosis of hypertension Category: Medical Plan: Blood pressure within normal limits today. Avoid salt intake and encourage healthy diet and regular exercise. (3) Asthma: Code(s): J45.909 - Unspecified asthma, uncomplicated Category: Medical Qualifiers: Asthma severity: mild Asthma persistence: intermittent Asthma complication type: uncomplicated Qualified Code(s): J45.20 - Mild intermittent asthma, uncomplicated Plan: Asthma currently controlled on present medications. Continue on Advair and albuterol as needed. Avoid triggers such as allergies. Plan This note was constructed using voice recognition software. While every effort has been made to ensure accuracy and band shover, still areas may have been included sometimes these areas may affect the content or meeting of the given symptoms. Total time spent caring for the patient today was 20 minutes. This includes time spent before the visit reviewing the chart, time spent during the visit, and time spent after the visit and documentation.
--- OUTSIDE RECORDS SUMMARY | 2024-09-08 13:40 | XMS_ITS | Clinical Summary ---
Author Organization [facility] Address [address], [place] [id number] Phone Care Team Providers Care Boning Room Worker Name Role Phone Unavailable Unavailable Unavailable Reason for Visit and Chief Complaint The Chief Complaint is: follow up iv Plan of Treatment - Clinical summary provided to patient - Last Documented On 06/07/2020 9:30AM ; [facility] Continue Ancef, Bactrim, and Fluconazole PO, stop date 06/08/2020 D/C PICC at [facility] - script given Follow-up with surgeon - provided contact information Follow-up as needed. - Last Documented On 06/07/2020 9:30AM ; [facility] Education and Decision Aids were provided during visit for: Patient education about a pr oper diet Last Documented On 0 9:10AM ; [facility] Assessments Includes: Assessments from this encounter Findings - Methicillin susceptible staphylococcus aureus infection - Last Documented On 06/07/2020 9:30AM ; [facility] - Infection following a procedure, other surgical site - Last Documented On 06/07/2020 9:30AM ; [facility] Instructions Includes: Instructions from this encounter Education and Decision Aids were provided during visit for: Patient education about a pr oper diet Last Documented On 0 9:10AM ; [facility] Medical Equipment - Implanted Devices Includes: Current Devices No Medical Equipment Recorded Medications Includes: Medications discussed during this encounter and other current Medications Current Medications (continue as prescribed) Bactrim DS 800-160 MG Oral Tablet 06/01/2020 Provide r: Diagnosis: Last Documented On 0 2:54PM By Radha Giraldo ; [facility] Fluconazole 100 MG Oral Tablet 06/01/2020 Provider: Diagnosis: Last Documented On 0 2:54PM By Radha Giraldo ; [facility] [place] 5-325 MG Oral Tablet 06/01/2020 Provider: Diagnosis: Last Documented On 0 2:55PM By Radha Giraldo ; [facility] Zofran 4 MG Oral Tablet 06/01/2020 Provider: Diagnosis: Last Documented On 0 2:55PM By Radha Giraldo ; [facility] Medications Administered Includes: Administered Medications from this [...] On 06/07/2020 9:10AM ; [facility] Results Includes: Results discussed during this encounter No Results Recorded For Specified Dates History of Present Illness Includes: History of Present Illness from this encounter HPI Lakisha Cotter is a 50 year old female. Follow-up from [facility] - seen by [facility] Admitted on 05/15 for increased abdominal swelling Recently underwent a [place] butt lift, tummy tuck and liposuction in the [place] about 3 weeks prior to admission. [...] On 0 9:30AM ; [facility] Alcohol use 06/07/2020 Last Documented On 0 9:30AM ; [facility] Smoking status : Former smoker 0 Last Documented On 0 9:30AM ; [facility] Procedures and Surgical History Includes: Procedures from this encounter Procedures Code Diagnosis Performing Provider Service L ocation Service Date education and instructions Last Documented On 0 9:29AM ; [facility] Medical History Includes: Medical History addressed during [...] Subscriber Relationship Effect sandra Dates 1 - [facility] [phone] Lakisha Serna Clinical Notes Includes: Clinical Notes from this encounter No Clinical Notes Recorded
--- OUTSIDE RECORDS SUMMARY | 2024-09-08 13:40 | XMS_ITS ---
Care Plan - [facility] Created on: September 08, 2024 Lakisha Cotter : 1970 Sex: Female Author Organization [facility] Address [address], [place] [phone] Phone Care Team Providers Care Program Director/Air Personality Name Role Phone Unavailable Unavailable Unavailable
--- OUTSIDE RECORDS SUMMARY | 2024-09-08 13:40 | XMS_ITS ---
Author Organization [facility] Address [address], [place] [phone] Phone Care Team Providers Care Classification Officer Name Role Phone Unavailable Unavailable Unavailable Plan of Treatment Findings Encounter Date Continue Ancef, Bactrim, and Fluconazole PO, stop date 06/08/2020 D/C PICC at [facility] - script given Follow-up with surgeon - provided contact information Follow-up as needed Transition of Care - Must be seen 7 -14 days after hospital with Rogelio BUSTOS 06/07/2020 Last Documented On 0 9:30AM ; [facility] Ordered Clinical summary pro vided to patient Transition of Care - Must be seen 7 -14 days after hospital with Rogelio BUSTOS 06/07/2020 Last Documented On 0 9:30AM ; [facility] Home Health Supervision of C are note entered by Radha ORTIZ Home Health Plan of Care and/or Supervision of Care with Mishel Deal MD 06/01/2020 Last Documented On 0 4:23PM ; [facility] Patient has received at [facility] t 30 minutes of supervision of care within the month. Pt discharged from [facility] on iv abx until 06/08 for surgical site infx with MSSA/acinetobacter. Chart pulled and scanned into intergy. Allergy and med list updated in ehr. Iv abx and lab orders verified by Juan pharmacist at [place]. F/u call made to pt. No answer. Vm left for her to return call. Will continue to reach out to pt. Spent approximately 40 minutes Home Health Plan of Care and/or Supervision of Care with Mishel Deal MD 06/01/2020 Last Documented On 0 4:23PM ; [facility] Education and Decision Aids were provided during visit for: Patient education about a pr oper diet Last Documented On 0 9:10AM ; [facility] Assessments Includes: Assessments for all patient encounters Findings Encounter Date Infection following a proced ure, other surgical site Transition of Care - Must be seen 7 -14 days after hospital with Rogelio Ricardo AKASH 06/07/2020 Last Documented On 0 9:30AM ; [facility] Methicillin susceptible stap hylococcus aureus infection Transition of Care - Must be seen 7 -14 days after hospital with Rogelio BUSTOS 06/07/2020 Last Documented On 0 9:30AM ; [facility] Instructions Includes: Instructions for all patient encounters Education and Decision Aids were provided during visit for: Patient education about a pr oper diet Last Documented On 0 9:10AM ; [facility] Medical Equipment - Implanted Devices Includes: Current and historical Devices No Medical Equipment Recorded Medications Includes: Current and historical Medications Current Medications (continue as prescribed) Bactrim DS 800-160 MG Oral Tablet 06/01/2020 Provide r: Diagnosis: Last Documented On 0 2:54PM By Radha Giraldo ; [facility] Fluconazole 100 MG Oral Tablet 06/01/2020 Provider: Diagnosis: Last Documented On 0 2:54PM By Radha Giraldo ; [facility] [place] 5-325 MG Oral Tablet 06/01/2020 Provider: Diagnosis: Last Documented On 0 2:55PM By Radha Giraldo ; [facility] Zofran 4 MG Oral Tablet 06/01/2020 Provider: Diagnosis: Last Documented On 0 2:55PM By Radha Giraldo ; [facility] Past Medications on file Ancef 2gm Intravenous Solution 06/01/2020 - 06/08/2020 Provider: Diagnosis: Last Documented On 0 1:57PM By Radha Giraldo ; [facility] Medications Administered Includes: Administered Medications in patient's chart No Administered Medications Recorded Results Includes: Results from 09/08/2023 through 09/08/2024 No Results Recorded For Specified Dates History of Present Illness History of Present Illness not supported for this document type No History of Present Illness Recorded Social History Description Last Updated No tobacco use 06/07/2020 Last Documented On 0 9:30AM ; [facility] Alcohol use 06/07/2020 Last Documented On 0 9:30AM ; [facility] Smoking status : Former smoker 0 Last Documented On 0 9:30AM ; [facility] Medical History Includes: Medical History in patient's [...] Subscriber Relationship Effect sandra Dates 1 - [facility] [phone] Lakisha Serna Clinical Notes Includes: Signed Clinical Notes starting from 09/27/2022 No Clinical Notes Recorded
--- OUTSIDE RECORDS SUMMARY | 2024-09-08 13:40 | XMS_ITS | Clinical Summary ---
Author Organization INFECTIOUS DISEASE A [facility] Address [address], [place] [phone] Phone Care Team Providers Care Stator Tester Name Role Phone Unavailable Unavailable Unavailable Reason for Visit and Chief Complaint Home Health Plan of Care and/or Supervision of Care Plan of Treatment Home Health Supervision of Care note entered by Radha ORTIZ. Patient has received at least 30 minutes of supervision of care within the month. Pt discharged from [facility] on iv abx until 06/08 for surgical site infx with MSSA/acinetobacter. Chart pulled and scanned into inter. Allergy and med list updated in ehr. Iv abx and lab orders verified by Juan pharmacist at [place]. F/u call made to pt. No answer. Vm left for her to return call. Will continue to reach out to pt. Spent approximately 40 minutes. - Last Documented On 06/01/2020 4:23PM ; [facility] Assessments Includes: Assessments from this encounter No Assessments Recorded Medical Equipment - Implanted Devices Includes: Current Devices No Medical Equipment Recorded Medications Includes: Medications discussed during this encounter and other current Medications Current Medications (continue as prescribed) Bactrim DS 800-160 MG Oral Tablet 06/01/2020 Provide r: Diagnosis: Last Documented On 0 2:54PM By Radha Giraldo ; [facility] Fluconazole 100 MG Oral Tablet 06/01/2020 Provider: Diagnosis: Last Documented On 0 2:54PM By Radha Giraldo ; [facility] [place] 5-325 MG Oral Tablet 06/01/2020 Provider: Diagnosis: Last Documented On 0 2:55PM By Radha Giraldo ; [facility] Zofran 4 MG Oral Tablet 06/01/2020 Provider: Diagnosis: Last Documented On 0 2:55PM By Radha Giraldo ; [facility] Medications Administered Includes: Administered Medications from this [...] Subscriber Relationship Effect sandra Dates 1 - [facility] [id number] Lakisha Cotter Self Clinical Notes Includes: Clinical Notes from this encounter No Clinical Notes Recorded
== END 2024-09-06 09:41 | disposition home or self-care (01) ==
PROVIDERS: PCP Internal Medicine
DX: E66.9 Obesity, unspecified (principal); R03.0 Elevated blood-pressure reading, without diagnosis of hypertension; J45.20 Mild intermittent asthma, uncomplicated; Z68.28 Body mass index [BMI] 28.0-28.9, adult

== ENCOUNTER → 2024-09-06 08:56 | Outpatient (BNVA) | payer OTHER, SELFPAY | PROVIDERS: PCP Internal Medicine | DX: E66.9 Obesity, unspecified (principal); J45.20 Mild intermittent asthma, uncomplicated; R03.0 Elevated blood-pressure reading, without diagnosis of hypertension | CPT/HCPCS: 99212 ==

== ENCOUNTER 2024-09-06 09:41 | Outpatient (REF) | payer OTHER, SELFPAY ==
[2024-09-06 10:19] LABS: Estimated Average Glucose 114 mg/dL; Hemoglobin A1C 116.3831 umol/L; Hemoglobin A1c % 5.6 % (<6.0)
[2024-09-06 11:12] LABS: Alanine Aminotransferase 18 U/L (0-31); Albumin Level 4.1 g/dL (3.5-5.0); Alkaline Phosphatase 83 U/L (39-117); Anion Gap 9 (12-20); Aspartate Amino Transferase 23 U/L (5-31); Bilirubin Total 0.6 mg/dL (0.0-1.0); Blood Urea Nitrogen 10 mg/dL (9-16); Calcium 9.3 mg/dL (8.4-10.2); Carbon Dioxide 29 mmol/L (22-29); Chloride 106 mmol/L (96-108); Estimated Glomerular Filt Rate > 60; Glucose Random 95 mg/dL (60-115); Sodium 140 mmol/L (135-145); Total Protein 6.9 g/dL (6.5-8.0)
--- OUTSIDE RECORDS SUMMARY | 2024-09-08 14:04 | XMS_ITS ---
Author Organization [facility] Address [address], [place] [phone] Phone Care Team Providers Care Glue Spreader Name Role Phone Unavailable Unavailable Unavailable Plan of Treatment Findings Encounter Date Continue Ancef, Bactrim, and Fluconazole PO, stop date 06/08/2020 D/C PICC at [facility] - script given Follow-up with surgeon - provided contact information Follow-up as needed Transition of Care - Must be seen 7 -14 days after hospital with Rogelio BUSTOS 06/07/2020 Last Documented On 0 9:30AM ; [facility] Ordered Clinical summary pro vided to patient Transition of Care - Must be seen 7 -14 days after hospital with Rogelio BUSTOS 06/07/2020 Last Documented On 0 9:30AM ; [facility] Home Health Supervision of C are note entered by Radha ORTIZ Home Health Plan of Care and/or Supervision of Care with Mishel Deal MD 06/01/2020 Last Documented On 0 4:23PM ; [facility] Patient has received at [facility] t 30 minutes of supervision of care within the month. Pt discharged from [facility] on iv abx until 06/08 for surgical site infx with MSSA/acinetobacter. Chart pulled and scanned into intergy. Allergy and med list updated in ehr. Iv abx and lab orders verified by Juan pharmacist at [place]. F/u call made to pt. No answer. Vm left for her to return call. Will continue to reach out to pt. Spent approximately 40 minutes Home Health Plan of Care and/or Supervision of Care with Mishel Deal MD 06/01/2020 Last Documented On 0 4:23PM ; [facility] Education and Decision Aids were provided during visit for: Patient education about a pr oper diet Last Documented On 0 9:10AM ; [facility] Assessments Includes: Assessments for all patient encounters Findings Encounter Date Infection following a proced ure, other surgical site Transition of Care - Must be seen 7 -14 days after hospital with Rogelio Ricardo AKASH 06/07/2020 Last Documented On 0 9:30AM ; [facility] Methicillin susceptible stap hylococcus aureus infection Transition of Care - Must be seen 7 -14 days after hospital with Rogelio BUSTOS 06/07/2020 Last Documented On 0 9:30AM ; [facility] Instructions Includes: Instructions for all patient encounters Education and Decision Aids were provided during visit for: Patient education about a pr oper diet Last Documented On 0 9:10AM ; [facility] Medical Equipment - Implanted Devices Includes: Current and historical Devices No Medical Equipment Recorded Medications Includes: Current and historical Medications Current Medications (continue as prescribed) Bactrim DS 800-160 MG Oral Tablet 06/01/2020 Provide r: Diagnosis: Last Documented On 0 2:54PM By Radha Giraldo ; [facility] Fluconazole 100 MG Oral Tablet 06/01/2020 Provider: Diagnosis: Last Documented On 0 2:54PM By Radha Giraldo ; [facility] [place] 5-325 MG Oral Tablet 06/01/2020 Provider: Diagnosis: Last Documented On 0 2:55PM By Radha Giraldo ; [facility] Zofran 4 MG Oral Tablet 06/01/2020 Provider: Diagnosis: Last Documented On 0 2:55PM By Radha Giraldo ; [facility] Past Medications on file Ancef 2gm Intravenous Solution 06/01/2020 - 06/08/2020 Provider: Diagnosis: Last Documented On 0 1:57PM By Radha Giraldo ; [facility] Medications Administered Includes: Administered Medications in patient's chart No Administered Medications Recorded Results Includes: Results from 09/08/2023 through 09/08/2024 No Results Recorded For Specified Dates History of Present Illness History of Present Illness not supported for this document type No History of Present Illness Recorded Social History Description Last Updated No tobacco use 06/07/2020 Last Documented On 0 9:30AM ; [facility] Alcohol use 06/07/2020 Last Documented On 0 9:30AM ; [facility] Smoking status : Former smoker 0 Last Documented On 0 9:30AM ; [facility] Medical History Includes: Medical History in patient's [...] Subscriber Relationship Effect sandra Dates 1 - [facility] [phone] Lakisha Serna Clinical Notes Includes: Signed Clinical Notes starting from 09/27/2022 No Clinical Notes Recorded
--- OUTSIDE RECORDS SUMMARY | 2024-09-08 14:05 | XMS_ITS | Clinical Summary ---
Author Organization [facility] Address [address], [place] [phone] Phone Care Team Providers Care Horser Up Name Role Phone Unavailable Unavailable Unavailable Reason for Visit and Chief Complaint The Chief Complaint is: follow up iv Plan of Treatment - Clinical summary provided to patient - Last Documented On 06/07/2020 9:30AM ; [facility] Continue Ancef, Bactrim, and Fluconazole PO, stop date 06/08/2020 D/C PICC at [facility] - script given Follow-up with surgeon - provided contact information Follow-up as needed. - Last Documented On 06/07/2020 9:30AM ; [facility] Education and Decision Aids were provided during visit for: Patient education about a pr oper diet Last Documented On 0 9:10AM ; [facility] Assessments Includes: Assessments from this encounter Findings - Methicillin susceptible staphylococcus aureus infection - Last Documented On 06/07/2020 9:30AM ; [facility] - Infection following a procedure, other surgical site - Last Documented On 06/07/2020 9:30AM ; [facility] Instructions Includes: Instructions from this encounter Education and Decision Aids were provided during visit for: Patient education about a pr oper diet Last Documented On 0 9:10AM ; [facility] Medical Equipment - Implanted Devices Includes: Current Devices No Medical Equipment Recorded Medications Includes: Medications discussed during this encounter and other current Medications Current Medications (continue as prescribed) Bactrim DS 800-160 MG Oral Tablet 06/01/2020 Provide r: Diagnosis: Last Documented On 0 2:54PM By Radha Giraldo ; [facility] Fluconazole 100 MG Oral Tablet 06/01/2020 Provider: Diagnosis: Last Documented On 0 2:54PM By Radha Giraldo ; [facility] [place] 5-325 MG Oral Tablet 06/01/2020 Provider: Diagnosis: Last Documented On 0 2:55PM By Radha Giraldo ; [facility] Zofran 4 MG Oral Tablet 06/01/2020 Provider: Diagnosis: Last Documented On 0 2:55PM By Radha Giraldo ; [facility] Medications Administered Includes: Administered Medications from this [...] On 06/07/2020 9:10AM ; [facility] Results Includes: Results discussed during this encounter No Results Recorded For Specified Dates History of Present Illness Includes: History of Present Illness from this encounter HPI Lakisha Cotter is a 50 year old female. Follow-up from [facility] - seen by [facility] Admitted on 05/15 for increased abdominal swelling Recently underwent a [place]oc[place] butt lift, tummy tuck and liposuction in [...] On 0 9:30AM ; [facility] Alcohol use 06/07/2020 Last Documented On 0 9:30AM ; [facility] Smoking status : Former smoker 0 Last Documented On 0 9:30AM ; [facility] Procedures and Surgical History Includes: Procedures from this encounter Procedures Code Diagnosis Performing Provider Service L ocation Service Date education and instructions Last Documented On 0 9:29AM ; [facility] Medical History Includes: Medical History addressed during [...] Relationship Effect sandra Dates 1 - [facility] [phone] Lakisha Serna Clinical Notes Includes: Clinical Notes from this encounter No Clinical Notes Recorded
--- OUTSIDE RECORDS SUMMARY | 2024-09-08 14:05 | XMS_ITS ---
Care Plan - [facility] Created on: September 08, 2024 Lakisha Cotter : 1970 Sex: Female Author Organization [facility]EASE [facility] Address [address] [place], [place] [phone] Phone Care Team Providers Care Oral And Maxillofacial Surgery Name Role Phone Unavailable Unavailable Unavailable
--- OUTSIDE RECORDS SUMMARY | 2024-09-08 14:05 | XMS_ITS | Clinical Summary ---
Author Organization [facility] Address [address] [place], [place] [phone] Phone Care Team Providers Care Full Stack Php Developer Name Role Phone Unavailable Unavailable Unavailable Reason for Visit and Chief Complaint Home Health Plan of Care and/or Supervision of Care Plan of Treatment Home Health Supervision of Care note entered by Radha ORTIZ. Patient has received at least 30 minutes of supervision of care within the month. Pt discharged from [facility] on iv abx until 06/08 for surgical site infx with MSSA/acinetobacter. Chart pulled and scanned into inter. Allergy and med list updated in ehr. Iv abx and lab orders verified by Juan pharmacist at [place]. F/u call made to pt. No answer. Vm left for her to return call. Will continue to reach out to pt. Spent approximately 40 minutes. - Last Documented On 06/01/2020 4:23PM ; [facility] Assessments Includes: Assessments from this encounter No Assessments Recorded Medical Equipment - Implanted Devices Includes: Current Devices No Medical Equipment Recorded Medications Includes: Medications discussed during this encounter and other current Medications Current Medications (continue as prescribed) Bactrim DS 800-160 MG Oral Tablet 06/01/2020 Provide r: Diagnosis: Last Documented On 0 2:54PM By Radha Giraldo ; [facility] Fluconazole 100 MG Oral Tablet 06/01/2020 Provider: Diagnosis: Last Documented On 0 2:54PM By Radha Giraldo ; [facility] [place] 5-325 MG Oral Tablet 06/01/2020 Provider: Diagnosis: Last Documented On 0 2:55PM By Radha Giraldo ; [facility] Zofran 4 MG Oral Tablet 06/01/2020 Provider: Diagnosis: Last Documented On 0 2:55PM By Radha Giraldo ; [facility] Medications Administered Includes: Administered Medications from this [...] Effect sandra Dates 1 - [facility] [phone] Lakisha Cotter Self Clinical Notes Includes: Clinical Notes from this encounter No Clinical Notes Recorded
== END 2024-09-06 09:42 | disposition home or self-care (01) ==
LOC: HO.LAB 09:41
PROVIDERS: PCP Internal Medicine; Visit Provider Internal Medicine
DX: R73.02 Impaired glucose tolerance (oral) (principal)
CPT/HCPCS: 36415; 80053; 83036

== ENCOUNTER 2024-09-26 13:20 | Emergency (ER) | payer OTHER, SELFPAY ==
--- OUTSIDE RECORDS SUMMARY | 2024-09-26 13:22 | XMS_ITS ---
Care Plan - [facility] Created on: September 26, 2024 Lakisha Cotter : 1970 Sex: Female Author Organization [facility]ASE [facility] Address [address] [place], [place] [phone] Phone Care Team Providers Care Insurance Salesman Name Role Phone Unavailable Unavailable Unavailable
--- OUTSIDE RECORDS SUMMARY | 2024-09-26 13:22 | XMS_ITS | Clinical Summary ---
Author Organization [facility] Address [address] [place], [place] [phone] Phone Care Team Providers Care Supervisor [employer] Boat [employer] Name Role Phone Unavailable Unavailable Unavailable Reason for Visit and Chief Complaint Home Health Plan of Care and/or Supervision of Care Plan of Treatment Home Health Supervision of Care note entered by Radha ORTIZ. Patient has received at least 30 minutes of supervision of care within the month. Pt discharged from [facility] on iv abx until 06/08 for surgical site infx with MSSA/acinetobacter. Chart pulled and scanned into inter. Allergy and med list updated in ehr. Iv abx and lab orders verified by Juan pharmacist at [place]. F/u call made to pt. No answer. Vm left for her to return call. Will continue to reach out to pt. Spent approximately 40 minutes. - Last Documented On 06/01/2020 4:23PM ; [facility] Assessments Includes: Assessments from this encounter No Assessments Recorded Medical Equipment - Implanted Devices Includes: Current Devices No Medical Equipment Recorded Medications Includes: Medications discussed during this encounter and other current Medications Current Medications (continue as prescribed) Bactrim DS 800-160 MG Oral Tablet 06/01/2020 Provide r: Diagnosis: Last Documented On 0 2:54PM By Radha Giraldo ; [facility] Fluconazole 100 MG Oral Tablet 06/01/2020 Provider: Diagnosis: Last Documented On 0 2:54PM By Radha Giraldo ; [facility] [place] 5-325 MG Oral Tablet 06/01/2020 Provider: Diagnosis: Last Documented On 0 2:55PM By Radha Giraldo ; [facility] Zofran 4 MG Oral Tablet 06/01/2020 Provider: Diagnosis: Last Documented On 0 2:55PM By Radha Giraldo ; [facility] Medications Administered Includes: Administered Medications from this [...] Relationship Effect sandra Dates 1 - [facility] [phone] Lakisha Cotter Self Clinical Notes Includes: Clinical Notes from this encounter No Clinical Notes Recorded
--- OUTSIDE RECORDS SUMMARY | 2024-09-26 13:22 | XMS_ITS | Clinical Summary ---
Author Organization [facility] Address [address], [place] [id number] Phone Care Team Providers Care Manager Of Case Name Role Phone Unavailable Unavailable Unavailable Reason for Visit and Chief Complaint The Chief Complaint is: follow up iv Plan of Treatment - Clinical summary provided to patient - Last Documented On 06/07/2020 9:30AM ; [facility] Continue Ancef, Bactrim, and Fluconazole PO, stop date 06/08/2020 D/C PICC at [facility] - script given Follow-up with surgeon - provided contact information Follow-up as needed. - Last Documented On 06/07/2020 9:30AM ; [facility] Education and Decision Aids were provided during visit for: Patient education about a pr oper diet Last Documented On 0 9:10AM ; [facility] Assessments Includes: Assessments from this encounter Findings - Methicillin susceptible staphylococcus aureus infection - Last Documented On 06/07/2020 9:30AM ; [facility] - Infection following a procedure, other surgical site - Last Documented On 06/07/2020 9:30AM ; [facility] Instructions Includes: Instructions from this encounter Education and Decision Aids were provided during visit for: Patient education about a pr oper diet Last Documented On 0 9:10AM ; [facility] Medical Equipment - Implanted Devices Includes: Current Devices No Medical Equipment Recorded Medications Includes: Medications discussed during this encounter and other current Medications Current Medications (continue as prescribed) Bactrim DS 800-160 MG Oral Tablet 06/01/2020 Provide r: Diagnosis: Last Documented On 0 2:54PM By Radha Giraldo ; [facility] Fluconazole 100 MG Oral Tablet 06/01/2020 Provider: Diagnosis: Last Documented On 0 2:54PM By Radha Giraldo ; [facility] Leslie 5-325 MG Oral Tablet 06/01/2020 Provider: Diagnosis: Last Documented On 0 2:55PM By Radha Giraldo ; [facility] Zofran 4 MG Oral Tablet 06/01/2020 Provider: Diagnosis: Last Documented On 0 2:55PM By Radha Giraldo ; [facility] Medications Administered Includes: Administered Medications from [...] On 06/07/2020 9:10AM ; [facility] Results Includes: Results discussed during this encounter No Results Recorded For Specified Dates History of Present Illness Includes: History of Present Illness from this encounter HPI Lakisha Cotter is a 50 year old female. Follow-up from [facility] - seen by [facility] Admitted on 05/15 for increased abdominal swelling Recently underwent a Fijian butt lift, tummy tuck and liposuction in [...] On 0 9:30AM ; [facility] Alcohol use 06/07/2020 Last Documented On 0 9:30AM ; [facility] Smoking status : Former smoker 0 Last Documented On 0 9:30AM ; [facility] Procedures and Surgical History Includes: Procedures from this encounter Procedures Code Diagnosis Performing Provider Service L ocation Service Date education and instructions Last Documented On 0 9:29AM ; [facility] Medical History Includes: Medical History addressed during [...] Effect sandra Dates 1 - [facility] [phone] Lakisha Serna Clinical Notes Includes: Clinical Notes from this encounter No Clinical Notes Recorded
[2024-09-26 13:23] VITALS: BP 144/96; PULSE 88; RESP 16; TEMP 36.4; O2SAT 98; BMI 27.4
--- NOTE | 2024-09-26 13:25 | ED.ABDPAIN ---
HPI - Abdominal Pain General Chief Complaint: Abdominal Pain Stated Complaint: Diarrhea, nausea Time Seen by Provider: 09/26/24 17:05 Source: patient Limitations: no limitations History of Present Illness ED Provider: Sandra Abraham PA-C HPI narrative: 54-year-old female with a history of morbid obesity, arthritis, anxiety, presents with nausea diarrhea x3 days. Patient states she has been having intermittent nausea and diarrhea with the abdominal cramping. Denies active vomiting, fever or current abdominal pain. Patient feels as if her symptoms are starting to subside. Denies cough or cold symptoms, or sick contacts with similar symptoms. Denies recent travel, use of antibiotics or hospitalization. Related Data Home Medications ?Medication ?Instructions ?Recorded ?Confirmed multivitamin 1 tab PO DAILY 08/06/24 09/06/24 Previous Rx's ?Medication ?Instructions ?Recorded polyethylene glycol 3350 17 17 g PO DAILY #510 grams 04/30/22 gram/dose oral powder (Miralax) lidocaine 4 % topical patch 1 patch topical DAILY PRN pain #30 06/12/23 (Aspercreme (lidocaine)) ea fluticasone propionate 115 2 puff inhalation Q12H #12 grams 07/03/23 mcg-salmeterol 21 mcg/actuation HFA inhaler (Advair HFA) albuterol sulfate 90 mcg/actuation 2 puff inhalation Q6H PRN 07/04/23 aerosol inhaler (Ventolin HFA) shortness of breath or wheezing #8.5 grams blood pressure monitor (Blood #1 ea 10/08/23 Pressure Kit) diclofenac sodium 1 % topical gel 4 g topical QID PRN pain #100 grams 11/12/23 (Voltaren Arthritis Pain) pantoprazole 40 mg tablet,delayed 40 mg PO DAILY #90 tabs 07/09/24 release tizanidine 2 mg tablet 2 mg PO Q8H PRN muscle spasticity 07/09/24 #20 tabs semaglutide (weight loss) 0.5 0.5 mg (0.5 mL) subcut QWEEK 30 09/07/24 mg/0.5 mL subcutaneous pen injector days #2.5 mL dicyclomine 20 mg tablet 20 mg PO BID PRN diarrhea #7 tabs 09/26/24 ondansetron HCl 4 mg tablet 4 mg PO Q8H PRN nausea and 09/26/24 vomiting #10 tabs Allergies Allergy/AdvReac Type Severity Reaction Status Date / Time aspirin [ASPIRIN] Allergy Severe STOMACH Verified 09/26/24 13:25 UPSET codeine [CODEINE] Allergy Intermediate STOMACH Verified 09/26/24 13:25 UPSET Review of Systems Review of Systems Yes all other systems are reviewed and are negative Constitutional: Denies fatigue and Denies fever(s) Cardiovascular: Denies chest pain and Denies dyspnea Respiratory: Denies cough and Denies dyspnea Gastrointestinal: Reports GI cramping, Reports diarrhea, Reports nausea and Denies vomiting Endocrine: Denies fatigue PMFSH Past Medical History Attestation statement: The following information was validated with the patient. Medical History Breast cancer screening by mammogram Asthma exacerbation Well woman exam with routine gynecological exam Cervical cancer screening Abnormal TSH Overweight (BMI 25.0-29.9) Stiffness of finger joint Bronchitis Asthma Trigger finger of left thumb Trigger finger of right thumb Carpal tunnel syndrome on both sides Hypertension Repetitive use syndrome Surgical History Hx of colonoscopy H/O vaginal hysterectomy S/P tonsillectomy H/O abdominoplasty Hx of exploratory laparotomy Hx of cholecystectomy History of carpal tunnel release S/P trigger finger release Family History Family History Brother Ulcerative colitis Maternal Uncle Substance abuse Other Colon cancer Social History Social History Housing: Apartment Alcohol intake: current Alcohol intake frequency: does not drink Comment: once a year 1 glass Patient Tobacco Use Status: Former Tobacco user Tobacco use type: Cigarette Years Smoked: stopped 1991 does marijuana Smoked in Last 30 Days: No e-Cigarette/Vaping Use: Never Used Second Hand Smoke Exposure: No Use of substances other than those prescribed or required for medical reasons: No Advance Directives: No Advance Directives Information Provided: No service: No Current occupational status: employed 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 Current occupational exposures/hazards: No Cognitive needs: No Hearing needs: No Vision needs: Yes Physical Exam ED Vital Signs: Vital Signs - 24 hr 09/26/24 13:23 09/26/24 17:15 Temperature 97.5 F 97.6 F Pulse Rate 88 67 Respiratory Rate 16 16 Blood Pressure 144/96 H 159/92 H Pulse Oximetry 98 98 Oxygen Delivery Method Room Air Room Air BMI result Body Mass Index 27.4 Const Other: Alert well-appearing Orientation/consciousness: patient oriented x3 Resp Other: Nonlabored respiration Cardio Other: Normal peripheral perfusion GI Other: Abdomen is soft, nondistended nontender no guarding Skin Other: Warm dry no rash Neuro General: patient oriented x3, no focal motor deficits and CN's II-XI intact bilaterally Psych Other: Calm cooperative Course Course Course Narrative: This is a Rapid Medical Examination (RME) performed by Bruno Barron PA-C in triage. Full HPI, ROS, assessment and treatment plan per primary provider in the Main ED. 54 yo female here for eval of nausea, mid abd pain, and diarrhea x4 days. no known sick contacts. Plan: labs, viral testing Medical Decision Making Medical Decision Making MDM Narrative: 54-year-old female with a history of morbid obesity, arthritis, anxiety, presents with nausea diarrhea x3 days. Patient states she has been having intermittent nausea and diarrhea with the abdominal cramping. Denies active vomiting, fever or current abdominal pain. Patient feels as if her symptoms are starting to subside. Denies cough or cold symptoms, or sick contacts with similar symptoms. Denies recent travel, use of antibiotics or hospitalization. No relevant chronic issues History: Per patient I have considered the following differential diagnoses: Viral gastroenteritis, diverticulitis, traveler's diarrhea C diff Plan: Patient has a risk factors for C diff or traveler's diarrhea, this is likely viral gastroenteritis given such illness has been prevalent within the community. She has no focal abdominal pain especially to the left lower quadrant to suggest diverticulitis. She does not require imaging, screening labs were obtained from triage including a viral panel. I offered IV fluid IV Zofran, the patient declines she states she can not stay for treatment, however she will accept p.o. meds. I have independently reviewed the following tests: Labs: No leukocytosis, not anemic, viral panel negative Lab Data 09/26/24 13:37 09/26/24 13:37 Labs: Lab Results 09/26/24 Range/Units 13:37 WBC 7.9 (4.8-10.8) X10*3/uL RBC 4.38 (4.20-5.50) X10*6/uL Hgb 12.7 (12.0-16.0) g/dl Hct 39.1 (37.0-47.0) % MCV 89.3 (80.0-98.0) fL MCH 29.0 (27.0-33.0) pg MCHC 32.5 (31.0-35.0) g/dl RDW 13.6 (11.0-16.0) % Plt Count 222 (160-400) X10*3/uL MPV 10.8 (9.4-12.3) fL Immature Gran % (Auto) 0.1 (0.0-0.4) % Neut % (Auto) 46.4 (45-73) % Lymph % (Auto) 43.9 H (20-40) % Johnson % (Auto) 5.8 (2-11) % Eos % (Auto) 3.2 (0-4) % Baso % (Auto) 0.6 (0-2) % Lymph # (Auto) 3.5 (1.2-4.9) X10*3/uL Johnson # (Auto) 0.5 (0.1-1.2) X10*3/uL Eos # (Auto) 0.3 (0.0-0.4) X10*3/uL Baso # (Auto) 0.1 (0.0-0.2) X10*3/uL Abs Immat Gran (auto) 0.01 (0.00-0.03) X10*3/uL Absolute Neuts (auto) 3.7 (2.0-8.3) x10*3/uL Absolute Nucleated RBC 0.000 (0.0-0.012) X10*3/uL Nucleated RBC % (auto) 0.0 (0.0-0.2) /100WBC Sodium 142 (135-145) mmol/L Potassium 4.1 (3.3-5.1) mmol/L Chloride 108 (96-108) mmol/L Carbon Dioxide 25 (22-29) mmol/L Anion Gap 13 (12-20) BUN 13 (9-16) mg/dL Creatinine 0.78 (0.5-1.4) mg/dL Estim Creat Clear Calc 76.5 Estimated GFR > 60 Random Glucose 93 (60-115) mg/dL Calcium 9.4 (8.4-10.2) mg/dL Magnesium 1.9 (1.6-2.6) mg/dL Total Bilirubin 0.7 (0.0-1.0) mg/dL AST 23 (5-31) U/L ALT 18 (0-31) U/L Alkaline Phosphatase 96 (39-117) U/L Total Protein 7.1 (6.5-8.0) g/dL Albumin 4.3 (3.5-5.0) g/dL Lipase 23 (8-78) U/L Influenza Type A (PCR) NEGATIVE (Negative) Influenza Type B (PCR) NEGATIVE (Negative) RSV RNA Qual (PCR) NEGATIVE (Negative) SARS-CoV-2 RNA (RT-PCR) NEGATIVE (Negative) Discharge Plan Discharge Clinical Impression: Gastroenteritis Patient Disposition: Home, Self-Care Instructions: Gastroenteritis (ED) Additional Instructions: You have a virus causing her symptoms, this gastrointestinal virus has been prevalent within the community. You had no lab abnormalities in the viral panel was negative. See home care instructions. Use the dicyclomine as needed for diarrhea. Uses Zofran as needed for nausea. Follow up with your primary care provider as needed. Prescriptions: New ondansetron HCl 4 mg tablet 4 mg PO Q8H PRN (Reason: nausea and vomiting) Qty: 10 0RF dicyclomine 20 mg tablet 20 mg PO BID PRN (Reason: diarrhea) Qty: 7 0RF No Action albuterol sulfate [Ventolin HFA] 90 mcg/actuation HFA aerosol inhaler 2 puff inhalation Q6H PRN (Reason: shortness of breath or wheezing) Qty: 8.5 5RF (DME) blood pressure monitor [Blood Pressure Kit] Kit See Rx Instructions .ROUTE .MEDSUPPLY Qty: 1 0RF Rx Instructions: As directed diclofenac sodium [Voltaren Arthritis Pain] 1 % gel 4 g topical QID PRN (Reason: pain) Qty: 100 7RF semaglutide (weight loss) 0.5 mg/0.5 mL pen injector 0.5 mg subcut QWEEK 30 Days Qty: 2.5 1RF Rx Instructions: administer weeks 1 through 4 of therapy fluticasone propion-salmeterol [Advair HFA] 115-21 mcg/actuation HFA aerosol inhaler 2 puff inhalation Q12H Qty: 12 11RF lidocaine [Aspercreme (lidocaine)] 4 % adhesive patch,medicated 1 patch topical DAILY PRN (Reason: pain) Qty: 30 0RF polyethylene glycol 3350 [Miralax] 17 gram/dose powder 17 g PO DAILY Qty: 510 2RF multivitamin Tablet 1 tab PO DAILY pantoprazole 40 mg tablet,delayed release (DR/EC) 40 mg PO DAILY Qty: 90 2RF Rx Instructions: take one tablet half an hour before breakfast tizanidine 2 mg tablet 2 mg PO Q8H PRN (Reason: muscle spasticity) Qty: 20 0RF Interventions: ED Discharge Assessment Last Done: 09/26/24 17:32 Print Language: [place] Arabian
[2024-09-26 13:41] LABS: MANUAL DIFF FLAG NO
[2024-09-26 13:42] LABS: Basophils Absolute Auto 0.1 X10*3/uL (0.0-0.2); Basophils Percent Auto 0.6 % (0-2); Eosinophils Absolute Auto 0.3 X10*3/uL (0.0-0.4); Eosinophils Percent Auto 3.2 % (0-4); Hematocrit 39.1 % (37.0-47.0); Hemoglobin 12.7 g/dl (12.0-16.0); Imm Gran Abs Auto 0.01 X10*3/uL (0.00-0.03); Imm Gran Pct Auto 0.1 % (0.0-0.4); Lymphocytes Absolute Auto 3.5 X10*3/uL (1.2-4.9); Lymphocytes Percent Auto 43.9 % (20-40); Mean Corpuscular HGB Conc 32.5 g/dl (31.0-35.0); Mean Corpuscular Volume 89.3 fL (80.0-98.0); Mean Platelet Volume 10.8 fL (9.4-12.3); Monocytes Absolute Auto 0.5 X10*3/uL (0.1-1.2); Monocytes Percent Auto 5.8 % (2-11); Neutrophils Absolute Auto 3.7 x10*3/uL (2.0-8.3); Neutrophils Percent Auto 46.4 % (45-73); Platelet Count 222 X10*3/uL (160-400); Red Blood Count 4.38 X10*6/uL (4.20-5.50); Red Cell Distribution Width 13.6 % (11.0-16.0); White Blood Count 7.9 X10*3/uL (4.8-10.8)
[2024-09-26 14:00] LABS: Alanine Aminotransferase 18 U/L (0-31); Albumin Level 4.3 g/dL (3.5-5.0); Alkaline Phosphatase 96 U/L (39-117); Anion Gap 13 (12-20); Aspartate Amino Transferase 23 U/L (5-31); Bilirubin Total 0.7 mg/dL (0.0-1.0); Blood Urea Nitrogen 13 mg/dL (9-16); Calcium 9.4 mg/dL (8.4-10.2); Carbon Dioxide 25 mmol/L (22-29); Chloride 108 mmol/L (96-108); Creatinine Clr Calc Pharmacy 76.5; Estimated Glomerular Filt Rate > 60; Glucose Random 93 mg/dL (60-115); Lipase 23 U/L (8-78); Magnesium 1.9 mg/dL (1.6-2.6); Potassium 4.1 mmol/L (3.3-5.1); Sodium 142 mmol/L (135-145); Total Protein 7.1 g/dL (6.5-8.0)
[2024-09-26 14:20] LABS: Influenza A PCR NEGATIVE (Negative); Influenza B PCR NEGATIVE (Negative); Resp Syncy Virus RNA Qual PCR NEGATIVE (Negative); SARS COV2 PCR INHOUSE NEGATIVE (Negative)
--- OUTSIDE RECORDS SUMMARY | 2024-09-26 16:57 | XMS_ITS | Clinical Summary ---
Author Organization [facility] Address [address], [place] [phone] Phone Care Team Providers Care Bricklayer Paving Brick Name Role Phone Unavailable Unavailable Unavailable Reason for Visit and Chief Complaint Home Health Plan of Care and/or Supervision of Care Plan of Treatment Home Health Supervision of Care note entered by Radha ORTIZ. Patient has received at least 30 minutes of supervision of care within the month. Pt discharged from [facility] on iv abx until 06/08 for surgical site infx with MSSA/acinetobacter. Chart pulled and scanned into inter. Allergy and med list updated in ehr. Iv abx and lab orders verified by Juan pharmacist at [facility]. F/u call made to pt. No answer. Vm left for her to return call. Will continue to reach out to pt. Spent approximately 40 minutes. - Last Documented On 06/01/2020 4:23PM ; [facility] Assessments Includes: Assessments from this encounter No Assessments Recorded Medical Equipment - Implanted Devices Includes: Current Devices No Medical Equipment Recorded Medications Includes: Medications discussed during this encounter and other current Medications Current Medications (continue as prescribed) Bactrim DS 800-160 MG Oral Tablet 06/01/2020 Provide r: Diagnosis: Last Documented On 0 2:54PM By Radha Giraldo ; [facility] Fluconazole 100 MG Oral Tablet 06/01/2020 Provider: Diagnosis: Last Documented On 0 2:54PM By Radha Giraldo ; [facility] Paradis 5-325 MG Oral Tablet 06/01/2020 Provider: Diagnosis: Last Documented On 0 2:55PM By Radha Giraldo ; [facility] Zofran 4 MG Oral Tablet 06/01/2020 Provider: Diagnosis: Last Documented On 0 2:55PM By Radha Giraldo ; [facility] Medications Administered Includes: Administered Medications from this [...] Subscriber Relationship Effect sandra Dates 1 - [facility] [phone] Lakisha Cotter Self Clinical Notes Includes: Clinical Notes from this encounter No Clinical Notes Recorded
--- OUTSIDE RECORDS SUMMARY | 2024-09-26 16:57 | XMS_ITS | Clinical Summary ---
Author Organization [facility] Address [address], [place] [phone] Phone Care Team Providers Care Healthcare Liaison Name Role Phone Unavailable Unavailable Unavailable Reason for Visit and Chief Complaint The Chief Complaint is: follow up iv Plan of Treatment - Clinical summary provided to patient - Last Documented On 06/07/2020 9:30AM ; [facility] Continue Ancef, Bactrim, and Fluconazole PO, stop date 06/08/2020 D/C PICC at [facility] - script given Follow-up with surgeon - provided contact information Follow-up as needed. - Last Documented On 06/07/2020 9:30AM ; [facility] Education and Decision Aids were provided during visit for: Patient education about a pr oper diet Last Documented On 0 9:10AM ; [facility] Assessments Includes: Assessments from this encounter Findings - Methicillin susceptible staphylococcus aureus infection - Last Documented On 06/07/2020 9:30AM ; [facility] - Infection following a procedure, other surgical site - Last Documented On 06/07/2020 9:30AM ; [facility] Instructions Includes: Instructions from this encounter Education and Decision Aids were provided during visit for: Patient education about a pr oper diet Last Documented On 0 9:10AM ; [facility] Medical Equipment - Implanted Devices Includes: Current Devices No Medical Equipment Recorded Medications Includes: Medications discussed during this encounter and other current Medications Current Medications (continue as prescribed) Bactrim DS 800-160 MG Oral Tablet 06/01/2020 Provide r: Diagnosis: Last Documented On 0 2:54PM By Radha Giraldo ; [facility] Fluconazole 100 MG Oral Tablet 06/01/2020 Provider: Diagnosis: Last Documented On 0 2:54PM By Radha Giraldo ; [facility] Frost 5-325 MG Oral Tablet 06/01/2020 Provider: Diagnosis: Last Documented On 0 2:55PM By Radha Giraldo ; [facility] Zofran 4 MG Oral Tablet 06/01/2020 Provider: Diagnosis: Last Documented On 0 2:55PM By Radha Giraldo ; [facility] Medications Administered Includes: Administered Medications from this [...] On 06/07/2020 9:10AM ; [facility] Results Includes: Results discussed during this encounter No Results Recorded For Specified Dates History of Present Illness Includes: History of Present Illness from this encounter HPI Lakisha Cotter is a 50 year old female. Follow-up from [facility] - seen by [facility] Admitted on 05/15 for increased abdominal swelling Recently underwent a Namibian butt lift, tummy tuck and liposuction in [...] On 0 9:30AM ; [facility] Alcohol use 06/07/2020 Last Documented On 0 9:30AM ; [facility] Smoking status : Former smoker 0 Last Documented On 0 9:30AM ; [facility] Procedures and Surgical History Includes: Procedures from this encounter Procedures Code Diagnosis Performing Provider Service L ocation Service Date education and instructions Last Documented On 0 9:29AM ; [facility] Medical History Includes: Medical History addressed during [...] Subscriber Relationship Effect sandra Dates 1 - [facility] [phone] Lakisha Serna Clinical Notes Includes: Clinical Notes from this encounter No Clinical Notes Recorded
--- OUTSIDE RECORDS SUMMARY | 2024-09-26 16:57 | XMS_ITS ---
Care Plan - [facility] Created on: September 26, 2024 Lakisha Cotter : 1970 Sex: Female Author Organization [facility] Address [address] [place] [address], [place] [phone] Phone Care Team Providers Care Reading Professor Name Role Phone Unavailable Unavailable Unavailable
[2024-09-26 17:15] VITALS: BP 159/92; PULSE 67; RESP 16; TEMP 36.4; O2SAT 98
[2024-09-26] MEDS: Ondansetron ODT 4 MG TAB.RAPDIS TRANSLINGU (17:29)
[2024-09-26] MEDS: Dicyclomine HCl 10 MG CAPSULE 20 MG PO (17:29)
[2024-09-26 17:32] VITALS: BP 159/92; PULSE 67; RESP 16; TEMP 36.4; O2SAT 98
== END 2024-09-26 17:34 | disposition home or self-care (01) ==
PROVIDERS: Physician Assistant Medical; Emergency Provider Internal Medicine; PCP Internal Medicine
DX: K52.9 Noninfective gastroenteritis and colitis, unspecified (principal); R11.2 Nausea with vomiting, unspecified; Z87.891 Personal history of nicotine dependence; Z79.899 Other long term (current) drug therapy; Z03.818 Encounter for observation for suspected exposure to other biological agents ruled out
CPT/HCPCS: 0241U; 80053; 83690; 83735; 85025; 96361; 96374; 96375; 99284

== ENCOUNTER → 2024-10-06 08:42 | Outpatient (BNVA) | payer OTHER, SELFPAY | PROVIDERS: PCP Internal Medicine; Visit Provider Internal Medicine ==

== ENCOUNTER 2024-11-30 09:20 | Outpatient (REF) | payer OTHER, SELFPAY ==
--- NOTE | ~2024-11-30 | CT_ITS ---
CLINICAL HISTORY: R91.8 - Other nonspecific abnormal finding of lung field CT chest without contrast Comparison: 12/12/2023, 12/19/2022 Findings: Lung holm are clear without acute infiltrates. Scattered sub 5 mm nodules are unchanged. Stable right middle lobe and left lingular scar. No significant mediastinal adenopathy. No significant free pleural fluid. No significant focal bony abnormalities. Impression: No acute processes This document has been electronically signed by: Dylan Yoo MD on 11/30/2024 18:41:46
--- OUTSIDE RECORDS SUMMARY | 2024-11-30 10:17 | XMS_ITS ---
Care Plan - [facility] Created on: November 30, 2024 Lakisha Cotter : 1970 Sex: Female Author Organization [facility] Address [address] [place], [place] [phone] Phone Care Team Providers Care Fiberglass Boat Finisher Name Role Phone Unavailable Unavailable Unavailable
--- OUTSIDE RECORDS SUMMARY | 2024-11-30 10:17 | XMS_ITS ---
Author Organization [facility] Address [address], [place] [phone] Phone Care Team Providers Care Property And Casualty Insurance Agent Name Role Phone Unavailable Unavailable Unavailable Plan of Treatment Findings Encounter Date Continue Ancef, Bactrim, and Fluconazole PO, stop date 06/08/2020 D/C PICC at [facility] - script given Follow-up with surgeon - provided contact information Follow-up as needed Transition of Care - Must be seen 7 -14 days after hospital with Rogelio BUSTOS 06/07/2020 Last Documented On 0 9:30AM ; [facility] Ordered Clinical summary pro vided to patient Transition of Care - Must be seen 7 -14 days after hospital with Rogelio BUSTOS 06/07/2020 Last Documented On 0 9:30AM ; [facility] Home Health Supervision of C are note entered by Radha ORTIZ Home Health Plan of Care and/or Supervision of Care with Mishel Deal MD 06/01/2020 Last Documented On 0 4:23PM ; [facility] Patient has received at [facility] t 30 minutes of supervision of care within the month. Pt discharged from [facility] on iv abx until 06/08 for surgical site infx with MSSA/acinetobacter. Chart pulled and scanned into intergy. Allergy and med list updated in ehr. Iv abx and lab orders verified by Juan pharmacist at [facility]. F/u call made to pt. No answer. Vm left for her to return call. Will continue to reach out to pt. Spent approximately 40 minutes Home Health Plan of Care and/or Supervision of Care with Mishel Deal MD 06/01/2020 Last Documented On 0 4:23PM ; [facility] Education and Decision Aids were provided during visit for: Patient education about a pr oper diet Last Documented On 0 9:10AM ; [facility] Assessments Includes: Assessments for all patient encounters Findings Encounter Date Infection following a proced ure, other surgical site Transition of Care - Must be seen 7 -14 days after hospital with Rogelio Ricardo AKASH 06/07/2020 Last Documented On 0 9:30AM ; [facility] Methicillin susceptible stap hylococcus aureus infection Transition of Care - Must be seen 7 -14 days after hospital with Rogelio Haleigh BUSTOS 06/07/2020 Last Documented On 0 9:30AM ; [facility] Instructions Includes: Instructions for all patient encounters Education and Decision Aids were provided during visit for: Patient education about a pr oper diet Last Documented On 0 9:10AM ; [facility] Medical Equipment - Implanted Devices Includes: Current and historical Devices No Medical Equipment Recorded Medications Includes: Current and historical Medications Current Medications (continue as prescribed) Bactrim DS 800-160 MG Oral Tablet 06/01/2020 Provide r: Diagnosis: Last Documented On 0 2:54PM By Radha Giraldo ; [facility] Fluconazole 100 MG Oral Tablet 06/01/2020 Provider: Diagnosis: Last Documented On 0 2:54PM By Radha Giraldo ; [facility] [place] 5-325 MG Oral Tablet 06/01/2020 Provider: Diagnosis: Last Documented On 0 2:55PM By Radha Giraldo ; [facility] Zofran 4 MG Oral Tablet 06/01/2020 Provider: Diagnosis: Last Documented On 0 2:55PM By Radha Giraldo ; [facility] Past Medications on file Ancef 2gm Intravenous Solution 06/01/2020 - 06/08/2020 Provider: Diagnosis: Last Documented On 0 1:57PM By Radha Giraldo ; [facility] Medications Administered Includes: Administered Medications in patient's chart No Administered Medications Recorded Results Includes: Results from 12/01/2023 through 11/30/2024 No Results Recorded For Specified Dates History of Present Illness History of Present Illness not supported for this document type No History of Present Illness Recorded Social History Description Last Updated No tobacco use 06/07/2020 Last Documented On 0 9:30AM ; [facility] Alcohol use 06/07/2020 Last Documented On 0 9:30AM ; [facility] Smoking status : Former smoker 0 Last Documented On 0 9:30AM ; [facility] Medical History Includes: Medical History in [...] Effect sandra Dates 1 - [facility] [phone] Lakisha Serna Clinical Notes Includes: Signed Clinical Notes starting from 09/27/2022 No Clinical Notes Recorded
--- OUTSIDE RECORDS SUMMARY | 2024-11-30 10:17 | XMS_ITS | Clinical Summary ---
Author Organization [facility] Address [address], [place] [phone] Phone Care Team Providers Care Shipfitter Name Role Phone Unavailable Unavailable Unavailable Reason for Visit and Chief Complaint Home Health Plan of Care and/or Supervision of Care Plan of Treatment Home Health Supervision of Care note entered by Radha ORTIZ. Patient has received at least 30 minutes of supervision of care within the month. Pt discharged from [facility] on iv abx until 06/08 for surgical site infx with MSSA/acinetobacter. Chart pulled and scanned into inter. Allergy and med list updated in ehr. Iv abx and lab orders verified by Juan pharmacist at [place]. F/u call made to pt. No answer. Vm left for her to return call. Will continue to reach out to pt. Spent approximately 40 minutes. - Last Documented On 06/01/2020 4:23PM ; [facility] Assessments Includes: Assessments from this encounter No Assessments Recorded Medical Equipment - Implanted Devices Includes: Current Devices No Medical Equipment Recorded Medications Includes: Medications discussed during this encounter and other current Medications Current Medications (continue as prescribed) Bactrim DS 800-160 MG Oral Tablet 06/01/2020 Provide r: Diagnosis: Last Documented On 0 2:54PM By Radha Giraldo ; [facility] Fluconazole 100 MG Oral Tablet 06/01/2020 Provider: Diagnosis: Last Documented On 0 2:54PM By Radha Giraldo ; [facility] [place] 5-325 MG Oral Tablet 06/01/2020 Provider: Diagnosis: Last Documented On 0 2:55PM By Radha Giraldo ; [facility] Zofran 4 MG Oral Tablet 06/01/2020 Provider: Diagnosis: Last Documented On 0 2:55PM By Radha Giraldo ; [facility] Medications Administered Includes: Administered Medications [...] Subscriber Relationship Effect sandra Dates 1 - [facility] [id number] Lakisha Cotter Self Clinical Notes Includes: Clinical Notes from this encounter No Clinical Notes Recorded
--- OUTSIDE RECORDS SUMMARY | 2024-11-30 10:18 | XMS_ITS | Clinical Summary ---
Author Organization [facility] Address [address] [place], [place] [phone] Phone Care Team Providers Care Director Prison Name Role Phone Unavailable Unavailable Unavailable Reason for Visit and Chief Complaint The Chief Complaint is: follow up iv Plan of Treatment - Clinical summary provided to patient - Last Documented On 06/07/2020 9:30AM ; [facility] Continue Ancef, Bactrim, and Fluconazole PO, stop date 06/08/2020 D/C PICC at [facility] - script given Follow-up with surgeon - provided contact information Follow-up as needed. - Last Documented On 06/07/2020 9:30AM ; [facility] Education and Decision Aids were provided during [...] On 0 9:10AM ; [facility] Medical Equipment - Implanted Devices Includes: Current Devices No Medical Equipment Recorded Medications Includes: Medications discussed during this encounter and other current Medications Current Medications (continue as prescribed) Bactrim DS 800-160 MG Oral Tablet 06/01/2020 Provide r: Diagnosis: Last Documented On 0 2:54PM By Radha Giraldo ; [facility] Fluconazole 100 MG Oral Tablet 06/01/2020 Provider: Diagnosis: Last Documented On 0 2:54PM By Radha Giraldo ; [facility] [place] 5-325 MG Oral Tablet 06/01/2020 Provider: Diagnosis: [...] a 50 year old female. Follow-up from [facility] - seen by [facility] Admitted on 05/15 for increased abdominal swelling Recently underwent a Sudanese butt lift, tummy tuck and liposuction in [...] sandra Dates 1 - [facility] [id number] Lakisha Serna Clinical Notes Includes: Clinical Notes from this encounter No Clinical Notes Recorded
== END 2024-11-30 09:21 | disposition home or self-care (01) ==
LOC: HO.CT 09:20
PROVIDERS: PCP Internal Medicine; Visit Provider Internal Medicine Pulmonary Disease
DX: R91.8 Other nonspecific abnormal finding of lung field (principal)
CPT/HCPCS: 71250

== ENCOUNTER → 2024-11-30 09:21 | Outpatient (BNV) | payer OTHER, SELFPAY | PROVIDERS: PCP Internal Medicine; Visit Provider Radiology Diagnostic Radiology | DX: R91.8 Other nonspecific abnormal finding of lung field (principal) | CPT/HCPCS: 71250 ==

== ENCOUNTER 2024-12-13 08:38 | Outpatient (AMB) | payer OTHER, SELFPAY ==
--- NOTE | 2024-12-13 08:50 | A.OFFVIS_ITS ---
Vital Signs 12/13/24 08:51 Height 5 ft 3 in Weight 153 lb BMI 27.1 BP 159/83 H Blood Pressure Location Lt brachial Position Sitting Respiration 16 Pulse 71 Pulse Source Pulse Oximeter Pulse Oximetry (%) 95 Oxygen Delivery Method Room Air Intake Visit Reasons: Discuss Sprint Denial/Alternate Options Vertical Borer Required: No Allergies aspirin [ASPIRIN] Allergy (Severe, Verified 12/13/24 08:53) STOMACH UPSET codeine [CODEINE] Allergy (Intermediate, Verified 12/13/24 08:53) STOMACH UPSET Medication List - Last Reconciled 12/13/24 by Yamilet Dhaliwal LPN albuterol sulfate 90 mcg/actuation (Ventolin HFA) 2 puffs inhalation Q6H PRN blood pressure monitor (Blood Pressure Kit) As directed diclofenac sodium 1% (Voltaren Arthritis Pain) 4 grams topical QID PRN dicyclomine 20 mg PO BID PRN fluticasone propion-salmeterol 115-21 mcg/actuation (Advair HFA) 2 puffs inhalation Q12H lidocaine 4% (Aspercreme (lidocaine)) 1 patch topical DAILY PRN multivitamin 1 tab PO DAILY ondansetron HCl 4 mg PO Q8H PRN pantoprazole 40 mg PO DAILY polyethylene glycol 3350 (Miralax) 17 grams PO DAILY tirzepatide (weight loss) 5 mg (0.5 mL) subcut QWEEK 30 days tizanidine 2 mg PO Q8H PRN HPI Comments Details: Lakisha is back in my office to discuss possibility of further treatment since her insurance company does not cover sprint PNS. I offered the patient radiofrequency ablation of L2, L3, L4 medial branches bilateral to help her pain. I told the patient that it is very unfortunate that her insurance company does not cover sprint PNS because it has better longevity of the pain relief as well as much less invasive than radiofrequency ablation. I explained to the patient that radiofrequency ablation would require her to stay awake during the procedure with only minimal sedation possible. The patient decided not to go for the procedure, she said that she will be working on her insurance. She had diagnostic medial branch block L1-L2 L3 and L4 on the left on 02/25/2023. After that she had 33 hours of complete pain relief. She went for sprint PNS and while on stimulation she reported pain 0 to 1/10. However when the stimulating line was removed she started to complain on pain within 6 days This is a too short. [facility] Medical History Breast cancer screening by mammogram Asthma exacerbation Well woman exam with routine gynecological exam Cervical cancer screening Abnormal TSH Overweight (BMI 25.0-29.9) Stiffness of finger joint Bronchitis Asthma Trigger finger of left thumb Trigger finger of right thumb Carpal tunnel syndrome on both sides Hypertension Repetitive use syndrome Surgical History Hx of colonoscopy H/O vaginal hysterectomy S/P tonsillectomy H/O abdominoplasty Hx of exploratory laparotomy Hx of cholecystectomy History of carpal tunnel release S/P trigger finger release Family History Brother Ulcerative colitis Maternal Uncle Substance abuse Other Colon cancer Social History Housing: Apartment Alcohol intake: current Alcohol intake frequency: does not drink Comment: once a year 1 glass Patient Tobacco Use Status: Former Tobacco user Tobacco use type: Cigarette Years Smoked: stopped 1991 does marijuana e-Cigarette/Vaping Use: Never Used Second Hand Smoke Exposure: No service: No Current occupational status: employed 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 Current occupational exposures/hazards: No Cognitive needs: No Hearing needs: No Vision needs: Yes Review of Systems Const All systems reviewed & are unremarkable except as noted in HPI and below ENT Reports Normal hearing present Neuro Reports Normal hearing present, Denies Abnormal speech present, Denies confusion and Denies Sensory deficit (Neuro) Psych Denies confusion Physical Exam Vital Signs: Last Vital Signs Pulse 71 12/13/24 08:51 Resp 16 12/13/24 08:51 BP 159/83 H 12/13/24 08:51 Pulse Ox 95 12/13/24 08:51 Oxygen Delivery Method Room Air 12/13/24 08:51 BMI result Body Mass Index 27.1 Const General: no acute distress; No confusion Orientation/consciousness: patient oriented x3 and No confusion Eyes General: appearance normal, both eyes and all related structures Pupils: Equal, round and reactive pupils present EOM: EOMs intact bilaterally Neck Neck: Yes full ROM Chest Chest palpation & inspection: normal inspection of the chest Resp Effort & Inspection: normal respiratory effort, able to speak in complete sentences, normal respiratory pattern, no audible wheezes and no cough Cardio Jugular venous distension: no JVD GI Inspection: Yes normal to inspection Back/Spine/Pelvis Other: She is able to stand on bilateral tiptoes and bilateral heels without difficulty, she is able to lift the large toe in separation of the rest of the toes. She is able to flex herself forward without any difficulty. However minimal flexing backwards as well as lifting body up from the flex forward position causes severe pain in the back. Loading test is positive bilaterally. Leon's test is negative bilaterally. SLR may be equivocal on the left a and-lasseque test left aggravates her pain. On the right SLR is negative. Valsalva maneuver does not aggravate her pain. Neuro General: patient oriented x3, gait normal and No confusion Cranial nerves: Yes CN's II-XII intact bilaterally, Yes Equal, round and reactive pupils present, Yes Normal hearing present and Yes Ability to bilaterally elevate shoulders present Speech: No Abnormal speech present Gait exam (Neuro): Normal gait present Motor exam (neuro): 5/5 motor strength present throughout Sensory Exam: No Sensory deficit (Neuro) Extrem General: No pedal edema Psych Speech and movement: Normal speech and movement present Affect: normal affect Attitude: cooperative Thought process: Normal thought process present Thought content: Normal thought content present Insight: Good insight present (Psych) Judgement: Good judgement present (Psych) Assessment & Plan Assessment & Plan (1) Spondylosis of lumbar region without myelopathy or radiculopathy: Code(s): M47.816 - Spondylosis without myelopathy or radiculopathy, lumbar region Category: Medical (2) Chronic pain syndrome: Code(s): G89.4 - Chronic pain syndrome Category: Medical (3) Intractable back pain: Code(s): M54.9 - Dorsalgia, unspecified Category: Medical Plan diagnostic left medial branch block L1 L2-L3 L4 - 33 hours of complete pain relief. Good results of sprint PNS L3 on the left, however after removal of the wire she reported only few days of pain improvement. Bilateral sprint PNS was offered to the patient however her insurance changed and her new insurance considers this procedure experimental and investigational. Unfortunately I explained to the patient that I can not possibly perform the procedure which is not covered by her insurance. I offered her L2, L3, L4 bilateral medial branch radiofrequency ablation. I explained to the patient that this procedure in my professional opinion is less effective than sprint PNS and treatment of the pain. The patient decided that she will work on her insurance instead of getting less effective procedure. On the x-ray there was significant spondylosis of the spine of this patient. Mostly on the L2-L3 level. Her pain pattern does not correspond to nerve root compression at this level. Sacroiliac joint sclerosis positive on x-ray possibility exist to do diagnostic sacroiliac joint injections in the future if the medial branch block will not be working for this patient. Coding Level of Care Code Est Pt Level 3 (90884) Diagnoses Spondylosis of lumbar region without myelopathy or radiculopathy M47.816 Chronic pain syndrome G89.4 Intractable back pain M54.9
[2024-12-13 08:51] VITALS: BP 159/83; PULSE 71; RESP 16; O2SAT 95; BMI 27.1
--- OUTSIDE RECORDS SUMMARY | 2024-12-13 08:57 | XMS_ITS ---
Author Organization [facility] Address [address], [place] [phone] Phone Care Team Providers Care Animal Husbandry Professor Name Role Phone Unavailable Unavailable Unavailable Plan of Treatment Findings Encounter Date Continue Ancef, Bactrim, and Fluconazole PO, stop date 06/08/2020 D/C PICC at [facility] - script given Follow-up with surgeon - provided contact information Follow-up as needed Transition of Care - Must be seen 7 -14 days after hospital with Rogelio Ricardo APRN 06/07/2020 Last Documented On 0 9:30AM ; [facility] Ordered Clinical summary pro vided to patient Transition of Care - Must be seen 7 -14 days after hospital with Rogelio Ricardo APRN 06/07/2020 Last Documented On 0 9:30AM ; [facility] Home Health Supervision of C are note entered by Radha ORTIZ Home Health Plan of Care and/or Supervision of Care with Mishel Deal MD 06/01/2020 Last Documented On 0 4:23PM ; [facility] Patient has received at [facility] t 30 minutes of supervision of care within the month. Pt discharged from [facility] on iv abx until 06/08 for surgical site infx with MSSA/acinetobacter. Chart pulled and scanned into intergy. Allergy and med list updated in ehr. Iv abx and lab orders verified by Juan pharmacist at [place]. F/u call made to pt. No answer. [...] -14 days after hospital with Rogelio Ricardo APRN 06/07/2020 Last Documented On 0 9:30AM ; [facility] Methicillin susceptible stap hylococcus aureus infection Transition of Care - Must be seen 7 -14 days after hospital with Rogelio Ricardo APRN 06/07/2020 Last Documented On 0 9:30AM ; [...] ; [facility] [place] 5-325 MG Oral Tablet 06/01/2020 Provider: Diagnosis: [...] Administered Medications Recorded Results Includes: Results from 12/14/2023 through 12/13/2024 No Results Recorded For Specified Dates History [...] Subscriber Relationship Effect sandra Dates 1 - [facility] [id number] Lakisha Serna Clinical Notes Includes: Signed Clinical Notes starting from 09/27/2022 No Clinical Notes Recorded
--- OUTSIDE RECORDS SUMMARY | 2024-12-13 08:57 | XMS_ITS | Clinical Summary ---
Author Organization [facility] Address [address] [place], [place] [phone] Phone Care Team Providers Care Director Hris Name Role Phone Unavailable Unavailable Unavailable Reason for Visit and Chief Complaint The Chief Complaint is: follow up iv Plan of Treatment - Clinical summary provided to patient - Last Documented On 06/07/2020 9:30AM ; [facility] Continue Ancef, Bactrim, and Fluconazole PO, stop date 06/08/2020 D/C PICC at [facility] - script given Follow-up with surgeon - provided contact information Follow-up as needed. - Last Documented On 06/07/2020 9:30AM ; [facility] Education and Decision Aids were provided during visit for: Patient education about a pr oper diet Last Documented On 0 9:10AM ; [facility] Assessments Includes: Assessments from this encounter Findings - Methicillin susceptible staphylococcus aureus infection - Last Documented On 06/07/2020 9:30AM ; [facility] - Infection following a procedure, other surgical site - Last Documented On 06/07/2020 9:30AM ; [facility] Instructions Includes: Instructions from this encounter Education and Decision Aids were provided during visit for: Patient education about a pr oper diet Last Documented On 0 9:10AM ; [facility] Medical Equipment - Implanted Devices Includes: Current Devices No Medical Equipment Recorded Medications Includes: Medications discussed during this encounter and other current Medications Current Medications (continue as prescribed) Bactrim DS 800-160 MG Oral Tablet 06/01/2020 Provide r: Diagnosis: Last Documented On 0 2:54PM By Radha Giraldo ; [facility] Fluconazole 100 MG Oral Tablet 06/01/2020 Provider: Diagnosis: Last Documented On 0 2:54PM By Radha Giraldo ; [facility] [place] 5-325 MG Oral Tablet 06/01/2020 Provider: Diagnosis: Last Documented On 0 2:55PM By Radha Giraldo ; [facility] Zofran 4 MG Oral Tablet 06/01/2020 Provider: Diagnosis: Last Documented On 0 2:55PM By Radha Giraldo ; [facility] Medications Administered Includes: Administered Medications from [...] On 06/07/2020 9:10AM ; [facility] Results Includes: Results discussed during this encounter No Results Recorded For Specified Dates History of Present Illness Includes: History of Present Illness from this encounter HPI Lakisha Cotter is a 50 year old female. Follow-up from [facility] - seen by [facility] Admitted on 05/15 for increased abdominal swelling Recently underwent a Maur[place] butt lift, tummy tuck and liposuction in [...] On 0 9:30AM ; [facility] Alcohol use 06/07/2020 Last Documented On 0 9:30AM ; [facility] Smoking status : Former smoker 0 Last Documented On 0 9:30AM ; [facility] Procedures and Surgical History Includes: Procedures from this encounter Procedures Code Diagnosis Performing Provider Service L ocation Service Date education and instructions Last Documented On 0 9:29AM ; [facility] Medical History Includes: Medical History addressed [...] 7 -14 days after hospital Rogelio Ricardo [facility]20 8:57AM 9:50AM Staphylococcal Infection Staphylococcus Aureus Methicillin Susceptible,Posto perative Wound Infection Other Surgical Site Insurance Includes: Active Insurance Policies Plan Name Member ID Group # Subscriber Relationship Effect sandra Dates 1 - [facility] [id number] Lakisha Serna Clinical Notes Includes: Clinical Notes from this encounter No Clinical Notes Recorded
--- OUTSIDE RECORDS SUMMARY | 2024-12-13 08:57 | XMS_ITS | Clinical Summary ---
Author Organization [facility] Address [address], [place] [id number] Phone Care Team Providers Care Senior Quality Control Technician Name Role Phone Unavailable Unavailable Unavailable Reason for Visit and Chief Complaint Home Health Plan of Care and/or Supervision of Care Plan of Treatment Home Health Supervision of Care note entered by Radha ORTIZ. Patient has received at least 30 minutes of supervision of care within the month. Pt discharged from [facility] on iv abx until 06/08 for surgical site infx with MSSA/acinetobacter. Chart pulled and scanned into inter. Allergy and med list updated in ehr. Iv abx and lab orders verified by Juan pharmacist at [place]. F/u call made to pt. No answer. [...] ; [facility] [place] 5-325 MG Oral Tablet 06/01/2020 Provider: Diagnosis: Last Documented On 0 2:55PM By Radha Giraldo ; [facility] Zofran 4 MG Oral Tablet 06/01/2020 Provider: Diagnosis: Last Documented On 0 2:55PM By Radha Giraldo ; [facility] Medications Administered Includes: Administered Medications [...] Relationship Effect sandra Dates 1 - [facility] [phone] Lakisha Cotter Self Clinical Notes Includes: Clinical Notes from this encounter No Clinical Notes Recorded
--- OUTSIDE RECORDS SUMMARY | 2024-12-13 08:57 | XMS_ITS ---
Care Plan - [facility] Created on: December 13, 2024 Lakisha Cotter : 1970 Sex: Female Author Organization [facility] Address [address], [place] [phone] Phone Care Team Providers Care Supervisor Hydrochloric Area Name Role Phone Unavailable Unavailable Unavailable
== END 2024-12-13 09:06 | disposition home or self-care (01) ==
LOC: HO.PMC 08:38
PROVIDERS: PCP Internal Medicine; Visit Provider Anesthesiology
DX: M47.816 Spondylosis without myelopathy or radiculopathy, lumbar region (principal); G89.4 Chronic pain syndrome; M54.9 Dorsalgia, unspecified
CPT/HCPCS: 99213

== ENCOUNTER → 2024-12-13 08:38 | Outpatient (BNVA) | payer OTHER, SELFPAY | PROVIDERS: PCP Internal Medicine; Visit Provider Anesthesiology | DX: M47.816 Spondylosis without myelopathy or radiculopathy, lumbar region (principal); G89.4 Chronic pain syndrome; M54.9 Dorsalgia, unspecified | CPT/HCPCS: 99212 ==

== ENCOUNTER 2024-12-14 14:24 | Outpatient (AMB) | payer OTHER, SELFPAY ==
--- NOTE | 2024-12-14 14:31 | MHC.PC.OV ---
Vital Signs 12/14/24 14:32 Height 5 ft 3 in Weight 152 lb BMI 26.9 BP 140/82 H Blood Pressure Location Lt brachial Position Sitting Pulse 78 Pulse Source Pulse Oximeter Pulse Oximetry (%) 98 Oxygen Delivery Method Room Air Intake Visit Reasons: Weight loss follow up Allergies aspirin [ASPIRIN] Allergy (Severe, Verified 12/14/24 14:32) STOMACH UPSET codeine [CODEINE] Allergy (Intermediate, Verified 12/14/24 14:32) STOMACH UPSET Medication List - Last Reconciled 12/14/24 by Matty Grover MD albuterol sulfate 90 mcg/actuation (Ventolin HFA) 2 puffs inhalation Q6H PRN blood pressure monitor (Blood Pressure Kit) As directed diclofenac sodium 1% (Voltaren Arthritis Pain) 4 grams topical QID PRN dicyclomine 20 mg PO BID PRN fluticasone propion-salmeterol 115-21 mcg/actuation (Advair HFA) 2 puffs inhalation Q12H lidocaine 4% (Aspercreme (lidocaine)) 1 patch topical DAILY PRN multivitamin 1 tab PO DAILY ondansetron HCl 4 mg PO Q8H PRN pantoprazole 40 mg PO DAILY polyethylene glycol 3350 (Miralax) 17 grams PO DAILY tirzepatide (weight loss) 5 mg (0.5 mL) subcut QWEEK 90 days tizanidine 2 mg PO Q8H PRN Tobacco use date assessed: 12/14/24 Dental Screening Dental Screen Date: 12/14/24 Did you have a dental visit in the last 12 months?: Yes Did you have a dental problem in the last 6 months where you did not have access to dental care?: No Was dental information given to patient?: Patient has dentist [facility] Medical History Breast cancer screening by mammogram Asthma exacerbation Well woman exam with routine gynecological exam Cervical cancer screening Abnormal TSH Overweight (BMI 25.0-29.9) Stiffness of finger joint Bronchitis Asthma Trigger finger of left thumb Trigger finger of right thumb Carpal tunnel syndrome on both sides Hypertension Repetitive use syndrome Surgical History Hx of colonoscopy H/O vaginal hysterectomy S/P tonsillectomy H/O abdominoplasty Hx of exploratory laparotomy Hx of cholecystectomy History of carpal tunnel release S/P trigger finger release Family History Brother Ulcerative colitis Maternal Uncle Substance abuse Other Colon cancer Social History Housing: Apartment Alcohol intake: current Alcohol intake frequency: does not drink Comment: once a year 1 glass Patient Tobacco Use Status: Former Tobacco user Tobacco use type: Cigarette Years Smoked: stopped 1991 does marijuana e-Cigarette/Vaping Use: Never Used Second Hand Smoke Exposure: No service: No Current occupational status: employed 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 3. Trouble falling or staying asleep, or sleeping too much: nearly every day 9. Thoughts that you would be better off or of hurting yourself in some way: not at all Source: Developed by Drs. Felipe Mata, Juanis Sharma, Lake Jimenez and colleagues, with an educational jorge a from [employer]. Thrive Questionnaire Date Thrive assessed: 12/14/24 I am a: Patient What is your living situation today?: I have a steady place to live Within the past 12 months, did the food you bought not last and you didn't have the money to get more?: Never true Within the past 12 months, did you worry whether your food would run out before you got money to buy more?: Never true Do you have trouble paying for medicines?: No Do you have trouble getting transportation to medical appointments?: No Do you have trouble paying your heating and electricity bill?: No Do you have trouble taking care of your child, family member or friend?: No Do you have trouble with day-to-day activities such as bathing, preparing meals, shopping, managing finances, etc.?: No Are you interested in more education?: No Please select the resources that you would like help with: None Currently or been in a relationship where the following occur: No concerns reported THRIVE Score: 0 AUDIT C Alcohol Use Questionnaire (AUDIT-C) 1. How often do you have a drink containing alcohol?: Never Total Score: 0 SINA-7 AMB Questionnaire SINA-7 Date SINA - 7 assessed: 12/14/24 Feeling nervous, anxious, or on edge: 0 = Not at all Not being able to stop or control worryin = Not at all Worrying too much about different things: 0 = Not at all Trouble relaxin = Not at all Being so restless that it is hard to sit still: 0 = Not at all Becoming easily annoyed or irritable: 0 = Not at all Feeling afraid as if something awful might happen: 0 = Not at all Total SINA-7 score (0-4 normal; 5-9 mild; 10-14 moderate; 15-21 severe): 0 Source: Developed by Drs. Felipe Mata, Juanis Sharma, Lake Jimenez and colleagues, with an educational jorge a from [employer]. Physical exam (Primary Care) Vital Signs: Last Vital Signs Pulse 78 12/14/24 14:32 BP 140/82 H 12/14/24 14:32 Pulse Ox 98 12/14/24 14:32 Oxygen Delivery Method Room Air 12/14/24 14:32 BMI result Body Mass Index 26.9 Tobacco/Smoking Status: Tobacco use Status Tobacco use date assessed 12/14/24 12/14/24 14:33 Patient Tobacco Use Status Former Tobacco user 12/14/24 14:33 Tobacco use type Cigarette 12/14/24 14:33 e-Cigarette/Vaping Use Never Used 12/14/24 14:33 Thrive Assessment: Date of Thrive Assessment Date Thrive assessed 12/14/24 12/14/24 14:33 Currently or been in a relationship where the following occur: No concerns reported Const General: alert; No acute distress Eyes Conjunctivae: conjunctivae normal Resp Auscultation: clear to auscultation bilaterally Cardio Rate: regular rate Rhythm: regular rhythm GI Inspection: Yes normal to inspection Extrem General: Yes normal to inspection and No edema Coding Level of Care Code Est Pt Level 4 (56810) Complex EM visit Add On G2211 Diagnoses Pulmonary nodules R91.8 Overweight (BMI 25.0-29.9) E66.3 Generalized anxiety disorder F41.1 Spondylosis of lumbar region without myelopathy or radiculopathy M47.816 Impaired glucose tolerance R73.02 Mild intermittent asthma without complication J45.20 Asthma complication type: uncomplicated Asthma persistence: intermittent Asthma severity: mild Hypertension I10 Cervical cancer screening Z12.4 Assessment & Plan Assessment & Plan (1) Pulmonary nodules: Comment: November 2022, 11/2023, November 2024 Code(s): R91.8 - Other nonspecific abnormal finding of lung field Category: Medical Plan: Continuing to monitor (2) Overweight (BMI 25.0-29.9): Code(s): E66.3 - Overweight Category: Medical Plan: Diet and exercise (3) Generalized anxiety disorder: Code(s): F41.1 - Generalized anxiety disorder Category: Medical Plan: Stable (4) Spondylosis of lumbar region without myelopathy or radiculopathy: Code(s): M47.816 - Spondylosis without myelopathy or radiculopathy, lumbar region Category: Medical Plan: Keep active continue with muscle relaxants (5) Impaired glucose tolerance: Code(s): R73.02 - Impaired glucose tolerance (oral) Category: Medical Plan: Decrease the amount of carbohydrate intake, pasta, bread, rice and potatoes are all sugar and that is aside from all the sweet stuff, remember that fruits are good but they are Sweet also. (6) Asthma: Code(s): J45.909 - Unspecified asthma, uncomplicated Category: Medical Qualifiers: Asthma complication type: uncomplicated Asthma persistence: intermittent Asthma severity: mild Qualified Code(s): J45.20 - Mild intermittent asthma, uncomplicated Plan: On albuterol inhaler and Advair (7) Hypertension: Code(s): I10 - Essential (primary) hypertension Category: Medical (8) Cervical cancer screening: Comment: 12/20/2021 Pap equals negative with negative HPV. Code(s): Z12.4 - Encounter for screening for malignant neoplasm of cervix Category: Medical Plan History of Present Illness The patient is a 54-year-old female presenting with chronic low back pain and concerns about elevated blood pressure. She reports longstanding low back pain, notably persistent despite undergoing various management strategies including a Sprint device which offered temporary relief. Her insurance denied further interventions involving Sprint device replacement. ACcurrent therapies have been inadequate in managing her pain. She has arthritis contributing to her back pain, impacting her sleep. Recently, she observed elevated blood pressure readings, although not currently on antihypertensive therapy, following the cessation of lisinopril due, in part, to a history of dry cough. A trial of low-dose lisinopril is considered given continued instances of elevated blood pressure without intervention. Health Maintenance - Mammogram: Up-to-date as of February 2024. - Colonoscopy: Latest test conducted in March 2020. - Pulmonary Nodules: Stable as of the last CAT scan in November 2024. - Cholesterol: LDL at 101 mg/dL as of July 10, 2024. - Renal and Liver function: Normal as of the latest assessments. Social History - Experienced weight loss, from 173 lbs in June to 152 lbs currently. - Reports regular medications for nausea and heartburn. - Concerns regarding insurance limitations affecting pain management solutions. - Frequent sulfur burps and bloating sensations. - Uses a heartburn medication in the morning. Review of Systems - Gastrointestinal: Reports sulfur burps and bloating. - Musculoskeletal: Reports low back pain impacting sleep. Physical Exam Results - Labs: LDL of 101 mg/dL, normal renal and liver function. - Tests: CAT scan in November 2024 - stable pulmonary nodules. - Imaging: Mammogram up-to-date as of February 2024. Plan I proposed resuming low-dose lisinopril to manage her intermittently elevated blood pressure, emphasizing adherence to her GERD medication to control acidity. Due to the insurance restriction on the Sprint device, exploring alternate insurance to facilitate more durable back pain management comes under our future agenda. Her back pain will be continually evaluated, considering arthritis's noted contribution to her discomfort. Regular follow-up appointments will ensure continuous monitoring of potential cardiovascular events and further management in alignment with her weight loss and health maintenance program, adjusting accordingly. Patient was informed and verbally consented to the use of an ambient scribe for clinic note documentation during this visit. Discussion Notes I provided a thorough plan regarding her chronic low back pain, highlighting challenges posed by current insurance in prohibiting further Sprint device placements. Detailed the necessity for possible insurance change to enable effective pain management solutions for arthritis-related back pain. Discussed recommencing low-dose lisinopril weighing the benefit of blood pressure control against the prior side effect of a dry cough. I clarified the principles of incorporating adherence in her regimen with particular vigilance toward GERD management and periodic self-monitoring of blood pressure. I emphasized her dietary progress and the positive impact on her health, maintaining consistent evaluations of these factors. Patient Instructions - Resume low-dose lisinopril as prescribed to manage blood pressure. - Continue taking GERD medication every morning as directed. - Monitor blood pressure regularly at home and report significant changes. - Continue weight management efforts; maintain current healthy diet and activities. - Explore insurance options for better back pain management coverage. - Schedule and attend regular follow-up appointments for continuous assessment. - Alert to any new symptoms or changes in health, especially concerning heartburn or back pain changes. Orders: Referrals TOOL MAINTENANCE WORKER Referral Z12.4 - Encounter for screening for malignant neoplasm of cervix Medications: New lisinopril 5 mg PO DAILY 30 tabs 3RF I10 - Essential (primary) hypertension Changed From tirzepatide (weight loss) for 4 weeks 5 mg (0.5 mL) subcut QWEEK 30 days 2.5 mL 1RF To tirzepatide (weight loss) for 4 weeks 5 mg (0.5 mL) subcut QWEEK 90 days 6.5 mL 1RF
[2024-12-14 14:32] VITALS: BP 140/82; PULSE 78; O2SAT 98; BMI 26.9
--- OUTSIDE RECORDS SUMMARY | 2024-12-14 17:11 | XMS_ITS | Clinical Summary ---
Author Organization [facility] Address [address], [place] [phone] Phone Care Team Providers Care Robotics Technician Name Role Phone Unavailable Unavailable Unavailable Reason for Visit and Chief Complaint The Chief Complaint is: follow up iv Plan of Treatment - Clinical summary provided to patient - Last Documented On 06/07/2020 9:30AM ; [facility] Continue Ancef, Bactrim, and Fluconazole PO, stop date 06/08/2020 D/C PICC at [facility] - script given Follow-up with surgeon - provided contact information Follow-up as needed. - Last Documented On 06/07/2020 9:30AM ; [facility] Education and Decision Aids were provided during visit for: Patient education about a pr oper diet Last Documented On 0 9:10AM ; [facility] Assessments Includes: Assessments from this encounter Findings - Methicillin susceptible staphylococcus aureus infection - Last Documented On 06/07/2020 9:30AM ; [facility] - Infection following a procedure, other surgical site - Last Documented On 06/07/2020 9:30AM ; [facility] Instructions Includes: Instructions from this encounter Education and Decision Aids were provided during visit for: Patient education about a pr oper diet Last Documented On 0 9:10AM ; [facility] Medical Equipment - Implanted Devices Includes: Current Devices No Medical Equipment Recorded Medications Includes: Medications discussed during this encounter and other current Medications Current Medications (continue as prescribed) Bactrim DS 800-160 MG Oral Tablet 06/01/2020 Provide r: Diagnosis: Last Documented On 0 2:54PM By Radha Giraldo ; [facility] Fluconazole 100 MG Oral Tablet 06/01/2020 Provider: Diagnosis: Last Documented On 0 2:54PM By Radha Giraldo ; [facility] [place] 5-325 MG Oral Tablet 06/01/2020 Provider: Diagnosis: Last Documented On 0 2:55PM By Radha Giraldo ; [facility] Zofran 4 MG Oral Tablet 06/01/2020 Provider: Diagnosis: Last Documented On 0 2:55PM By Radha Giraldo ; [facility] Medications Administered Includes: Administered Medications from [...] On 06/07/2020 9:10AM ; [facility] Results Includes: Results discussed during this encounter No Results Recorded For Specified Dates History of Present Illness Includes: History of Present Illness from this encounter HPI Lakisha Cotter is a 50 year old female. Follow-up from [facility] - seen by [facility] Admitted on 05/15 for increased abdominal swelling Recently underwent a Palestinian butt lift, tummy tuck and liposuction in [...] On 0 9:30AM ; [facility] Alcohol use 06/07/2020 Last Documented On 0 9:30AM ; [facility] Smoking status : Former smoker 0 Last Documented On 0 9:30AM ; [facility] Procedures and Surgical History Includes: Procedures from this encounter Procedures Code Diagnosis Performing Provider Service L ocation Service Date education and instructions Last Documented On 0 9:29AM ; [facility] Medical History Includes: Medical History addressed [...] Subscriber Relationship Effect sandra Dates 1 - [facility] [phone] Lakisha Serna Clinical Notes Includes: Clinical Notes from this encounter No Clinical Notes Recorded
--- OUTSIDE RECORDS SUMMARY | 2024-12-14 17:11 | XMS_ITS ---
Author Organization [facility] Address [address] [place], [place] [phone] Phone Care Team Providers Care Test Eng Name Role Phone Unavailable Unavailable Unavailable Plan [...] On 0 9:30AM ; [facility] Ordered Clinical summary pro vided to patient Transition of Care - Must be seen 7 -14 days after hospital with Rogelio Ricardo APRN 06/07/2020 Last Documented On 0 9:30AM ; [facility] Home Health Supervision of C are note entered by Radha ORTIZ Home Health Plan of Care and/or Supervision of Care with Mishel Deal MD 06/01/2020 Last Documented On 0 4:23PM ; [facility] Patient has received at [facility] t 30 minutes of supervision of care within the month. Pt discharged from [facility] on iv abx until 06/08 for surgical site infx with MSSA/acinetobacter. Chart pulled and scanned into intergy. Allergy and med list updated in ehr. Iv abx and lab orders verified by Juan pharmacist at [place]. F/u call made to pt. No answer. Vm left for her to return call. Will continue to reach out to pt. Spent approximately 40 minutes Home Health Plan of Care and/or Supervision of Care with Mishel Deal MD 06/01/2020 Last Documented On 0 4:23PM ; [facility] Education and Decision Aids were provided during visit for: Patient education about a pr oper diet Last Documented On 0 9:10AM ; [facility] Assessments Includes: Assessments for all patient encounters Findings Encounter Date Infection following a proced ure, other surgical site Transition of Care - Must be seen 7 -14 days after hospital with Rogelio Ricardo APRN 06/07/2020 Last Documented On 0 9:30AM ; [facility] Methicillin susceptible stap hylococcus aureus infection Transition of Care - Must be seen 7 -14 days after hospital with Rogelio Ricardo APRN 06/07/2020 Last Documented On 0 9:30AM ; [facility] Instructions Includes: Instructions for all patient encounters Education and Decision Aids were provided during visit for: Patient education about a pr oper diet Last Documented On 0 9:10AM ; [facility] Medical Equipment - Implanted Devices Includes: Current and historical Devices No Medical Equipment Recorded Medications Includes: Current and historical Medications Current Medications (continue as prescribed) Bactrim DS 800-160 MG Oral Tablet 06/01/2020 Provide r: Diagnosis: Last Documented On 0 2:54PM By Radha Giraldo ; [facility] Fluconazole 100 MG Oral Tablet 06/01/2020 Provider: Diagnosis: Last Documented On 0 2:54PM By Radha Giraldo ; [facility] [place] 5-325 MG Oral Tablet 06/01/2020 Provider: Diagnosis: Last Documented On 0 2:55PM By Radha Giraldo ; [facility] Zofran 4 MG Oral Tablet 06/01/2020 Provider: Diagnosis: Last Documented On 0 2:55PM By Radha Giraldo ; [facility] Past Medications on file Ancef 2gm Intravenous Solution 06/01/2020 - 06/08/2020 Provider: Diagnosis: Last Documented On 0 1:57PM By Radha Giraldo ; [facility] Medications Administered Includes: Administered Medications in patient's chart No Administered Medications Recorded Results Includes: Results from 12/15/2023 through 12/14/2024 No Results Recorded For Specified Dates History of Present Illness History of Present Illness not supported for this document type No History of Present Illness Recorded Social History Description Last Updated No tobacco use 06/07/2020 Last Documented On 0 9:30AM ; [facility] Alcohol use 06/07/2020 Last Documented On 0 9:30AM ; [facility] Smoking status : Former smoker 0 Last Documented On 0 9:30AM ; [facility] Medical History Includes: Medical History in [...] Effect sandra Dates 1 - [facility] [phone] Lakisha Serna Clinical Notes Includes: Signed Clinical Notes starting from 09/27/2022 No Clinical Notes Recorded
--- OUTSIDE RECORDS SUMMARY | 2024-12-14 17:11 | XMS_ITS | Clinical Summary ---
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 Patient has received at least 30 minutes of supervision of care within the month. Pt discharged from [facility] on iv abx until 06/08 for surgical site infx with MSSA/acinetobacter. Chart pulled and scanned into inter. Allergy and med list updated in ehr. Iv abx and lab orders verified by Juan pharmacist at [place]. F/u call made to pt. No answer. Vm left for her to return call. Will continue to reach out to pt. Spent approximately 40 minutes. - Last Documented On 06/01/2020 4:23PM ; [facility] Assessments Includes: Assessments from this encounter No Assessments Recorded Medical Equipment - Implanted Devices Includes: Current Devices No Medical Equipment Recorded Medications Includes: Medications discussed during this encounter and other current Medications Current Medications (continue as prescribed) Bactrim DS 800-160 MG Oral Tablet 06/01/2020 Provide r: Diagnosis: Last Documented On 0 2:54PM By Radha Giraldo ; [facility] Fluconazole 100 MG Oral Tablet 06/01/2020 Provider: Diagnosis: Last Documented On 0 2:54PM By Radha Giraldo ; [facility] Nice 5-325 MG Oral Tablet 06/01/2020 Provider: Diagnosis: Last Documented On 0 2:55PM By Radha Giraldo ; [facility] Zofran 4 MG Oral Tablet 06/01/2020 Provider: Diagnosis: Last Documented On 0 2:55PM By Radha Giraldo ; [facility] Medications Administered Includes: Administered Medications [...] 1 - [facility] [phone] Lakisha Cotter Self Clinical Notes Includes: Clinical Notes from this encounter No Clinical Notes Recorded
--- OUTSIDE RECORDS SUMMARY | 2024-12-14 17:11 | XMS_ITS ---
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
== END 2024-12-14 14:59 | disposition home or self-care (01) ==
LOC: HO.HMCH 14:25
PROVIDERS: PCP Internal Medicine; Visit Provider Internal Medicine
DX: R91.8 Other nonspecific abnormal finding of lung field (principal); E66.3 Overweight; F41.1 Generalized anxiety disorder; M47.816 Spondylosis without myelopathy or radiculopathy, lumbar region; R73.02 Impaired glucose tolerance (oral); J45.20 Mild intermittent asthma, uncomplicated; I10 Essential (primary) hypertension; Z12.4 Encounter for screening for malignant neoplasm of cervix

== ENCOUNTER → 2024-12-14 14:24 | Outpatient (BNVA) | payer OTHER, SELFPAY | PROVIDERS: PCP Internal Medicine; Visit Provider Internal Medicine | DX: R91.8 Other nonspecific abnormal finding of lung field (principal); E66.3 Overweight; F41.1 Generalized anxiety disorder; M47.816 Spondylosis without myelopathy or radiculopathy, lumbar region; R73.02 Impaired glucose tolerance (oral); J45.20 Mild intermittent asthma, uncomplicated; I10 Essential (primary) hypertension | CPT/HCPCS: 99212 ==

== ENCOUNTER 2025-02-03 10:27 | Outpatient (AMB) | payer OTHER, SELFPAY ==
[2025-02-03 10:40] VITALS: BP 120/78; PULSE 70; O2SAT 98; BMI 25.3
--- NOTE | 2025-02-03 10:40 | MHC.PC.OV ---
Vital Signs 02/03/25 10:40 Height 5 ft 3 in Weight 143 lb BMI 25.3 BP 120/78 Blood Pressure Location Lt brachial Position Sitting Pulse 70 Pulse Source Pulse Oximeter Pulse Oximetry (%) 98 Oxygen Delivery Method Room Air Intake Visit Reasons: IGT Allergies aspirin [ASPIRIN] Allergy (Severe, Verified 02/03/25 10:41) STOMACH UPSET codeine [CODEINE] Allergy (Intermediate, Verified 02/03/25 10:41) STOMACH UPSET Medication List - Last Reconciled 02/03/25 by Matty Grover MD albuterol sulfate 90 mcg/actuation (Ventolin HFA) 2 puffs inhalation Q6H PRN amlodipine 5 mg PO DAILY blood pressure monitor (Blood Pressure Kit) As directed diclofenac sodium 1% (Voltaren Arthritis Pain) 4 grams topical QID PRN dicyclomine 20 mg PO BID PRN fexofenadine (Jackelyn Allergy) 180 mg PO DAILY fluticasone propion-salmeterol 115-21 mcg/actuation (Advair HFA) 2 puffs inhalation Q12H lidocaine 4% (Aspercreme (lidocaine)) 1 patch topical DAILY PRN lisinopril 5 mg PO DAILY multivitamin 1 tab PO DAILY ondansetron HCl 4 mg PO Q8H PRN pantoprazole 40 mg PO DAILY polyethylene glycol 3350 (Miralax) 17 grams PO DAILY tirzepatide (weight loss) 5 mg (0.5 mL) subcut QWEEK 90 days tizanidine 2 mg PO Q8H PRN Tobacco use date assessed: 12/14/24 Dental Screening Dental Screen Date: 12/14/24 [facility] Medical History (Updated 02/03/25 @ 12:01 by Matty Grover MD) Breast cancer screening by mammogram Asthma exacerbation Well woman exam with routine gynecological exam Cervical cancer screening Abnormal TSH Overweight (BMI 25.0-29.9) Stiffness of finger joint Bronchitis Asthma Trigger finger of left thumb Trigger finger of right thumb Carpal tunnel syndrome on both sides Hypertension Repetitive use syndrome Surgical History Hx of colonoscopy H/O vaginal hysterectomy S/P tonsillectomy H/O abdominoplasty Hx of exploratory laparotomy Hx of cholecystectomy History of carpal tunnel release S/P trigger finger release Family History Brother Ulcerative colitis Maternal Uncle Substance abuse Other Colon cancer Social History Housing: Apartment Alcohol intake: current Alcohol intake frequency: does not drink Comment: once a year 1 glass Patient Tobacco Use Status: Former Tobacco user Tobacco use type: Cigarette Years Smoked: stopped 1991 does marijuana e-Cigarette/Vaping Use: Never Used Second Hand Smoke Exposure: No service: No Current occupational status: employed 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 1. Little interest or pleasure in doing things: not at all 2. Feeling down, depressed, or hopeless: not at all 3. Trouble falling or staying asleep, or sleeping too much: nearly every day 4. Feeling tired or having little energy: nearly every day 5. Poor appetite or overeating: not at all 6. Feeling bad about yourself - or that you are a failure or have let yourself or your family down: not at all 7. Trouble concentrating on things, such as reading the newspaper or watching television: not at all 8. Moving or speaking so slowly that other people could have noticed. Or the opposite - being so fidgety or restless that you have been moving around a lot more than usual: not at all 9. Thoughts that you would be better off or of hurting yourself in some way: not at all Total score: 6 Source: Developed by Drs. Felipe Mata, Juanis Sharma, Lake Jimenez and colleagues, with an educational jorge a from [employer]. Thrive Questionnaire Date Thrive assessed: 12/14/24 I am a: Patient What is your living situation today?: I have a steady place to live Within the past 12 months, did the food you bought not last and you didn't have the money to get more?: Sometimes True Within the past 12 months, did you worry whether your food would run out before you got money to buy more?: Never true Do you have trouble paying for medicines?: No Do you have trouble getting transportation to medical appointments?: No Do you have trouble paying your heating and electricity bill?: No Do you have trouble taking care of your child, family member or friend?: No Do you have trouble with day-to-day activities such as bathing, preparing meals, shopping, managing finances, etc.?: No Are you currently unemployed and looking for a job?: No Are you interested in more education?: No Please select the resources that you would like help with: None Currently or been in a relationship where the following occur: No concerns reported THRIVE Score: 1 AUDIT C Alcohol Use Questionnaire (AUDIT-C) 1. How often do you have a drink containing alcohol?: Monthly or less 2. How many drinks containing alcohol do you have on a typical day when you are drinking?: 1 or 2 3. How often do you have six or more drinks on one occasion?: Never Total Score: 1 SINA-7 AMB Questionnaire SINA-7 Date SINA - 7 assessed: 12/14/24 Feeling nervous, anxious, or on edge: 0 = Not at all Not being able to stop or control worryin = Not at all Worrying too much about different things: 0 = Not at all Trouble relaxin = More than half the days Being so restless that it is hard to sit still: 2 = More than half the days Becoming easily annoyed or irritable: 0 = Not at all Feeling afraid as if something awful might happen: 2 = More than half the days Total SINA-7 score (0-4 normal; 5-9 mild; 10-14 moderate; 15-21 severe): 6 Source: Developed by Drs. Felipe Mata, Juanis Sharma, Lake Jimenez and colleagues, with an educational jorge a from [employer]. Physical exam (Primary Care) Vital Signs: Last Vital Signs Pulse 70 02/03/25 10:40 BP 120/78 02/03/25 10:40 Pulse Ox 98 02/03/25 10:40 Oxygen Delivery Method Room Air 02/03/25 10:40 BMI result Body Mass Index 25.3 Tobacco/Smoking Status: Tobacco use Status Tobacco use date assessed 12/14/24 02/03/25 10:41 Patient Tobacco Use Status Former Tobacco user 02/03/25 10:41 Tobacco use type Cigarette 05/08/25 10:41 e-Cigarette/Vaping Use Never Used 02/03/25 10:41 PHQ-9: PHQ-9 Score PHQ-9: Total score 6 02/03/25 11:52 Thrive Assessment: Date of Thrive Assessment Date Thrive assessed 12/14/24 02/03/25 10:41 Currently or been in a relationship where the following occur: No concerns reported Const General: alert; No acute distress Eyes Conjunctivae: conjunctivae normal Resp Auscultation: clear to auscultation bilaterally Cardio Rate: regular rate Rhythm: regular rhythm GI Inspection: Yes normal to inspection Extrem General: Yes normal to inspection and No edema Coding Level of Care Code Est Pt Level 4 (16066) Diagnoses Mild intermittent asthma without complication J45.20 Asthma complication type: uncomplicated Asthma persistence: intermittent Asthma severity: mild Spondylosis of lumbar region without myelopathy or radiculopathy M47.816 Overweight (BMI 25.0-29.9) E66.3 Hypertension I10 Raynaud phenomenon I73.00 Assessment & Plan Assessment & Plan (1) Asthma: Code(s): J45.909 - Unspecified asthma, uncomplicated Category: Medical Qualifiers: Asthma complication type: uncomplicated Asthma persistence: intermittent Asthma severity: mild Qualified Code(s): J45.20 - Mild intermittent asthma, uncomplicated Plan: Patient on Ventolin inhaler as well as Advair. (2) Spondylosis of lumbar region without myelopathy or radiculopathy: Code(s): M47.816 - Spondylosis without myelopathy or radiculopathy, lumbar region Category: Medical Plan: Continue to keep active and lose the weight. (3) Overweight (BMI 25.0-29.9): Code(s): E66.3 - Overweight Category: Medical Plan: Diet and exercise patient has been prescribed tirzepatide. (4) Hypertension: Code(s): I10 - Essential (primary) hypertension Category: Medical Plan: Continue with blood pressure medication. Decrease salt intake and exercise on lisinopril 5 mg once a day (5) Raynaud phenomenon: Code(s): I73.00 - Raynaud's syndrome without gangrene Category: Medical Plan History of Present Illness The patient is a 55-year-old female presenting for follow-up concerning chronic health issues, including essential hypertension, asthma, and anxiety, alongside new symptoms suggestive of Raynaud's phenomenon. She reports a 9-pound weight loss since her last visit in November 2024, although current weight maintenance is challenged by delayed access to Tirzepatide injections due to insurance issues. Her asthma management includes regular use of a Ventolin inhaler and Advair. Her hypertension is treated with Lisinopril 5 mg daily. She has recently experienced numbness and color changes in her extremities upon exposure to cold conditions, consistent with Raynaud's phenomenon. These episodes occur frequently in environments with air conditioning or cooler temperatures, causing significant discomfort. She has a history of carpal tunnel syndrome, but past surgical intervention did not resolve these complaints, indicating a potential vascular origin for the symptoms. Her generalized anxiety disorder continues to be a challenge, exacerbated by ongoing medication insurance coverage issues, despite remaining physically active and engaged in dietary efforts to maintain weight loss. An appointment with a artificial stone setter is pending for further asthma management. Health Maintenance - Colonoscopy up to date as of 2019 - Mammogram up to date as of February 2024 - Last cholesterol test showed LDL of 101 mg/dL in June 2024 - Regular engagement in physical activity and weight management discussed - Continuous monitoring for hypertension with Lisinopril Social History - Works part-time at a [employer] - Engages in regular physical activity and is involved in weight management efforts - Expresses significant frustration with insurance processes affecting her medication access and overall health maintenance Review of Systems - Cardiovascular: Reports numbness and color changes of extremities in cold - Respiratory: Reports managed asthma with inhaler use - Musculoskeletal: Reports ongoing lower back pain - Neurological: Denies any other neurological symptoms beyond extremity changes - General: Reports weight loss Physical Exam Results - Labs: Normal blood count, electrolytes, blood sugar, and liver function as of August. - Tests: Cholesterol test in June 2024 with LDL of 101 mg/dL. Plan The management plan involves continuing her current asthma medications, Ventolin and Advair, with an emphasis on post-use oral hygiene to mitigate side effects. Hypertension is addressed with Lisinopril and the introduction of another antihypertensive agent, given its potential to help with her Raynaud's-like symptoms. Efforts will also be made to navigate insurance barriers regarding Tirzepatide to address weight management and anxiety. She is advised to maintain warm extremities to manage Raynaud's symptoms. Follow-up with pulmonology for asthma is anticipated, and practicality of current directories is considered for blood pressure and overall symptom management. Patient was informed and verbally consented to the use of an ambient scribe for clinic note documentation during this visit. Discussion Notes In this visit, I reviewed the patient's chronic and new health issues, focusing on essential hypertension, asthma, anxiety exacerbated by medication access issues, and symptoms suggesting Raynaud's phenomenon. We discussed treatment options for each condition, including maintaining current asthma management with inhalers and potentially starting a new antihypertensive to aid with both blood pressure control and alleviating Raynaud's symptoms. The patient was educated on the importance of lifestyle modifications, including warmth retention to mitigate Raynaud's episodes. We also addressed the need to work closely with her pharmacy and insurance to ensure seamless access to necessary medications. Upcoming pulmonology consultations were confirmed for ongoing asthma care. Patient Instructions - Continue using Ventolin inhaler and Advair as prescribed. - Rinse mouth after using inhalers. 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 - Continue hypertension medication as adjusted and monitor blood pressure. - Maintain physical activity and dietary efforts for weight management. - Work with pharmacy and insurance on resolving medication access issues. - Follow up with artificial stone setter as scheduled. - Monitor symptoms and seek care if numbness or discoloration worsens. Medications: New fexofenadine (Jackelyn Allergy) 180 mg PO DAILY 30 tabs 3RF J31.0 - Chronic rhinitis amlodipine 5 mg PO DAILY 30 tabs 3RF I10 - Essential (primary) hypertension Refilled albuterol sulfate 90 mcg/actuation (Ventolin HFA) 2 puffs inhalation Q6H PRN 8.5 grams 0RF shortness of breath or wheezing J45.909 - Unspecified asthma, uncomplicated fluticasone propion-salmeterol 115-21 mcg/actuation (Advair HFA) 2 puffs inhalation Q12H 12 grams 11RF J45.909 - Unspecified asthma, uncomplicated
== END 2025-02-03 12:06 | disposition home or self-care (01) ==
LOC: HO.HMCH 10:27
PROVIDERS: PCP Internal Medicine; Visit Provider Internal Medicine
DX: J45.20 Mild intermittent asthma, uncomplicated (principal); M47.816 Spondylosis without myelopathy or radiculopathy, lumbar region; E66.3 Overweight; I10 Essential (primary) hypertension; I73.00 Raynaud's syndrome without gangrene

== ENCOUNTER → 2025-02-03 10:27 | Outpatient (BNVA) | payer OTHER, SELFPAY | PROVIDERS: PCP Internal Medicine; Visit Provider Internal Medicine | DX: J45.20 Mild intermittent asthma, uncomplicated (principal); M47.816 Spondylosis without myelopathy or radiculopathy, lumbar region; E66.3 Overweight; I10 Essential (primary) hypertension; I73.00 Raynaud's syndrome without gangrene; Z79.899 Other long term (current) drug therapy | CPT/HCPCS: 99212 ==

== ENCOUNTER 2025-02-08 13:09 | Outpatient (AMB) | payer OTHER, SELFPAY ==
--- NOTE | 2025-02-08 13:33 | MHC.OFFVIS ---
Vital Signs 02/08/25 13:37 Height 5 ft 3 in Weight 143 lb BMI 25.3 BP 120/78 Blood Pressure Location Rt brachial Position Sitting Pulse 96 Pulse Source Doppler Pulse Oximetry (%) 97 Oxygen Delivery Method Room Air Intake Visit Reasons: pulmonary nodules Allergies aspirin [ASPIRIN] Allergy (Severe, Verified 02/03/25 10:41) STOMACH UPSET codeine [CODEINE] Allergy (Intermediate, Verified 02/03/25 10:41) STOMACH UPSET HPI HPI pulmonary nodules: Details: 55-year-old lady, former 10 pack year smoker, quit 30 years prior, now followed for reactive airway disease and pulmonary nodules. Patient had a follow-up CT chest on December 11, that showed stable pulmonary nodules. She is unable to tolerate Spiriva secondary to tachycardia. She continues to use Advair and albuterol MDI with suboptimal control of his symptoms. She denies acute exacerbations. [facility] Medical History (Updated 02/03/25 @ 12:01 by Matty Grover MD) Breast cancer screening by mammogram Asthma exacerbation Well woman exam with routine gynecological exam Cervical cancer screening Abnormal TSH Overweight (BMI 25.0-29.9) Stiffness of finger joint Bronchitis Asthma Trigger finger of left thumb Trigger finger of right thumb Carpal tunnel syndrome on both sides Hypertension Repetitive use syndrome Surgical History Hx of colonoscopy H/O vaginal hysterectomy S/P tonsillectomy H/O abdominoplasty Hx of exploratory laparotomy Hx of cholecystectomy History of carpal tunnel release S/P trigger finger release Family History Brother Ulcerative colitis Maternal Uncle Substance abuse Other Colon cancer Social History Housing: Apartment Alcohol intake: current Alcohol intake frequency: does not drink Comment: once a year 1 glass Patient Tobacco Use Status: Former Tobacco user Tobacco use type: Cigarette Years Smoked: stopped 1991 does marijuana e-Cigarette/Vaping Use: Never Used Second Hand Smoke Exposure: No service: No Current occupational status: employed 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 Current occupational exposures/hazards: No Cognitive needs: No Hearing needs: No Vision needs: Yes Review of Systems Const Denies daytime sleepiness, Denies excessive sweating, Denies fatigue, Denies fever(s), Denies lethargy, Denies malaise, Denies night sweats, Denies snoring and Denies weight loss Eyes Denies blurry vision and Denies itchy eyes ENT Denies nasal congestion, Denies post nasal drip, Denies sinus pain, Denies sinus pressure and Denies other ( Thrush) Card Denies chest pain, Denies pedal edema, Denies dyspnea, Denies orthopnea and Denies paroxysmal nocturnal dyspnea Resp Denies cough, Denies hemoptysis, Denies excessive phlegm production, Denies dyspnea, Denies snoring and Denies wheezing GI Denies abdominal pain and Denies heartburn Musc Denies myalgias, Denies arthralgias and Denies joint swelling Skin/Breast Denies rash Neuro Denies memory loss and Denies seizure-like activity Psych Denies abnormal sleep pattern, Denies anxiety and Denies memory loss Endo Denies excessive sweating, Denies fatigue and Denies heat intolerance Hussein/Lymph Denies easy bruising Aller/Immun Denies itchy eyes, Denies seasonal rhinorrhea and Denies wheezing Physical Exam Vital Signs: Last Vital Signs Pulse 96 02/08/25 13:37 BP 120/78 02/08/25 13:37 Pulse Ox 97 02/08/25 13:37 Oxygen Delivery Method Room Air 02/08/25 13:37 BMI result Body Mass Index 25.3 Const General: no acute distress and alert Nutritional Appearance: not obese Orientation/consciousness: Other orientation findings ( oriented) HEENT Head: Yes atraumatic Eyes General: appearance normal, both eyes and all related structures Sclerae: sclerae normal EOM: EOMs intact bilaterally Neck Neck: Yes supple Lymphatic: no lymphadenopathy noted Resp Effort & Inspection: normal respiratory effort and no use of accessory muscles Auscultation: clear to auscultation bilaterally Cardio Rate: regular rate Rhythm: regular rhythm Heart sounds: no gallops, no murmurs and no rubs Skin General skin exam: other ( warm) Extrem General: No clubbing, No cyanosis and No edema Assessment & Plan Assessment & Plan (1) Asthma: Code(s): J45.909 - Unspecified asthma, uncomplicated Category: Medical Qualifiers: Asthma severity: mild Asthma persistence: intermittent Asthma complication type: uncomplicated Qualified Code(s): J45.20 - Mild intermittent asthma, uncomplicated Plan: Suboptimal control on Advair and albuterol MDI. Unable to tolerate LAMA. Will start on theophylline. (2) Pulmonary nodules: Comment: November 2022, 11/2023, November 2024 Code(s): R91.8 - Other nonspecific abnormal finding of lung field Category: Medical Plan: Results of follow-up CT chest reviewed, stable pulmonary nodules. At this time does not require further imaging follow-up. Coding Level of Care Code Est Pt Level 4 (21085) Diagnoses Mild intermittent asthma without complication J45.20 Asthma severity: mild Asthma persistence: intermittent Asthma complication type: uncomplicated Pulmonary nodules R91.8
[2025-02-08 13:37] VITALS: BP 120/78; PULSE 96; O2SAT 97; BMI 25.3
== END 2025-02-08 13:51 | disposition home or self-care (01) ==
LOC: HO.HPS 13:10
PROVIDERS: PCP Internal Medicine; Visit Provider Internal Medicine Pulmonary Disease
DX: J45.20 Mild intermittent asthma, uncomplicated (principal); R91.8 Other nonspecific abnormal finding of lung field
CPT/HCPCS: 99214

== ENCOUNTER → 2025-02-08 13:09 | Outpatient (BNVA) | payer OTHER, SELFPAY | PROVIDERS: PCP Internal Medicine; Visit Provider Internal Medicine Pulmonary Disease | DX: J45.20 Mild intermittent asthma, uncomplicated (principal); R91.8 Other nonspecific abnormal finding of lung field | CPT/HCPCS: 99212 ==

== ENCOUNTER 2025-03-24 09:19 | Outpatient (AMB) | payer OTHER, SELFPAY ==
[2025-03-24 09:22] VITALS: BP 118/78; PULSE 75; O2SAT 98; BMI 24.6
--- NOTE | 2025-03-24 09:22 | MHC.PC.OV ---
Vital Signs 03/24/25 09:22 Height 5 ft 3 in Weight 139 lb BMI 24.6 BP 118/78 Blood Pressure Location Lt brachial Position Sitting Pulse 75 Pulse Source Pulse Oximeter Pulse Oximetry (%) 98 Oxygen Delivery Method Room Air Intake Visit Reasons: HTN, obesity Allergies aspirin (ASPIRIN) Allergy (Severe, Verified 03/24/25 09:23) STOMACH UPSET codeine (CODEINE) Allergy (Intermediate, Verified 03/24/25 09:23) STOMACH UPSET Medication List - Last Reconciled 03/24/25 by Matty Grover MD albuterol sulfate 90 mcg/actuation (Ventolin HFA) 2 puffs inhalation Q6H PRN amlodipine 5 mg PO DAILY blood pressure monitor (Blood Pressure Kit) As directed diclofenac sodium 1% (Voltaren Arthritis Pain) 4 grams topical QID PRN dicyclomine 20 mg PO BID PRN fexofenadine (Jackelyn Allergy) 180 mg PO DAILY fluticasone propion-salmeterol 115-21 mcg/actuation (Advair HFA) 2 puffs inhalation Q12H lidocaine 4% (Aspercreme (lidocaine)) 1 patch topical DAILY PRN lisinopril 5 mg PO DAILY montelukast (Singulair) 10 mg PO BEDTIME multivitamin 1 tab PO DAILY ondansetron HCl 4 mg PO Q8H PRN pantoprazole 40 mg PO DAILY polyethylene glycol 3350 (Miralax) 17 grams PO DAILY theophylline ER 400 mg PO DAILY tirzepatide (weight loss) 5 mg (0.5 mL) subcut QWEEK 90 days tizanidine 2 mg PO Q8H PRN Tobacco use date assessed: 12/14/24 Dental Screening Dental Screen Date: 12/14/24 [facility] Medical History (Updated 03/24/25 @ 09:33 by Matty Grover MD) Blood pressure elevated without history of HTN Obesity (BMI 30-39.9) Colon cancer screening Constipation Pyuria Bilateral hand pain Finger pain, right Intractable back pain Cough Vaginal dryness Vaginal dryness, menopausal Rhinitis Bacterial conjunctivitis Overweight (BMI 25.0-29.9) Impaired glucose tolerance Breast cancer screening by mammogram Asthma exacerbation Well woman exam with routine gynecological exam Cervical cancer screening Abnormal TSH Stiffness of finger joint Bronchitis Asthma Trigger finger of left thumb Trigger finger of right thumb Carpal tunnel syndrome on both sides Hypertension Repetitive use syndrome Surgical History Hx of colonoscopy H/O vaginal hysterectomy S/P tonsillectomy H/O abdominoplasty Hx of exploratory laparotomy Hx of cholecystectomy History of carpal tunnel release S/P trigger finger release Family History Brother Ulcerative colitis Maternal Uncle Substance abuse Other Colon cancer Social History Housing: Apartment Alcohol intake: current Alcohol intake frequency: does not drink Comment: once a year 1 glass Patient Tobacco Use Status: Former Tobacco user Tobacco use type: Cigarette Years Smoked: stopped 1991 does marijuana e-Cigarette/Vaping Use: Never Used Second Hand Smoke Exposure: No service: No Current occupational status: employed 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 1. Little interest or pleasure in doing things: not at all 2. Feeling down, depressed, or hopeless: not at all 3. Trouble falling or staying asleep, or sleeping too much: nearly every day 4. Feeling tired or having little energy: nearly every day 5. Poor appetite or overeating: not at all 6. Feeling bad about yourself - or that you are a failure or have let yourself or your family down: not at all 7. Trouble concentrating on things, such as reading the newspaper or watching television: not at all 8. Moving or speaking so slowly that other people could have noticed. Or the opposite - being so fidgety or restless that you have been moving around a lot more than usual: not at all 9. Thoughts that you would be better off or of hurting yourself in some way: not at all Total score: 6 Source: Developed by Drs. Felipe Mata, Juanis Sharma, Lake Jimenez and colleagues, with an educational jorge a from [employer]. Thrive Questionnaire Date Thrive assessed: 02/03/25 I am a: Patient What is your living situation today?: I have a steady place to live Within the past 12 months, did the food you bought not last and you didn't have the money to get more?: Sometimes True Within the past 12 months, did you worry whether your food would run out before you got money to buy more?: Never true Do you have trouble paying for medicines?: No Do you have trouble getting transportation to medical appointments?: No Do you have trouble paying your heating and electricity bill?: No Do you have trouble taking care of your child, family member or friend?: No Do you have trouble with day-to-day activities such as bathing, preparing meals, shopping, managing finances, etc.?: No Are you currently unemployed and looking for a job?: No Are you interested in more education?: No Please select the resources that you would like help with: None Currently or been in a relationship where the following occur: No concerns reported THRIVE Score: 1 AUDIT C Alcohol Use Questionnaire (AUDIT-C) 1. How often do you have a drink containing alcohol?: Monthly or less 2. How many drinks containing alcohol do you have on a typical day when you are drinking?: 1 or 2 3. How often do you have six or more drinks on one occasion?: Never Total Score: 1 SINA-7 AMB Questionnaire SINA-7 Date SINA - 7 assessed: 12/14/24 Source: Developed by Drs. Felipe Mata, Juanis Sharma, Lake Jimenez and colleagues, with an educational jorge a from [employer]. Physical exam (Primary Care) Vital Signs: Last Vital Signs Pulse 75 03/24/25 09:22 BP 118/78 03/24/25 09:22 Pulse Ox 98 03/24/25 09:22 Oxygen Delivery Method Room Air 03/24/25 09:22 BMI result Body Mass Index 24.6 Tobacco/Smoking Status: Tobacco use Status Tobacco use date assessed 12/14/24 03/24/25 09:27 Patient Tobacco Use Status Former Tobacco user 03/24/25 09:27 Tobacco use type Cigarette 03/24/25 09:27 e-Cigarette/Vaping Use Never Used 03/24/25 09:27 PHQ-9: PHQ-9 Score PHQ-9: Total score 6 03/24/25 09:27 Thrive Assessment: Date of Thrive Assessment Date Thrive assessed 02/03/25 03/24/25 09:27 Currently or been in a relationship where the following occur: No concerns reported Const General: alert; No acute distress Eyes Conjunctivae: conjunctivae normal Resp Auscultation: clear to auscultation bilaterally Cardio Rate: regular rate Rhythm: regular rhythm GI Inspection: Yes normal to inspection Extrem General: Yes normal to inspection and No edema Coding Level of Care Code Est Pt Level 4 (55327) Complex EM visit Add On G2211 Diagnoses Pulmonary nodules R91.8 Mild intermittent asthma without complication J45.20 Asthma severity: mild Asthma persistence: intermittent Asthma complication type: uncomplicated Hypertension I10 Generalized anxiety disorder F41.1 Spondylosis of lumbar region without myelopathy or radiculopathy M47.816 Assessment & Plan Assessment & Plan (1) Pulmonary nodules: Comment: November 2022, 11/2023, November 2024 Pulmo- no more CT Code(s): R91.8 - Other nonspecific abnormal finding of lung field Category: Medical Plan: Patient has met with Pulmonary and with the stable pulmonary nodule no need for repeat CT (2) Asthma: Code(s): J45.909 - Unspecified asthma, uncomplicated Category: Medical Qualifiers: Asthma severity: mild Asthma persistence: intermittent Asthma complication type: uncomplicated Qualified Code(s): J45.20 - Mild intermittent asthma, uncomplicated Plan: Patient on albuterol and Advair. Suboptimal control but can not tolerate LAMA. Patient was started on theophylline (3) Hypertension: Code(s): I10 - Essential (primary) hypertension Category: Medical Plan: Continue with blood pressure medication. Decrease salt intake and exercise patient is taking lisinopril 5 mg once a day amlodipine 5 mg once a day (4) Generalized anxiety disorder: Code(s): F41.1 - Generalized anxiety disorder Category: Medical Plan: Stable (5) Spondylosis of lumbar region without myelopathy or radiculopathy: Code(s): M47.816 - Spondylosis without myelopathy or radiculopathy, lumbar region Category: Medical Plan History of Present Illness The patient is a 55-year-old female presenting for a follow-up visit for hypertension management and asthma control. The patient has a history of asthma, which has been suboptimally controlled despite the use of Advair and albuterol. She is unable to tolerate Spiriva due to tachycardia and has been started on theophylline. The patient reports nocturnal symptoms, including waking up with a sensation of tightness and needing to cough persistently. The patient has a history of lumbar spondylosis and generalized anxiety disorder, which are part of her chronic conditions. She also has a stable pulmonary nodule, with no further imaging required as per the latest pulmonary consultation. The patient is managing hypertension with lisinopril and amlodipine, and her blood pressure is stable. She has experienced a 4-pound weight loss recently and reports good glucose tolerance. Preventative care measures include a mammogram scheduled for March 28 and a colon test that was up to date as of March 2020. Health Maintenance - Mammogram scheduled for March 28 - Colon test up to date as of March 2020 Social History Review of Systems - Respiratory: Reports nocturnal cough and sensation of tightness. Denies wheezing or hemoptysis. - Cardiovascular: Denies chest pain or palpitations. Physical Exam Results - Labs: Normal blood count, electrolytes, renal function, liver function, and blood sugar as of August. - Cholesterol: LDL 101 mg/dL, triglycerides 147 mg/dL, HDL 50 mg/dL as of June 2024. Plan The patient will continue with her current asthma management plan, including the use of Advair and albuterol, while monitoring the effectiveness of theophylline. Consideration for adding Montelukast was discussed to potentially improve asthma control, given the patient's intolerance to Spiriva. For hypertension, the patient will maintain her current regimen of lisinopril and amlodipine, with regular monitoring of blood pressure to ensure stability. The patient is advised to continue with her scheduled mammogram and to maintain up-to-date preventative screenings. The patient is encouraged to follow up with pulmonary care for her stable pulmonary nodule and to address any ongoing respiratory symptoms. Patient was informed and verbally consented to the use of an ambient scribe for clinic note documentation during this visit. Discussion Notes I discussed with the patient the importance of continuing her current asthma medications and the potential addition of Montelukast to improve control. We reviewed her hypertension management plan, emphasizing the need for regular blood pressure monitoring. I advised her to proceed with her scheduled mammogram and to keep her preventative screenings up to date. Patient Instructions - Continue using Advair and albuterol as prescribed. - Monitor the effectiveness of theophylline and report any changes. - Consider starting Montelukast if asthma symptoms persist. - Maintain current blood pressure medications and monitor regularly. - Attend scheduled mammogram on March 28. - Follow up with pulmonary care as needed. Orders: Orders Comprehensive Met. Panel Today I10 - Essential (primary) hypertension Complete Blood Count Auto Diff Today I10 - Essential (primary) hypertension Thyroid Stimulating Hormone Today I10 - Essential (primary) hypertension Lipid Panel Today E78.00 - Pure hypercholesterolemia, unspecified, I10 - Essential (primary) hypertension Hemoglobin A1c Today I10 - Essential (primary) hypertension Free T4 (Free Thyroxine) Today I10 - Essential (primary) hypertension Vitamin B12 and Folate Today I10 - Essential (primary) hypertension Medications: New montelukast (Singulair) 10 mg PO BEDTIME 30 tabs 3RF J45.20 - Mild intermittent asthma, uncomplicated Changed From tirzepatide (weight loss) for 4 weeks 5 mg (0.5 mL) subcut QWEEK 90 days 6.5 mL 1RF I10 - Essential (primary) hypertension To tirzepatide (weight loss) for 4 weeks 7.5 mg (0.5 mL) subcut QWEEK 6.5 mL 1RF 90 days I10 - Essential (primary) hypertension
== END 2025-03-24 09:50 | disposition home or self-care (01) ==
LOC: HO.HMCH 09:19
PROVIDERS: PCP Internal Medicine; Visit Provider Internal Medicine
DX: R91.8 Other nonspecific abnormal finding of lung field (principal); J45.20 Mild intermittent asthma, uncomplicated; I10 Essential (primary) hypertension; F41.1 Generalized anxiety disorder; M47.816 Spondylosis without myelopathy or radiculopathy, lumbar region

== ENCOUNTER → 2025-03-24 09:19 | Outpatient (BNVA) | payer OTHER, SELFPAY | PROVIDERS: PCP Internal Medicine; Visit Provider Internal Medicine | DX: I10 Essential (primary) hypertension (principal); E66.9 Obesity, unspecified; R91.8 Other nonspecific abnormal finding of lung field; J45.20 Mild intermittent asthma, uncomplicated; F41.1 Generalized anxiety disorder; M47.816 Spondylosis without myelopathy or radiculopathy, lumbar region; J45.909 Unspecified asthma, uncomplicated; E78.00 Pure hypercholesterolemia, unspecified; Z79.899 Other long term (current) drug therapy | CPT/HCPCS: 99212 ==

== ENCOUNTER 2025-03-25 08:06 | Outpatient (REF) | payer OTHER, SELFPAY ==
[2025-03-25 08:15] LABS: MANUAL DIFF FLAG NO
[2025-03-25 08:19] LABS: Basophils Percent Auto 0.5 % (0-2); Eosinophils Absolute Auto 0.2 X10*3/uL (0.0-0.4); Hematocrit 35.6 % (37.0-47.0); Hemoglobin 11.7 g/dl (12.0-16.0); Imm Gran Abs Auto 0.01 X10*3/uL (0.00-0.03); Imm Gran Pct Auto 0.2 % (0.0-0.4); Lymphocytes Absolute Auto 3.3 X10*3/uL (1.2-4.9); Lymphocytes Percent Auto 49.9 % (20-40); Mean Corpuscular HGB Conc 32.9 g/dl (31.0-35.0); Mean Corpuscular Volume 88.3 fL (80.0-98.0); Mean Platelet Volume 10.7 fL (9.4-12.3); Monocytes Absolute Auto 0.4 X10*3/uL (0.1-1.2); Monocytes Percent Auto 6.2 % (2-11); Neutrophils Absolute Auto 2.6 x10*3/uL (2.0-8.3); Neutrophils Percent Auto 40.2 % (45-73); Platelet Count 207 X10*3/uL (160-400); Red Blood Count 4.03 X10*6/uL (4.20-5.50); Red Cell Distribution Width 13.8 % (11.0-16.0); White Blood Count 6.6 X10*3/uL (4.8-10.8)
[2025-03-25 08:30] LABS: Estimated Average Glucose 103 mg/dL; Hemoglobin A1c % 5.2 % (<6.0)
[2025-03-25 08:57] LABS: Alanine Aminotransferase 18 U/L (0-31); Alkaline Phosphatase 76 U/L (39-117); Anion Gap 10 (12-20); Aspartate Amino Transferase 24 U/L (5-31); Bilirubin Total 0.2 mg/dL (0.0-1.0); Blood Urea Nitrogen 10 mg/dL (9-16); Carbon Dioxide 28 mmol/L (22-29); Chloride 107 mmol/L (96-108); Cholesterol 147 mg/dL (<200); Estimated Glomerular Filt Rate > 60; Glucose Random 93 mg/dL (60-115); HDL Cholesterol 47 mg/dL (>40); LDL Cholesterol Calculated 92 mg/dL (<100); Potassium 4.3 mmol/L (3.3-5.1); Sodium 141 mmol/L (135-145); Total Protein 6.4 g/dL (6.5-8.0); Triglycerides 43 mg/dL (<150)
[2025-03-25 09:14] LABS: Free T4 (Free Thyroxine) 1.06 ng/dL (0.71-1.85); Thyroid Stimulating Hormone 0.54 uIU/mL (0.32-4.0)
[2025-03-25 09:25] LABS: Folate 11.2 ng/mL (> or = 4.0); Vitamin B12 460 pg/mL (200-900)
== END 2025-03-25 08:07 | disposition home or self-care (01) ==
LOC: HO.LAB 08:06
PROVIDERS: PCP Internal Medicine; Visit Provider Internal Medicine
DX: I10 Essential (primary) hypertension (principal); E78.00 Pure hypercholesterolemia, unspecified
CPT/HCPCS: 36415; 80053; 80061; 82607; 82746; 83036; 84439; 84443; 85025

== ENCOUNTER → 2025-03-28 08:15 | Outpatient (BNV) | payer OTHER, SELFPAY | PROVIDERS: PCP Internal Medicine; Visit Provider Internal Medicine | DX: Z12.31 Encounter for screening mammogram for malignant neoplasm of breast (principal) | CPT/HCPCS: 77063; 77067 ==

== ENCOUNTER 2025-03-28 08:18 | Outpatient (REF) | payer OTHER, SELFPAY | END 2025-03-28 08:19 | disposition home or self-care (01) | LOC: HO.MAMMO 08:18 | PROVIDERS: PCP Internal Medicine; Visit Provider Internal Medicine | DX: Z12.31 Encounter for screening mammogram for malignant neoplasm of breast (principal) | CPT/HCPCS: 77063; 77067 ==

== ENCOUNTER 2025-05-12 09:37 | Outpatient (AMB) | payer OTHER, SELFPAY ==
--- NOTE | 2025-05-12 09:44 | MHC.OFFVIS ---
Vital Signs 05/12/25 09:50 Height 5 ft 3 in Weight 139 lb BMI 24.6 BP 116/72 Intake Visit Reasons: new patient annual Intake Note: Per patient, partial hysterectomy still has both ovaries. 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 Video Producer concerns: vaginal pain and dryness w/intimacy. Partner lives in [facility] [place] and sees him usually every 3 months. Uses a lubrication but does not help with the discomfort. Denies any irritation. Attempting to eat a healthy diet with calcium and vitamin D and stays active with exercise-walks. Hysterectomy due to prolapse. Had a mesh sling placed, no records available. Last mammogram; 09/2024. Colonoscopy is UTD. FH of colon cancer. [facility] Medical History (Updated 05/12/25 @ 12:11 by Candi Gutierrez CNM) Blood pressure elevated without history of HTN Obesity (BMI 30-39.9) Colon cancer screening Constipation Pyuria Bilateral hand pain Finger pain, right Intractable back pain Cough Vaginal dryness, menopausal Rhinitis Bacterial conjunctivitis Overweight (BMI 25.0-29.9) Impaired glucose tolerance Breast cancer screening by mammogram Asthma exacerbation Cervical cancer screening Abnormal TSH Stiffness of finger joint Bronchitis Asthma Trigger finger of left thumb Trigger finger of right thumb Carpal tunnel syndrome on both sides Hypertension Repetitive use syndrome Surgical History History of bladder suspension procedure Hx of colonoscopy H/O vaginal hysterectomy S/P tonsillectomy H/O abdominoplasty Hx of exploratory laparotomy Hx of cholecystectomy History of carpal tunnel release S/P trigger finger release Family History Brother Ulcerative colitis Maternal Uncle Substance abuse Other Colon cancer Social History Housing: Apartment Alcohol intake: current Alcohol intake frequency: does not drink Comment: once a year 1 glass Patient Tobacco Use Status: Former Tobacco user Tobacco use type: Cigarette Years Smoked: stopped 1991 does marijuana e-Cigarette/Vaping Use: Never Used Second Hand Smoke Exposure: No service: No Current occupational status: employed 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 Current occupational exposures/hazards: No Cognitive needs: No Hearing needs: No Vision needs: Yes Female Reproductive History Menstrual Age of Menarche: 11 control method: none Total pregnancies: 5 Full term: 3 Date of last pap smear: 12/20/21 (negative pap smear, negative hpv ) History of abnormal pap smear: No Date of Mammogram: 03/28/25 (bi rad 1) Review of Systems Const All systems reviewed & are unremarkable except as noted in HPI and below Reports as per HPI Eyes Reports no additional complaints ENT Reports no additional complaints Card Reports no additional complaints Resp Reports no additional complaints GI Reports as per HPI and Reports no additional complaints Reports as per HPI Musc Reports no additional complaints Skin/Breast Reports as per HPI Neuro Reports no additional complaints Psych Reports no additional complaints Endo Reports no additional complaints Hussein/Lymph Reports no additional complaints Aller/Immun Reports no additional complaints Physical Exam Vital Signs: Last Vital Signs BP 116/72 05/12/25 09:50 BMI result Body Mass Index 24.6 Const General: cooperative, healthy appearing, no acute distress, well developed and alert Orientation/consciousness: patient oriented x3 HEENT Head: Yes normal to inspection Eyes General: appearance normal, both eyes and all related structures Neck Neck: Yes normal visual inspection Thyroid: Thyroid normal Chest Chest palpation & inspection: normal inspection of the chest and other (no puckering, dimpling, peau de orange, retraction, discharge, masses) Breast/axilla inspection: normal inspection of the breasts Breast/axilla palpation: normal palpation of the breasts Resp Effort & Inspection: normal respiratory effort GI Inspection: Yes normal to inspection and Yes scar Palpation (GI): Soft to palpation Rectal Exam - Female: deferred General: Yes bladder normal to palpation External Female Exam: normal external appearance and normal appearance of the urethra Speculum Exam - Vagina: normal appearance of the vagina, normal palpation, normal vaginal discharge and vagina atrophic Speculum Exam - Cervix: normal appearance of the cervix and Cervix absent (Right sided tissue remnants, no cervix, cuff with no lesions or nodules) Bimanual exam- vagina & uterus: normal bimanual exam, normal palpation, bladder normal to palpation and uterus absent Bimanual Exam- Adnexa, other: no masses Skin General skin exam: no rashes or lesions noted Rashes: no rashes Neuro General: patient oriented x3 Cognition (Neuro): normal cognition Extrem General: Yes normal to inspection Psych Attitude: cooperative Thought process: Normal thought process present Assessment & Plan Assessment & Plan (1) Vaginal atrophy: Code(s): N95.2 - Postmenopausal atrophic vaginitis Category: Medical Plan: Counseled regarding treatment options. We will initiate vaginal estrogen, use, and precautions including contraindicated use with breast cancer. Recheck in 2-3 months after initiation. The patient expressed understanding and agreement with the plan of care. All of her questions and concerns were addressed to the best of my ability. Total time I personally spent on visit and management today: ?20 minutes. Time spent included review of pertinent office notes in the electronic health record; review of laboratory and imaging results; review of personal family medical history; performing physical exam; discussing diagnosis and plan of care with the patient; documenting the encounter in the EMR. (2) Dyspareunia, female: Code(s): N94.10 - Unspecified dyspareunia Plan: Counseled regarding symptoms most likely due to atrophic changes of the vagina due to decrease in estrogen. See notes above. (3) Encounter for well woman exam with routine gynecological exam: Code(s): Z01.419 - Encounter for gynecological examination (general) (routine) without abnormal findings Category: Medical Plan Discussed: Current recommendations for pap smears per ASCCP guidelines. Breast awareness, periodic self breast exams and yearly mammogram. Maintain a healthy lifestyle, well balanced diet including Calcium 1,200 mg and Vitamin D 600 IU daily, and routine exercise. Contact the office with any postmenopausal bleeding. Patient verbalizes understanding and agrees to the plan of care. She was given opportunity to ask questions and all questions were answered to the best of my ability. RTO in 1 year for annual channel development director exam. This note is constructed using voice recognition software. While every effort has been made to ensure accuracy, press assistant errors may have been included. Coding Level of Care Code New Pt Level 3 (44176) New Pt Prev Care 40-64y(02013) Diagnoses Vaginal atrophy N95.2 Dyspareunia, female N94.10 Encounter for well woman exam with routine gynecological exam Z01.419
[2025-05-12 09:50] VITALS: BP 116/72; BMI 24.6
== END 2025-05-12 10:26 | disposition home or self-care (01) ==
LOC: HO.HWS 09:38
PROVIDERS: PCP Internal Medicine; Visit Provider Advanced Practice Midwife
DX: Z01.419 Encounter for gynecological examination (general) (routine) without abnormal findings (principal); N95.2 Postmenopausal atrophic vaginitis; N94.10 Unspecified dyspareunia
CPT/HCPCS: 99213; 99386; 99459

== ENCOUNTER → 2025-05-12 09:37 | Outpatient (BNVA) | payer OTHER, SELFPAY | PROVIDERS: PCP Internal Medicine; Visit Provider Advanced Practice Midwife | DX: Z01.419 Encounter for gynecological examination (general) (routine) without abnormal findings (principal); R10.2 Pelvic and perineal pain; N95.2 Postmenopausal atrophic vaginitis; N94.10 Unspecified dyspareunia; Z90.711 Acquired absence of uterus with remaining cervical stump | CPT/HCPCS: 99212; 99386 ==

== ENCOUNTER 2025-06-15 10:11 | Outpatient (AMB) | payer OTHER, SELFPAY ==
--- NOTE | 2025-06-15 10:16 | A.OFFPC_ITS ---
Vital Signs 06/15/25 10:17 Height 5 ft 3 in Weight 131 lb 4 oz BMI 23.2 BP 112/68 Blood Pressure Location Lt brachial Position Sitting Pulse 76 Pulse Source Pulse Oximeter Temp 97.3 F Temp Source Temporal Artery Scan Pulse Oximetry (%) 98 Oxygen Delivery Method Room Air Intake Visit Reasons: raynauds, HTN Allergies aspirin (ASPIRIN) Allergy (Severe, Verified 06/15/25 10:20) STOMACH UPSET codeine (CODEINE) Allergy (Intermediate, Verified 06/15/25 10:20) STOMACH UPSET Medication List - Last Reconciled 06/15/25 by Matty Grover MD albuterol sulfate 90 mcg/actuation (Ventolin HFA) 2 puffs inhalation Q6H PRN amlodipine 5 mg PO DAILY blood pressure monitor (Blood Pressure Kit) As directed diclofenac sodium 1% (Voltaren Arthritis Pain) 4 grams topical QID PRN estradiol 0.01%(0.1mg/gram) (Estrace) 1 g vaginal 2XW fexofenadine (Jackelyn Allergy) 180 mg PO DAILY fluticasone propion-salmeterol 115-21 mcg/actuation (Advair HFA) 2 puffs inhalation Q12H lidocaine 4% (Aspercreme (lidocaine)) 1 patch topical DAILY PRN lisinopril 5 mg PO DAILY montelukast (Singulair) 10 mg PO BEDTIME multivitamin 1 tab PO DAILY ondansetron HCl 4 mg PO Q8H PRN pantoprazole 40 mg PO DAILY polyethylene glycol 3350 (Miralax) 17 grams PO DAILY theophylline ER 400 mg PO DAILY tirzepatide (weight loss) 7.5 mg (0.5 mL) subcut QWEEK 90 days tizanidine 2 mg PO Q8H PRN Tobacco use date assessed: 06/15/25 Dental Screening Dental Screen Date: 06/15/25 Did you have a dental visit in the last 12 months?: No Did you have a dental problem in the last 6 months where you did not have access to dental care?: No Was dental information given to patient?: Patient has dentist [facility] Medical History Blood pressure elevated without history of HTN Obesity (BMI 30-39.9) Colon cancer screening Constipation Pyuria Bilateral hand pain Finger pain, right Intractable back pain Cough Vaginal dryness, menopausal Rhinitis Bacterial conjunctivitis Overweight (BMI 25.0-29.9) Impaired glucose tolerance Breast cancer screening by mammogram Asthma exacerbation Cervical cancer screening Abnormal TSH Stiffness of finger joint Bronchitis Asthma Trigger finger of left thumb Trigger finger of right thumb Carpal tunnel syndrome on both sides Hypertension Repetitive use syndrome Surgical History History of bladder suspension procedure Hx of colonoscopy H/O vaginal hysterectomy S/P tonsillectomy H/O abdominoplasty Hx of exploratory laparotomy Hx of cholecystectomy History of carpal tunnel release S/P trigger finger release Family History Brother Ulcerative colitis Maternal Uncle Substance abuse Other Colon cancer Social History Housing: Apartment Alcohol intake: current Alcohol intake frequency: does not drink Comment: once a year 1 glass Patient Tobacco Use Status: Former Tobacco user Tobacco use type: Cigarette Years Smoked: stopped 1991 does marijuana e-Cigarette/Vaping Use: Never Used Second Hand Smoke Exposure: No service: No Current occupational status: employed 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 1. Little interest or pleasure in doing things: not at all 2. Feeling down, depressed, or hopeless: not at all 3. Trouble falling or staying asleep, or sleeping too much: nearly every day 4. Feeling tired or having little energy: nearly every day 5. Poor appetite or overeating: not at all 6. Feeling bad about yourself - or that you are a failure or have let yourself or your family down: not at all 7. Trouble concentrating on things, such as reading the newspaper or watching television: not at all 8. Moving or speaking so slowly that other people could have noticed. Or the opposite - being so fidgety or restless that you have been moving around a lot more than usual: not at all 9. Thoughts that you would be better off or of hurting yourself in some way: not at all Total score: 6 Source: Developed by Drs. Felipe Mata, Juanis Sharma, [place] Jimenez and colleagues, with an educational joreg a from [employer]. Thrive Questionnaire Date Thrive assessed: 02/03/25 I am a: Patient What is your living situation today?: I have a steady place to live Within the past 12 months, did the food you bought not last and you didn't have the money to get more?: Sometimes True Within the past 12 months, did you worry whether your food would run out before you got money to buy more?: Never true Do you have trouble paying for medicines?: No Do you have trouble getting transportation to medical appointments?: No Do you have trouble paying your heating and electricity bill?: No Do you have trouble taking care of your child, family member or friend?: No Do you have trouble with day-to-day activities such as bathing, preparing meals, shopping, managing finances, etc.?: No Are you currently unemployed and looking for a job?: No Are you interested in more education?: No Please select the resources that you would like help with: None Currently or been in a relationship where the following occur: No concerns reported THRIVE Score: 1 AUDIT C Alcohol Use Questionnaire (AUDIT-C) 1. How often do you have a drink containing alcohol?: Monthly or less 2. How many drinks containing alcohol do you have on a typical day when you are drinking?: 1 or 2 3. How often do you have six or more drinks on one occasion?: Never Total Score: 1 SINA-7 AMB Questionnaire SINA-7 Date SINA - 7 assessed: 12/14/24 Feeling nervous, anxious, or on edge: 0 = Not at all Not being able to stop or control worryin = Not at all Worrying too much about different things: 0 = Not at all Trouble relaxin = Not at all Being so restless that it is hard to sit still: 0 = Not at all Becoming easily annoyed or irritable: 0 = Not at all Feeling afraid as if something awful might happen: 0 = Not at all Total SINA-7 score (0-4 normal; 5-9 mild; 10-14 moderate; 15-21 severe): 0 Source: Developed by Juanis RogersW. Zachary, [place] and colleagues, with an educational jorge a from [employer]. Physical exam (Primary Care) Vital Signs: Last Vital Signs Temp 97.3 F 06/15/25 10:17 Pulse 76 06/15/25 10:17 BP 112/68 06/15/25 10:17 Pulse Ox 98 06/15/25 10:17 Oxygen Delivery Method Room Air 06/15/25 10:17 BMI result Body Mass Index 23.2 Tobacco/Smoking Status: Tobacco use Status Tobacco use date assessed 06/15/25 06/15/25 10:21 Patient Tobacco Use Status Former Tobacco user 06/15/25 10:17 Tobacco use type Cigarette 06/15/25 10:17 e-Cigarette/Vaping Use Never Used 06/15/25 10:17 PHQ-9: PHQ-9 Score PHQ-9: Total score 6 06/15/25 11:01 Thrive Assessment: Date of Thrive Assessment Date Thrive assessed 02/03/25 06/15/25 10:17 Currently or been in a relationship where the following occur: No concerns reported Const General: alert; No acute distress Eyes Conjunctivae: conjunctivae normal Resp Auscultation: clear to auscultation bilaterally Cardio Rate: regular rate Rhythm: regular rhythm GI Inspection: Yes normal to inspection Extrem General: Yes normal to inspection and No edema Coding Level of Care Code Est Pt Level 4 (82178) Diagnoses Hypertension I10 Mild intermittent asthma without complication J45.20 Asthma complication type: uncomplicated Asthma persistence: intermittent Asthma severity: mild Generalized anxiety disorder F41.1 Pulmonary nodules R91.8 Assessment & Plan Assessment & Plan (1) Hypertension: Code(s): I10 - Essential (primary) hypertension Category: Medical Plan: Continue with blood pressure medication. Decrease salt intake and exercise patient on lisinopril 5 mg once a day amlodipine 5 mg once a day (2) Asthma: Code(s): J45.909 - Unspecified asthma, uncomplicated Category: Medical Qualifiers: Asthma complication type: uncomplicated Asthma persistence: intermittent Asthma severity: mild Qualified Code(s): J45.20 - Mild intermittent asthma, uncomplicated Plan: On albuterol inhaler and Advair and montelukast (3) Generalized anxiety disorder: Code(s): F41.1 - Generalized anxiety disorder Category: Medical Plan: Stable (4) Pulmonary nodules: Comment: November 2022, 11/2023, November 2024 Pulmo- no more CT Code(s): R91.8 - Other nonspecific abnormal finding of lung field Category: Medical Plan History of Present Illness The patient is a 55-year-old female presenting for a follow-up visit. The patient has a history of asthma, requiring daily use of an albuterol inhaler and Advair. She reports daily shortness of breath and difficulty coughing effectively, leading to prolonged coughing episodes. The patient is advised to use Advair twice daily for better symptom management, as it contains a long- acting bronchodilator. The patient has lumbar spondylosis, noted during the visit. The patient has generalized anxiety disorder and hypertension, managed with medication. She is currently on lisinopril and amlodipine for hypertension. The patient has a history of pulmonary nodules, with a chest CT in November 2024 showing stable findings. The patient is mildly anemic with hemoglobin at 11.7 g/dL and hematocrit at 35.6%. Her electrolytes, renal function, blood sugar, and liver function are normal. The patient is managing hyperlipidemia with an LDL level of 92 mg/dL, considered good. The patient is actively managing her diabetes, with a recent A1c of 5.2%, indicating good control. She is on tirzepatide (Zepbound) for diabetes management and has achieved a target weight of 131 pounds. The patient is considering reducing the dose of tirzepatide while maintaining an active lifestyle. Health Maintenance - Colonoscopy performed in 2019 - Mammogram up to date - Discussion about flu and shingles vaccines Social History - The patient is actively involved in caring for her brothers, which keeps her physically active. - She reports being on the go frequently, traveling to [place] for her brother's appointments. Review of Systems - Respiratory: Reports daily dyspnea and difficulty with effective coughing. - Musculoskeletal: Denies swelling in the legs. Physical Exam Results - Labs: Hemoglobin 11.7 g/dL, Hematocrit 35.6%, LDL 92 mg/dL, A1c 5.2% - Imaging: Chest CT in November 2024 showed stable pulmonary nodules Plan Patient was informed and verbally consented to the use of an ambient scribe for clinic note documentation during this visit. 1. Asthma The patient is advised to use Advair twice daily to manage asthma symptoms more effectively, as it contains a long-acting bronchodilator. She is currently using albuterol daily for shortness of breath and is encouraged to continue with this regimen. 2. Hypertension The patient is on lisinopril and amlodipine for hypertension management, and prescriptions will be refilled for 90 days. 3. Anemia The patient's anemia will be monitored, with current hemoglobin at 11.7 g/dL and hematocrit at 35.6%. 4. Diabetes Management The patient is on tirzepatide (Zepbound) for diabetes management, with a recent A1c of 5.2%, indicating good control. She is considering reducing the dose while maintaining an active lifestyle. Discussion Notes During the visit, we discussed the importance of managing asthma with Advair twice daily to prevent shortness of breath and improve lung function. We also reviewed the patient's hypertension management with lisinopril and amlodipine, ensuring prescriptions are up to date. The patient's anemia will be monitored, and we discussed the good control of diabetes with tirzepatide, considering a dose reduction while maintaining an active lifestyle. Patient Instructions - Use Advair twice daily to manage asthma symptoms. - Continue using albuterol as needed for shortness of breath. - Take lisinopril and amlodipine as prescribed for hypertension. - Monitor anemia and follow up with blood work as advised. - Maintain an active lifestyle and consider reducing tirzepatide dose. - Consider flu and shingles vaccines as discussed. Orders: Orders Complete Blood Count Auto Diff Today Z00.00 - Encounter for general adult medical examination without abnormal findings Comprehensive Met. Panel Today Z00.00 - Encounter for general adult medical examination without abnormal findings Reticulocyte Count Today Z00.00 - Encounter for general adult medical examination without abnormal findings Vitamin B12 and Folate Today Z00.00 - Encounter for general adult medical examination without abnormal findings Ferritin Today Z00.00 - Encounter for general adult medical examination without abnormal findings IRON PROFILE Today Z00.00 - Encounter for general adult medical examination without abnormal findings Hemoglobin A1c Today Z00.00 - Encounter for general adult medical examination without abnormal findings Medications: Changed From tirzepatide (weight loss) for 4 weeks 7.5 mg (0.5 mL) subcut QWEEK 90 days 6.5 mL 1RF I10 - Essential (primary) hypertension To tirzepatide (weight loss) for 4 weeks 5 mg (0.5 mL) subcut QWEEK 6.5 mL 1RF 90 days I10 - Essential (primary) hypertension Refilled amlodipine 5 mg PO DAILY 90 tabs 2RF I10 - Essential (primary) hypertension lisinopril 5 mg PO DAILY 90 tabs 3RF I10 - Essential (primary) hypertension amlodipine 5 mg PO DAILY 90 tabs 2RF I10 - Essential (primary) hypertension
[2025-06-15 10:17] VITALS: BP 112/68; PULSE 76; TEMP 36.3; O2SAT 98; BMI 23.2
== END 2025-06-15 11:13 | disposition home or self-care (01) ==
PROVIDERS: PCP Internal Medicine; Visit Provider Internal Medicine
DX: I10 Essential (primary) hypertension (principal); J45.20 Mild intermittent asthma, uncomplicated; F41.1 Generalized anxiety disorder; R91.8 Other nonspecific abnormal finding of lung field

== ENCOUNTER → 2025-06-15 10:11 | Outpatient (BNVA) | payer OTHER, SELFPAY | PROVIDERS: PCP Internal Medicine; Visit Provider Internal Medicine | DX: I10 Essential (primary) hypertension (principal); J45.20 Mild intermittent asthma, uncomplicated; F41.1 Generalized anxiety disorder; R91.8 Other nonspecific abnormal finding of lung field; M47.816 Spondylosis without myelopathy or radiculopathy, lumbar region; D64.9 Anemia, unspecified; E11.9 Type 2 diabetes mellitus without complications; Z79.899 Other long term (current) drug therapy | CPT/HCPCS: 99212 ==

== ENCOUNTER 2025-07-14 15:51 | Outpatient (AMB) | payer OTHER, SELFPAY ==
--- OUTSIDE RECORDS SUMMARY | 2025-07-08 21:41 | XMS_ITS | Encounter Summary ---
Author Organization [facility] Address [address] [place] [address] Care Team Providers Care Real Estate Management Specialist Name Role Phone Matty Grover MD Primary Care Provider [phone] Reason for Visit * Reason Comments Fall Encounter Details Date Type Department Care Team (Late st Contact Info) Description 07/08/2025 9:41 PM EDT - 07/09/2025 12:04 AM EDT Emergency [facility] Emergency Department [address] [place] [address] [phone] Alexandrea Welsh, DO [address] [place] [id number] Chest wall contusion, right, initial encounter (Primary Dx); Unspecified physeal fracture of left metatarsal, initial encounter for closed fracture Discharge Disposition: Home or Self Care Social History Tobacco Use Types Packs/Day Years Used Date Smoking Tobacco: Never Assessed Comments Unknown Sex and Gender Information Value Date Recorded Sex Assigned at Female 07/08/2025 10:13 PM EDT Legal Sex Female 9:39 PM EDT Gender Identity Female 07/08/2025 10:13 PM EDT Sexual Orientation Choose not to disclose 2024 10:13 PM EDT documented as of this encounter Last Filed Vital Signs Vital Sign Reading Time Taken Comments Blood Pressure 153/85 07/08/2025 11:47 PM EDT Pulse 98 07/08/2025 11:47 PM EDT Temperature 36.6 C (97.8 F) 07/08/2025 9:48 PM EDT Respiratory Rate 20 07/08/2025 11:47 PM EDT Oxygen Saturation 99% 07/08/2025 11:47 PM EDT Inhaled Oxygen Concentration - - Weight 59.7 kg (131 lb 9.8 oz) 07/08/2025 9:48 P M EDT Height 157.5 cm (5' 2 ) 07/08/2025 9:48 PM EDT Body Mass Index 24.07 07/08/2025 9:48 PM EDT documented in this encounter Discharge Instructions * Discharge Instructions* Alexandrea Vidal DO - 07/08/2025 11:43 PM EDT Alternate between ibuprofen and Percocet every 3 hours as needed for pain relief. Apply the lidocaine patches to the right chest wall where you are having severe pain. Follow-up with your primary care provider on Friday for close reevaluation when you return home to [place]. Please also follow-up with your foot surgeon regarding your metatarsal fracture. * Attachments The following attachments cannot be sent through Care Everywhere. * Metatarsal Fracture ([place]) * Chest Contusion Adult [place] ([place]) documented in this encounter Medications at Time of Discharge ibuprofen (MOTRIN) 600 MG tablet Take 1 tablet (600 mg total) by mouth 4 times daily (every 6 hours) as needed for mild pain or moderate pain (pain). 30 tablet 07/08/2025 lidocaine (LIDODERM) 5 % patch Place 1 patch on the skin daily. Apply patch and leave on for 12 hours then remove. Patch may remain on skin for 12 hours per day. 15 patch 07/08/2025 oxyCODONE-acetami nophen (PERCOCET) 5-325 mg per tablet Take 1 tablet by mouth 4 times daily (every 6 hours) as needed for severe pain. Max Daily Amount: 4 tablets 12 tablet 07/08/2025 documented as of this encounter ED Notes * Alexandrea Vidal DO - 07/09/2025 12:04 AM EDT Images from the original note were not included. History Chief Complaint Patient presents with Fall HPI: I reviewed any nurses notes, vital signs, home medication list, other history or pertinent diagnostic tests available History provided by: The patient Associated symptoms and Additional history: This is a 55-year-old female who is visiting from [place] who presents to the emergency department with a slip and fall in a tub just prior to her arrival. She broke her fall on the right side of her chest against the edge of the tub. There was no head injury or loss of consciousness. She denies pain to her neck or back. She has severe chest wall pain that worsens with any type of movement or deep inspiration. She does not feel short of breath at rest. She denies abdominal pain, nausea, or vomiting she also complains of pain to the left foot. No numbness or tingling to her extremities. Additional HPI No past medical history on file. No past surgical history on file. No family history on file. Social History[1] Review of Systems Physical Exam BP (!) 153/85 (BP Location: Left arm, Patient Position: Sitting) Pulse 98 Temp 97.8 ??F (36.6 ??C) (Oral) Resp 20 Ht 1.575 m (5' 2 ) Wt 59.7 kg (131 lb 9.8 oz) SpO2 99% BMI 24.07 kg/m?? Physical Exam Vitals and nursing note reviewed. Constitutional: General: She is in acute distress. Appearance: Normal appearance. She is well-developed. She is not diaphoretic. HENT: Head: Normocephalic and atraumatic. Eyes: Extraocular Movements: Extraocular movements intact. Conjunctiva/sclera: Conjunctivae normal. Cardiovascular: Rate and Rhythm: Normal rate and regular rhythm. Pulses: Normal pulses. Heart sounds: Normal heart sounds. No murmur heard. Pulmonary: Effort: Pulmonary effort is normal. No respiratory distress. Breath sounds: Normal breath sounds. No wheezing or rales. Chest: Chest wall: Tenderness (Right side of her chest exquisitely tender to light touch) present. No deformity, swelling, crepitus or edema. Abdominal: General: Bowel sounds are normal. Palpations: Abdomen is soft. Tenderness: There is no abdominal tenderness. There is no guarding or rebound. Musculoskeletal: General: Tenderness present. Cervical back: Normal range of motion. Right lower leg: No edema. Left lower leg: Normal. No edema. Left foot: Decreased range of motion. Normal capillary refill. Tenderness present. No swelling or deformity. Normal pulse. Feet: Skin: General: Skin is warm and dry. Capillary Refill: Capillary refill takes less than 2 seconds. Findings: No bruising or erythema. Neurological: General: No focal deficit present. Mental Status: She is alert and oriented to person, place, and time. Cranial Nerves: No cranial nerve deficit. Motor: No weakness. Psychiatric: Mood and Affect: Mood normal. Behavior: Behavior normal. ED Course Final diagnoses: Chest wall contusion, right, initial encounter Unspecified physeal fracture of left metatarsal, initial encounter for closed fracture MDM: Number and Complexity of Problems Addressed MDM Detail: This is a 55-year-old female who presents to the emergency department for evaluation after slipping and falling in the tub just prior to her arrival. She was given a tablet of Percocet for pain. Chest x-ray normal in appearance without any obvious rib fracture or pneumothorax. I interpreted this film myself. X-ray of the left foot significant for a fracture of the left fifth distal metatarsal. Patient placed in a postop shoe and given crutches to help her ambulate. She has a foot and ankle specialist that she sees back home in [facility] that she can follow-up with. On reevaluation, patient's pain had improved. She could move around easier. A prescription for Percocet and lidocaine patches were sent to her pharmacy and she was discharged home in stable condition. Differential diagnosis includes but is not excluded to rib fracture, rib contusion, pneumothorax, foot sprain, foot contusion, foot fracture. I have discussed the findings of today's workup with the patient and addressed the patient's questions and concerns. Important warning signs as well as new or worsening symptoms which would necessitate immediate return to the ED were discussed. The plan is to discharge from the ED at this time, andthe patient is in stable condition. The patient acknowledged understanding is agreeable with this plan. Amount and Complexity of Data History obtained from other source -see HPI for details: Adult Child Independent Interpretation of Diagnostic study by ED clinician: Radiology Prescription Medication Management: Administration of Prescription Strength Medication and Prescription Written to be Filled at Pharmacy Risk of Complications and/or Morbidity or Mortality of Patient Management Critical Care XR Chest 2 views (Results Pending) XR Foot 3+ views-Left (Results Pending) [1] Alexandrea Vidal DO 07/09/25 0044 documented in this encounter Plan of Treatment Not on file documented as of this encounter Procedures Procedure Name Priority Date/Time Associated Diagnosis Comments XR FOOT 3+ VIEWS-LEFT STAT 07/08/2025 10:33 PM EDT XR CHEST 2 VIEWS STAT 07/08/2025 10:3 2 PM EDT documented in this encounter Results * XR Foot 3+ views-Left (07/08/2025 10:33 PM EDT) Anatomical Region Laterality Modality Foot Left Computed Radiogr aphy 07/09/2025 7:11 AM EDT Impressions 07/09/2025 7:13 AM EDT 1. Acute mildly comminuted fifth metatarsal neck fracture discussed above 2. Osteoarthritis discussed above 3. Plantar calcaneal enthesophyte Narrative 07/09/2025 7:13 AM EDT EXAM: XR FOOT 3+ VIEWS-LEFT on 07/08/2025 10:10 PM CLINICAL HISTORY: PERCY COTTER is a 55 years old patient with a submitted history of fall in tub, L 4th/5th distal metatarsal pain. ADDITIONAL HISTORY: fall in tub, L 4th/5th distal metatarsal pain COMPARISONS: None TECHNIQUE: AP, lateral, and oblique radiographs of the left foot were obtained. FINDINGS: BONES: Acute mildly comminuted fracture of the fifth metatarsal neck is seen with a 1.5 cm medial butterfly fragment. Millimeters displaced. There is foreshortening of the fifth digit. ALIGNMENT: Otherwise anatomic JOINTS: First MTP, talonavicular and navicular cuneiform arthritis is seen. SOFT TISSUES: No appreciable soft tissue swelling, subcutaneous emphysema or radio-opaque foreign object. OTHER: Plantar calcaneal enthesophyte is seen Procedure Note Toney Schulz MD - 07/09/2025 EXAM: XR FOOT 3+ VIEWS-LEFT on 07/08/2025 10:10 PM CLINICAL HISTORY: PERCY COTTER is a 55 years old patient with a submitted history of fall intub, L 4th/5th distal metatarsal pain. ADDITIONAL HISTORY: fall in tub, L 4th/5th distal metatarsal pain COMPARISONS: None TECHNIQUE: AP, lateral, and oblique radiographs of the left foot wereobtained. FINDINGS: BONES: Acute mildly comminuted fracture of the fifth metatarsal neck isseen with a 1.5 cm medial butterfly fragment. Millimeters displaced. Thereis foreshortening of the fifth digit. ALIGNMENT: Otherwise anatomic JOINTS: First MTP, talonavicular and navicular cuneiform arthritis isseen. SOFT TISSUES: No appreciable soft tissue swelling, subcutaneous emphysemaor radio-opaque foreign object. OTHER: Plantar calcaneal enthesophyte is seen IMPRESSION: 1. Acute mildly comminuted fifth metatarsal neck fracture discussedabove 2. Osteoarthritis discussed above 3. Plantar calcaneal enthesophyte us Alexandrea Vidal DO [facility] Final Result * XR Chest 2 views (07/08/2025 10:32 PM EDT) Anatomical Region Laterality Modality Chest Computed Radiogr aphy 07/09/2025 7:54 AM EDT Impressions 07/09/2025 7:54 AM EDT 1. No radiographic sign of acute cardiopulmonary disease. Narrative 07/09/2025 7:54 AM EDT EXAM: XR CHEST 2 VIEWS on 07/08/2025 10:10 PM CLINICAL HISTORY: PERCY COTTER is a 55 years old patient with a submitted history of fall in tub, R rib pain. ADDITIONAL HISTORY: fall in tub, R rib pain COMPARISONS: None TECHNIQUE: Frontal and lateral views of the chest. FINDINGS: SOFT TISSUES: Unremarkable. LUNGS: Clear. MEDIASTINUM: Unremarkable. HEART: No cardiomegaly. PLEURA: No pleural effusion. BONES: Unremarkable. ADDITIONAL: None. Procedure Note Toney Schulz MD - 07/09/2025 EXAM: XR CHEST 2 VIEWS on 07/08/2025 10:10 PM CLINICAL HISTORY: PERCY COTTER is a 55 years old patient with a submitted history of fall intub, R rib pain. ADDITIONAL HISTORY: fall in tub, R rib pain COMPARISONS: None TECHNIQUE: Frontal and lateral views of the chest. FINDINGS: SOFT TISSUES: Unremarkable. LUNGS: Clear. MEDIASTINUM: Unremarkable. HEART: No cardiomegaly. PLEURA: No pleural effusion. BONES: Unremarkable. ADDITIONAL: None. IMPRESSION: 1. No radiographic sign of acute cardiopulmonary disease. Alexandrea Vidal DO [facility] Final Result documented in this encounter Visit Diagnoses Diagnosis Chest wall contusion, right, initial encounter- Primary Unspecified physeal fracture of left metatarsal, initial encounter for closed fracture documented in this encounter Administered Medications Inactive Administered Medications - up to 1 most recent administrations Medication Order MAR Action Action Date Dose Rate Site oxyCODONE-acetaminophen (PERCOCET) 5-325 mg tablet 1 tablet 1 tablet, Oral, Once, On Fri07/08/25 at 2209, For 1 dose Given 07/08/2025 10:32 PM EDT 1 tablet documented in this encounter Active and Recently Administered Medications Times are shown in EDT. Scheduled Medication Order 07/07/2025 07/08/2025 07/09/2025 oxyCODONE-acetaminophen (PERCOCET) 5-325 mg tablet 1 tablet (COMPLETED) 1 tablet, Oral, Once, On Fri07/08/25 at 2209, For 1 dose 2232 (Given - Provider: Jina Craig RN) documented in this encounter Care Teams Real Estate Management Specialist Relationship Specialty Start Date End Date Po, Matty Rubin MD [address] [place] [address] Dr [place], [place] [address] PCP - General Internal Medicine 07/08/25 documented as of this encounter
[2025-07-14 15:55] VITALS: BP 138/72; PULSE 78; O2SAT 98; BMI 23.6
--- NOTE | 2025-07-14 15:55 | A.OFFPC_ITS ---
Vital Signs 3 07/14/25 15:55 Height 5 ft 3 in Weight 133 lb BMI 23.6 BP 138/72 Blood Pressure Location Lt brachial Position Sitting Pulse 78 Pulse Source Pulse Oximeter Pulse Oximetry (%) 98 Oxygen Delivery Method Room Air Intake Visit Reasons: [facility] 07/08 Allergies aspirin (ASPIRIN) Allergy (Severe, Verified 07/14/25 15:56) STOMACH UPSET codeine (CODEINE) Allergy (Intermediate, Verified 07/14/25 15:56) STOMACH UPSET Medication List - Last Reconciled 07/14/25 by Matty rGover MD albuterol sulfate 90 mcg/actuation (Ventolin HFA) 2 puffs inhalation Q6H PRN amlodipine 5 mg PO DAILY blood pressure monitor (Blood Pressure Kit) As directed diclofenac sodium 1% (Voltaren Arthritis Pain) 4 grams topical QID PRN estradiol 0.01%(0.1mg/gram) (Estrace) 1 g vaginal 2XW fexofenadine (Jackelyn Allergy) 180 mg PO DAILY fluticasone propion-salmeterol 115-21 mcg/actuation (Advair HFA) 2 puffs inhalation Q12H lidocaine 4% (Aspercreme (lidocaine)) 1 patch topical DAILY PRN lisinopril 5 mg PO DAILY montelukast (Singulair) 10 mg PO BEDTIME multivitamin 1 tab PO DAILY ondansetron HCl 4 mg PO Q8H PRN oxycodone-acetaminophen 5-325 mg (Percocet) 1 tab PO TID PRN pantoprazole 40 mg PO DAILY polyethylene glycol 3350 (Miralax) 17 grams PO DAILY theophylline ER 400 mg PO DAILY tirzepatide (weight loss) 5 mg (0.5 mL) subcut QWEEK 90 days tizanidine 2 mg PO Q8H PRN Tobacco use date assessed: 06/15/25 Dental Screening Dental Screen Date: 06/15/25 HPI [facility] 07/08 2 HPI0 Details ibuprofen 600 mgn , percocet PFSH Medical History Blood pressure elevated without history of HTN Obesity (BMI 30-39.9) Colon cancer screening Constipation Pyuria Bilateral hand pain Finger pain, right Intractable back pain Cough Vaginal dryness, menopausal Rhinitis Bacterial conjunctivitis Overweight (BMI 25.0-29.9) Impaired glucose tolerance Breast cancer screening by mammogram Asthma exacerbation Cervical cancer screening Abnormal TSH Stiffness of finger joint Bronchitis Asthma Trigger finger of left thumb Trigger finger of right thumb Carpal tunnel syndrome on both sides Hypertension Repetitive use syndrome Surgical History History of bladder suspension procedure Hx of colonoscopy H/O vaginal hysterectomy S/P tonsillectomy H/O abdominoplasty Hx of exploratory laparotomy Hx of cholecystectomy History of carpal tunnel release S/P trigger finger release Family History Brother Ulcerative colitis Maternal Uncle Substance abuse Other Colon cancer Social History Housing: Apartment Alcohol intake: current Alcohol intake frequency: does not drink Comment: once a year 1 glass Patient Tobacco Use Status: Former Tobacco user Tobacco use type: Cigarette Years Smoked: stopped 1991 does marijuana e-Cigarette/Vaping Use: Never Used Second Hand Smoke Exposure: No service: No Current occupational status: employed 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 Current occupational exposures/hazards: No Cognitive needs: No Hearing needs: No Vision needs: Yes Female Reproductive History Menstrual Age of Menarche: 11 Questionnaire Thrive Questionnaire Date Thrive assessed: 02/03/25 I am a: Patient What is your living situation today?: I have a steady place to live Within the past 12 months, did the food you bought not last and you didn't have the money to get more?: Sometimes True Within the past 12 months, did you worry whether your food would run out before you got money to buy more?: Never true Do you have trouble paying for medicines?: No Do you have trouble getting transportation to medical appointments?: No Do you have trouble paying your heating and electricity bill?: No Do you have trouble taking care of your child, family member or friend?: No Do you have trouble with day-to-day activities such as bathing, preparing meals, shopping, managing finances, etc.?: No Are you currently unemployed and looking for a job?: No Are you interested in more education?: No Please select the resources that you would like help with: None Currently or been in a relationship where the following occur: No concerns reported THRIVE Score: 1 SINA-7 AMB Questionnaire SINA-7 Date SINA - 7 assessed: 12/14/24 Source: Developed by DrsMaggy Mata, Juanis Sharma, Lake Jimenez and colleagues, with an educational jorge a from [employer]. Physical exam (Primary Care) Vital Signs: Last Vital Signs Pulse 78 07/14/25 15:55 BP 138/72 07/14/25 15:55 Pulse Ox 98 07/14/25 15:55 Oxygen Delivery Method Room Air 07/14/25 15:55 BMI result Body Mass Index 23.6 Tobacco/Smoking Status: Tobacco use Status Tobacco use date assessed 06/15/25 07/14/25 15:59 Patient Tobacco Use Status Former Tobacco user 07/14/25 15:59 Tobacco use type Cigarette 07/14/25 15:59 e-Cigarette/Vaping Use Never Used 07/14/25 15:59 Thrive Assessment: Date of Thrive Assessment Date Thrive assessed 02/03/25 07/14/25 15:59 Currently or been in a relationship where the following occur: No concerns reported Const General: alert; No acute distress Eyes Conjunctivae: conjunctivae normal Resp Auscultation: clear to auscultation bilaterally Cardio Rate: regular rate Rhythm: regular rhythm GI Inspection: Yes normal to inspection Extrem Shoulder/upper arm images: 2 1. tender on the R side of the chest Ankle/foot/toe images: 2 1. hematoma/bruising L plantar area and l left metartasal area and toes 4th and 3rd Coding Level of Care Code Est Pt Level 3 (49317) Diagnoses Fall W19.XXXA Contusion of right chest wall S20.211A Fracture of fifth toe, left, closed S92.502A Assessment & Plan Assessment & Plan (1) Fall: Code(s): W19.XXXA - Unspecified fall, initial encounter Category: Medical (2) Contusion of right chest wall: Code(s): S20.211A - Contusion of right front wall of thorax, initial encounter Category: Medical Plan: Discussed about conservative therapy, incentive spirometry Andre (3) Fracture of fifth toe, left, closed: Code(s): S92.502A - Displaced unspecified fracture of left lesser toe(s), initial encounter for closed fracture Category: Medical Plan: Discussed about immobilization. Plan History of Present Illness The patient is a 55-year-old female presenting for a follow-up visit after sustaining injuries from a fall. She has a history of asthma, lumbar spondylosis, generalized anxiety disorder, and hypertension, though these were not the primary focus of this visit. The patient sustained a right chest wall contusion and a fracture of the left fifth metatarsal due to a fall on July 08. She slipped and fell in the tub, leading to these injuries. For pain management, she was prescribed ibuprofen 600 mg and oxycodone, which she reports helps her sleep at night. She was advised to use immobilization for the foot fracture and to perform deep breathing exercises to prevent pneumonia due to the chest contusion. Health Maintenance - Colonoscopy completed in 2019 - Mammogram completed in February 2025 Social History Review of Systems - Respiratory: Denies shortness of breath - Musculoskeletal: Reports right chest wall pain Physical Exam Results Plan Patient was informed and verbally consented to the use of an ambient scribe for clinic note documentation during this visit. 1. Right Chest Wall Contusion The patient was advised to perform deep breathing exercises to prevent pneumonia and to use heat application to aid in healing. 2. Left Fifth Metatarsal Fracture The patient was instructed to immobilize the foot to facilitate healing and was referred to orthopedics for further evaluation. Discussion Notes I discussed with the patient the importance of deep breathing exercises to prevent pneumonia due to the chest contusion. We also talked about using heat application to aid in healing and the need for immobilization of the foot fracture. A referral to orthopedics was made for further evaluation of the foot fracture. Patient Instructions - Perform deep breathing exercises regularly to prevent pneumonia. - Apply heat to the chest area to aid in healing. - Keep the foot immobilized to promote healing of the fracture. - Follow up with orthopedics as scheduled. Orders: Referrals 2 Orthopedics Referral S92.502A - Displaced unspecified fracture of left lesser toe(s), initial encounter for closed fracture Medications: New 2 oxycodone-acetaminophen 5-325 mg (Percocet) Partial Fill upon patient request. 1 tab PO TID PRN 12 tabs 0RF pain S92.502A - Displaced unspecified fracture of left lesser toe(s), initial encounter for closed fracture
--- OUTSIDE RECORDS SUMMARY | 2025-07-14 19:33 | XMS_ITS | Clinical Summary ---
Author Organization [facility] Address [address] [place] [address] Care Team Providers Care Manager Of Pharmacy Name Role Phone Matty Grover MD Primary Care Provider [phone] Allergies No known active allergies Medications lidocaine (LIDODERM) 5 % patch Place 1 patch on the skin daily. Apply patch and leave on for 12 hours then remove. Patch may remain on skin for 12 hours per day. 15 patch 07/08/2025 Active ibuprofen (MOTRIN) 600 MG tablet Take 1 tablet (600 mg total) by mouth 4 times daily (every 6 hours) as needed for mild pain or moderate pain (pain). 30 tablet 07/08/2025 Active oxyCODONE-aceta minophen (PERCOCET) 5-325 mg per tablet Take 1 tablet by mouth 4 times daily (every 6 hours) as needed for severe pain. Max Daily Amount: 4 tablets 12 tablet 07/08/2025 Active Encounters Date Type Department Care Team Description 07/08/2025 9:41 PM EDT - 07/09/2025 12:04 AM EDT Emergency [facility] Emergency Department [address] [place] [phone] Alexandrea Welsh DO Chest wall contusion, right, initial encounter (Primary Dx); Unspecified physeal fracture of left metatarsal, initial encounter for closed fracture Discharge Disposition: Home or Self Care 07/08/2025 Travel from Last 3 Months Social History Tobacco Use Types Packs/Day Years Used Date Smoking Tobacco: Never Assessed Comments Unknown Sex and Gender Information Value Date Recorded Sex Assigned at Female 07/08/2025 10:13 PM EDT Legal Sex Female 9:39 PM EDT Gender Identity Female 07/08/2025 10:13 PM EDT Sexual Orientation Choose not to disclose 2024 10:13 PM EDT Last Filed Vital Signs Vital Sign Reading [...] Mass Index 24.07 07/08/2025 9:48 PM EDT Plan of Treatment Health Maintenance Due Date Last Done Comments Hepatitis C Virus Screening 1969 HIV Screening 1982 DTaP/Tdap/Td Vaccines (1 - Tdap) 01/25/1988 Hepatitis B Vaccines (1 of 3 - 19+ 3-dose series) 12/29 Pap Smear (Ages 21-65) 1990 Mammogram 2009 Colonoscopy 2014 Pneumococcal Vaccines 50+ (1 of 1 - PCV) 2019 Zoster (Shingles) Vaccine (1 of 2) 2019 Influenza Vaccine 04/29/2025 COVID-19 Vaccine (1 - season) 2025 RSV Vaccine 50 years and old er and Patients (1 - 1-dose 75+ series) 01/25/2044 Procedures Procedure Name Priority Date/Time Associated Diagnosis Comments XR FOOT 3+ VIEWS-LEFT STAT 07/08/2025 10:33 PM EDT XR CHEST 2 VIEWS STAT 07/08/2025 10:3 2 PM EDT from Last 3 Months Results * XR Foot 3+ views-Left (07/08/2025 10:33 PM EDT) Anatomical Region Laterality Modality Foot Left Computed Radiogr aphy 07/09/2025 7:11 AM EDT Impressions 07/09/2025 7:13 AM EDT 1. Acute mildly comminuted fifth metatarsal neck fracture discussed above 2. Osteoarthritis discussed above 3. Plantar calcaneal enthesophyte Narrative 07/09/2025 7:13 AM EDT EXAM: XR FOOT 3+ VIEWS-LEFT on 07/08/2025 10:10 PM CLINICAL HISTORY: PERCY SAAVEDRA is a 55 years old patient with [...] on 07/08/2025 10:10 PM CLINICAL HISTORY: PERCY SAAVEDRA is a 55 years old patient with [...] 3. Plantar calcaneal enthesophyte us Alexandrea Vidal [facility] R[facility] Final Result * XR Chest 2 views (07/08/2025 10:32 PM EDT) Anatomical Region Laterality Modality Chest Computed Radiogr aphy 07/09/2025 7:54 AM EDT Impressions 07/09/2025 7:54 AM EDT 1. No radiographic sign of acute cardiopulmonary disease. Narrative 07/09/2025 7:54 AM EDT EXAM: XR CHEST 2 VIEWS on 07/08/2025 10:10 PM CLINICAL HISTORY: PERCY SAAVEDRA is a 55 years old patient with [...] on 07/08/2025 10:10 PM CLINICAL HISTORY: PERCY SAAVEDRA is a 55 years old patient with [...] sign of acute cardiopulmonary disease. Alexandrea Vidal [facility]DE RABFLORINDA Final Result from Last 3 Months Insurance [facility] Care Teams Manager Of Pharmacy Relationship Specialty Start Date End Date Matty Grover MD [address] [place] [address] [place] [address] PCP - General Internal Medicine 07/08/25
== END 2025-07-14 16:45 | disposition home or self-care (01) ==
LOC: HO.HMCH 15:52
PROVIDERS: PCP Internal Medicine; Visit Provider Internal Medicine
DX: S20.211A Contusion of right front wall of thorax, initial encounter (principal); S92.502A Displaced unspecified fracture of left lesser toe(s), initial encounter for closed fracture; W19.XXXA Unspecified fall, initial encounter

== ENCOUNTER → 2025-07-14 15:51 | Outpatient (BNVA) | payer OTHER, SELFPAY | PROVIDERS: PCP Internal Medicine; Visit Provider Internal Medicine | DX: S20.211D Contusion of right front wall of thorax, subsequent encounter (principal); S92.502D Displaced unspecified fracture of left lesser toe(s), subsequent encounter for fracture with routine healing; W18.2XXD Fall in (into) shower or empty bathtub, subsequent encounter | CPT/HCPCS: 99212 ==

== ENCOUNTER 2025-07-19 10:57 | Outpatient (REF) | payer OTHER, SELFPAY ==
--- NOTE | ~2025-07-19 | XR_ITS ---
EXAMINATION: XR RIBS, RIGHT CLINICAL INFORMATION: S20.211A - Contusion of right front wall of thorax, initial encounter COMPARISON: May 19, 2024. Correlated to CT chest dated November 30, 2024. TECHNIQUE: AP chest. Oblique views] of the thorax. FINDINGS: Cortical irregularity in the posterior lateral aspect of right fifth rib. Poor inspiration. No acute airspace disease. No gross pneumothorax or pleural effusion. Cardiomediastinal silhouette size is normal. Multilevel thoracolumbar spondylosis. S-shaped curvature of the thoracolumbar spine. Vascular clips right upper quadrant abdomen likely prior cholecystectomy procedure. XR/XR ribs RT min 3V w CXR1V IMPRESSION: Probable minimally displaced fracture posterior lateral aspect right fifth rib. No acute airspace disease. Electronically signed by: Danis Vann MD 07/19/2025 11:43 AM EDT
[2025-07-19 11:17] LABS: MANUAL DIFF FLAG NO
[2025-07-19 12:29] LABS: Hematocrit 35.6 % (37.0-47.0); Hemoglobin 11.5 g/dl (12.0-16.0); Imm Gran Abs Auto 0.02 X10*3/uL (0.00-0.03); Imm Gran Pct Auto 0.3 % (0.0-0.4); Lymphocytes Absolute Auto 3.0 X10*3/uL (1.2-4.9); Mean Corpuscular HGB Conc 32.3 g/dl (31.0-35.0); Mean Corpuscular Hemoglobin 28.6 pg (27.0-33.0); Mean Corpuscular Volume 88.6 fL (80.0-98.0); NRBC Abs Auto 0.000 X10*3/uL (0.0-0.012); NRBC Pct Auto 0.0 /100WBC (0.0-0.2); Platelet Count 260 X10*3/uL (160-400); Red Blood Count 4.02 X10*6/uL (4.20-5.50); Reticulocytes Absolute 0.056 X10*6/uL (0.026-0.095); White Blood Count 7.1 X10*3/uL (4.8-10.8)
[2025-07-19 12:55] LABS: Alanine Aminotransferase 14 U/L (0-31); Albumin Level 4.1 g/dL (3.5-5.0); Alkaline Phosphatase 93 U/L (39-117); Anion Gap 9 (12-20); Aspartate Amino Transferase 20 U/L (5-31); Blood Urea Nitrogen 14 mg/dL (9-16); Calcium 9.1 mg/dL (8.4-10.2); Carbon Dioxide 28 mmol/L (22-29); Chloride 106 mmol/L (96-108); Estimated Glomerular Filt Rate > 60; Iron 60 mcg/dL (30-160); Percent Iron Saturation 25 % (15-50); Potassium 4.2 mmol/L (3.3-5.1); Sodium 139 mmol/L (135-145); Total Iron Binding Capacity 240 mcg/dL (228-428); Total Protein 6.9 g/dL (6.5-8.0); Unsaturated Iron Binding 180 ug/dL
[2025-07-19 14:02] LABS: Ferritin 129 ng/mL (10-250)
[2025-07-19 14:30] LABS: Folate 7.6 ng/mL (> or = 4.0); Vitamin B12 374 pg/mL (200-900)
== END 2025-07-19 10:58 | disposition home or self-care (01) ==
LOC: HO.LAB 10:57
PROVIDERS: PCP Internal Medicine; Visit Provider Internal Medicine
DX: Z00.00 Encounter for general adult medical examination without abnormal findings (principal); S20.211A Contusion of right front wall of thorax, initial encounter
CPT/HCPCS: 36415; 71101; 80053; 82607; 82728; 82746; 83036; 83540; 85025; 85045

== ENCOUNTER → 2025-07-19 11:15 | Outpatient (BNV) | payer OTHER, SELFPAY | PROVIDERS: PCP Internal Medicine; Visit Provider Radiology Diagnostic Radiology | DX: S20.211A Contusion of right front wall of thorax, initial encounter (principal) | CPT/HCPCS: 71101 ==

== ENCOUNTER 2025-07-20 09:38 | Outpatient (AMB) | payer OTHER, SELFPAY ==
--- NOTE | 2025-07-20 09:47 | MHC.OFFVIS ---
Vital Signs 07/20/25 09:48 Height 5 ft 2 in Weight 134 lb BMI 24.5 Intake Visit Reasons: Displaced unspecified fracture of left lesser toe Intake Note: Lakisha is a 55 year old female who presents today as anew patient for an evaluation of her left pinky toe fracture. Patient states injury occurred on 07/08/25 she was in the shower and fell while she was in vacation in [place]. During her time at the ED she was provided with crutches, a post op shoe, oxycodone for pain. She finds that she is not having pain in her toe but in the lateral aspect of her left foot. Patient states she has a previous history of a fracture of her right hallux. Allergies aspirin (ASPIRIN) Allergy (Severe, Verified 07/20/25 10:45) STOMACH UPSET codeine (CODEINE) Allergy (Intermediate, Verified 07/20/25 10:45) STOMACH UPSET HPI HPI Displaced unspecified fracture of left lesser toe: Details: 55-year-old female seen today for initial evaluation of left foot fracture. Patient states that she was on vacation in [place] and fell while showering on 07/08/2025. She was seen at the ED and was provided with crutches, a post op shoe, oxycodone for pain. X-rays had shown a left 5th metatarsal fracture. She still complains of left foot pain and swelling however the bruising has improved. She also notes a history of right big toe fracture 20 years ago. She still has pain and stiffness due to the injury. Also complains of hammertoe deformities that are worsening to bilateral feet, right worse than left. [facility] Medical History Blood pressure elevated without history of HTN Obesity (BMI 30-39.9) Colon cancer screening Constipation Pyuria Bilateral hand pain Finger pain, right Intractable back pain Cough Vaginal dryness, menopausal Rhinitis Bacterial conjunctivitis Overweight (BMI 25.0-29.9) Impaired glucose tolerance Breast cancer screening by mammogram Asthma exacerbation Cervical cancer screening Abnormal TSH Stiffness of finger joint Bronchitis Asthma Trigger finger of left thumb Trigger finger of right thumb Carpal tunnel syndrome on both sides Hypertension Repetitive use syndrome Surgical History History of bladder suspension procedure Hx of colonoscopy H/O vaginal hysterectomy S/P tonsillectomy H/O abdominoplasty Hx of exploratory laparotomy Hx of cholecystectomy History of carpal tunnel release S/P trigger finger release Family History Brother Ulcerative colitis Maternal Uncle Substance abuse Other Colon cancer Social History Housing: Apartment Alcohol intake: current Alcohol intake frequency: does not drink Comment: once a year 1 glass Patient Tobacco Use Status: Former Tobacco user Tobacco use type: Cigarette Years Smoked: stopped 1991 does marijuana e-Cigarette/Vaping Use: Never Used Second Hand Smoke Exposure: No service: No Current occupational status: employed Current occupation: right handed/ [employer] Current occupational exposures/hazards: No Cognitive needs: No Hearing needs: No Vision needs: Yes Female Reproductive History Menstrual Age of Menarche: 11 Review of Systems Const All systems reviewed & are unremarkable except as noted in HPI and below Physical Exam Vital Signs: BMI result Body Mass Index 24.5 Extrem Other: *Bilateral Lower Extremity Focused Exam Vascular: DP/PT 2/4, CFT <3s to all digits, TG warm to cool, mild left lateral forefoot edema Derm: Moderate ecchymosis over the dorsal 2nd through 5th Metatarsal-phalangeal joint Neuro: Protective sensation grossly intact MSK: Moderate pain on palpation of the distal aspect of the 5th metatarsal from the shaft of the metatarsophalangeal joint. No pain on range of motion and palpation of the 1st through 4th Metatarsal-phalangeal joint, Lisfranc joint, or ankle joint. Results Reviewed Results Reviewed: Podiatry X-ray Read: 07/20/2025 X-ray left foot 3 views (AP, MO, Lateral) nonweightbearing reviewed which shows spiral fracture of the distal 5th metatarsal with lateral deviation of the metatarsal head, over 50% bone contact of the metatarsal head. No sagittal plane shift. Mild shortening of the metatarsal parabola. No fractures of the 5th digit. Moderate joint space narrowing of the 1st metatarsophalangeal joint with flattening of the metatarsal head. Large plantar calcaneal spur, mild dorsal navicular and medial cuneiform spurring. Bone density is within normal limits. I personally reviewed the imaging and my findings are listed above. Assessment & Plan Assessment & Plan (1) Metatarsal fracture: Code(s): S92.309A - Fracture of unspecified metatarsal bone(s), unspecified foot, initial encounter for closed fracture Category: Medical Qualifiers: Encounter type: initial encounter Metatarsal bone: fifth Fracture type: closed Fracture alignment: nondisplaced Laterality: left Qualified Code(s): S92.355A - Nondisplaced fracture of fifth metatarsal bone, left foot, initial encounter for closed fracture Plan: Reviewed report of left foot x-rays an ER visit from [facility]. Referred for new left foot x-rays which were reviewed and shows minimally displaced 5th metatarsal head, no surgical indication. Recommended rest ice compression and elevation. Continue weight-bearing as tolerated in surgical shoe. Instructed to avoid high impact activities and high heel shoe-wear. Follow up in 1 month with new x-rays. (2) Hammertoe of right foot: Code(s): M20.41 - Other hammer toe(s) (acquired), right foot Category: Medical Plan: Discussed conservative versus surgical treatment options, which include hammertoe crest pad. Ordered right foot x-rays Orders: Orders XR Foot Kenyon 3V Today M20.41 - Other hammer toe(s) (acquired), right foot, S92.309A - Fracture of unspecified metatarsal bone(s), unspecified foot, initial encounter for closed fracture, S92.502A - Displaced unspecified fracture of left lesser toe(s), initial encounter for closed fracture XR foot LT min 3V 3 Weeks S92.355A - Nondisplaced fracture of fifth metatarsal bone, left foot, initial encounter for closed fracture Coding Level of Care Code New Pt Level 3 (87209) Diagnoses Closed nondisplaced fracture of fifth metatarsal bone of left foot, initial encounter S92.355A Encounter type: initial encounter Metatarsal bone: fifth Fracture type: closed Fracture alignment: nondisplaced Laterality: left Hammertoe of right foot M20.41 Time Spent (min) 30
[2025-07-20 09:48] VITALS: BMI 24.5
--- OUTSIDE RECORDS SUMMARY | 2025-07-20 11:10 | XMS_ITS | Clinical Summary ---
Author Organization [facility] Address [address] [place] [address] Care Team Providers Care Formula Room Worker Name Role Phone Matty Grover MD Primary Care Provider [phone] Allergies No known active allergies Medications lidocaine [...] EDT - 07/09/2025 12:04 AM EDT Emergency [facility] Emergency Department [address] [place] [phone] Alexandrea Welsh DO Chest wall contusion, [...] 3. Plantar calcaneal enthesophyte us Alexandrea Vidal [facility] R[place] Final Result * [...] sign of acute cardiopulmonary disease. Alexandrea Vidal [facility] RABFLORINDA Final Result from Last 3 Months Insurance [facility] Care Teams Formula Room Worker Relationship Specialty Start Date End Date Matty Grover MD [address] [place] [address] [place] [address] PCP - General Internal Medicine 07/08/25
== END 2025-07-20 10:11 | disposition home or self-care (01) ==
LOC: HO.HPODS 09:39
PROVIDERS: PCP Internal Medicine; Visit Provider Student in an Organized Health Care Education/Training Program
DX: S92.355A Nondisplaced fracture of fifth metatarsal bone, left foot, initial encounter for closed fracture (principal); M20.41 Other hammer toe(s) (acquired), right foot
CPT/HCPCS: 99203

== ENCOUNTER 2025-07-20 09:38 | Outpatient (REF) | payer OTHER, SELFPAY ==
--- NOTE | ~2025-07-20 | XR_ITS ---
EXAMINATION: XR FOOT 3 OR MORE VIEWS BILATERAL CLINICAL INFORMATION: S92.502A - Displaced unspecified fracture of left lesser toe(s), initial... COMPARISON: None available. TECHNIQUE: AP, lateral, and oblique views of the right foot. AP, lateral and oblique views of the left foot. FINDINGS: Right: Hammertoe and partially flexed toes partially limit evaluation. No subluxation. No fracture or destructive bone lesion. Moderate size plantar calcaneal spur. Small calcification at the insertion of Achilles tendon onto the calcaneus. Joint space narrowing at multiple interphalangeal joints. Minimal degenerative changes in mid foot. Left: Hammertoe and partially flexed toes partially limit evaluation. No subluxation. Displaced comminuted fracture of the fifth metatarsal, involving the neck and distal diaphysis. No destructive bone lesion. Moderate size plantar calcaneal spur. Small calcifications insertion of the Achilles tendon onto the calcaneus. Joint space narrowing at multiple interphalangeal joints. Mild degenerative changes in the midfoot. XR/XR Foot Kenyon 3V IMPRESSION: Right foot: Mild degenerative changes. Left foot: Comminuted displaced fracture of the distal fifth metatarsal. Mild degenerative changes. Electronically signed by: Cherry Wills MD 07/20/2025 12:29 PM EDT
== END 2025-07-20 09:39 | disposition home or self-care (01) ==
LOC: HO.XRAY 09:38
PROVIDERS: PCP Internal Medicine; Visit Provider Student in an Organized Health Care Education/Training Program
DX: S92.355A Nondisplaced fracture of fifth metatarsal bone, left foot, initial encounter for closed fracture (principal); M20.41 Other hammer toe(s) (acquired), right foot; W19.XXXA Unspecified fall, initial encounter
CPT/HCPCS: 73630; 99202

== ENCOUNTER → 2025-07-20 11:55 | Outpatient (BNV) | payer OTHER, SELFPAY | PROVIDERS: PCP Internal Medicine; Visit Provider Radiology Body Imaging | DX: S92.502A Displaced unspecified fracture of left lesser toe(s), initial encounter for closed fracture (principal); M19.071 Primary osteoarthritis, right ankle and foot; M19.072 Primary osteoarthritis, left ankle and foot | CPT/HCPCS: 73630 ==

== ENCOUNTER 2025-07-25 10:00 | Outpatient (AMB) | payer OTHER, SELFPAY ==
[2025-07-25 10:02] VITALS: BP 112/74; PULSE 78; TEMP 36.3; O2SAT 97; BMI 24.0
--- NOTE | 2025-07-25 10:02 | A.OFFPC_ITS ---
Vital Signs 07/25/25 10:02 Height 5 ft 2 in Weight 131 lb 4 oz BMI 24.0 BP 112/74 Blood Pressure Location Lt brachial Position Sitting Pulse 78 Pulse Source Pulse Oximeter Temp 97.3 F Temp Source Temporal Artery Scan Pulse Oximetry (%) 97 Oxygen Delivery Method Room Air Intake Visit Reasons: overweight, LBP Accompanied by: Brother Allergies aspirin (ASPIRIN) Allergy (Severe, Verified 07/25/25 10:06) STOMACH UPSET codeine (CODEINE) Allergy (Intermediate, Verified 07/25/25 10:06) STOMACH UPSET Tobacco use date assessed: 07/25/25 Dental Screening Dental Screen Date: 07/25/25 Did you have a dental visit in the last 12 months?: Yes Did you have a dental problem in the last 6 months where you did not have access to dental care?: No Was dental information given to patient?: Patient has dentist HPI overweight, LBP HPI Details otherwise complains of difficulty hearing PFSH Medical History Blood pressure elevated without history of HTN Obesity (BMI 30-39.9) Colon cancer screening Constipation Pyuria Bilateral hand pain Finger pain, right Intractable back pain Cough Vaginal dryness, menopausal Rhinitis Bacterial conjunctivitis Overweight (BMI 25.0-29.9) Impaired glucose tolerance Breast cancer screening by mammogram Asthma exacerbation Cervical cancer screening Abnormal TSH Stiffness of finger joint Bronchitis Asthma Trigger finger of left thumb Trigger finger of right thumb Carpal tunnel syndrome on both sides Hypertension Repetitive use syndrome Surgical History History of bladder suspension procedure Hx of colonoscopy H/O vaginal hysterectomy S/P tonsillectomy H/O abdominoplasty Hx of exploratory laparotomy Hx of cholecystectomy History of carpal tunnel release S/P trigger finger release Family History Brother Ulcerative colitis Maternal Uncle Substance abuse Other Colon cancer Social History Housing: Apartment Alcohol intake: current Alcohol intake frequency: does not drink Comment: once a year 1 glass Patient Tobacco Use Status: Former Tobacco user Tobacco use type: Cigarette Years Smoked: stopped 1991 does marijuana e-Cigarette/Vaping Use: Never Used Second Hand Smoke Exposure: No service: No Current occupational status: employed Current occupation: right handed/ [employer] Current occupational exposures/hazards: No Cognitive needs: No Hearing needs: No Vision needs: Yes Female Reproductive History Menstrual Age of Menarche: 11 Questionnaire PHQ-9 Over the last 2 weeks, how often have you been bothered by any of the following problems? 1. Little interest or pleasure in doing things: not at all 2. Feeling down, depressed, or hopeless: not at all 3. Trouble falling or staying asleep, or sleeping too much: nearly every day 4. Feeling tired or having little energy: nearly every day 5. Poor appetite or overeating: not at all 6. Feeling bad about yourself - or that you are a failure or have let yourself or your family down: not at all 7. Trouble concentrating on things, such as reading the newspaper or watching television: not at all 8. Moving or speaking so slowly that other people could have noticed. Or the opposite - being so fidgety or restless that you have been moving around a lot more than usual: not at all 9. Thoughts that you would be better off or of hurting yourself in some way: not at all Total score: 6 Source: Developed by Drs. Felipe Mata, Juanis Sharma, Lake Jimenez and colleagues, with an educational jorge a from [employer]. Thrive Questionnaire Date Thrive assessed: 02/03/25 I am a: Patient What is your living situation today?: I have a steady place to live Within the past 12 months, did the food you bought not last and you didn't have the money to get more?: Sometimes True Within the past 12 months, did you worry whether your food would run out before you got money to buy more?: Never true Do you have trouble paying for medicines?: No Do you have trouble getting transportation to medical appointments?: No Do you have trouble paying your heating and electricity bill?: No Do you have trouble taking care of your child, family member or friend?: No Do you have trouble with day-to-day activities such as bathing, preparing meals, shopping, managing finances, etc.?: No Are you currently unemployed and looking for a job?: No Are you interested in more education?: No Please select the resources that you would like help with: None Currently or been in a relationship where the following occur: No concerns repor desiree THRIVE Score: 1 AUDIT C Alcohol Use Questionnaire (AUDIT-C) 1. How often do you have a drink containing alcohol?: Monthly or less 2. How many drinks containing alcohol do you have on a typical day when you are drinking?: 1 or 2 3. How often do you have six or more drinks on one occasion?: Never Total Score: 1 SINA-7 AMB Questionnaire SINA-7 Date SINA - 7 assessed: 12/14/24 Feeling nervous, anxious, or on edge: 0 = Not at all Not being able to stop or control worryin = Not at all Worrying too much about different things: 0 = Not at all Trouble relaxin = Not at all Being so restless that it is hard to sit still: 0 = Not at all Becoming easily annoyed or irritable: 0 = Not at all Feeling afraid as if something awful might happen: 0 = Not at all Total SINA-7 score (0-4 normal; 5-9 mild; 10-14 moderate; 15-21 severe): 0 Source: Developed by Drs. Felipe Mata, Juanis Sharma, Lake Jimenez and colleagues, with an educational jorge a from [employer]. Physical exam (Primary Care) Vital Signs: Last Vital Signs Temp 97.3 F 07/25/25 10:02 Pulse 78 07/25/25 10:02 BP 112/74 07/25/25 10:02 Pulse Ox 97 07/25/25 10:02 Oxygen Delivery Method Room Air 07/25/25 10:02 BMI result Body Mass Index 24.0 Tobacco/Smoking Status: Tobacco use Status Tobacco use date assessed 07/25/25 07/25/25 10:06 Patient Tobacco Use Status Former Tobacco user 07/25/25 10:06 Tobacco use type Cigarette 07/25/25 10:06 e-Cigarette/Vaping Use Never Used 07/25/25 10:06 PHQ-9: PHQ-9 Score PHQ-9: Total score 6 07/25/25 10:22 Thrive Assessment: Date of Thrive Assessment Date Thrive assessed 02/03/25 07/25/25 10:06 Currently or been in a relationship where the following occur: No concerns re ported Const General: alert; No acute distress Eyes Conjunctivae: conjunctivae normal Resp Auscultation: clear to auscultation bilaterally Cardio Rate: regular rate Rhythm: regular rhythm GI Inspection: Yes normal to inspection Extrem General: Yes normal to inspection and No edema Office Procedures Flu Questionnaire Does the patient have a severe egg allergy?: No Does the patient have severe life threatening allergies?: No Does the patient have a fever or illness today?: No Has the patient ever had Guillain-Widener Syndrome?: No Has the patient ever had any past reaction to a flu shot?: No Immunizations Fluarix [id number] (PF) 45 mcg (15 mcg x 3)/0.5 mL IM syringe Performing Provider: Matty Grover MD Per[facility] Location[facility] [place] [facility] Administered by: Leona Valdez CMA on 07/25/25 10:22 Dose Route Admin Location Dispensed Lot Number Expiration Date NDC Investigative Agent 0.5 mL IM Left Deltoid 0.5 mL [id number] 03/28/26 [id number] [employer] VIS Given Date VIS Provided VIS Publication Date 07/25/25 Single Vaccine 24 Eligibility Eligibility Date Funding Source Not [facility] Eligible 07/25/25 Private Coding Level of Care Code Est Pt Level 3 (69953) Diagnoses Right rib fracture S22.31XA Fall W19.XXXA Fracture of fifth toe, left, closed S92.502A Assessment & Plan Assessment & Plan (1) Right rib fracture: Code(s): S22.31XA - Fracture of one rib, right side, initial encounter for closed fracture Category: Medical Plan: Discussed about breathing deep during waking hours every 1-2 hours to prevent pneumonia (2) Fall: Code(s): W19.XXXA - Unspecified fall, initial encounter Category: Medical Plan: Stable (3) Fracture of fifth toe, left, closed: Code(s): S92.502A - Displaced unspecified fracture of left lesser toe(s), initial encou nter for closed fracture Category: Medical Plan: Patient has been referred to orthopedics Plan History of Present Illness The patient is a 55-year-old female presenting for a follow-up visit after a recent fall in the bathtub. The fall resulted in a comminuted displaced fracture of the distal fifth metatarsal of the left foot and a minimally displaced fracture of the posterior lateral aspect of the right fifth rib, which were confirmed by x-ray on July 19. She has been referred to and seen by an orthopedist for the foot fracture, who advised her to continue using a boot and to follow up in one month. The patient reports that the rib pain is worse than the foot pain, especially at the end of the day and at night. She was advised to perform deep breathing exercises every 1-2 hours to prevent pneumonia. The patient also reports new concerns, including intermittent muffled hearing and a sensation of her ears being clogged, without any associated pain. She has also recently developed a dripping nose, which is suggestive of allergies. Additionally, she expresses concerns about her memory, noting she has been forgetting simple things. She has a family history of dementia, as her father was diagnosed in his 50s. Her past medical history includes hypertension, asthma, and mild spondylosis. She has not been using her inhalers recently. She reports ongoing lower back pain and scalp pain that she associates with wearing her hair up. The patient is currently on injections for weight management and is satisfied with the present dose. Health Maintenance - Patient has been instructed to perform deep breathing exercises every 1 to 2 hours while awake to prevent pneumonia secondary to her rib fracture. - The importance of mental exercise, such as doing puzzles, was discussed to help with memory concerns. - The patient is undergoing weight management with injections; it was discussed that this is not a long-term solution and a target weight should be considered. - A follow-up visit is recommended in three months. Social History - Family history is significant for a father with early-onset dementia diagnosed in his 50s and a mother with lung cancer. - The patient is currently using injections for weight management. Review of Systems - HEENT: Reports intermittent muffled hearing and a sensation of clogged ears. - Denies ear pain. - Vision is reported as okay; she wears glasses. - Reports a dripping nose. - Reports scalp pain that may be muscular. - Neurological: Reports forgetfulness and concerns about memory. - Musculoskeletal: Reports pain from left foot and right rib fractures, noting the rib pain is more significant and worse at night. - Reports constant lower back pain. - Allergic: Reports symptoms consistent with allergies, such as a dripping nose. Physical Exam - HEENT: Otoscopy reveals clear external auditory canals with no cerumen. - Tympanic membranes are visualized. - No tenderness to palpation or with manipulation of the pinna. - Respiratory: Lungs are clear to auscultation bilaterally. - Cardiovascular: Heart was auscultated. - Musculoskeletal: No tenderness on palpation of the back. Results - X-ray rib series (July 19): Showed a minimally displaced fracture of the posterior lateral aspect of the right 5th rib with no aerospace disease. - X-ray left foot: Revealed a comminuted displaced fracture of the distal 5th metatarsal. Plan Patient was informed and verbally consented to the use of an ambient scribe for clinic note documentation during this visit. 1. Fracture Of Left Fifth Metatarsal, Subsequent Encounter The patient sustained a comminuted displaced fracture of the distal fifth metatarsal after a fall. She has been evaluated by an orthopedist who recommended conservative management with a boot. A follow-up appointment with orthopedics is scheduled in one month to re-evaluate healing. 2. Fracture Of Right Fifth Rib, Subsequent Encounter The patient reports significant pain from her minimally displaced right fifth rib fracture, which is worse than her foot pain, especially at night. Management includes pain control with anti-inflammatory medications as needed. The patient has been counseled on the importance of performing deep breathing exercises every 1-2 hours while awake to prevent atelectasis and pneumonia. 3. Hearing Complaint The patient reports intermittent muffled hearing and a sensation of her ears being clogged, without pain. Otoscopic examination was unremarkable. The symptoms are likely due to eustachian tube dysfunction, potentially exacerbated by allergic rhinitis. The patient was educated on maneuvers to equalize middle ear pressure, such as yawning and swallowing. 4. Memory Concern The patient raised concerns about forgetfulness, noting a family history of early-onset dementia. The role of stress in memory was discussed, as was the importance of mental exercise to maintain cognitive function. No further workup is planned at this time. 5. Lower Back Pain The patient reports a constant lower back ache. Physical exam revealed no tenderness on palpation. No specific plan was formulated during this visit. 6. Allergic Rhinitis The patient has new-onset symptoms of a dripping nose, consistent with allergic rhinitis, which may also be contributing to her ear symptoms. No treatment was initiated at this visit. 7. Weight Management The patient is continuing her weight management program with injections and is satisfied with the current dose. It was reiterated that this is not a long-term medication, and establishing a target weight with lifestyle changes remains im portant. A follow-up is scheduled in three months. Discussion Notes I discussed the healing process for the patient's rib and foot fractures. I explained that rib fractures are often painful as they move with breathing and that management is supportive with pain control and deep breathing exercises to prevent pneumonia. For the foot fracture, we will continue to follow the plan from her orthopedist. We also addressed her new hearing complaints, and I explained that they are likely related to eustachian tube dysfunction, potentially from her allergies, and that her physical exam of the ears was normal. Regarding her memory concerns, I acknowledged her family history and discussed that forgetfulness can be related to stress, while also emphasizing the importance of mental stimulation. We confirmed she is stable on her current weight loss medication, and I advised her that this is not a long-term solution. We agreed on a follow-up in 3 months. Patient Instructions - Continue to wear the boot for your broken left foot as instructed by your orthopedic doctor. - Follow up with your orthopedic doctor in one month for your foot. - To prevent lung problems like pneumonia from your broken rib, take slow, deep breaths every 1 to 2 hours while you are awake. - You can use anti-inflammatory medicine for pain. - If your ears feel clogged, try yawning or swallowing to help relieve the pr essure. - To help with memory, try to keep your mind active with activities like puzzles. - Continue your current dose of weight management injections. - Please schedule a follow-up appointment in three months. - Let us know if your symptoms get worse or if you have any new problems. Orders: Orders Influenza [id number] Immunization Today Z23 - Encounter for immunization
--- OUTSIDE RECORDS SUMMARY | 2025-07-25 11:49 | XMS_ITS | Clinical Summary ---
Author Organization [facility] Address [address] [place] [address] Care Team Providers Care Healthcare Administrative Assistant Name Role Phone Matty Grover MD Primary Care Provider [phone] Allergies No known active allergies Medications lidocaine [...] EDT - 07/09/2025 12:04 AM EDT Emergency [facility] Emergency Department [address] [place] [id number] Alexandrea Welsh DO Chest wall contusion, [...] 3. Plantar calcaneal enthesophyte us Alexandrea Vidal [facility] Final Result * [...] sign of acute cardiopulmonary disease. Alexandrea Vidal [facility] RABFOLRINDA Final Result from Last 3 Months Insurance [facility] Care Teams Healthcare Administrative Assistant Relationship Specialty Start Date End Date Matty Grover MD [address] [place] [address] [place] [id number] PCP - General Internal Medicine 07/08/25
== END 2025-07-25 10:37 | disposition home or self-care (01) ==
LOC: HO.HMCH 10:01
PROVIDERS: PCP Internal Medicine; Visit Provider Internal Medicine
DX: S22.31XA Fracture of one rib, right side, initial encounter for closed fracture (principal); S92.502A Displaced unspecified fracture of left lesser toe(s), initial encounter for closed fracture; W19.XXXA Unspecified fall, initial encounter; Z23 Encounter for immunization

== ENCOUNTER → 2025-07-25 10:00 | Outpatient (BNVA) | payer OTHER, SELFPAY | PROVIDERS: PCP Internal Medicine; Visit Provider Internal Medicine | DX: S22.31XA Fracture of one rib, right side, initial encounter for closed fracture (principal); S92.502A Displaced unspecified fracture of left lesser toe(s), initial encounter for closed fracture; M54.50 Low back pain, unspecified; J30.9 Allergic rhinitis, unspecified; W19.XXXA Unspecified fall, initial encounter; Y93.9 Activity, unspecified; Y92.9 Unspecified place or not applicable; Y99.9 Unspecified external cause status; Z23 Encounter for immunization | CPT/HCPCS: 90471; 90656; 99212 ==

== ENCOUNTER 2025-08-05 10:33 | Outpatient (AMB) | payer OTHER, SELFPAY ==
[2025-08-05 10:39] VITALS: BP 138/84; PULSE 69; RESP 18; O2SAT 97; BMI 24.2
--- NOTE | 2025-08-05 10:39 | MHC.PC.OV ---
Vital Signs 08/05/25 10:39 Height 5 ft 2 in Weight 132 lb 4 oz BMI 24.2 BP 138/84 Blood Pressure Location Lt brachial Position Sitting Respiration 18 Pulse 69 Pulse Source Pulse Oximeter Temp Source Temporal Artery Scan Pulse Oximetry (%) 97 Oxygen Delivery Method Room Air Intake Visit Reasons: (L) side sciatica pain Dermatology Nurse Practitioner Required: No Accompanied by: Self / Same As Patient Allergies aspirin (ASPIRIN) Allergy (Severe, Verified 08/05/25 10:39) STOMACH UPSET codeine (CODEINE) Allergy (Intermediate, Verified 08/05/25 10:39) STOMACH UPSET Tobacco use date assessed: 08/05/25 Dental Screening Dental Screen Date: 08/05/25 Did you have a dental visit in the last 12 months?: Yes Did you have a dental problem in the last 6 months where you did not have access to dental care?: No Was dental information given to patient?: Patient has dentist HPI HPI Comments History of Present Illness Details The patient is a 55-year-old female presenting with left-sided sciatica that started four days ago. She describes a burning sensation that starts in her left buttock and radiates down her leg to her foot, which is exacerbated by simple actions like brushing against a seat. The pain makes it difficult to walk, sit, and sleep. For the pain, she reports that Tylenol PM and ibuprofen have not been effective. She tried gabapentin last night, which provided some relief, but the symptoms returned today. She has a history of lower back problems and a broken foot. She also has a history of a rib fracture from a fall in a bathtub about 10 days ago, for which she is taking meloxicam. The patient also reports that in cold weather her fingers and toes turn white and feel very cold and numb. She wears gloves and has a heated steering wheel, but the symptoms persist. The condition can affect her ability to write. [facility] Medical History Blood pressure elevated without history of HTN Obesity (BMI 30-39.9) Colon cancer screening Constipation Pyuria Bilateral hand pain Finger pain, right Intractable back pain Cough Vaginal dryness, menopausal Rhinitis Bacterial conjunctivitis Overweight (BMI 25.0-29.9) Impaired glucose tolerance Breast cancer screening by mammogram Asthma exacerbation Cervical cancer screening Abnormal TSH Stiffness of finger joint Bronchitis Asthma Trigger finger of left thumb Trigger finger of right thumb Carpal tunnel syndrome on both sides Hypertension Repetitive use syndrome Surgical History History of bladder suspension procedure Hx of colonoscopy H/O vaginal hysterectomy S/P tonsillectomy H/O abdominoplasty Hx of exploratory laparotomy Hx of cholecystectomy History of carpal tunnel release S/P trigger finger release Family History Brother Ulcerative colitis Maternal Uncle Substance abuse Other Colon cancer Social History Housing: Apartment Alcohol intake: current Alcohol intake frequency: does not drink Comment: once a year 1 glass Patient Tobacco Use Status: Former Tobacco user Tobacco use type: Cigarette Years Smoked: stopped 1991 does marijuana e-Cigarette/Vaping Use: Never Used Second Hand Smoke Exposure: No service: No Current occupational status: employed 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 Current occupational exposures/hazards: No Cognitive needs: No Hearing needs: No Vision needs: Yes Female Reproductive History Menstrual Age of Menarche: 11 Questionnaire Thrive Questionnaire Date Thrive assessed: 02/03/25 I am a: Patient What is your living situation today?: I have a steady place to live Within the past 12 months, did the food you bought not last and you didn't have the money to get more?: Sometimes True Within the past 12 months, did you worry whether your food would run out before you got money to buy more?: Never true Do you have trouble paying for medicines?: No Do you have trouble getting transportation to medical appointments?: No Do you have trouble paying your heating and electricity bill?: No Do you have trouble taking care of your child, family member or friend?: No Do you have trouble with day-to-day activities such as bathing, preparing meals, shopping, managing finances, etc.?: No Are you currently unemployed and looking for a job?: No Are you interested in more education?: No Please select the resources that you would like help with: None Currently or been in a relationship where the following occur: No concerns reported THRIVE Score: 1 SINA-7 AMB Questionnaire SINA-7 Date SINA - 7 assessed: 12/14/24 Source: Developed by Drs. Felipe Mata, Juanis Sharma, Lake Jimenez and colleagues, with an educational jorge a from [employer]. Review of Systems Const Details: As per HPI. Physical exam (Primary Care) Vital Signs: Last Vital Signs Pulse 69 08/05/25 10:39 Resp 18 08/05/25 10:39 BP 138/84 08/05/25 10:39 Pulse Ox 97 08/05/25 10:39 Oxygen Delivery Method Room Air 08/05/25 10:39 BMI result Body Mass Index 24.2 Tobacco/Smoking Status: Tobacco use Status Tobacco use date assessed 08/05/25 08/05/25 10:45 Patient Tobacco Use Status Former Tobacco user 08/05/25 10:45 Tobacco use type Cigarette 08/05/25 10:45 e-Cigarette/Vaping Use Never Used 08/05/25 10:45 Thrive Assessment: Date of Thrive Assessment Date Thrive assessed 02/03/25 08/05/25 10:45 Currently or been in a relationship where the following occur: No concerns reported Const Other: Pertinent findings are in BOLD GENERAL APPEARANCE NAD, activity normal for age, well developed/ well nourished, no cyanosis, pallor, or diaphoresis. EYES lids/conjunctiva normal. EARS/NOSE/THROAT Mucous membranes moist, nares normal, lips/teeth normal uvula midline without oral pharyngeal erythema, exudate or swelling TMs normal bilaterally. No lymphangitis/lymphedema. HEAD/NECK normocephalic atraumatic, no facial trauma, neck is supple. RESPIRATORY respiratory effort normal, speaks in full sentences, no tripod position, no accessory muscle use. Lungs clear to auscultation without rhonchi, wheezes, rales CARDIAC Regular rate and rhythm, no edema. ABDOMINAL Soft, ND/NT. No evidence of fluid wave. No pulsatile masses on exam, rebound tenderness, Sousa sign or pain over Mcburney's point. MUSCLES/EXTREMITIES No abnormal range of motion, no swelling. SKIN Warm, pink and dry. No rashes, dermatoses, petechiae or lesions. NEUROLOGICAL Speech is clear and appropriate. Normal level of consciousness. Gait and coordination are normal. 5/5 strength in all extremities. PSYCH Normal mood and affect. Judgement/competence is appropriate Leg raise: negative. Coding Level of Care Code Est Pt Level 4 (82357) Diagnoses Raynaud's phenomenon without gangrene I73.00 Raynaud?s-associated gangrene presence: without gangrene Left sided sciatica M54.32 Closed fracture of multiple ribs of right side with routine healing, subsequent encounter S22.41XD Encounter type: subsequent encounter Rib fracture type: multiple ribs Fracture type: closed Fracture healing: with routine healing Time Spent (min) 30 Assessment & Plan Assessment & Plan (1) Raynaud phenomenon: Code(s): I73.00 - Raynaud's syndrome without gangrene Category: Medical Qualifiers: Raynaud?s-associated gangrene presence: without gangrene Qualified Code(s): I73.00 - Raynaud's syndrome without gangrene Plan: - The patient's reported symptoms of fingers and toes turning white and cold are consistent with Raynaud's phenomenon. - A referral will be made to rheumatology for further evaluation and diagnostic testing. - Initiation of nifedipine was discussed but will be deferred until a confirmed diagnosis is established, per patient preference. - Advised to continue preventative measures such as wearing gloves in cold weather. (2) Left sided sciatica: Code(s): M54.32 - Sciatica, left side Category: Medical Plan: - The patient's acute symptoms have not responded to ibuprofen or Tylenol. - The current medication, meloxicam, will be switched to naproxen to be taken twice a day as needed for pain management. - Recommended use of topical agents, including Voltaren gel and a lidocaine patch, to be alternated. - A follow-up is scheduled in one week. - If there is no improvement, an MRI will be considered. (3) Right rib fracture: Code(s): S22.31XA - Fracture of one rib, right side, initial encounter for closed fracture Category: Medical Qualifiers: Encounter type: subsequent encounter Rib fracture type: multiple ribs Fracture type: closed Fracture healing: with routine healing Qualified Code(s): S22.41XD - Multiple fractures of ribs, right side, subsequent encounter for fracture with routine healing Plan: - The patient has persistent pain from a rib fracture sustained from a fall approximately 10 days ago. - The switch from meloxicam to naproxen twice daily is also intended to manage this pain. Plan I have discussed the plan for the patient's acute sciatica, which includes switching her pain medication from meloxicam to naproxen to be taken twice daily, which can help with both her sciatic and rib pain. I also recommended trying topical agents like Voltaren gel and a lidocaine patch. We will follow up in one week, and if her symptoms do not improve, we will consider obtaining an MRI. Regarding her symptoms of cold, white fingers and toes, I explained that this could be Raynaud's phenomenon. The patient preferred not to start medication such as nifedipine without a confirmed diagnosis, so I will place a referral to rheumatology for definitive testing and management. I advised her to continue wearing gloves to protect her hands from the cold. Orders: Referrals Rheumatology Referral I73.00 - Raynaud's syndrome without gangrene Medications: New naproxen 375 mg PO BID PRN 60 tabs 3RF pain 30 days Discontinued meloxicam Discontinued Reason: Duplicate 15 mg PO DAILY 30 tabs 0RF S92.502A - Displaced unspecified fracture of left lesser toe(s), initial encounter for closed fracture
--- OUTSIDE RECORDS SUMMARY | 2025-08-05 12:29 | XMS_ITS | Clinical Summary ---
Author Organization [facility] Address [address] [place] [address] Care Team Providers Care Plastic Extruding Machine Operator Name Role Phone Matty Grover MD Primary Care Provider [phone] Allergies No known active allergies Medications lidocaine [...] EDT - 07/09/2025 12:04 AM EDT Emergency [facility] Emergency Department [address] [place] [phone] Alexandrea Welsh DO Chest wall contusion, [...] 3. Plantar calcaneal enthesophyte us Alexandrea Vidal [facility] ORDE RABLES Final Result [...] sign of acute cardiopulmonary disease. Alexandrea Vidal [facility] ORDE RABFLORINDA Final Result from Last 3 Months Insurance [facility] Care Teams Plastic Extruding Machine Operator Relationship Specialty Start Date End Date Matty Grover MD [address] [place] [address] [place] [address] PCP - General Internal Medicine 07/08/25
--- OUTSIDE RECORDS SUMMARY | 2025-08-05 12:29 | XMS_ITS ---
Author Name [facility] Encounters Encounter Type Encounter Reason Primary Diagnosis Location Date Emergency Contusion of right front wall of thorax, initial encounter Contusion of right front wall of thorax, initial encounter S*Bio 07/08/2025 Care Team Organization Name Specialty Phone Email Start Date End Da eddie S*Bio 07/09/2025 S*Bio JOSE SALAS Primary Care 07/09/2025 S*Bio 07/09/2025
== END 2025-08-05 11:22 | disposition home or self-care (01) ==
LOC: HO.HMCH 10:33
PROVIDERS: PCP Internal Medicine; Visit Provider Internal Medicine
DX: I73.00 Raynaud's syndrome without gangrene (principal); M54.32 Sciatica, left side; S22.41XD Multiple fractures of ribs, right side, subsequent encounter for fracture with routine healing

== ENCOUNTER → 2025-08-05 10:33 | Outpatient (BNVA) | payer OTHER, SELFPAY | PROVIDERS: PCP Internal Medicine; Visit Provider Internal Medicine | DX: M54.32 Sciatica, left side (principal); S22.41XD Multiple fractures of ribs, right side, subsequent encounter for fracture with routine healing; I73.00 Raynaud's syndrome without gangrene | CPT/HCPCS: 99212 ==

== ENCOUNTER 2025-08-17 08:22 | Outpatient (REF) | payer OTHER, SELFPAY ==
--- NOTE | ~2025-08-17 | XR_ITS ---
EXAMINATION: XR FOOT 3 OR MORE VIEWS LEFT HISTORY: S92.355A - Nondisplaced fracture of fifth metatarsal bone, left foot... COMPARISON: Comparison is made with the prior examination dated 07/20/2025. FINDINGS: Three views of the left foot are submitted. Osseous mineralization is normal. Again seen is a fracture of the 5th metatarsal neck. There is greater callus formation noted, consistent with healing. The fracture line remains visible. There is moderate degenerative change of the 1st MTP joint, with joint space narrowing and osteophyte formation. There is mild intertarsal osteoarthritis. There is a moderate plantar calcaneal spur. The soft tissues are unremarkable. XR/XR foot LT min 3V IMPRESSION: Healing fracture of the 5th metatarsal neck. Electronically signed by: Felipe Esqueda MD 08/17/2025 08:48 AM [facility]
--- OUTSIDE RECORDS SUMMARY | 2025-08-17 16:03 | XMS_ITS | Clinical Summary ---
Author Organization [facility] Address [address] [place] [address] Care Team Providers Care Supervisor Motorcycle Repair Shop Name Role Phone Matty Grover MD Primary Care Provider [phone] Allergies No known active allergies Medications lidocaine [...] EDT - 07/09/2025 12:04 AM EDT Emergency [facility] Emergency Department [address] [place] [phone] Alexandrea Welsh DO Chest wall contusion, [...] 3. Plantar calcaneal enthesophyte us Alexandrea Vidal [facility] ORDE RABLES Final Result [...] sign of acute cardiopulmonary disease. Alexandrea Vidal [facility] ORDE RABFLORINDA Final Result from Last 3 Months Insurance [facility] Care Teams Supervisor Motorcycle Repair Shop Relationship Specialty Start Date End Date Matty Grover MD [address] [place] [address] [place] [address] PCP - General Internal Medicine 07/08/25
== END 2025-08-17 08:23 | disposition home or self-care (01) ==
LOC: HO.XRAY 08:22
PROVIDERS: PCP Internal Medicine; Visit Provider Radiology Diagnostic Radiology
DX: S92.355A Nondisplaced fracture of fifth metatarsal bone, left foot, initial encounter for closed fracture (principal)
CPT/HCPCS: 73630

== ENCOUNTER → 2025-08-17 08:25 | Outpatient (BNV) | payer OTHER, SELFPAY | PROVIDERS: PCP Internal Medicine; Visit Provider Radiology Diagnostic Radiology | DX: S92.355D Nondisplaced fracture of fifth metatarsal bone, left foot, subsequent encounter for fracture with routine healing (principal) | CPT/HCPCS: 73630 ==

== ENCOUNTER 2025-08-18 09:34 | Outpatient (AMB) | payer OTHER, SELFPAY ==
--- NOTE | 2025-08-18 09:43 | A.OFFVIS_ITS ---
Vital Signs 08/18/25 09:44 Height 5 ft 2 in Weight 132 lb BMI 24.1 Intake Visit Reasons: Follow up with x-rays Intake Note: Lakisha is a 55 year old female who presents today for a follow up on her X-ray results. Patient reports she is still experiencing pain in her left foot of the lateral aspect to her toes. X rays are in patients chart. Allergies aspirin (ASPIRIN) Allergy (Severe, Verified 08/18/25 10:21) STOMACH UPSET codeine (CODEINE) Allergy (Intermediate, Verified 08/18/25 10:21) STOMACH UPSET HPI HPI Follow up with x-rays: Details: 55-year-old female seen today for 1 month follow up evaluation of left foot 5th metatarsal fracture. She has been wearing the surgical shoe at all times. She notes some sensitivity and pain to the fracture site. History: Patient states that she was on vacation in [place] and fell while showering on 07/08/2025. She was seen at the ED and was provided with crutches, a post op shoe, oxycodone for pain. X-rays had shown a left 5th metatarsal fracture. She still complains of left foot pain and swelling however the bruising has improved. She also notes a history of right big toe fracture 20 years ago. She still has pain and stiffness due to the injury. Also complains of hammertoe deformities that are worsening to bilateral feet, right worse than left. [facility] Medical History Blood pressure elevated without history of HTN Obesity (BMI 30-39.9) Colon cancer screening Constipation Pyuria Bilateral hand pain Finger pain, right Intractable back pain Cough Vaginal dryness, menopausal Rhinitis Bacterial conjunctivitis Overweight (BMI 25.0-29.9) Impaired glucose tolerance Breast cancer screening by mammogram Asthma exacerbation Cervical cancer screening Abnormal TSH Stiffness of finger joint Bronchitis Asthma Trigger finger of left thumb Trigger finger of right thumb Carpal tunnel syndrome on both sides Hypertension Repetitive use syndrome Surgical History History of bladder suspension procedure Hx of colonoscopy H/O vaginal hysterectomy S/P tonsillectomy H/O abdominoplasty Hx of exploratory laparotomy Hx of cholecystectomy History of carpal tunnel release S/P trigger finger release Family History Brother Ulcerative colitis Maternal Uncle Substance abuse Other Colon cancer Social History Housing: Apartment Alcohol intake: current Alcohol intake frequency: does not drink Comment: once a year 1 glass Patient Tobacco Use Status: Former Tobacco user Tobacco use type: Cigarette Years Smoked: stopped 1991 does marijuana e-Cigarette/Vaping Use: Never Used Second Hand Smoke Exposure: No service: No Current occupational status: employed 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 Current occupational exposures/hazards: No Cognitive needs: No Hearing needs: No Vision needs: Yes Female Reproductive History Menstrual Age of Menarche: 11 Review of Systems Const All systems reviewed & are unremarkable except as noted in HPI and below Physical Exam Vital Signs: BMI result Body Mass Index 24.1 Extrem Other: *Bilateral Lower Extremity Focused Exam Vascular: DP/PT 2/4, CFT <3s to all digits, TG warm to cool, minimal left forefoot edema Derm: no ecchymosis over the left dorsal foot Neuro: Protective sensation grossly intact MSK: Mild pain on palpation of the distal aspect of the 5th metatarsal from the shaft of the metatarsophalangeal joint. Hyper sensitivity to touch. No pain on range of motion and palpation of the 1st through 4th Metatarsal- phalangeal joint, Lisfranc joint, or ankle joint. Results Reviewed Results Reviewed: X-ray Read: X-ray left foot 3 views (AP, MO, Lateral) reviewed which shows osseous bridging of the 5th metatarsal neck with callus formation. No further displacement. I personally reviewed the imaging and my findings are listed above. X-ray Read: X-ray right foot 3 views (AP, MO, Lateral) reviewed which shows moderate joint space narrowing and flexion deformity of the right 2nd 3rd and 4th PIPJ. Extension deformity of the right 2nd Metatarsal-phalangeal joint. I personally reviewed the imaging and my findings are listed above. Podiatry X-ray Read: 07/20/2025 X-ray left foot 3 views (AP, MO, Lateral) nonweightbearing reviewed which shows spiral fracture of the distal 5th metatarsal with lateral deviation of the metatarsal head, over 50% bone contact of the metatarsal head. No sagittal plane shift. Mild shortening of the metatarsal parabola. No fractures of the 5th digit. Moderate joint space narrowing of the 1st metatarsophalangeal joint with flattening of the metatarsal head. Large plantar calcaneal spur, mild dorsal navicular and medial cuneiform spurring. Bone density is within normal limits. I personally reviewed the imaging and my findings are listed above. Assessment & Plan Assessment & Plan (1) Fracture of fifth toe, left, closed: Code(s): S92.502A - Displaced unspecified fracture of left lesser toe(s), initial encounter for closed fracture Category: Medical Qualifiers: Encounter type: subsequent encounter Fracture healing: with routine healing Qualified Code(s): S92.502D - Displaced unspecified fracture of left lesser toe(s), subsequent encounter for fracture with routine healing Plan: * Reviewed left foot x-rays with the patient * Continue surgical shoe for 1 month * Instructed to purchase a carbon fiber insole * Follow up in 1 month with new x-rays (2) Hammertoe, bilateral: Code(s): M20.41 - Other hammer toe(s) (acquired), right foot; M20.42 - Other hammer toe(s) (acquired), left foot Category: Medical Plan: * Discussed conservative versus surgical treatment options including MIS hammertoe repair 2nd 3rd and 4th digits. 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: Code(s): L60.3 - Nail dystrophy; L98.9 - Disorder of the skin and subcutaneous tissue, u nspecified Category: Medical Plan: * Right 3rd toenail biopsy sent Orders: Orders Fungus Cult Hair/Skin/Nail Today L60.3 - Nail dystrophy, L98.9 - Disorder of the skin and subcutaneous tissue, unspecified XR foot LT min 3V 3 Weeks S92.502D - Displaced unspecified fracture of left lesser toe(s), subsequent encounter for fracture with routine healing Surgical Today L60.3 - Nail dystrophy, L98.9 - Disorder of the skin and subcutaneous tissue, unspecified Coding Level of Care Code Est Pt Level 3 (42708) Diagnoses Closed fracture of phalanx of left fifth toe with routine healing, subsequent encounter S92.502D Encounter type: subsequent encounter Fracture healing: with routine healing Hammertoe, bilateral M20.41; M20.42 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
[2025-08-18 09:44] VITALS: BMI 24.1
--- OUTSIDE RECORDS SUMMARY | 2025-08-18 13:34 | XMS_ITS | Clinical Summary ---
Author Organization [facility] Address [address] [place] [address] Care Team Providers Care Feeder Tender Name Role Phone Matty Grover MD Primary Care Provider [phone] Allergies No known active allergies Medications lidocaine [...] EDT - 07/09/2025 12:04 AM EDT Emergency [facility] Emergency Department [address] [place] [phone] Alexandrea Welsh DO Chest wall contusion, [...] 3. Plantar calcaneal enthesophyte us Alexandrea Vidal [facility] ORDE RABLES Final Result * [...] sign of acute cardiopulmonary disease. Alexandrea Vidal [facility] ORDE RABFLORINDA Final Result from Last 3 Months Insurance [facility] Care Teams Feeder Tender Relationship Specialty Start Date End Date Matty Grover MD [address] [place] [address] [place] [address] PCP - General Internal Medicine 07/08/25
== END 2025-08-18 10:11 | disposition home or self-care (01) ==
LOC: HO.HPODS 09:35
PROVIDERS: PCP Internal Medicine; Visit Provider Student in an Organized Health Care Education/Training Program
DX: S92.502D Displaced unspecified fracture of left lesser toe(s), subsequent encounter for fracture with routine healing (principal); M20.41 Other hammer toe(s) (acquired), right foot; M20.42 Other hammer toe(s) (acquired), left foot; L60.3 Nail dystrophy; L98.9 Disorder of the skin and subcutaneous tissue, unspecified
CPT/HCPCS: 99213

== ENCOUNTER 2025-08-18 09:34 | Outpatient (REF) | payer OTHER, SELFPAY | END 2025-08-18 09:35 | disposition home or self-care (01) | LOC: HO.LNP 09:34 | PROVIDERS: PCP Internal Medicine; Visit Provider Student in an Organized Health Care Education/Training Program | DX: S92.502D Displaced unspecified fracture of left lesser toe(s), subsequent encounter for fracture with routine healing (principal); M20.41 Other hammer toe(s) (acquired), right foot; M20.42 Other hammer toe(s) (acquired), left foot; L60.3 Nail dystrophy; L98.9 Disorder of the skin and subcutaneous tissue, unspecified; X58.XXXD Exposure to other specified factors, subsequent encounter | CPT/HCPCS: 88304; 88312; 99212 ==

== ENCOUNTER 2025-08-31 12:33 | Outpatient (REF) | payer OTHER, SELFPAY ==
[2025-08-31 15:37] LABS: Bacterial Vaginosis PCR POSITIVE (Negative); Candida Group PCR NOT DETECTED (Not Detect); Candida glab krusei PCR NOT DETECTED (Not Detect); Trichomonas vaginalis PCR NOT DETECTED (Not Detect)
== END 2025-08-31 12:34 | disposition home or self-care (01) ==
LOC: HO.LNP 12:33
PROVIDERS: PCP Internal Medicine; Visit Provider Advanced Practice Midwife
DX: N95.2 Postmenopausal atrophic vaginitis (principal); N90.89 Other specified noninflammatory disorders of vulva and perineum; Z20.2 Contact with and (suspected) exposure to infections with a predominantly sexual mode of transmission
CPT/HCPCS: 81515; 99212

== ENCOUNTER 2025-08-31 12:33 | Outpatient (AMB) | payer OTHER, SELFPAY ==
[2025-08-31 12:44] VITALS: BP 128/74; BMI 24.3
--- NOTE | 2025-08-31 12:44 | A.OFFVIS_ITS ---
Vital Signs 08/31/25 12:44 Height 5 ft 2 in Weight 133 lb BMI 24.3 BP 128/74 Blood Pressure Location Rt brachial Position Sitting Intake Visit Reasons: Hormone Check Allergies aspirin (ASPIRIN) Allergy (Severe, Verified 08/31/25 12:47) STOMACH UPSET codeine (CODEINE) Allergy (Intermediate, Verified 08/31/25 12:47) STOMACH UPSET HPI Comments Details: Patient is here today for a follow up on her estrogen cream. She feels overall better with this use, and wishes to continue. Today she admits to having external itching and irritation and wants to be checked for yeast infection. REPLACED BY [facility] Medical History Blood pressure elevated without history of HTN Obesity (BMI 30-39.9) Colon cancer screening Constipation Pyuria Bilateral hand pain Finger pain, right Intractable back pain Cough Vaginal dryness, menopausal Rhinitis Bacterial conjunctivitis Overweight (BMI 25.0-29.9) Impaired glucose tolerance Breast cancer screening by mammogram Asthma exacerbation Cervical cancer screening Abnormal TSH Stiffness of finger joint Bronchitis Asthma Trigger finger of left thumb Trigger finger of right thumb Carpal tunnel syndrome on both sides Hypertension Repetitive use syndrome Surgical History History of bladder suspension procedure Hx of colonoscopy H/O vaginal hysterectomy S/P tonsillectomy H/O abdominoplasty Hx of exploratory laparotomy Hx of cholecystectomy History of carpal tunnel release S/P trigger finger release Family History Brother Ulcerative colitis Maternal Uncle Substance abuse Other Colon cancer Social History Housing: Apartment Alcohol intake: current Alcohol intake frequency: does not drink Comment: once a year 1 glass Patient Tobacco Use Status: Former Tobacco user Tobacco use type: Cigarette Years Smoked: stopped 1991 does marijuana e-Cigarette/Vaping Use: Never Used Second Hand Smoke Exposure: No service: No Current occupational status: employed 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 Current occupational exposures/hazards: No Cognitive needs: No Hearing needs: No Vision needs: Yes Female Reproductive History Menstrual Age of Menarche: 11 Review of Systems Const All systems reviewed & are unremarkable except as noted in HPI and below Physical Exam Vital Signs: Last Vital Signs BP 128/74 08/31/25 12:44 BMI result Body Mass Index 24.3 Const General: cooperative, healthy appearing and no acute distress Orientation/consciousness: patient oriented x3 GI Inspection: Yes normal to inspection Palpation (GI): Soft to palpation and Other GI palpation findings present (Nontender) Rectal Exam - Female: visual inspection normal General: Yes bladder normal to palpation External Female Exam: normal appearance of the urethra Speculum Exam - Vagina: normal appearance of the vagina, normal palpation and normal vaginal discharge Speculum Exam - Cervix: Cervix absent (Vaginal cuff no lesions or nodules) Bimanual exam- vagina & uterus: normal bimanual exam, normal palpation, uterine size normal, bladder normal to palpation, uterine shape normal and non-tender Bimanual Exam- Adnexa, other: normal adnexae Neuro General: patient oriented x3 Assessment & Plan Assessment & Plan (1) Vaginal atrophy: Code(s): N95.2 - Postmenopausal atrophic vaginitis Category: Medical Plan: Continue with the vaginal Estrace as directed report any postmenopausal bleeding, or other concerns. (2) Vulvar irritation: Code(s): N90.89 - Other specified noninflammatory disorders of vulva and perineum Plan BV panel obtained await results for final plan of care. Discussed skin care. The patient expressed understanding and agreement with the plan of care. All of her questions and concerns were addressed to the best of my ability. This note is constructed using voice recognition software. While every effort has been made to ensure accuracy, tin can feeder errors may have been included. Orders: Orders Bacterial Vaginosis Panel Today N89.8 - Other specified noninflammatory disorders of vagina Coding Level of Care Code Est Pt Level 3 (68295) Diagnoses Vaginal atrophy N95.2 Vulvar irritation N90.89
--- OUTSIDE RECORDS SUMMARY | 2025-08-31 14:47 | XMS_ITS | Clinical Summary ---
Author Organization [facility] Address [address] [place] [address] Care Team Providers Care Core Measures Abstractor Name Role Phone aMtty Grover MD Primary Care Provider [phone] Allergies No known active allergies Medications lidocaine [...] EDT - 07/09/2025 12:04 AM EDT Emergency Day [facility] Emergency Department [address] [place] [phone] Alexandrea Welsh DO Chest wall contusion, right, initial encounter (Primary Dx); Unspecified physeal fracture of left metatarsal, initial encounter for closed fracture Discharge Disposition: Home or Self Care from Last 3 Months Social History Tobacco [...] Osteoarthritis discussed above 3. Plantar calcaneal enthesophyte Alexandrea Vidal [facility] Final [...] sign of acute cardiopulmonary disease. Alexandrea Vidal [facility] Final Result from Last 3 Months Insurance [facility] [employer] Care Teams Core Measures Abstractor Relationship Specialty Start Date End Date Matty Grover MD [address] [place] [address] [place] [address] PCP - General Internal Medicine 07/08/25
== END 2025-08-31 13:10 | disposition home or self-care (01) ==
LOC: HO.HWS 12:34
PROVIDERS: PCP Internal Medicine; Visit Provider Advanced Practice Midwife
DX: N95.2 Postmenopausal atrophic vaginitis (principal); N90.89 Other specified noninflammatory disorders of vulva and perineum
CPT/HCPCS: 99213